=== PATIENT | male | born 1960 | race Caucasian/White ===

== ENCOUNTER → 2018-02-03 | Day surgery (SDC) | payer SELFPAY ==
--- OUTSIDE RECORDS SUMMARY | 2018-02-03 09:24 | XMS REPORT | Clinical Summary ---
:1960 Author Organization [facility] Address [facility] [place] [address] Care Team Providers Name Role Phone Unavailable Primary Care Provider Unavailable Allergies No Known Allergies Current Medications Not on file Active Problems Not on file Encounters Date Type Specialty Care Team Description 12/22/2017 Emergency Emergency Medicine History of basal cell cancer (Primary Dx) after 02/02/2017 Social History Tobacco Use Types Packs/Day Years Used Date Never Assessed Sex Assigned at Date Recorded Not on file Last Filed Vital Signs Vital Sign Reading Time Taken Blood Pressure 163/82 12/22/2017 11:22 AM CDT Pulse 84 12/22/2017 11:22 AM CDT Temperature 36.8 C (98.2 F) 12/22/2017 11:22 AM CDT Respiratory Rate 20 12/22/2017 11:22 AM CDT Oxygen Saturation 100% 12/22/2017 11:22 AM CDT Inhaled Oxygen Concentration - - Weight - - Height - - Body Mass Index - - Plan of Treatment Health Maintenance Due Date Last Done Comments COLORECTAL CANCER SCRN ANNUAL (FIT/FOBT) AGE 50 TO 75 02/21/2010 Results Not on fileafter 02/02/2017
--- OUTSIDE RECORDS SUMMARY | 2018-02-03 09:24 | XMS REPORT ---
:1960 Author Organization [facility] Address [address] [place] [address] Dr. Bynum [address] [place] [address] Care Team Providers Name Role Phone Unavailable Unavailable Unavailable Problems This patient has no known problems. Allergies, Adverse Reactions, Alerts This patient has no known allergies or adverse reactions. Medications This patient has no known medications. Encounters Start End Encounter Admission Attending Care Care Encounter Date/Time Date/Time Type Type Clinicians Facility Department ID 2017-12-22 2017-12-22 Emergency [facility] [id number] 11:20:00 11:20:00
--- NOTE | 2018-02-03 12:19 | RAD REPORT ---
EXAM DESCRIPTION: US - Guided FNA Non Breast - 02/03/2018 10:52 am CLINICAL HISTORY: D48.5 COMPARISON: None. FINDINGS: Preoperative diagnosis: Left supraclavicular mass.. Post operative diagnosis: Same. Conscious Sedation: None Fluoroscopy time: None Contrast used: None Estimated blood loss: Minimal Specimens:4 x 18 gauge 1 cm core biopsies were obtained. The left supraclavicular region was prepped and draped in the usual sterile fashion. 1% lidocaine was infiltrated into the subcutaneous tissues for local anesthesia. Real time ultrasound scanning of the left supraclavicular region demonstrated a 2 x 1.4 cm hypoechoic mass. Under ultrasound guidance, us ing a 18-gauge, 6 cm long, 2 cm throw core biopsy gun, four specimens were obtained of this lesion an d sent to pathology for evaluation. There were no complications. IMPRESSION: Successful ultrasound-guided biopsy of left supraclavicular mass.
== END | disposition home or self-care (01) ==
LOC: FNA 09:21
PROVIDERS: ATTEND Surgery
PROC: 07D23ZX Extraction of Left Neck Lymphatic, Percutaneous Approach, Diagnostic (ICD-10-PCS; principal; 2018-02-03)
DX: C44.41 Basal cell carcinoma of skin of scalp and neck (principal)
CPT/HCPCS: 88305

== ENCOUNTER 2019-11-09 14:24 | Emergency (ER) | payer OTHER, SELFPAY ==
--- OUTSIDE RECORDS SUMMARY | 2019-11-09 14:26 | XMS REPORT ---
:1960 Author Organization [facility] Address [address] [place] [address] Dr. Bynum [address] [place] [address] Care Team Providers Name Role Phone Unavailable Unavailable Unavailable Problems This patient has no known problems. Allergies, Adverse Reactions, Alerts This patient has no known allergies or adverse reactions. Medications This patient has no known medications. Encounters Start End Encounter Admission Attending Care Care Encounter Date/Time Date/Time Type Type Clinicians Facility Department ID 2017-12-22 2017-12-22 Emergency [facility] [id number] 11:20:00 11:20:00
[2019-11-09] MEDS ORDERED: NA CHLORIDE 0.9% 2,000 ML ONE (15:06)
[2019-11-09] MEDS ORDERED: ONDANSETRON 4 MG/2 ML VIAL ONE (15:06)
[2019-11-09 15:24] LABS: Absolute Lymphocytes (CBC) 1.3 K/uL (0.7-4.9); Basophils % 0.2 % (0-1.3); Hematocrit 42.7 % (39.6-49.0); Lymphocytes % 22.5 % (15.3-44.8); MPV 7.7 fL (7.6-11.3); RBC Red Blood Cell Count 4.86 M/uL (4.33-5.43)
--- NOTE | 2019-11-09 15:33 | RAD REPORT ---
EXAM DESCRIPTION: RAD - Chest Single View - 11/09/2019 3:21 pm CLINICAL HISTORY: hypotension Chest pain. COMPARISON: Rad Therapy Fld Place Chest dated 03/03/2018 FINDINGS: Portable technique limits examination quality. Elevated left hemidiaphragm is noted. The lungs are grossly clear. The heart is upper limit normal in size. No displaced fractures.
[2019-11-09 15:37] LABS: ALT/SGPT 87 U/L (12-78); AST/SGOT 97 U/L (15-37); Albumin 3.1 g/dL (3.4-5.0); Alkaline Phosphatase 89 U/L (45-117); BUN Blood Urea Nitrogen 13 mg/dL (7-18); Bicarbonate 24 mmol/L (21-32); Bilirubin Direct 0.6 mg/dL (0-0.2); Bilirubin Total 1.2 mg/dL (0.2-1.0); Glucose Level 81 mg/dL (74-106); Lipase 96 U/L (73-393); Potassium 4.4 mmol/L (3.5-5.1); Protein, Total 7.8 g/dL (6.4-8.2); Sodium Level 138 mmol/L (136-145); Troponin (Emerg Dept Use Only) < 0.02 ng/mL (0.0-0.045)
--- NOTE | 2019-11-09 16:07 | RAD REPORT ---
EXAM DESCRIPTION: CTAbdomen Pelvis W Contrast - 11/09/2019 3:55 pm CLINICAL HISTORY: Abdominal pain. abd pain, vomiting, chemo patient COMPARISON: Chest Single View dated 11/09/2019; Liver Only dated 11/05/2019; Ct Skull/Thigh dated 2018 TECHNIQUE: Biphasic CT imaging of the abdomen and pelvis was performed with 100 ml non-ionic IV cont rast. All CT scans are performed using dose optimization technique as appropriate and may include automated exposure control or mA/KV adjustment according to patient size. FINDINGS: The lung bases are clear. Mild nonspecific gallbladder distension. The liver, spleen, pancreas, adrenal glands and kidneys are within normal limits. No bowel obstruction, free air, free fluid or abscess. The appendix is normal. No evidence of signi ficant lymphadenopathy. No suspicious bony findings. IMPRESSION: No acute intra-abdominal or pelvic finding.
--- NOTE | 2019-11-09 17:05 | ER ---
Nurse's Notes [facility] Name: Patrick Sweeney Age: 59 yrs Sex: Male : 1960 Arrival Date: 11/09/2019 Time: 14:25 Bed 23 Private MD: Diagnosis: Dehydration;Hypotension, unspecified Presentation: 11/08 14:37 Chief complaint: Patient states: chemo patient seen at wound healing center for wound dm5 on left upper scapula, found to be hypotensive, weak and fatigued. Coronavirus screen: The patient has NOT traveled to a country currently being monitored by the [facility] within the last 14 days. The patient has NOT had contact with any known and/or suspected case of coronavirus. Ebola Screen: Patient negative for fever greater than or equal to 101.5 degrees Fahrenheit, and additional compatible Ebola Virus Disease symptoms Patient denies exposure to infectious person. Patient denies travel to an Ebola-affected area in the 21 days before illness onset. No symptoms or risks identified at this time. Initial Sepsis Screen: Does the patient meet any 2 criteria? Systolic BP < 90 mmHg. HR > 90 bpm. Yes Does the patient have a suspected source of infection? Yes: Other: immunocompromised, chemo patient with wound to left scapula. Risk Assessment: Do you want to hurt yourself or someone else? Patient reports no desire to harm self or others. Note pt also reports some stomach "churning", vomiting yesterday. 14:37 Method Of Arrival: Wheelchair dm5 14:37 Acuity: RONNIE 2 dm5 16:32 Onset of symptoms was November 07, 2019. ll1 Historical: - Allergies: 16:35 NKDA; ll1 - PMHx: 16:35 basil cell carcinoma; ll1 - Immunization history:: Adult Immunizations up to date. - Family history:: not pertinent. - Social history:: Smoking status: Patient denies any tobacco usage or history of. Patient/guardian denies using alcohol, street drugs, tobacco products. - Hospitalizations: : No recent hospitalization is reported. Screenin:49 Abuse screen: Denies threats or abuse. Nutritional screening: Has had N/V for 3 or more ll1 days Intervention for positive screen: ED Physician notified, chemo patient. Tuberculosis screening: No symptoms or risk factors identified. Fall Risk Secondary diagnosis (15 points) weak dehydration. IV access (20 points). Gait- Weak (10 pts.). Mental Status- Oriented to own ability (0 pts). Total Botello Fall Scale indicates High Risk Score (45 or more points). 14:50 Sepsis Screening: SIRS - Systemic Inflammatory Response Syndrome: 2 or more indicates ll1 positive screen: [heart rate greater than 90 beats per minute]. Assessment: 14:49 General: Appears ill, Behavior is calm, cooperative. ll1 15:49 Reassessment: No changes from previously documented assessment. Patient and/or family ll1 updated on plan of care and expected duration. Pain level reassessed. Patient is alert, oriented x 3, equal unlabored respirations, skin warm/dry/pink. 16:30 Pain: Denies pain. Neuro: No deficits noted. Cardiovascular: No deficits noted. ll1 Respiratory: No deficits noted. GI: Abdomen is flat, Bowel sounds present X 4 quads. Abd is soft and non tender X 4 quads. Reports nausea, vomiting. 17:30 Reassessment: No changes from previously documented assessment. Patient and/or family ll1 updated on plan of care and expected duration. Pain level reassessed. Patient is alert, oriented x 3, equal unlabored respirations, skin warm/dry/pink. Feels better. Vital Signs: 14:37 BP 80 / 63; Pulse 113; Resp 20; Temp 99(TE); Pulse Ox 100% on R/A; Weight 91.17 kg (R); dm5 Height 5 ft. 11 in. (180.34 cm); Pain 6/10; 15:29 BP 111 / 75; Pulse 92; Resp 17; Pulse Ox 99% ; ll1 16:30 BP 121 / 72; Pulse 90; Resp 17; Pulse Ox 96% ; ll1 17:06 Pulse 91; Resp 16; Pulse Ox 99% ; ll1 17:28 BP 127 / 75; Pulse 100; Resp 16; Temp 98.0; Pulse Ox 99% ; Pain 0/10; ll1 14:37 Body Mass Index 28.03 (91.17 kg, 180.34 cm) dm5 Vitals: 15:29 Cardiac Rhythm Assessment Sinus tach. ll1 ED Course: 14:25 Patient arrived in ED. ag5 14:40 Triage completed. dm5 14:43 Familia Coleman MD is Attending Physician. rn 14:45 Dimitrios, Lynsay, RN is Primary Nurse. ll1 15:00 Inserted saline lock: 20 gauge in left antecubital area, using aseptic technique. Blood ll1 collected. 15:06 Radiology exam delayed due to lab results not completed at this time. (BUN/Creatinine). vm2 15:27 Chest Single View XRAY In Process Unspecified. EDMS 15:57 CT Abd/Pelvis - IV Contrast Only In Process Unspecified. EDMS 16:32 Arm band placed on Patient placed in an exam room. ll1 16:33 Patient has correct armband on for positive identification. Placed in gown. Bed in low ll1 position. Call light in reach. Side rails up X2. Warm blanket given. 17:29 No provider procedures requiring assistance completed. IV discontinued, intact, ll1 bleeding controlled, No redness/swelling at site. Pressure dressing applied. Administered Medications: 15:08 Drug: Zofran (Ondansetron) 4 mg Route: IVP; Site: left antecubital; ll1 17:10 Follow up: Response: No adverse reaction; Nausea is decreased; RASS: Alert and Calm (0) 15:09 Drug: NS 0.9% 1000 ml Route: IV; Rate: 1000 ml; Site: left antecubital; ll1 17:10 Follow up: Response: No adverse reaction; RASS: Alert and Calm (0); IV Status: ss Completed infusion 15:09 Drug: NS 0.9% 1000 ml Route: IV; Rate: 1000 ml; Site: left antecubital; ll1 17:11 Follow up: Response: No adverse reaction; RASS: Alert and Calm (0); IV Status: ss Completed infusion Outcome: 17:05 Discharge ordered by . rn 17:31 Discharged to home ambulatory. ll1 17:31 Condition: good 17:31 Discharge instructions given to patient, Instructed on discharge instructions, follow up and referral plans. medication usage, Demonstrated understanding of instructions, follow-up care, medications, Prescriptions given X 1. 17:31 Patient left the ED. ll1 Signatures: Dispatcher [employer] EDIA Destiny Lackey RN RN dm5 Familia Coleman MD MD rn Smirch, Shelby, RN RN Erin Martinez [facility] Frederic Plunkett, EVAN RN 1
--- NOTE | 2019-11-09 17:06 | EDPHYS ---
Physician Documentation [facility] Name: Patrick Sweeney Age: 59 yrs Sex: Male : 1960 Arrival Date: 11/09/2019 Time: 14:25 Bed 23 Private MD: ED Physician Familia Coleman HPI: 11/08 14:54 This 59 yrs old Male presents to ER via Wheelchair with complaints of rn Dehydration - hypotension. 14:[address] Mcneal for evaluation of low blood pressure and tachycardia, has known rn basal cell carcinoma, last chemo last week, reports wound looks better than before, and most recently has been feeling increased weakness/fatigue/nausea. No fever. NO new rash. No chest pain. Reports has not been eating/drinking much, seen at cancer center yesterday and given IV fluids. . Onset: The symptoms/episode began/occurred 3 week(s) ago. Severity of symptoms: At their worst the symptoms were moderate in the emergency department the symptoms are unchanged. The patient has experienced similar episodes in the past. The patient has been recently seen by a physician:. Historical: - Allergies: 16:35 NKDA; ll1 - PMHx: 16:35 basil cell carcinoma; ll1 - Immunization history:: Adult Immunizations up to date. - Family history:: not pertinent. - Social history:: Smoking status: Patient denies any tobacco usage or history of. Patient/guardian denies using alcohol, street drugs, tobacco products. - Hospitalizations: : No recent hospitalization is reported. ROS: 14:54 Constitutional: Negative for fever, chills Eyes: Negative for injury, pain, redness, rn and discharge, Cardiovascular: Negative for chest pain, palpitations Respiratory: Negative for wheezing, and pleuritic chest pain, Abdomen/GI: Negative for diarrhea, and constipation, : Negative for injury, bleeding, discharge, and swelling, MS/Extremity: Negative for injury and deformity, Skin: Negative for injury Neuro: Negative for headache, numbness, tingling, and seizure. Exam: 14:54 Constitutional: This is a well developed, well nourished patient who is awake, alert, rn appears generally weak Head/Face: Normocephalic, atraumatic. ENT: dry MM Cardiovascular: Tachycardic, regular, intact distal pulses Respiratory: Mild tachypnea, no retractions Abdomen/GI: soft, mild mid abd tenderness, no rebound MS/ Extremity: Pulses equal, no cyanosis. Neurovascular intact. Full, normal range of motion. Equal circumference. Neuro: Awake and alert, GCS 15, oriented to person, place, time, and situation. Cranial nerves II-XII grossly intact. Motor strength 4/5 in all extremities. Sensory grossly intact 14:54 ECG was reviewed by the Attending Physician. Vital Signs: 14:37 BP 80 / 63; Pulse 113; Resp 20; Temp 99(TE); Pulse Ox 100% on R/A; Weight 91.17 kg (R); dm5 Height 5 ft. 11 in. (180.34 cm); Pain 6/10; 15:29 BP 111 / 75; Pulse 92; Resp 17; Pulse Ox 99% ; ll1 16:30 BP 121 / 72; Pulse 90; Resp 17; Pulse Ox 96% ; ll1 17:06 Pulse 91; Resp 16; Pulse Ox 99% ; ll1 17:28 BP 127 / 75; Pulse 100; Resp 16; Temp 98.0; Pulse Ox 99% ; Pain 0/10; ll1 14:37 Body Mass Index 28.03 (91.17 kg, 180.34 cm) dm5 MDM: 14:43 Patient medically screened. rn 16:20 Differential Diagnosis sepsis, flu, dehydration, abdominal infection. Data reviewed: rn vital signs, nurses notes, lab test result(s), EKG, radiologic studies, CT scan, plain films, and as a result, I will discharge patient. Counseling: I had a detailed discussion with the patient and/or guardian regarding: the historical points, exam findings, and any diagnostic results supporting the discharge/admit diagnosis, lab results, radiology results, the need for outpatient follow up, to return to the emergency department if symptoms worsen or persist or if there are any questions or concerns that arise at home. Response to treatment: the patient's symptoms have markedly improved after treatment, the patient's condition has returned to base line, the patient is now symptom free, patient is well hydrated. and as a result, I will discharge patient. Special discussion: I discussed with the patient/guardian in detail that at this point there is no indication for admission to the hospital. It is understood, however, that if the symptoms persist or worsen the patient needs to return immediately for re-evaluation. ED course: Pt markedly improved, normal BP after just a little fluid, neg procalcitonin, normal lactate, no acute findings in cxr or ct abdomen, most likely moderate dehydration related to chemo/cancer. states wound looks good and no new skin changes found. Will dc home as feels much better, and back to his baseline. Normal vitals. Will f/u with oncology and return precautions given/understood. . 17:04 ED course: Urine neg for infection. rn 11/08 14:51 Order name: CBC with Diff; Complete Time: 15:57 rn 11/08 14:51 Order name: Basic Metabolic Panel; Complete Time: 15:57 rn 11/08 14:51 Order name: Blood Culture Adult (2) rn 11/08 14:51 Order name: Lactate; Complete Time: 15:57 rn 11/08 14:51 Order name: LFT's; Complete Time: 15:57 rn 11/08 14:51 Order name: Lipase; Complete Time: 15:57 rn 11/08 14:51 Order name: Procalcitonin; Complete Time: 16:16 rn 11/08 14:51 Order name: Troponin (emerg Dept Use Only); Complete Time: 15:57 rn 11/08 14:51 Order name: Urine Microscopic Only rn 11/08 14:51 Order name: Chest Single View XRAY; Complete Time: 16:16 rn 11/08 14:51 Order name: CT Abd/Pelvis - IV Contrast Only; Complete Time: 16:47 rn 11/08 14:53 Order name: Flu; Complete Time: 16:16 rn 11/08 14:51 Order name: IV Start; Complete Time: 23: rn 11/08 14:51 Order name: Accucheck; Complete Time: 23: rn 11/08 14:51 Order name: Cardiac monitoring; Complete Time: 23: rn 11/08 14:51 Order name: EKG - Nurse/Tech; Complete Time: 15:18 rn 11/08 14:51 Order name: IV Saline Lock - Large Bore; Complete Time: 23: rn 11/08 14:51 Order name: Labs collected and sent; Complete Time: 15:18 rn 11/08 14:51 Order name: O2 Per Protocol; Complete Time: 23: rn 11/08 14:51 Order name: O2 Sat Monitoring; Complete Time: 23: rn 11/08 14:51 Order name: Urine Dipstick-Ancillary (obtain specimen); Complete Time: 23: rn 11/08 15:42 Order name: EKG Electrocardiogram EDDC EC:54 Rate is 102 beats/min. Rhythm is regular. QRS [place] is Normal. PA interval is normal. rn QRS interval is normal. QT interval is normal. No Q waves. T waves are Normal. No ST changes noted. Clinical impression: NSR w/ Non-specific ST/T Changes. Interpreted by me. Reviewed by me. Administered Medications: 15:08 Drug: Zofran (Ondansetron) 4 mg Route: IVP; Site: left antecubital; ll1 17:10 Follow up: Response: No adverse reaction; Nausea is decreased; RASS: Alert and Calm (0) ss 15:09 Drug: NS 0.9% 1000 ml Route: IV; Rate: 1000 ml; Site: left antecubital; ll1 17:10 Follow up: Response: No adverse reaction; RASS: Alert and Calm (0); IV Status: ss Completed infusion 15:09 Drug: NS 0.9% 1000 ml Route: IV; Rate: 1000 ml; Site: left antecubital; ll1 17:11 Follow up: Response: No adverse reaction; RASS: Alert and Calm (0); IV Status: ss Completed infusion Disposition: 11/09/19 17:05 Discharged to Home. Impression: Dehydration, Hypotension, unspecified. - Condition is Stable. - Discharge Instructions: Dehydration, Adult, Hypotension. - Prescriptions for Zofran ODT 4 mg Oral tablet,disintegrating - place 1 tablet by TRANSLINGUAL route every 8 hours; 20 tablet. - Medication Reconciliation Form, Thank You Letter, Antibiotic Education, Prescription Opioid Use form. - Follow up: Private Physician; When: As needed; Reason: Recheck today's complaints, Re-evaluation by your physician. - Problem is new. - Symptoms have improved. Signatures: Dispatcher [employer] EDMS Familia Coleman MD MD rn Lewis, Lynsay, RN RN ll1 Yojana Baca RN Corrections: (The following items were deleted from the chart) 17:31 17:05 11/09/2019 17:05 Discharged to Home. Impression: Dehydration; Hypotension, ll1 unspecified. Condition is Stable. Forms are Medication Reconciliation Form, Thank You Letter, Antibiotic Education, Prescription Opioid Use. Follow up: Private Physician; When: As needed; Reason: Recheck today's complaints, Re-evaluation by your physician. Problem is new. Symptoms have improved. rn
[2019-11-09 17:29] LABS: Urine Amorphous Sediment TRACE /HPF (NONE SEEN); Urine Bacteria <20 /HPF (NONE SEEN); Urine Culture Reflex Order NOT NEEDED; Urine Mucus SLIGHT /HPF (NONE SEEN); Urine RBC <5 /HPF (NONE SEEN)
[2019-11-09 17:43] VITALS: O2SAT 99
[2019-11-09 17:45] VITALS: BP 127/75; TEMP 98
--- NOTE | 2019-11-10 09:28 | EKG ---
Test Date: 2019-11-09 Test Time: 15:00:52 Physical Security Specialist: VIOLET MEASUREMENT RESULTS: Intervals: Rate: 102 FL: 162 QRSD: 84 QT: 352 QTc: 458 [place]: P: 77 FL: 162 QRS: 47 T: 50 INTERPRETIVE STATEMENTS: Sinus tachycardia Low voltage QRS Borderline ECG No previous ECG available for comparison Electronically Signed On 11-10-19 09:27:16 CDT by Kenney Gutierres
== END 2019-11-09 17:31 | disposition home or self-care (01) ==
LOC: ER 14:24
DX: I95.9 Hypotension, unspecified (principal); E86.0 Dehydration
CPT/HCPCS: 96361; 93005; 87040 ×2; 85025; 80048; 36415; 80076; 83605; 81015; 84484; 83690; 84145; 87804 ×2; 74177; 71045; 96374; 99284; Q9967; J7030; J2405

== ENCOUNTER 2019-12-10 07:56 | Day surgery (SDC) | payer OTHER, SELFPAY ==
--- OUTSIDE RECORDS SUMMARY | 2019-12-10 07:59 | XMS REPORT ---
:1960 Author Organization [facility] t Address [address] [place] [address] Dr. B[address]um [address] [place] [id number] Care Team Providers Name Role Phone Unavailable Unavailable Unavailable Problems This patient has no known problems. Allergies, Adverse Reactions, Alerts This patient has no known allergies or adverse reactions. Medications This patient has no known medications. Encounters Start End Encounter Admission Attending Care Care Encounter Date/Time Date/Time Type Type Clinicians Facility Department ID 2017-12-22 2017-12-22 Emergency [facility] [id number] 11:20:00 11:20:00
[2019-12-10] MEDS ORDERED: PROMETHAZINE INJ 25 MG/ML AMP ONE (08:05)
[2019-12-10] MEDS ORDERED: CEFOXITIN/SWI 1gm 1 GM/10 ML SYR ONE (08:05)
[2019-12-10] MEDS ORDERED: Ringers Lactate 1,000 ML IV ONE ×2 (08:05→09:07)
[2019-12-10] MEDS ORDERED: BUPIVACAINE 0.5% PF 10 ML VIAL ONE (08:13)
[2019-12-10] MEDS ORDERED: FENTANYL CITR 100 MCG/2 ML ONE (08:28)
[2019-12-10] MEDS ORDERED: propofoL 200 MG/20 ML VIAL IV ONE (08:29)
[2019-12-10] MEDS ORDERED: ROCURONIUM 50 MG/5 ML VIAL IV ONE (08:29)
[2019-12-10] MEDS ORDERED: LIDOCAINE 1% MPF 5 ML VIAL ONE (08:30)
[2019-12-10] MEDS ORDERED: MIDAZOLAM HCL 2 MG/2 ML INJ ONE (08:30)
[2019-12-10] MEDS ORDERED: Phenylephrine HCl 10 MG/ML 1 ML VIAL ONE (08:57)
[2019-12-10] MEDS ORDERED: NS 0.9% VIAL 10 ML ONE (08:57)
[2019-12-10] MEDS ORDERED: dexAMETHasone 10 MG/ML VIAL ONE (09:06)
[2019-12-10] MEDS ORDERED: KETOROLAC 30 MG/ML INJ ONE (09:14)
[2019-12-10] MEDS ORDERED: GLYCOPYRROLATE 0.2 MG/ML SYR ONE (09:22)
[2019-12-10] MEDS ORDERED: ONDANSETRON 4 MG/2 ML VIAL ONE (09:22)
[2019-12-10] MEDS ORDERED: NEOSTIGMINE 1 MG/ML -5 ML ONE (09:41)
--- NOTE | 2019-12-10 10:12 | OP ---
Date of Procedure: 12/10/2019 Surgeon: Guanako Mcneal MD Research Specialist: JOVAN Pastor Preoperative Diagnosis: Chronic cholecystitis and cholelithiasis. Postoperative Diagnosis: Chronic cholecystitis and cholelithiasis. Procedure: Laparoscopic cholecystectomy. Estimated Blood Loss: Minimal. Specimen: Gallbladder. Finding: As above. Anesthesia: General. Complications: None. Patient tolerated the procedure in stable condition, taken to Recovery in good general condition. Operative Note: Patient brought to the OR and placed in supine position. General anesthesia was beg un. Patient was prepped and draped in the usual sterile fashion. Marcaine 0.5% was infiltrated loca lly. A 15-blade was used to make a 1 cm supraumbilical midline incision. Subcutaneous tissue was di vided. Fascia was identified and divided. #1 Vicryl stay suture was placed. Peritoneal cavity ente red with sharp and blunt dissection. 12 mm trocar placed into the peritoneal cavity under direct vis ion. Pneumoperitoneum established. Three 5 mm trocars were placed, 1 in the epigastrium just to the right of midline and 2 in the right subcostal region. Laparoscopy revealed a distended chronically inflamed gallbladder. Fundus retracted superiorly. Infundibulum was identified and retracted infero laterally. Cystic duct and cystic artery were clearly identified with blunt dissection. Clips place d. Both structures were divided. Cautery was used to remove the gallbladder from the liver bed. Bl eeding on the liver bed was controlled with cautery. The gallbladder was retrieved through the umbil icus via an EndoCatch bag. Right upper quadrant irrigated. Effluent clear. No evidence of bleeding or bile leakage appreciated. Subsequently, all trocars were removed under direct vision. Stay sutu res were tied to each other to reapproximate the fascial defect. Subcutaneous wounds were irrigated. Bleeding controlled with cautery. 3-0 chromic used to approximate the subcutaneous tissue and clos e the skin. Sterile dressing was applied. Patient was awakened and taken to Recovery in good genera l condition. Discharge Note: Patient went to Day Surgery and home when stable. Disposition: Home. Condition: Stable. Discharge Instructions: Resume home medications and diet. Activity as tolerated. No heavy lifting. Remove outer dressing in 2 days. Shower. Keep wound clean and dry. Keep Steri-Strips on at all t imes. Incentive spirometry is ordered. [facility] up with [facility]. PATTIE/VANESSA Voice ID: [id number] Report ID: [id number]
[2019-12-10 11:55] VITALS: BP 120/75; TEMP 97.8; O2SAT 99
[2019-12-10] MEDS ORDERED: HYDROCODONE/APAP 7.5/325 MG TAB ONE (12:03)
== END 2019-12-10 13:10 | disposition home or self-care (01) ==
LOC: OR 07:56
PROVIDERS: ATTEND Surgery
PROC: 0FT44ZZ Resection of Gallbladder, Percutaneous Endoscopic Approach (ICD-10-PCS; principal; 2019-12-10 09:00)
DX: K80.10 Calculus of gallbladder with chronic cholecystitis without obstruction (principal); C44.91 Basal cell carcinoma of skin, unspecified
CPT/HCPCS: 88304; 47562; J2704; J2550; J2370; J2250; J3010; J1100; J2710; J7120 ×2; J2405

== ENCOUNTER 2019-12-19 12:51 | Observation (INO) | payer OTHER, SELFPAY ==
--- OUTSIDE RECORDS SUMMARY | 2019-12-19 12:53 | XMS REPORT ---
:1960 Author Organization [facility] t Address [address] [place] [address] Dr. Bynum [address] [place] [address] Care Team Providers Name Role Phone Unavailable Unavailable Unavailable Problems This patient has no known problems. Allergies, Adverse Reactions, Alerts This patient has no known allergies or adverse reactions. Medications This patient has no known medications. Encounters Start End Encounter Admission Attending Care Care Encounter Date/Time Date/Time Type Type Clinicians Facility Department ID 2017-12-22 2017-12-22 Emergency [facility] [id number] 11:20:00 11:20:00
[2019-12-19] MEDS ORDERED: NA CHLORIDE 0.9% 1,000 ML ONE ×2 (13:52→15:04)
[2019-12-19 13:57] LABS: Absolute Lymphocytes (CBC) 2.2 K/uL (0.7-4.9); Basophils % 0.3 % (0-1.3); Hematocrit 46.7 % (39.6-49.0); Lymphocytes % 20.9 % (15.3-44.8); MPV 7.9 fL (7.6-11.3); Protime INR 1.26; RBC Red Blood Cell Count 5.21 M/uL (4.33-5.43)
[2019-12-19 15:12] LABS: Urine Blood NEGATIVE (NEG); Urine Glucose NEGATIVE (NEG); Urine Protein NEGATIVE (NEG); Urine Specific Gravity >1.030 (1.005-1.030); Urine pH 5.5 (5.0-7.0)
[2019-12-19 15:15] LABS: Urine Bacteria <20 /HPF (NONE SEEN); Urine RBC <5 /HPF (NONE SEEN)
[2019-12-19 15:16] LABS: Urine Culture Reflex Order NOT NEEDED
[2019-12-19] MEDS ORDERED: PROMETHAZINE INJ 25 MG/ML AMP ONE (16:01)
[2019-12-19 16:13] LABS: Albumin 3.2 g/dL (3.4-5.0); Bilirubin Direct 0.6 mg/dL (0-0.2); Bilirubin Total 1.3 mg/dL (0.2-1.0); Magnesium 1.8 mg/dL (1.8-2.4); Phosphorus 4.1 mg/dL (2.5-4.9); Potassium 4.3 mmol/L (3.5-5.1); Protein, Total 9.4 g/dL (6.4-8.2)
--- NOTE | 2019-12-19 17:13 | RAD REPORT ---
EXAM DESCRIPTION: CT - Abdomen Pelvis W Contrast - 12/19/2019 4:49 pm CLINICAL HISTORY: Vomiting, abdominal pain, weakness, suprapubic pain, prior cholecystectomy, histor y of chemotherapy for skin cancer COMPARISON: Abdomen Pelvis W Contrast dated 11/09/2019 TECHNIQUE: Biphasic, helical CT imaging of the abdomen and pelvis was performed following 100 ml non -ionic IV contrast. No oral contrast administered. All CT scans are performed using dose optimization technique as appropriate and may include automated exposure control or mA/KV adjustment according to patient size. FINDINGS: No suspicious findings in the lung bases. The liver, spleen, and pancreas show no suspicious findings. Cholecystectomy clips are present. No bi liary tree dilatation. No hematoma, mass or other focal abnormality at the gallbladder fossa. No rosalio phyllis or suspicion for bile leak. Symmetric renal function is seen with no hydronephrosis or suspicious renal mass. No pyelonephritis o r acute parenchymal process. No bladder abnormalities. No adrenal abnormalities. Fluid is present in a nondilated stomach. No gastric wall thickening or mass. No dilated large or sma ll bowel loops. No acute GI process identifiable. A clip is present in the posterior left pelvic floo r likely related to the recent cholecystectomy. No free air, free fluid or inflammatory stranding. N o hernia, mass or bulky lymphadenopathy. No abdominal wall hematoma or suspicious finding. Minimal st randing in the periumbilical region not unexpected given the recent surgery. No suspicious finding in the subcutaneous fat. No suspicious bony findings. Disc and bony degenerative changes are present relatively prominent for age. IMPRESSION: Patient is recently status post cholecystectomy. Biliary tree is not abnormally dilated and there is no biloma, abscess or other postsurgical complication. As detailed above, no acute abdominal or pelvic findings identifiable.
[2019-12-19] MEDS ORDERED: Ringers Lactate 1,000 ML IV ONE (17:15)
--- NOTE | 2019-12-19 17:28 | ER ---
Nurse's Notes [facility] Name: Patrick Sweeney Age: 59 yrs Sex: Male : 1960 Arrival Date: 12/19/2019 Time: 12:53 Bed 4 Private MD: Alma Lamas Diagnosis: Dehydration;Weakness Presentation: 12/18 13:06 Chief complaint: Patient states: N/V x 3 days. Complains for body weakness for the past ca1 few days. Reports suprapubic pain. Denies diarrhea. Pt is a Skin Ca pt undergoing chemotherapy, last session was about a month ago. Pt reports he had a cholecystectomy on Friday last week. Coronavirus screen: Proceed with normal triage. Patient denies a cough. Patient denies shortness of breath or difficulty breathing. Patient denies measured and/or subjective temperature greater than 100.4F prior to today's visit. Patient denies travel on a cruise ship or to a country the [facility] currently lists as an affected area. Patient denies contact with known and/or suspected case of COVID-19. Ebola Screen: Patient negative for fever greater than or equal to 101.5 degrees Fahrenheit, and additional compatible Ebola Virus Disease symptoms Patient denies exposure to infectious person. Patient denies travel to an Ebola-affected area in the 21 days before illness onset. No symptoms or risks identified at this time. Initial Sepsis Screen: Does the patient meet any 2 criteria? No. Patient's initial sepsis screen is negative. Does the patient have a suspected source of infection? No. Patient's initial sepsis screen is negative. Risk Assessment: Do you want to hurt yourself or someone else? Patient reports no desire to harm self or others. Onset of symptoms was December 19, 2019. 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 - Social history:: Smoking status: Patient denies any tobacco usage or history of. Screenin:11 Abuse screen: Denies threats or abuse. Denies injuries from another. Nutritional ca1 screening: No deficits noted. Tuberculosis screening: No symptoms or risk factors identified. Fall Risk IV access (20 points). Gait- Weak (10 pts.). Total Botello Fall Scale indicates Low Risk Score (25-44 pts). Fall prevention measures have been instituted. Side Rails Up X 2 As available Patient and Family Educated on Fall Prevention Program and strategies. Assessment: 13:05 General: Appears in no apparent distress. comfortable, ill, slender, Behavior is calm, ca1 cooperative, appropriate for age. General: Reports fatigue for >3 days. Pain: Complains of pain in suprapubic area Pain currently is 5 out of 10 on a pain scale. Neuro: Level of Consciousness is awake, alert, obeys commands, Oriented to person, place, time, situation. Cardiovascular: Heart tones S1 S2 present Capillary refill < 3 seconds Patient's skin is warm and dry. Rhythm is sinus tachycardia. Respiratory: Airway is patent Respiratory effort is even, unlabored, Respiratory pattern is regular, symmetrical, Breath sounds are clear bilaterally. GI: Abdomen is flat, non-distended, Bowel sounds present X 4 quads. Abd is soft X 4 quads Abdomen is tender to palpation in suprapubic area Reports nausea, vomiting, since 3 days. : No signs and/or symptoms were reported regarding the genitourinary system. EENT: No signs and/or symptoms were reported regarding the EENT system. Derm: Skin is intact, is healthy with good turgor, Skin is pale. Musculoskeletal: Circulation, motion, and sensation intact. Capillary refill is > 3 seconds. 13:52 Reassessment: Patient appears in no apparent distress at this time. No changes from ca1 previously documented assessment. Patient and/or family updated on plan of care and expected duration. Pain level reassessed. 14:33 Reassessment: Patient appears in no apparent distress at this time. Patient and/or ca1 family updated on plan of care and expected duration. Pain level reassessed. Patient is alert, oriented x 3, equal unlabored respirations, skin warm/dry/pink. Followed up on urine. Pt refused at this time. 15:45 Reassessment: Patient appears in no apparent distress at this time. Patient and/or ca1 family updated on plan of care and expected duration. Pain level reassessed. Patient is alert, oriented x 3, equal unlabored respirations, skin warm/dry/pink. 15:53 Reassessment: [phone] Frieda pt's sister. ca1 16:30 Reassessment: Patient appears in no apparent distress at this time. Patient and/or ca1 family updated on plan of care and expected duration. Pain level reassessed. Patient is alert, oriented x 3, equal unlabored respirations, skin warm/dry/pink. 17:43 Reassessment: Patient appears in no apparent distress at this time. Patient and/or ca1 family updated on plan of care and expected duration. Pain level reassessed. Patient is alert, oriented x 3, equal unlabored respirations, skin warm/dry/pink. 18:29 Reassessment: Patient appears in no apparent distress at this time. Patient and/or ca1 family updated on plan of care and expected duration. Pain level reassessed. Patient is alert, oriented x 3, equal unlabored respirations, skin warm/dry/pink. Patient is alert/active/playful, equal unlabored respirations, skin warm/dry/pink. Hospitalist at bedside. 19:15 Reassessment: Patient appears in no apparent distress at this time. Patient and/or ca1 family updated on plan of care and expected duration. Pain level reassessed. Patient is alert, oriented x 3, equal unlabored respirations, skin warm/dry/pink. Called for report. Nurse will call back. Vital Signs: 13:06 BP 115 / 78; Pulse 119; Resp 20 S; Temp 97.7(TE); Pulse Ox 100% on R/A; Weight 83.46 kg ca1 (R); Height 5 ft. 11 in. (180.34 cm) (R); 13:52 BP 109 / 85; Pulse 113; Resp 20; Pulse Ox 100% on R/A; ca1 14:33 BP 115 / 82; Pulse 116; Resp 20 S; Pulse Ox 100% on R/A; ca1 15:09 BP 112 / 77; Pulse 121; Resp 19 S; Pulse Ox 100% on R/A; ca1 15:44 BP 117 / 70; Pulse 105; Resp 22; Pulse Ox 100% ; jl7 16:30 BP 116 / 73; Pulse 116; Resp 23; Pulse Ox 100% on R/A; ca1 17:30 BP 117 / 77; Pulse 113; Resp 22 S; Pulse Ox 100% on R/A; ca1 18:18 BP 114 / 74; Pulse 112; Resp 19 S; Pulse Ox 100% on R/A; ca1 19:09 BP 116 / 74; Pulse 114; Resp 18; Temp 97.8; Pulse Ox 100% on R/A; mg2 13:06 Body Mass Index 25.66 (83.46 kg, 180.34 cm) ca1 ED Course: 12:53 Patient arrived in ED. ag5 12:53 Alma Lamas MD is Private Physician. ag5 12:55 Britt Moon, EVAN is Primary Nurse. ca1 13:06 [facility]ud[facility] Keyes [facility]-C [facility]. snw 13:06 Familia Coleman MD is Attending Physician. snw 13:09 Triage completed. ca1 13:10 Arm band placed on right wrist. ca1 13:11 Patient has correct armband on for positive identification. Placed in gown. Bed in low ca1 position. Call light in reach. Side rails up X2. disk recordist on. Pulse ox on. NIBP on. Warm blanket given. 13:17 Verbal reassurance given. jp3 13:17 EKG done, by ED staff, reviewed by Yudy APPIAH. Patient maintains SpO2 jp3 saturation greater than 95% on room air. 13:40 Inserted saline lock: 20 gauge in right antecubital area, using aseptic technique. ca1 ,using aseptic technique. by Surya systems mechanic Blood collected. 13:40 No provider procedures requiring assistance completed. ca1 13:47 First set of blood cultures drawn by ED staff. Initial lab(s) drawn, by ED staff, sent ca1 to lab. 14:35 Second set of blood cultures drawn by lab staff. jp3 14:40 Urine collected: clean catch specimen, clear, basim colored. jp3 14:45 Lab(s) recollected, by me. jp3 16:19 Notified Nurse Practitioner and/or Physician Special Education Math Teacher of a critical lab result(s), CO2 jl7 is 14. 16:49 CT Abd/Pelvis - IV Contrast Only In Process Unspecified. EDMS 17:27 Prince Carlson MD is Hospitalizing Provider. snw 18:03 Repeat lab(s) drawn. by ED staff, sent to lab. ca1 18:19 Patient admitted, IV remains in place. ca1 Administered Medications: 13:48 Drug: NS 0.9% 1000 ml Route: IV; Rate: 1 bolus; Site: right antecubital; ca1 14:50 Follow up: Response: No adverse reaction; IV Status: Completed infusion ca1 15:02 Drug: NS 0.9% 1000 ml Route: IV; Rate: 1 bolus; Site: right subclavian; ca1 15:58 Follow up: Response: No adverse reaction; IV Status: Completed infusion ca1 15:58 Drug: Phenergan 12.5 mg Route: IVP; Site: right antecubital; ca1 17:36 Follow up: Response: No adverse reaction; Nausea is decreased ca1 17:14 Drug: Lactated Ringers Solution 1000 ml Route: IV; Rate: 150 ml/hr; Site: right jl7 antecubital; 17:42 Follow up: IV Status: Infusion continued upon admission ca1 18:03 Drug: D5W 1000 ml, Sodium Bicarbonate 150 mEq Route: IV; Rate: 150 ml/hr; Site: right ca1 antecubital; 18:03 Follow up: IV Status: Infusion continued upon admission ca1 Outcome: 17:28 Decision to Hospitalize by Provider. snw 19:53 Admitted to Med/surg accompanied by tech, via stretcher, room 211, with chart, Report ca1 called to EVAN Jules 19:53 Condition: stable 19:53 Instructed on the need for admit. 20:04 Patient left the ED. bb Signatures: Dispatcher [employer] EDMS Yudy Keyes, TRAVEL SPECIALIST-C TRAVEL SPECIALIST-Csnw Rossi Chisholm RN RN bb Miranda Adrian RN RN jl7 Ryan Fitzgerald RN RN mg2 Dino Arellano jp3 Britt Moon RN RN ca1 Ben Del Rosario ag5 Corrections: (The following items were deleted from the chart) 13:12 13:06 BP 115 / 78; Pulse 119bpm; Resp 17bpm; Spontaneous; Pulse Ox 100% RA; Temp 97.7F ca1 Temporal; 83.46 kg Reported; Height 5 ft. 11 in. Reported; BMI: 25.6; ca1 13:54 13:05 Musculoskeletal: Circulation, motion, and sensation intact. Capillary refill < 3 ca1 seconds, ca1 13:55 13:52 Reassessment: Patient appears in no apparent distress at this time. No changes ca1 from previously documented assessment. Patient and/or family updated on plan of care and expected duration. Pain level reassessed. Patient is alert, oriented x 3, equal unlabored respirations, skin warm/dry/pink. ca1 17:36 16:55 Reassessment: Patient appears in no apparent distress at this time. Patient ca1 and/or family updated on plan of care and expected duration. Pain level reassessed. Patient is alert, oriented x 3, equal unlabored respirations, skin warm/dry/pink. ca1
--- NOTE | 2019-12-19 17:28 | EDPHYS ---
Physician Documentation [facility] Name: Patrick Sweeney Age: 59 yrs Sex: Male : 1960 Arrival Date: 12/19/2019 Time: 12:53 Bed 4 Private MD: Alma Lamas ED Physician Familia Coleman HPI: 12/18 14:22 This 59 yrs old Male presents to ER via Wheelchair with complaints of snw Weakness, Nausea/Vomiting, Decreased Appetite. 14:22 The patient presents to the emergency department with nausea, vomiting. Onset: The snw symptoms/episode began/occurred suddenly, 5 week(s) ago, and became persistent. Possible causes: unknown. The symptoms are aggravated by food . Associated signs and symptoms: Pertinent positives: fatigue. Severity of symptoms: At their worst the symptoms were moderate. The patient has experienced similar episodes in the past. s/p recent kassandra. 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 - Social history:: Smoking status: Patient denies any tobacco usage or history of. ROS: 14:21 Eyes: Negative for injury, pain, redness, and discharge, ENT: Negative for injury, snw pain, and discharge, Neck: Negative for injury, pain, and swelling, Cardiovascular: Negative for chest pain, palpitations, and edema, Respiratory: Negative for shortness of breath, cough, wheezing, and pleuritic chest pain. 14:21 Back: Negative for injury and pain, : Negative for injury, bleeding, discharge, and swelling, MS/Extremity: Negative for injury and deformity, Skin: Negative for injury, rash, and discoloration, Neuro: Negative for headache, weakness, numbness, tingling, and seizure, Psych: Negative for depression, anxiety, suicide ideation, homicidal ideation, and hallucinations. 14:21 Constitutional: Positive for body aches, malaise, poor PO intake. 14:21 Abdomen/GI: Positive for nausea, vomiting. Exam: 14:17 Head/Face: Normocephalic, atraumatic. Eyes: Pupils equal round and reactive to light, snw extra-ocular motions intact. Lids and lashes normal. Conjunctiva and sclera are non-icteric and not injected. Cornea within normal limits. Periorbital areas with no swelling, redness, or edema. ENT: Nares patent. No nasal discharge, no septal abnormalities noted. Tympanic membranes are normal and external auditory canals are clear. Oropharynx with no redness, swelling, or masses, exudates, or evidence of obstruction, uvula midline. Mucous membranes moist. Neck: Trachea midline, no thyromegaly or masses palpated, and no cervical lymphadenopathy. Supple, full range of motion without nuchal rigidity, or vertebral point tenderness. No Meningismus. Chest/axilla: Normal chest wall appearance and motion. Nontender with no deformity. No lesions are appreciated. 14:17 Respiratory: Lungs have equal breath sounds bilaterally, clear to auscultation and percussion. No rales, rhonchi or wheezes noted. No increased work of breathing, no retractions or nasal flaring. 14:17 Back: No spinal tenderness. No costovertebral tenderness. Full range of motion. 14:17 Constitutional: The patient appears awake, frail, listless, pale. 14:17 Cardiovascular: Rate: tachycardic, Rhythm: regular, Pulses: no pulse deficits are appreciated. 14:17 Abdomen/GI: Inspection: scar(s), are noted in the umbilical area and right upper quadrant, Bowel sounds: normal, Palpation: mild abdominal tenderness, in the suprapubic area. 14:17 Abdomen/GI: had cholecystectomy 9 days ago, no tenderness, fever, erythema to area of procedure. 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 Vital Signs: 13:06 BP 115 / 78; Pulse 119; Resp 20 S; Temp 97.7(TE); Pulse Ox 100% on R/A; Weight 83.46 kg ca1 (R); Height 5 ft. 11 in. (180.34 cm) (R); 13:52 BP 109 / 85; Pulse 113; Resp 20; Pulse Ox 100% on R/A; ca1 14:33 BP 115 / 82; Pulse 116; Resp 20 S; Pulse Ox 100% on R/A; ca1 15:09 BP 112 / 77; Pulse 121; Resp 19 S; Pulse Ox 100% on R/A; ca1 15:44 BP 117 / 70; Pulse 105; Resp 22; Pulse Ox 100% ; jl7 16:30 BP 116 / 73; Pulse 116; Resp 23; Pulse Ox 100% on R/A; ca1 17:30 BP 117 / 77; Pulse 113; Resp 22 S; Pulse Ox 100% on R/A; ca1 18:18 BP 114 / 74; Pulse 112; Resp 19 S; Pulse Ox 100% on R/A; ca1 19:09 BP 116 / 74; Pulse 114; Resp 18; Temp 97.8; Pulse Ox 100% on R/A; mg2 13:06 Body Mass Index 25.66 (83.46 kg, 180.34 cm) ca1 MDM: 13:07 Patient medically screened. snw 17:07 Data reviewed: vital signs, nurses notes. Data interpreted: Pulse oximetry: on room air snw is 100 %. Interpretation: normal. Counseling: I had a detailed discussion with the patient and/or guardian regarding: the historical points, exam findings, and any diagnostic results supporting the discharge/admit diagnosis, the need for further work-up and treatment in the hospital. Response to treatment: pt resting more comfortably however still appears very dry with tachycardia at 117 bpm on return from CT. ED course: awaiting CT for dispo admission location. 17:09 Post IV fluid administration reassessment for Sepsis: Heart: Regular rate/rhythm noted. snw Tachycardia noted. Lungs: Noted to be clear bilaterally. Capillary refill examination performed. Capillary refill noted to be < 2 seconds. Skin examination performed. Skin noted to be pale. Current vital signs reviewed: pt still appears quite dry post 2L NS. Will give LR at 150ml hr. 17:26 Physician consultation: Prince Robyn ARELLANO was called at 17:26, was contacted at 17:26, snw regarding admission, to the telemetry unit. 12/18 13:19 Order name: Urine Culture snw 12/18 13:19 Order name: Urine Microscopic Only; Complete Time: 15:20 snw 12/18 13:19 Order name: Basic Metabolic Panel; Complete Time: 16:18 snw 12/18 13:19 Order name: CBC with Diff; Complete Time: 14:12 snw 12/18 13:19 Order name: LFT's; Complete Time: 16:18 snw 12/18 13:19 Order name: Magnesium; Complete Time: 16:18 snw 12/18 13:19 Order name: PT-INR; Complete Time: 14:12 snw 12/18 13:19 Order name: Lactate; Complete Time: 15:48 snw 12/18 13:19 Order name: Procalcitonin; Complete Time: 14:24 snw 12/18 13:19 Order name: Phosphorus; Complete Time: 16:18 snw 12/18 13:19 Order name: Blood Culture Adult (2) snw 12/18 14:54 Order name: Urine Dipstick--Ancillary (enter results); Complete Time: 15:20 em1 12/18 16:19 Order name: CT Abd/Pelvis - IV Contrast Only; Complete Time: 17:18 snw 12/18 19:10 Order name: Lactate Sepsis 2 HR Follow-up EDUT 12/18 13:19 Order name: Urine Dipstick-Ancillary (obtain specimen); Complete Time: 14:54 snw 12/18 13:19 Order name: EKG; Complete Time: 13:19 snw 12/18 13:19 Order name: Cardiac monitoring; Complete Time: 13:45 snw 12/18 13:19 Order name: EKG - Nurse/Tech; Complete Time: 13:45 snw 12/18 13:19 Order name: IV Saline Lock; Complete Time: 13:45 snw 12/18 13:19 Order name: Labs collected and sent; Complete Time: 13:45 snw 12/18 13:19 Order name: O2 Per Protocol; Complete Time: 13:45 snw 12/18 13:19 Order name: O2 Sat Monitoring; Complete Time: 13:45 snw 12/18 17:20 Order name: Misc. Order: change LR rate to 100ml/hr; Complete Time: 17:23 snw Administered Medications: 13:48 Drug: NS 0.9% 1000 ml Route: IV; Rate: 1 bolus; Site: right antecubital; ca1 14:50 Follow up: Response: No adverse reaction; IV Status: Completed infusion ca1 15:02 Drug: NS 0.9% 1000 ml Route: IV; Rate: 1 bolus; Site: right subclavian; ca1 15:58 Follow up: Response: No adverse reaction; IV Status: Completed infusion ca1 15:58 Drug: Phenergan 12.5 mg Route: IVP; Site: right antecubital; ca1 17:36 Follow up: Response: No adverse reaction; Nausea is decreased ca1 17:14 Drug: Lactated Ringers Solution 1000 ml Route: IV; Rate: 150 ml/hr; Site: right jl7 antecubital; 17:42 Follow up: IV Status: Infusion continued upon admission ca1 18:03 Drug: D5W 1000 ml, Sodium Bicarbonate 150 mEq Route: IV; Rate: 150 ml/hr; Site: right ca1 antecubital; 18:03 Follow up: IV Status: Infusion continued upon admission ca1 Disposition: 12/19 07:27 Co-signature as Attending Physician, Familia Coleman MD. rn Disposition: 12/19/19 17:28 Hospitalization ordered by Prince Robyn for Inpatient Admission. Preliminary diagnosis are Dehydration, Weakness. - Bed requested for Telemetry/MedSurg (Inpatient). - Status is Inpatient Admission. bb - Condition is Stable. - Problem is an acute exacerbation. - Symptoms are unchanged. Signatures: Dispatcher [employer] EDMS Wendy Chambers RN RN Yudy Damon, CUSTOMER CARE ASSOCIATE-C CUSTOMER CARE ASSOCIATE-Csnw Rossi Chisholm, RN RN Familia Gagnon MD MD rn Leal, Jahala, EVAN GORDON jl7 Britt Moon RN RN ca1 Corrections: (The following items were deleted from the chart) 12/18 18:31 17:27 Hospitalization Ordered by Prince Robyn ARELLANO for Inpatient Admission. Preliminary dw diagnosis is Dehydration; Weakness. Bed requested for Telemetry/MedSurg (Inpatient). Status is Inpatient Admission. Condition is Stable. Problem is an acute exacerbation. Symptoms are unchanged. snw 20:04 18:31 12/19/2019 17:28 Hospitalization Ordered by Prince Robyn ARELLANO for Inpatient bb Admission. Preliminary diagnosis is Dehydration; Weakness. Bed requested for Telemetry/MedSurg (Inpatient). Status is Inpatient Admission. Condition is Stable. Problem is an acute exacerbation. Symptoms are unchanged. dw
[2019-12-19] MEDS: D5W 1,000 ML with NA BICARB 8.4% 150 MEQ IV SCH ×2 (18:00)
--- NOTE | 2019-12-19 18:43 | P.HP ---
Certification for Inpatient Patient admitted to: Observation With expected LOS: <2 Midnights Patient will require the following post-hospital care: None Practitioner: I am a practitioner with admitting privileges, knowledge of patient current condition, hospital course, and medical plan of care. Services: Services provided to patient in accordance with Admission requirements found in Title 42 Section 412.3 of the Code of Federal Regulations Patient History Date of Service: 12/19/19 Reason for admission: intractable nausea and vomiting History of Present Illness: Patient is a 59 year old male without significant PMH who presents to the ER with intractable nausea and vomiting. He had a cholecystectomy 10 days ago. He is sx started a few days after. He denies any blood stools. He has no hx of CAD, CVA or renal disease. Allergies No Known Allergies Allergy (Verified 12/09/19 11:06) Home Medications: NK [No Home Meds] 11/03/18 - Past Medical/Surgical History Diabetic: No -: Basal cell carcinoma - Social History Alcohol use: No Review of Systems 10-point ROS is otherwise unremarkable Physical Examination - Physical Exam General: Moderate distress, Other (lethargy ) HEENT: Atraumatic, Normocephalic, Other (conjuctival palor) Neck: Supple Respiratory: Clear to auscultation bilaterally, Normal air movement Cardiovascular: No edema, Normal pulses, Regular rate/rhythm, Normal S1 S2, No murmurs Gastrointestinal: Normal bowel sounds, Soft and benign, Non-distended, Tenderness (mild RUQ tenderness) Musculoskeletal: No clubbing, No swelling, No contractures, No erythema, No tenderness, No warmth Integumentary: No rashes, No breakdown, No significant lesion, No tenderness/swelling, No erythema, No warmth, No cyanosis Neurological: Normal speech, Sensation intact, Normal affect - Studies Laboratory Data (last 24 hrs) 12/19/19 14:44: Sodium 142, Potassium 4.3, BUN 11, Creatinine 1.01, Glucose 72 L, Phosphorus 4.1, Magnesium 1.8, Total Bilirubin 1.3 H, AST 156 H D, ALT 159 H, Alkaline Phosphatase 215 H 12/19/19 13:38: PT 14.8 H, INR 1.26 12/19/19 13:38: WBC 10.3 D, Hgb 15.8, Hct 46.7, Plt Count 440 H D Assessment and Plan - Problems (Diagnosis) (1) Intractable nausea and vomiting Current Visit: Yes Status: Acute (2) Status post cholecystectomy Current Visit: Yes Status: Acute - Plan Assessment Patient is a 59 year old male with recent cholecystectomy currently admitted with intractable nausea and vomiting. Evidence of elevated LFTs, Tbil 1.3/Alkphos 215. CT abd/pelvis w/o abnormal dilatation of biliary tree, abscess or post op complications. Discussed case with Surgery, MRCP recommended. Intractable nausea and vomiting Metabolic acidosis Recent cholecystectomy PLAN: Admit under observation MRCP to r/o biliary obstruction Start patient on D5 1/2 NS and anti-emetics Will empirically TX with zosyn Surgery has been consulted. Discharge Plan: Home - Advance Directives Does patient have a Living Will: No Does patient have a Durable POA for Healthcare: No
[2019-12-19] MEDS ORDERED: ONDANSETRON 4 MG/2 ML VIAL IV PRN (20:04)
[2019-12-19 20:13] VITALS: BMI 29.8
[2019-12-19] MEDS ORDERED: PIPER/TAZO/NS 3.375gm 3.375 GM/100 ML BAG ONE (23:18)
[2019-12-20] MEDS: PIPER/TAZO/NS 3.375gm 3.375 GM/100 ML BAG IVPB SCH ×3 (00:18→17:11)
[2019-12-20] MEDS: D5W 1,000 ML with NA BICARB 8.4% 150 MEQ IV SCH ×6 (01:00→09:20)
[2019-12-20 09:31] LABS: Absolute Lymphocytes (CBC) 1.7 K/uL (0.7-4.9); Basophils % 0.6 % (0-1.3); Hematocrit 36.6 % (39.6-49.0); MPV 8.1 fL (7.6-11.3); RBC Red Blood Cell Count 4.22 M/uL (4.33-5.43)
[2019-12-20 09:46] LABS: ALT/SGPT 129 U/L (12-78); AST/SGOT 129 U/L (15-37); Albumin 2.6 g/dL (3.4-5.0); Alkaline Phosphatase 173 U/L (45-117); BUN Blood Urea Nitrogen 6 mg/dL (7-18); Bicarbonate 22 mmol/L (21-32); Bilirubin Total 1.4 mg/dL (0.2-1.0); Glucose Level 112 mg/dL (74-106); Potassium 4.6 mmol/L (3.5-5.1); Protein, Total 6.7 g/dL (6.4-8.2); Sodium Level 142 mmol/L (136-145)
[2019-12-20 09:48] LABS: Magnesium 1.3 mg/dL (1.8-2.4)
[2019-12-20] MEDS ORDERED: Magnesium Sulfate 2gm IVPB 2 G/50 ML BAG IV ONE (10:07)
--- NOTE | 2019-12-20 10:13 | RAD REPORT ---
EXAM DESCRIPTION: MRI - Cholangiogram - 12/20/2019 9:51 am CLINICAL HISTORY: Abdominal pain, nausea, history of cholecystectomy 1 week earlier, history of basa l cell carcinoma with chemotherapy COMPARISON: CT abdomen and pelvis December 18 TECHNIQUE: MRCP imaging was performed. Axial and coronal T2 fat saturation sequences were obtained. T2 haste fat saturation sequences were obtained with T2 3D rendering. Static, stacked coronal and 3D rotational views obtained. FINDINGS: Liver, spleen and pancreas show no suspicious finding on limited MRCP assessment. There is no biloma or abnormal fluid collection in the gallbladder fossa or upper abdomen. No abnormal biliary tree dilatation. Common bile duct is 6 mm. No convincing evidence for a E retaine d duct stone. No stricture, mass or intraluminal filling defect noted. Small tortuous pancreatic duct visible. IMPRESSION: No biliary tree dilatation and no convincing evidence for retained duct stone. No evidence for biloma or bile leak.
[2019-12-20] MEDS ORDERED: NA CHLORIDE 0.9% 500 ML IV ONE (10:54)
--- NOTE | 2019-12-20 11:12 | P.PN ---
Subjective Date of Service: 12/20/19 Chief Complaint: intractable nausea and vomiting Subjective: No new changes, No C/O voiced, Tolerating diet, Ambulating, Improving Patient states his nausea and vomiting has improved today, tolerating clear liquid diet at this time. Patient denies any pain. <Rommel Cortez - Last Filed: 12/20/19 11:07> Date of Service: 12/20/19 <Cruz Manzanares - Last Filed: 12/20/19 15:07> Review of Systems General: As per HPI Eyes: Unremarkable ENT: Unremarkable Respiratory: Unremarkable Cardiovascular: Unremarkable Gastrointestinal: As per HPI, Unremarkable Genitourinary: Unremarkable Musculoskeletal: Unremarkable Integumentary: Lesions (Skin cancer lesion to left upper back/scapular area.) Neurological: Unremarkable Lymphatics: Unremarkable <Rommel Cortze - Last Filed: 12/20/19 11:07> Physical Examination - Vital Signs Temperature: 98.2 F Blood Pressure: 99/59 Pulse: 116 Respirations: 16 Pulse Ox (%): 99 - Physical Exam General: In no apparent distress, Oriented x3 HEENT: Atraumatic, Normocephalic Neck: Supple Respiratory: Clear to auscultation bilaterally Cardiovascular: No edema Capillary refill: <2 Seconds Gastrointestinal: Normal bowel sounds, Soft and benign, No tenderness, No rebound Musculoskeletal: No clubbing, No erythema, No tenderness Integumentary: Skin lesion (Cancerous lesion to left upper back without significant erythema or cellulitis, without puruplent drainage.) Neurological: Normal speech, Normal tone Lymphatics: No axilla or inguinal lymphadenopathy - Studies Laboratory Data (last 24 hrs) 12/19/19 14:44: Sodium 142, Potassium 4.3, BUN 11, Creatinine 1.01, Glucose 72 L, Phosphorus 4.1, Magnesium 1.8, Total Bilirubin 1.3 H, AST 156 H D, ALT 159 H, Alkaline Phosphatase 215 H 12/19/19 13:38: PT 14.8 H, INR 1.26 12/19/19 13:38: WBC 10.3 D, Hgb 15.8, Hct 46.7, Plt Count 440 H D Microbiology Data (last 24 hrs): First aerobic blood culture with preliminary results of the Gram positive cocci in clusters. Imagings Data: MRCP was negative. Medications List Reviewed: Yes <Rommel Cortez - Last Filed: 12/20/19 11:07> - Physical Exam Other Physical/Emotional Findings: Patient seen earlier today. Exam unremarkable. Patient without significant nausea or vomiting. No significant abdominal pain noted. - Studies Laboratory Data (last 24 hrs) 12/19/19 14:44: Sodium 142, Potassium 4.3, BUN 11, Creatinine 1.01, Glucose 72 L, Phosphorus 4.1, Magnesium 1.8, Total Bilirubin 1.3 H, AST 156 H D, ALT 159 H, Alkaline Phosphatase 215 H Medications List Reviewed: Yes <Cruz Manzanares - Last Filed: 12/20/19 15:07> Assessment & Plan Discharge Plan: Home Plan to discharge in: 24 Hours - Code Status/Comfort Care Code Status Assessed: Yes Physician Review Additional Text: Patient reports he is feeling much better today. Is tolerating clear liquid diet. MRCP with Dr. Mcneal was negative, at this time we will begin to advance his diet as tolerated. Patient denies any abdominal pain at this time. 1 aerobic blood culture bottle is preliminarily positive for Gram positive cocci sign in clusters. It is unknown whether this is a contaminant or a true finding, will add vancomycin IV daily and await the results from the other blood culture bottles. Discussed case with Dr. Mcneal who agrees with plan of care and believes patient can be discharged likely tomorrow. Patient does appear dry, heart rate is slightly elevated. Will give bolus of normal saline and re- evaluate. Time Spent Managing Pts Care (In Minutes): 55 <Rommel Cortez - Last Filed: 12/20/19 11:07> Physician Review Additional Text: Impression: Nausea/vomiting with a recent cholecystectomy with elevated liver function History of basis cell carcinoma with prior chemotherapy Plan: Nausea/vomiting with a recent cholecystectomy with elevated liver function: LFTs slowly improving. Patient without significant nausea vomiting. Will advance diet. Case discussed at length with surgery. Will continue to monitor closely. MRCP unremarkable. Will reassess tomorrow. If stable and tolerates diet anticipate discharge tomorrow. History of basis cell carcinoma with prior immunotherapy: Spoke with oncology at length. Patient has been off immunotherapy for over 2 months. Patient was evaluated in the past for inflammation/infection. Patient also received 2 doses of pulse steroids. No need for steroids at this time. Lipase unremarkable. Will obtain sed rate and CRP. With elevated liver function will also obtain hepatitis panel. <Cruz Manzanares - Last Filed: 12/20/19 15:07>
[2019-12-20 11:56] LABS: Blood Morphology Comment NOT SEEN (NOT SEEN); Platelet Estimate ADEQ
[2019-12-20] MEDS: VANCOMYCIN 1.75 GM in NA CHLORIDE 0.9% 500 ML IVPB SCH ×2 (12:47→23:27)
--- NOTE | 2019-12-20 13:45 | CON ---
Date of Consultation: 12/19/2019 Reason For Consultation: Nausea and vomiting. History Of Present Illness: Patient is a 59-year-old gentleman, who underwent a laparoscopic cholecy stectomy 10 days ago for chronic cholecystitis and cholelithiasis. Did well after surgery. I saw maria [employer] sales last and after his drive, said he felt nauseous, but he had not felt nauseous prior to jailene t. He has given promethazine and he did well until yesterday and started having intractable nausea a nd vomiting. No sore throat, runny nose, cough, headaches, or dizziness. No chest pain. No fever o r chills. No diarrhea or constipation. No blood in his stool. Review of Systems: Otherwise unremarkable. Past Medical History: Basal cell carcinoma. Past Surgical History: Laparoscopic cholecystectomy recently. Allergies: NONE. Social History: Patient does not smoke or drink. Family History: Noncontributory. Physical Examination: Vital Signs: Stable. His heart rate is slightly elevated at 116, T-max is 99.1. General: He is awake, alert, and oriented x3. Head and Neck: Cranial nerves 2 through 12 are grossly within normal limits. No neck masses. No JV D. Throat clear. Neck is supple. Chest: Clear. Heart: S1 and S2. Abdomen: Soft, nondistended, nontender. Positive bowel sounds. Wound: Clean, dry, and intact. Extremities: Adequately perfused. Nontender. Neurologic: Nonfocal. Laboratory Data: Shows a white count of 5.4, otherwise unremarkable. INR is 1.26. Chemistry review ed. His AST on admission was 156, down to 129 today; ALT was 159, it is down to 129; alkaline phosph atase was 215, it is down to 173. Patient had a CT scan and an MRCP done this morning. Findings are as follows. CAT scan shows biliary tree to be normal, no biloma, abscess or other postsurgical comp lication. MRCP reviewed as well. No biliary tree dilatation. No evidence for retained duct stone. No evidence for biloma or bile leak. Patient had blood cultures drawn and 1 of the bottles is growi ng out gram-positive cocci in clusters. Assessment: A 59-year-old gentleman with nausea and vomiting, status post laparoscopic cholecystecto my. Negative CT and MRCP. Recommendations: We need to treat the blood cultures with IV antibiotics. We will await the sensiti vities and decide whether it is a contaminant or real and then treat appropriately. We will begin hi m on clear liquids. Antiemetics as ordered. No need for any acute surgical intervention. /MODL Voice ID: [id number] Report ID: [id number]
[2019-12-20 14:53] LABS: C-Reactive Protein 49.2 mg/L (<3.00)
[2019-12-20] MEDS: NACHLORIDE 0.45% 1,000 ML IV SCH (15:40)
--- NOTE | 2019-12-20 16:25 | EKG ---
Test Date: 2019-12-19 Test Time: 13:09:27 Adobe Maker: GUI MEASUREMENT RESULTS: Intervals: Rate: 121 [place]: QRSD: 86 QT: 438 QTc: 621 [place]: P: [place]: QRS: 33 T: 79 INTERPRETIVE STATEMENTS: sinus tachycardia T wave abnormality, consider lateral ischemia Abnormal ECG Compared to ECG 12/09/2019 10:24:52 T-wave abnormality now present Possible ischemia now present Sinus rhythm no longer present Electronically Signed On 12-20-19 16:23:00 CDT by Vidal Walker
[2019-12-20] MEDS ORDERED: MAGNESIUM SULFATE 1 gm IVPB 1 GM/100 ML BAG IV ONE (21:00)
[2019-12-21] MEDS: PIPER/TAZO/NS 3.375gm 3.375 GM/100 ML BAG IVPB SCH ×3 (00:50→18:10)
[2019-12-21] MEDS: NACHLORIDE 0.45% 1,000 ML IV SCH (05:20)
[2019-12-21 05:57] LABS: Magnesium 1.6 mg/dL (1.8-2.4); Potassium 3.4 mmol/L (3.5-5.1)
[2019-12-21] MEDS ORDERED: MAGNESIUM SULFATE 1 gm IVPB 1 GM/100 ML BAG IV ONE (08:00)
[2019-12-21] MEDS ORDERED: NACHLORIDE 0.45% 1,000 ML IV SCH (08:04)
[2019-12-21] MEDS ORDERED: SODIUM CHLORIDE 0.9% 10ML INJ IV PRN (08:05)
[2019-12-21] MEDS ORDERED: PROMETHAZINE INJ 25 MG/ML AMP IV PRN (08:06)
[2019-12-21 08:43] LABS: Basophils % 0.1 % (0-1.3); Lymphocytes % 21.2 % (15.3-44.8); MPV 7.5 fL (7.6-11.3); RBC Red Blood Cell Count 3.94 M/uL (4.33-5.43)
[2019-12-21 08:58] LABS: Albumin 2.5 g/dL (3.4-5.0); Bilirubin Direct 0.6 mg/dL (0-0.2); Bilirubin Total 1.3 mg/dL (0.2-1.0); Protein, Total 6.3 g/dL (6.4-8.2)
[2019-12-21] MEDS ORDERED: COLLAGENASE 30 GM OINTMENT TOP SCH (09:00)
[2019-12-21] MEDS: PANTOPRAZOLE 40 MG INJ IVP SCH (09:00)
[2019-12-21] MEDS ORDERED: ACETAMINOPHEN 650MG/RECT SUPP PR PRN (09:16)
[2019-12-21] MEDS ORDERED: propofoL 200 MG/20 ML VIAL IV ONE (14:10)
[2019-12-21] MEDS ORDERED: LIDOCAINE 1% MPF 5 ML VIAL ONE (14:11)
[2019-12-21 14:43] VITALS: TEMP 98.2
[2019-12-21 14:45] VITALS: BP 100/66; O2SAT 98
--- NOTE | 2019-12-21 16:50 | P.PN ---
Subjective Date of Service: 12/21/19 Chief Complaint: intractable nausea and vomiting Subjective: Other (Still with nausea) Physical Examination - Vital Signs Temperature: 98.2 F Blood Pressure: 100/66 Pulse: 88 Respirations: 18 Pulse Ox (%): 94 - Physical Exam General: Alert, In no apparent distress, Cooperative HEENT: Atraumatic Neck: Supple Respiratory: Clear to auscultation bilaterally, Normal air movement Cardiovascular: Normal pulses, Regular rate/rhythm Gastrointestinal: Normal bowel sounds, Soft and benign, Non-distended Integumentary: No erythema, No warmth, No cyanosis Neurological: Normal speech, Normal strength at 5/5 x4 extr, Normal tone, Normal affect Other Physical/Emotional Findings: Patient seen earlier today. Exam unremarkable. Patient without significant nausea or vomiting. No significant abdominal pain noted. - Studies Microbiology Data (last 24 hrs): 12/19/19 14:44 Clean Catch Urine [place] Count - Final 12/19/19 14:44 Clean Catch Urine - Final No growth. 12/19/19 14:20 Blood - Blood Blood Culture Gram Stain - Final Medications List Reviewed: Yes Assessment & Plan Discharge Plan: Home Plan to discharge in: 24 Hours Physician Review Additional Text: Impression: Nausea/vomiting with a recent cholecystectomy with elevated liver function History of basis cell carcinoma with prior chemotherapy Plan: Nausea/vomiting with a recent cholecystectomy with elevated liver function: LFTs slowly improving. Will keep NPO for GI consult and EGD. Case discussed with GI. Await EGD findings. Will consider discharge if stable and tolerates diet after EGD. History of basis cell carcinoma with prior immunotherapy: Spoke with oncology at length. Patient has been off immunotherapy for over 2 months. Patient was evaluated in the past for inflammation/infection. Patient also received 2 doses of pulse steroids. No need for steroids at this time. Lipase unremarkable. Will obtain sed rate and CRP. With elevated liver function will also obtain hepatitis panel. Patient had EGD. It showed gastric and duodenal superficial ulcers. No excessive bleeding noted. GI recommends Carafate 3 times a day with meals and Protonix 40 mg twice daily. Patient will need follow up with GI for repeat EGD in the near future. Time Spent Managing Pts Care (In Minutes): 55
[2019-12-21] MEDS ORDERED: SUCRALFATE 1 GM TABLET PO SCH (17:00)
--- NOTE | 2019-12-21 18:06 | P.DS ---
Admission Date: 12/19/19 Discharge Date: 12/21/19 Reason for Admission: intractable nausea and vomiting Consultations: Surgery- Dr. Mcneal GI- Dr. Hicks Procedures: MRCP FINDINGS: Liver, spleen and pancreas show no suspicious finding on limited MRCP assessment. There is no biloma or abnormal fluid collection in the gallbladder fossa or upper abdomen. No abnormal biliary tree dilatation. Common bile duct is 6 mm. No convincing evidence for a E retained duct stone. No stricture, mass or intraluminal filling defect noted. Small tortuous pancreatic duct visible. IMPRESSION: No biliary tree dilatation and no convincing evidence for retained duct stone. No evidence for biloma or bile leak. CT ABD/PELVIS FINDINGS: No suspicious findings in the lung bases. The liver, spleen, and pancreas show no suspicious findings. Cholecystectomy clips are present. No biliary tree dilatation. No hematoma, mass or other focal abnormality at the gallbladder fossa. No biloma or suspicion for bile leak. Symmetric renal function is seen with no hydronephrosis or suspicious renal mass. No pyelonephritis or acute parenchymal process. No bladder abnormalities. No adrenal abnormalities. Fluid is present in a nondilated stomach. No gastric wall thickening or mass. No dilated large or small bowel loops. No acute GI process identifiable. A clip is present in the posterior left pelvic floor likely related to the recent cholecystectomy. No free air, free fluid or inflammatory stranding. No hernia, mass or bulky lymphadenopathy. No abdominal wall hematoma or suspicious finding. Minimal stranding in the periumbilical region not unexpected given the recent surgery. No suspicious finding in the subcutaneous fat. No suspicious bony findings. Disc and bony degenerative changes are present relatively prominent for age. IMPRESSION: Patient is recently status post cholecystectomy. Biliary tree is not abnormally dilated and there is no biloma, abscess or other postsurgical complication. As detailed above, no acute abdominal or pelvic findings identifiable. Problem List Intractable Nausea/vomiting secondary to superficial gastric and duodenal ulcers status post EGD History of basis cell carcinoma with prior chemotherapy Elevated liver function likely related to above Brief History of Present Illness: 59-year-old male admitted for intractable nausea and vomiting. Patient's recent cholecystectomy, now with elevated liver function tests. Surgery and oncology were consulted. Hospital Course: 59-year-old male was admitted for for intractable nausea and vomiting status post cholecystectomy 10 days prior. Patient received an MRCP which did not demonstrate any obstruction or inflammation. General surgery and oncology were both consulted due to the patient's history of basal cell carcinoma with prior immunotherapy. Liver function tests were elevated, hepatitis panel is pending at discharge. Liver function tests were improved at discharge. GI was also consulted who performed an EGD due to the patient's intractable nausea vomiting and found the patient to have superficial gastric and duodenal ulcers without bleeding or obstruction. Biopsies were obtained. GI recommended medical therapy. At discharge patient is able to tolerate his diet without [place] vomiting. At discharge patient will continue with Protonix 40 mg twice daily and Carafate 1 g 3 times a day with meals. Patient will need followup with GI in the next 2-4 weeks. Patient require repeat EGD to monitor for resolution of gastric and duodenal superficial ulcers. Patient with history of basal cell carcinoma to the left shoulder area. Patient has chronic wound in this area who is managed by wound care-surgery. Wound does not appear infected at this time with no purulent drainage, surrounding erythema or cellulitis. Patient has previously on immunotherapy and has been off of immunotherapy for at least 2 months. Case discussed in detail with oncology. No need for further inpatient workup at this time. Follow up with Surgery and Oncology. Patient found to have elevated liver function tests during his hospitalization. There was some concern for other causes of elevated liver function tests. Case discussed with oncology and GI. Elevated liver function tests likely related to the gastritis. Hepatitis panel pending at discharge. This can be followed up by his PCP. <Rommel Cortez - Last Filed: 12/21/19 18:06> Admission Date: 12/19/19 Discharge Date: 12/21/19 Hospital Course: Case discussed at length with nurse practitioner. Plan of care discussed as well. Agree with plan of care. <Cruz Manzanares - Last Filed: 12/21/19 18:19> Disposition: ROUTINE DISCHARGE Vital Signs/Physical Exam: Temp Pulse Resp BP Pulse Ox 98.2 F 88 18 100/66 94 12/21/19 16:50 12/21/19 16:50 12/21/19 16:50 12/21/19 16:50 12/21/19 16:50 General: Alert, In no apparent distress, Oriented x3 HEENT: Atraumatic, Normocephalic Neck: Supple Respiratory: Normal air movement Cardiovascular: No edema Capillary refill: <2 Seconds Gastrointestinal: Normal bowel sounds, Soft and benign Musculoskeletal: No contractures, No erythema Neurological: Normal speech Other Physical/Emotional Findings: Patient seen earlier today. Exam u nremarkable. Patient without significant nausea or vomiting. No significant abdominal pain noted. Laboratory Data at Discharge: WBC 4.7 K/uL (4.3-10.9) 12/21/19 08:17 Hgb 12.2 g/dL (13.6-17.9) L 12/21/19 08:17 Hct 35.0 % (39.6-49.0) L 12/21/19 08:17 Plt Count 244 K/uL (152-406) D 12/21/19 08:17 PT 14.8 SECONDS (9.5-12.5) H 12/19/19 13:38 INR 1.26 12/19/19 13:38 Sodium 142 mmol/L (136-145) 12/21/19 05:17 Potassium 3.4 mmol/L (3.5-5.1) L 12/21/19 05:17 BUN 4 mg/dL (7-18) L 12/21/19 05:17 Creatinine 0.89 mg/dL (0.55-1.3) 12/21/19 05:17 Glucose 96 mg/dL (74-106) 12/21/19 05:17 Phosphorus 4.1 mg/dL (2.5-4.9) 12/19/19 14:44 Magnesium 1.6 mg/dL (1.8-2.4) L 12/21/19 05:17 Total Bilirubin 1.3 mg/dL (0.2-1.0) H 12/21/19 08:17 AST 68 U/L (15-37) H 12/21/19 08:17 ALT 92 U/L (12-78) H 12/21/19 08:17 Alkaline Phosphatase 145 U/L (45-117) H 12/21/19 08:17 Lipase 124 U/L (73-393) 12/20/19 14:22 <Rommel Cortez - Last Filed: 12/21/19 18:06> Vital Signs/Physical Exam: Temp Pulse Resp BP Pulse Ox 98.2 F 88 18 100/66 94 12/21/19 16:50 12/21/19 16:50 12/21/19 16:50 12/21/19 16:50 12/21/19 16:50 Laboratory Data at Discharge: WBC 4.7 K/uL (4.3-10.9) 12/21/19 08:17 Hgb 12.2 g/dL (13.6-17.9) L 12/21/19 08:17 Hct 35.0 % (39.6-49.0) L 12/21/19 08:17 Plt Count 244 K/uL (152-406) D 12/21/19 08:17 PT 14.8 SECONDS (9.5-12.5) H 12/19/19 13:38 INR 1.26 12/19/19 13:38 Sodium 142 mmol/L (136-145) 12/21/19 05:17 Potassium 3.4 mmol/L (3.5-5.1) L 12/21/19 05:17 BUN 4 mg/dL (7-18) L 12/21/19 05:17 Creatinine 0.89 mg/dL (0.55-1.3) 12/21/19 05:17 Glucose 96 mg/dL (74-106) 12/21/19 05:17 Phosphorus 4.1 mg/dL (2.5-4.9) 12/19/19 14:44 Magnesium 1.6 mg/dL (1.8-2.4) L 12/21/19 05:17 Total Bilirubin 1.3 mg/dL (0.2-1.0) H 12/21/19 08:17 AST 68 U/L (15-37) H 12/21/19 08:17 ALT 92 U/L (12-78) H 12/21/19 08:17 Alkaline Phosphatase 145 U/L (45-117) H 12/21/19 08:17 Lipase 124 U/L (73-393) 12/20/19 14:22 <Cruz Manzanares - Last Filed: 12/21/19 18:19> Patient Discharge Instructions: 1. Follow up with the primary care doctor in 1 week to follow up this hospitalization. 2. 59-year-old male was admitted for for intractable nausea and vomiting status post cholecystectomy 10 days prior. Patient received an MRCP which did not demonstrate any obstruction or inflammation. General surgery and oncology were both consulted due to the patient's history of basal cell carcinoma with prior immunotherapy. Liver function tests were elevated, hepatitis panel is pending at discharge. Liver function tests were improved at discharge. GI was also consulted who performed an EGD due to the patient's intractable nausea vomiting and found the patient to have superficial gastric and duodenal ulcers without bleeding or obstruction. Biopsies were obtained. GI recommended medical therapy. At discharge patient is able to tolerate his diet without nausea vomiting. At discharge patient will continue with Protonix 40 mg twice daily and Carafate 1 g 3 times a day with meals. Patient will need followup with GI in the next 2-4 weeks. Patient require repeat EGD to monitor for resolution of gastric and duodenal superficial ulcers. 3.Patient with history of basal cell carcinoma to the left shoulder area. Patient has chronic wound in this area who is managed by wound care- surgery. Wound does not appear infected at this time with no purulent drainage, surrounding erythema or cellulitis. Patient has previously on immunotherapy and has been off of immunotherapy for at least 2 months. Case discussed in detail with oncology. No need for further inpatient workup at this time. Follow up with Surgery and Oncology. 4.Patient found to have elevated liver function tests during his hospitalization. There was some concern for other causes of elevated liver function tests. Case discussed with oncology and GI. Elevated liver function tests likely related to the gastritis. Hepatitis panel pending at discharge. This can be followed up by his PCP. Diet: [place] Activity: Ad ahmet Time spent managing pt's care (in minutes): 55 <Rommel Cortez - Last Filed: 12/21/19 18:06> <Cruz Manzanares - Last Filed: 12/21/19 18:19> Home Medications: Promethazine HCl 25 mg PO Q6H PRN 12/19/19 Pantoprazole [Protonix Tab] 40 mg PO BID #60 tab 12/21/19 Sucralfate [Carafate*] 1 gm PO QID #120 tab 12/21/19 New Medications: Sucralfate [Carafate*] 1 gm PO QID #120 tab Pantoprazole [Protonix Tab] 40 mg PO BID #60 tab
--- NOTE | 2019-12-21 19:22 | PN ---
Date of Progress Note: 12/21/2019 Subjective: Patient is awake, alert, complaining of nausea. Objective: Vital Signs: Stable. He is afebrile. T-max is 99. Laboratory Data: White count is normal. H and H are slightly low at 12.2 and 35. Assessment: Nausea, status post laparoscopic cholecystectomy. Negative MRCP and negative CT scan. Recommendations: I believe the patient should be evaluated by GI service for EGD, which has been arr anged for. We will see what that shows and make further recommendations after that. No need for any surgical intervention at this time. /MODL Voice ID: [id number] Report ID: [id number]
--- NOTE | 2019-12-21 22:44 | OP ---
Surgeon: Cliff Hicks MD Procedure: Esophagogastroduodenoscopy. Performing Physician: Cliff Hicks M.D. Indication Of Procedure: Intractable nausea, vomiting, recent cholecystectomy with no improvement in symptoms. Plan For Anesthesia: Monitored anesthesia care. Complexity: Average. Technique: After obtaining informed consent from the patient, explaining risks and complications whi ch include, but are not limited to bleeding, infection, perforation, and anesthesia complication, pat ient was placed in the left lateral position and sedation was given. From then on, the scope was adv anced into the mouth and carefully guided up to the second portion of the duodenum. After the comple tion of examination and all diagnostic maneuvers, scope and equipment were withdrawn and procedure te rminated in a safe manner. Findings: Esophagus: No gross lesion seen in the upper and mid esophagus. In the distal esophagus, there was evidence of a small ulceration. Biopsies were taken from the area. In the stomach, moder ate patchy erythema seen in the body and antrum, biopsies taken. In the antrum, several superficial ulcers were visualized, biopsies taken. In the duodenum, there were a single superficial ulcer in th e bulb, this was biopsied. The second portion of the duodenum appeared normal. Complications: None. Tolerance To Anesthesia: Excellent. Postoperative Diagnosis: Esophagitis with superficial gastric and duodenal ulcers. Plan: 1.Await pathology results. 2.Continue PPI. 3.Start on clear liquid diet, advance as tolerated. 4.We will also add Carafate to the current regimen. The patient will need followup endoscopy in 4-6 weeks' time as an outpatient. US/MODL Voice ID: [id number] Report ID: [id number]
[2019-12-23 01:54] LABS: HBsAG Nonreactive (Nonreactive)
== END 2019-12-21 19:23 | disposition home or self-care (01) ==
LOC: ER 12:51 → ERHOLD 17:47 → 2ND 19:54
PROVIDERS: ADMIT Internal Medicine; ATTEND Family Medicine
PROC: 0DB98ZX Excision of Duodenum, Via Natural or Artificial Opening Endoscopic, Diagnostic (ICD-10-PCS; principal; 2019-12-19)
PROC: 0DB68ZX Excision of Stomach, Via Natural or Artificial Opening Endoscopic, Diagnostic (ICD-10-PCS; 2019-12-19)
PROC: 0DB38ZX Excision of Lower Esophagus, Via Natural or Artificial Opening Endoscopic, Diagnostic (ICD-10-PCS; 2019-12-19)
DX: K25.9 Gastric ulcer, unspecified as acute or chronic, without hemorrhage or perforation (principal); K26.9 Duodenal ulcer, unspecified as acute or chronic, without hemorrhage or perforation; K29.50 Unspecified chronic gastritis without bleeding; K29.80 Duodenitis without bleeding; K20.9 Esophagitis, unspecified; E87.2 Acidosis; Z98.890 Other specified postprocedural states; Z90.49 Acquired absence of other specified parts of digestive tract; Z92.21 Personal history of antineoplastic chemotherapy; C44.519 Basal cell carcinoma of skin of other part of trunk
CPT/HCPCS: 43239; 96361; 93005; 87040 ×2; 87088; 85025 ×3; 80048 ×2; 36415 ×2; 83735 ×4; 87205 ×2; 88312 ×2; 84100; 85610; 80076 ×2; 83605 ×2; 88305; 85652; 83690; 80053; 84145; 86140; 80074; 74177; 74181; 96375; 96374; 99285; Q9967; J2704; J2550; J3590; C9113; J3475 ×3; J2543 ×4; J7120; J7040; J7030 ×2; J2405; G0378 ×4; 81003; 81015; 87086

== ENCOUNTER 2019-12-26 10:52 | Inpatient (IN) | payer OTHER ==
--- OUTSIDE RECORDS SUMMARY | 2019-12-26 10:54 | XMS REPORT ---
:1960 Author Organization [facility] t Address [address] [place] [address] Dr. Bynum [address] [place] [id number] Care Team Providers Name Role Phone Unavailable Unavailable Unavailable Problems This patient has no known problems. Allergies, Adverse Reactions, Alerts This patient has no known allergies or adverse reactions. Medications This patient has no known medications. Encounters Start End Encounter Admission Attending Care Care Encounter Date/Time Date/Time Type Type Clinicians Facility Department ID 2017-12-22 2017-12-22 Emergency [facility] [id number] 11:20:00 11:20:00
[2019-12-26] MEDS ORDERED: NA CHLORIDE 0.9% 2,000 ML ONE (11:15)
[2019-12-26 11:43] LABS: Absolute Lymphocytes (CBC) 3.5 K/uL (0.7-4.9); Basophils % 0.2 % (0-1.3); Hematocrit 43.4 % (39.6-49.0); Lymphocytes % 29.6 % (15.3-44.8); MPV 7.9 fL (7.6-11.3); RBC Red Blood Cell Count 4.76 M/uL (4.33-5.43)
[2019-12-26 11:46] LABS: Arterial Blood Carboxyhemoglob 1.2 % (0-1.5); Blood Gas Oxyhemoglobin 95.4 % (94-97); Blood O2 Saturation 97.2 % (92-98.5)
[2019-12-26 11:47] LABS: Protime INR 1.55
[2019-12-26] MEDS ORDERED: VANCOMYCIN/NS 1 gm 1 GM/250 ML BAG IVPB ONE (12:00)
[2019-12-26] MEDS ORDERED: CEFEPIME/SWI 2gm 2 GM/20 ML SYR IVP SCH (12:30)
[2019-12-26 12:32] LABS: ALT/SGPT 69 U/L (12-78); AST/SGOT 81 U/L (15-37); Alkaline Phosphatase 158 U/L (45-117); Amylase Level 61 U/L (25-115); BUN Blood Urea Nitrogen 11 mg/dL (7-18); Bilirubin Direct 0.6 mg/dL (0-0.2); CKMB Creatine Kinase MB < 1.0 ng/mL (0.3-3.6); Creatine Phosphokinase 92 U/L (39-308); Glucose Level 148 mg/dL (74-106); Lipase 200 U/L (73-393); Potassium 3.8 mmol/L (3.5-5.1); Protein, Total 8.3 g/dL (6.4-8.2); Sodium Level 146 mmol/L (136-145); Troponin (Emerg Dept Use Only) < 0.02 ng/mL (0.0-0.045)
[2019-12-26 12:36] LABS: Bicarbonate 13 mmol/L (21-32)
--- NOTE | 2019-12-26 12:39 | RAD REPORT ---
EXAM DESCRIPTION: RAD - Chest Single View - 12/26/2019 11:59 am CLINICAL HISTORY: SOB COMPARISON: Two view chest December 08 TECHNIQUE: AP portable chest image was obtained 12/26/2019 11:59 am . FINDINGS: Lungs are clear. Heart and vasculature are normal. No measurable pleural effusion and no p neumothorax. Left hemidiaphragm elevation again noted. No acute bone finding. No acute aortic finding s suspected. IMPRESSION: No acute cardiopulmonary process. No significant change from comparison.
[2019-12-26] MEDS ORDERED: NA CHLORIDE 0.9% 1,000 ML ONE (12:40)
[2019-12-26] MEDS ORDERED: ACETAMINOPHEN 500 MG TAB ONE (12:40)
--- NOTE | 2019-12-26 13:12 | RAD REPORT ---
EXAM DESCRIPTION: CT - Chest Abd Pelvis Wo Con - 12/26/2019 1:01 pm CLINICAL HISTORY: hypovolemic shock. Recent kassandra. Fever. ELevated Calcium COMPARISON: Rad Therapy Fld Place Chest dated 03/03/2018 TECHNIQUE: Axial 5 millimeter thick images of the chest, abdomen and pelvis were obtained without IV contrast. Oral contrast was administered. All CT scans are performed using dose optimization technique as appropriate and may include automated exposure control or mA/KV adjustment according to patient size. FINDINGS: The lungs are clear of mass and infiltrate. No pneumothorax or pleural effusion. No ches t wall mass or abnormal axillary lymphadenopathy seen. Mediastinal and hilar regions show no mass or lymphadenopathy. No significant cardiac finding. Left hemidiaphragm is elevated. No etiology evident from this examination. The liver, spleen and pancreas show no significant findings for non contrast imaging. Cholecystectom y clips are present. No biliary tree dilatation. No hydronephrosis or suspicious renal mass. Isodense masses and pyelonephritis cannot be excluded on non contrast imaging. No adrenal abnormalities. Urinary bladder is fully contracted around a Carballo c atheter. No dilated bowel loops or focal ball bowel wall thickening. No free air, free fluid or inflammatory stranding. No hernia, mass or bulky lymphadenopathy. No significant bone or vascular finding. Right common femoral venous access catheter in place in good position. IMPRESSION: CT chest imaging shows no mass, lymphadenopathy or other significant finding. CT abdomen and pelvis imaging shows no significant or suspicious finding.
[2019-12-26 13:26] LABS: Urine Blood 1+ (NEG); Urine Glucose NEGATIVE (NEG); Urine Protein 1+ (NEG); Urine Specific Gravity >1.030 (1.005-1.030); Urine pH 5.5 (5.0-7.0)
[2019-12-26 13:35] LABS: Urine Bacteria 20-50 /HPF (NONE SEEN); Urine Culture Reflex Order REFLEXED; Urine RBC <5 /HPF (NONE SEEN)
[2019-12-26 13:36] LABS: Urine Yeast PRESENT (NONE SEEN)
[2019-12-26] MEDS ORDERED: METOPROLOL TARTRATE 5 MG/5 ML INJ IV ONE (13:41)
--- NOTE | 2019-12-26 14:04 | EDPHYS ---
Physician Documentation [facility] Name: Patrick Sweeney Age: 59 yrs Sex: Male : 1960 Arrival Date: 12/26/2019 Time: 10:55 Bed 3 Private MD: Herson Cabral HPI: 12/25 12:56 This 59 yrs old Male presents to ER via Wheelchair with complaints of jr8 Vomiting. 12:56 The patient presents to the emergency department with nausea, vomiting, diarrhea. jr8 Onset: The symptoms/episode began/occurred acutely, 4 day(s) ago. Possible causes: unknown. The symptoms are aggravated by nothing. The symptoms are alleviated by nothing. Associated signs and symptoms: Pertinent positives: fatigue. Severity of symptoms: At their worst the symptoms were severe in the emergency department the symptoms are unchanged. It is unknown whether or not the patient has had similar symptoms in the past. The patient has been recently seen by a physician:. Patient stated that he recently had his gallbladder removed over a week ago. Stated that 4 days ago started with n/v and some diarrhea. Not able to tolerate fluids or food. Now becoming weak and fatigued. 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 - Social history:: Smoking status: Patient denies any tobacco usage or history of. ROS: 12:56 Eyes: Negative for injury, pain, redness, and discharge, ENT: Negative for injury, jr8 pain, and discharge, Neck: Negative for injury, pain, and swelling, Cardiovascular: Negative for chest pain, palpitations, and edema, Respiratory: Negative for shortness of breath, cough, wheezing, and pleuritic chest pain, Back: Negative for injury and pain, MS/Extremity: Negative for injury and deformity, Skin: Negative for injury, rash, and discoloration, Neuro: Negative for headache, weakness, numbness, tingling, and seizure. 12:56 Constitutional: Positive for fatigue, fever, malaise, poor PO intake. 12:56 Abdomen/GI: Positive for nausea, vomiting, and diarrhea, Negative for abdominal pain, constipation, abdominal cramps, abdominal distension. Exam: 14:50 Eyes: Pupils equal round and reactive to light, extra-ocular motions intact. Lids and jr8 lashes normal. Conjunctiva and sclera are non-icteric and not injected. Cornea within normal limits. Periorbital areas with no swelling, redness, or edema. ENT: Nares patent. No nasal discharge, no septal abnormalities noted. Tympanic membranes are normal and external auditory canals are clear. Oropharynx with no redness, swelling, or masses, exudates, or evidence of obstruction, uvula midline. Mucous membranes dry. Lips cracked Neck: Trachea midline, no thyromegaly or masses palpated, and no cervical lymphadenopathy. Supple, full range of motion without nuchal rigidity, or vertebral point tenderness. No Meningismus. 14:50 Cardiovascular: Rate: tachycardic, Rhythm: irregular, Pulses: thready, weak, Heart sounds: normal, normal S1and S2, no murmur, no rub, no gallop, Edema: is not appreciated, JVD: is not appreciated. 14:50 ECG was reviewed by the Attending Physician. 14:50 ECG was reviewed by the Attending Physician. Vital Signs: 11:30 BP 111 / 75; Pulse 157; Resp 32; Pulse Ox 98% on R/A; em 11:40 Weight 83.46 kg; ph 12:00 BP 133 / 81; Pulse 156; Resp 30; Pulse Ox 100% on R/A; em 12:15 Temp 100.7(C); em 12:41 BP 123 / 72; Pulse 158; Resp 27; Temp 101.6(C); Pulse Ox 100% on R/A; Pain 0/10; em 13:18 BP 116 / 73; Pulse 152; Resp 24; Temp 102.2(C); Pulse Ox 99% on R/A; Pain 0/10; em 14:15 BP 111 / 80; Pulse 126; Resp 24; Temp 101.8; Pulse Ox 99% on R/A; em 15:12 BP 107 / 76; Pulse 129; Resp 28; Temp 100.9; Pulse Ox 99% on 2 lpm NC; em 16:15 BP 103 / 74; Pulse 125; Resp 24; Temp 101.2; Pulse Ox 100% on 2 lpm NC; em 17:24 BP 97 / 55; Pulse 124; Resp 28; Temp 100.9(C); Pulse Ox 100% on 2 lpm NC; em Procedures: 15:53 Central Line: the site was prepped with Betadine, in sterile fashion, a triple lumen jr8 catheter was inserted, in the right femoral vein, in 1 attempts. placement was verified, by blood return, the site was dressed with 4X4s, Tegaderm, foam tape, using sterile technique, the patient tolerated the procedure, well. MDM: 11:08 Patient medically screened. pm1 11:18 Patient medically screened. jesus 13:56 ED course: Placed a call to Dr. Magallanes who will pass on the information to Dr. Daina gallo and will see him in hospital. Is on immunotherapy but no myelosuppressive therapy. 14:02 Data reviewed: vital signs, nurses notes, lab test result(s), EKG, radiologic studies, cleo CT scan, plain films. Data interpreted: Pulse oximetry: on room air is 99 %. Interpretation: normal. Counseling: I had a detailed discussion with the patient and/or guardian regarding: the historical points, exam findings, and any diagnostic results supporting the discharge/admit diagnosis, lab results, radiology results, the need for further work-up and treatment in the hospital. Physician consultation: Adair Zapata MD was called at 14:02, was contacted at 14:02, regarding admission, to the ICU, consult, patient's condition, and will see patient. 12/25 11:21 Order name: Amylase, Serum; Complete Time: 12:37 em 12/25 11:21 Order name: Basic Metabolic Panel; Complete Time: 12:37 em 12/25 11:21 Order name: Blood Culture Adult (2) em 12/25 11:21 Order name: CBC with Diff; Complete Time: 12:31 em 12/25 11:21 Order name: Ckmb; Complete Time: 12:37 em 12/25 11:21 Order name: CPK; Complete Time: 12:37 12/25 11:21 Order name: Lactate; Complete Time: 12:39 12/25 11:21 Order name: LFT's; Complete Time: 12:37 em 12/25 11:21 Order name: Lipase; Complete Time: 12:37 12/25 11:21 Order name: Procalcitonin; Complete Time: 13:31 12/25 11:21 Order name: Protime (+inr); Complete Time: 12:31 12/25 11:21 Order name: Ptt, Activated; Complete Time: 12:31 12/25 11:21 Order name: Troponin (emerg Dept Use Only); Complete Time: 12:37 12/25 11:21 Order name: Urine Microscopic Only; Complete Time: 13:38 12/25 11:29 Order name: Type And Screen; Complete Time: 12:39 12/25 11:29 Order name: BNP; Complete Time: 12:31 12/25 11:32 Order name: Magnesium; Complete Time: 12:31 [facility] 12/25 11:32 Order name: ABG; Complete Time: 12:31 [facility] 12/25 12:41 Order name: Urine Dipstick--Ancillary (enter results) 12/25 12:42 Order name: Urine Dipstick-Ancillary; Complete Time: 13:31 [facility] 12/25 13:18 Order name: ABO/RH no charge; Complete Time: 13:31 [facility] 12/25 13:37 Order name: Urine Culture [facility] 12/25 13:47 Order name: Flu; Complete Time: 15:13 [facility] 12/25 13:47 Order name: COVID-19 [facility] 12/25 14:48 Order name: CBC with Automated Diff [facility] 12/25 14:48 Order name: CBC with Automated Diff [facility] 12/25 14:48 Order name: Comprehensive Metabolic Panel [facility] 12/25 14:48 Order name: Comprehensive Metabolic Panel [facility] 12/25 15:59 Order name: Lactate Sepsis 2 HR Follow-up; Complete Time: 16:01 [facility] 12/25 20:31 Order name: Glucose, Ancillary Testing [facility] 12/25 11:21 Order name: Chest Single View XRAY; Complete Time: 12:55 12/25 11:21 Order name: Accucheck; Complete Time: 11:41 12/25 11:21 Order name: Cardiac monitoring; Complete Time: 11:41 12/25 11:21 Order name: EKG - Nurse/Tech; Complete Time: 12:33 12/25 11:21 Order name: IV Saline Lock - Large Bore; Complete Time: 11:41 12/25 11:21 Order name: Labs collected and sent; Complete Time: 11:42 12/25 11:21 Order name: O2 Per Protocol; Complete Time: 11:42 12/25 11:21 Order name: O2 Sat Monitoring; Complete Time: 11:42 12/25 11:21 Order name: Urine Dipstick-Ancillary (obtain specimen); Complete Time: 12:33 12/25 11:32 Order name: EKG; Complete Time: 11:33 [facility] 12/25 11:32 Order name: IV Saline Lock; Complete Time: 11:40 [facility] 12/25 11:33 Order name: Carballo; Complete Time: 12:26 [facility] 12/25 11:33 Order name: Central Line Kit; Complete Time: 11:40 [facility] 12/25 12:39 Order name: CT Chest Abdomen Pelvis W/O Contrast; Complete Time: 13:31 [facility] 12/25 14:31 Order name: CT Head Brain wo Cont; Complete Time: 15:13 [facility] 12/25 14:48 Order name: CONS Pharmacy Consult [facility] 12/25 14:48 Order name: NPO [facility] 12/25 21:23 Order name: Glucose, Ancillary Testing [facility] 12/25 23:40 Order name: CBC with Automated Diff [facility] 12/26 00:05 Order name: Lactate [facility] 12/26 00:06 Order name: Basic Metabolic Panel [facility] 12/26 00:08 Order name: Procalcitonin [facility] 12/26 05:17 Order name: Protime (+INR) [facility] EC:50 Rate is 158 beats/min. Rhythm is irregular, A flutter. QRS [place] is Normal. QRS interval jr8 is normal at 72 msec. QT interval is normal at 334 msec. No Q waves. T waves are Normal. No ST changes noted. Clinical impression: Atrial Flutter. Interpreted by me. Reviewed by me. 14:50 Rate is 127 beats/min. Rhythm is regular, Sinus tachycardia. QRS [place] is Normal. [place] jr8 interval is normal at 162 msec. QRS interval is normal at 82 msec. QT interval is normal at 427 msec. No Q waves. T waves are Normal. No ST changes noted. Clinical impression: Sinus tachycardia. Interpreted by me. Reviewed by me. Administered Medications: 11:35 Drug: NS 0.9% (30 ml/kg) 30 ml/kg Route: IV; Rate: bolus; Site: right femoral; ph 14:10 Follow up: IV Status: Completed infusion; IV Intake: 3000ml em 12:15 Drug: Cefepime 2 grams Route: IVPB; Rate: 200 ml/hr; Infused Over: 30 mins; Site: right em femoral; 12:17 Follow up: Response: No adverse reaction; IV Status: Completed infusion; IV Intake: 10mlem 12:18 Drug: vancoMYCIN 1 grams Route: IVPB; Infused Over: 2 hrs; Site: right femoral; em 19:16 Follow up: IV Status: Completed infusion; IV Intake: 250ml rv 12:40 Drug: Tylenol 1000 mg Route: PO; ph 14:34 Follow up: Response: No adverse reaction em 12:40 Drug: NS 0.9% 1000 ml Route: IV; Rate: 125 ml/hr; Site: right femoral; ph 19:15 Follow up: IV Status: Infusion continued upon admission rv 13:55 Drug: Metoprolol 5 mg Route: IVP; Site: right femoral; em 14:05 Follow up: Response: No adverse reaction; Cardiac rhythm changed em Disposition: 12/26 10:07 Co-signature as Attending Physician, Herson Preciado MD I agree with the assessment and [facility] plan of care. Disposition: 12/26/19 14:03 Hospitalization ordered by Adair Zapata for Inpatient Admission. Preliminary diagnosis are Hypovolemia, Severe sepsis with septic shock, Bacteremia, Urinary tract infection, site not specified, Atrial fibrillation and flutter. - Bed requested for Intensive Care Unit. - Status is Inpatient Admission. sv - Condition is Fair. - Problem is new. - Symptoms have improved. Critical care time excluding procedures: 12/25 14:54 Critical care time: Bedside Care: 30 minutes, Consultation: 15 minutes. Total time: 45 jr8 minutes Signatures: Dispatcher [employer] Michelle Vásquez Stephanie RN EVAN Lulu Hamm RN Herson Espinal MD MD cha Munoz, Edgar, RN RN em Clay Hardy, PA PA jr8 Neva Ortez RN RN Cr Ramirez, AIRPORT OPERATIONS SUPERVISOR AIRPORT OPERATIONS SUPERVISOR pm1 Juan Rudolph RN rv Corrections: (The following items were deleted from the chart) 16:32 14:17 LP Setup ordered. jr8 em 18:12 14:03 Hospitalization Ordered by Adair Zapata MD for Inpatient Admission. bd Preliminary diagnosis is Hypovolemia; Severe sepsis with septic shock; Bacteremia; Urinary tract infection, site not specified; Atrial fibrillation and flutter. Bed requested for Intensive Care Unit. Status is Inpatient Admission. Condition is Fair. Problem is new. Symptoms have improved. jr8 12/26 05:32 12/25 18:12 12/26/2019 14:03 Hospitalization Ordered by Adair Zapata MD for mw Inpatient Admission. Preliminary diagnosis is Hypovolemia; Severe sepsis with septic shock; Bacteremia; Urinary tract infection, site not specified; Atrial fibrillation and flutter. Bed requested for [facility] ER HOLD. Status is Inpatient Admission. Condition is Fair. Problem is new. Symptoms have improved. bd 12/26 07:49 05:32 12/26/2019 14:03 Hospitalization Ordered by Adair Zapata MD for Inpatient sv Admission. Preliminary diagnosis is Hypovolemia; Severe sepsis with septic shock; Bacteremia; Urinary tract infection, site not specified; Atrial fibrillation and flutter. Bed requested for Intensive Care Unit. Status is Inpatient Admission. Condition is Fair. Problem is new. Symptoms have improved. mw
--- NOTE | 2019-12-26 14:04 | ER ---
Nurse's Notes [facility] Name: Patrick Sweeney Age: 59 yrs Sex: Male : 1960 Arrival Date: 12/26/2019 Time: 10:55 Bed 3 Private MD: Diagnosis: Hypovolemia;Severe sepsis with septic shock;Bacteremia;Urinary tract infection, site not specified;Atrial fibrillation and flutter Presentation: 12/25 11:03 Chief complaint: N/V x 4 days. Not tolerating fluids. Denies fever/cough. hb 11:15 Acuity: RONNIE 1 ph 11:20 Coronavirus screen: Proceed with normal triage. Ebola Screen: Patient negative for em fever greater than or equal to 101.5 degrees Fahrenheit, and additional compatible Ebola Virus Disease symptoms Patient denies exposure to infectious person. Patient denies travel to an Ebola-affected area in the 21 days before illness onset. No symptoms or risks identified at this time. Initial Sepsis Screen: Does the patient meet any 2 criteria? RR > 20 per min. Yes Does the patient have a suspected source of infection? Yes: Skin breakdown/wound. Risk Assessment: Do you want to hurt yourself or someone else? Patient reports no desire to harm self or others. 11:20 Method Of Arrival: Wheelchair em 11:20 Onset of symptoms was December 20, 2019. em Historical: - Allergies: 12:00 NKDA; em - Home Meds: 12:00 unknown nausea medication [Active]; unknown pain medication [Active]; em - PMHx: 12:00 basil cell carcinoma; em - PSHx: 12:00 Cholecystectomy; em - Immunization history:: Adult Immunizations up to date. - Social history:: Smoking status: Patient denies any tobacco usage or history of. Screenin:00 Abuse screen: Denies threats or abuse. Nutritional screening: No deficits noted. em Tuberculosis screening: No symptoms or risk factors identified. Fall Risk. Assessment: 11:15 Reassessment: code sepsis called, Dr Preciado and Clay Hardy at bedside for central ph line placement. 11:20 General: Appears uncomfortable, ill, obese, Behavior is listless, Reports having em gallbladder removed about a week ago, reports n/v/d denies chest pain or SOB. Pain: Denies pain. Neuro: Level of Consciousness is awake, alert, listless, Oriented to person, place, time, situation, Appropriate for age. Respiratory: Airway is patent Respiratory effort is even, Respiratory pattern is regular, tachypnea. GI: Abdomen is flat, Bowel sounds present X 4 quads. Abd is soft and non tender X 4 quads. Reports diarrhea, intolerance of fluids, intolerance of food, nausea, vomiting. Derm: Skin is intact, Skin is clammy, Skin is mottled, pale, Skin temperature is cold. Musculoskeletal: Capillary refill is sluggish, in bilateral fingers. toes. 11:30 Reassessment: placed michelle hugger and placed fluids on warmer, pt mottled skin and em shaking unable to get accurate temp at this time. 12:27 Reassessment: turned off saline warmer and removed michelle hugger from pt, provider em notified of core temp. 12:43 Reassessment: Patient appears in no apparent distress at this time. wheeled to CT via em stretcher. 14:20 Reassessment: skin pink warm and dry, respirations even and unlabored, pt restless, em provider notified, request to go home, pt oriented to situation and will be admitted to hospital. 15:15 Reassessment: Admission ordered, outside lab notified to send COVID swab to [facility]. hb 15:36 Reassessment: Patient appears in no apparent distress at this time. repeat lactate sent.em 16:30 Reassessment: Patient appears in no apparent distress at this time. skin pink warm and em dry, respirations even and unlabored. 17:54 Reassessment: Patient appears in no apparent distress at this time. Patient and/or em family updated on plan of care and expected duration. Pain level reassessed. 20:15 Reassessment: per Rachelle in lab, the COVID 19 result is negative. sg Vital Signs: 11:30 BP 111 / 75; Pulse 157; Resp 32; Pulse Ox 98% on R/A; em 11:40 Weight 83.46 kg; ph 12:00 BP 133 / 81; Pulse 156; Resp 30; Pulse Ox 100% on R/A; em 12:15 Temp 100.7(C); em 12:41 BP 123 / 72; Pulse 158; Resp 27; Temp 101.6(C); Pulse Ox 100% on R/A; Pain 0/10; em 13:18 BP 116 / 73; Pulse 152; Resp 24; Temp 102.2(C); Pulse Ox 99% on R/A; Pain 0/10; em 14:15 BP 111 / 80; Pulse 126; Resp 24; Temp 101.8; Pulse Ox 99% on R/A; em 15:12 BP 107 / 76; Pulse 129; Resp 28; Temp 100.9; Pulse Ox 99% on 2 lpm NC; em 16:15 BP 103 / 74; Pulse 125; Resp 24; Temp 101.2; Pulse Ox 100% on 2 lpm NC; em 17:24 BP 97 / 55; Pulse 124; Resp 28; Temp 100.9(C); Pulse Ox 100% on 2 lpm NC; em ED Course: 10:55 Patient arrived in ED. mr 10:57 Cr Ramirez, PATROL LADY is PHCP. pm1 10:57 Herson Preciado MD is Attending Physician. pm1 11:09 Clay Hardy PA is PHCP. pm1 11:15 Triage completed. ph 11:20 Robert Castaneda, RN is Primary Nurse. em 11:20 Arm band placed on. em 11:20 Assisted provider with central line placement. Set up central line tray. Triple lumen em line placed in right femoral. Line placed by Clay DESOUZA Placement verified by CXR, blood return, Dressed with Tape, Tegaderm, Blood was collected. Patient tolerated well. 12:00 Chest Single View XRAY In Process Unspecified. EDMS 12:00 Placed in gown. Bed in low position. Call light in reach. Side rails up X2. Cardiac em monitor on. Pulse ox on. NIBP on. 12:00 Urine collected: Carballo catheter specimen, cloudy, Amount Returned: 80mL. kj1 13:01 CT Chest Abdomen Pelvis W/O Contrast In Process Unspecified. EDMS 13:01 CT completed. Patient moved back from CT. mw3 14:02 Adair Zapata MD is Hospitalizing Provider. jr8 14:52 CT Head Brain wo Cont In Process Unspecified. EDMS 19:14 IV is patent, with fluids infusing freely, with good blood return, Patient admitted, IV rv remains in place. Administered Medications: 11:35 Drug: NS 0.9% (30 ml/kg) 30 ml/kg Route: IV; Rate: bolus; Site: right femoral; ph 14:10 Follow up: IV Status: Completed infusion; IV Intake: 3000ml em 12:15 Drug: Cefepime 2 grams Route: IVPB; Rate: 200 ml/hr; Infused Over: 30 mins; Site: right em femoral; 12:17 Follow up: Response: No adverse reaction; IV Status: Completed infusion; IV Intake: 10mlem 12:18 Drug: vancoMYCIN 1 grams Route: IVPB; Infused Over: 2 hrs; Site: right femoral; em 19:16 Follow up: IV Status: Completed infusion; IV Intake: 250ml rv 12:40 Drug: Tylenol 1000 mg Route: PO; ph 14:34 Follow up: Response: No adverse reaction em 12:40 Drug: NS 0.9% 1000 ml Route: IV; Rate: 125 ml/hr; Site: right femoral; ph 19:15 Follow up: IV Status: Infusion continued upon admission rv 13:55 Drug: Metoprolol 5 mg Route: IVP; Site: right femoral; em 14:05 Follow up: Response: No adverse reaction; Cardiac rhythm changed em Intake: 12:17 IV: 10ml; Total: 10ml. em 14:10 IV: 3000ml; Total: 3010ml. em 19:16 IV: 250ml; Total: 3260ml. rv Outcome: 14:03 Decision to Hospitalize by Provider. jr8 19:14 Admitted to ER Hold. Please see [facility] for further documentation. rv 19:14 Condition: stable 19:14 Instructed on the need for admit. 12/26 07:49 Patient left the ED. sv Signatures: Dispatcher [employer] EDMS Dalila Wolf RN EVAN Shakir Hewitt RN RN Le Irby mr Robert Castaneda RN EVAN em Clay Hardy PA PA jr8 Neva Ortez RN RN ph Cr Ramirez, LEONORA PATROL LADY pm1 Racheal Rae RN RN Laurie Bustos mw3 Juan Rudolph RN RN Cheri Myrick kj1 Corrections: (The following items were deleted from the chart) 12/25 15:18 15:12 BP 107 / 76; Pulse 129bpm; Resp 16bpm; Pulse Ox 99% 2 lpm Nasal Cannula; Temp em 100.9F; em
[2019-12-26] MEDS ORDERED: LORazepam 2 MG/ML VIAL ONE (14:27)
--- NOTE | 2019-12-26 14:57 | P.HP ---
Certification for Inpatient Patient admitted to: Inpatient With expected LOS: >2 Midnights Practitioner: I am a practitioner with admitting privileges, knowledge of patient current condition, hospital course, and medical plan of care. Services: Services provided to patient in accordance with Admission requirements found in Title 42 Section 412.3 of the Code of Federal Regulations Patient History Date of Service: 12/27/19 Reason for admission: Sepsis acute renal failure altered mental status History of Present Illness: Patient is 59 years of age he did have a cholecystectomy done and recently on 12/20 had an ERCP was found to have some esophagitis and peptic ulcer disease is been complaining of some nausea vomiting admitted with presumed sepsis elevated lactic acid mildly elevated white count11:30 otherwise stable vital signs CT scan of the abdomen chest was negative he is completely altered very tachycardic. Been treated for melanoma on the left shoulder BP 111 / 75; Pulse 157; Resp 32; Pulse Ox 98% on R/A; Allergies No Known Allergies Allergy (Verified 12/09/19 11:06) Home Medications: Promethazine HCl 25 mg PO Q6H PRN 12/19/19 Pantoprazole [Protonix Tab] 40 mg PO BID #60 tab 12/21/19 Sucralfate [Carafate*] 1 gm PO QID #120 tab 12/21/19 - Past Medical/Surgical History Diabetic: No -: Basal cell carcinoma -: cholecystectomy 12/09 -: EGD on 12/20 - Social History Alcohol use: No CD- Drugs: No Caffeine use: Yes Review of Systems is unable to be obtained Physical Examination - Vital Signs Blood Pressure: 111/75 Pulse: 157 Pulse Ox (%): 98 - Physical Exam General: Alert, Delirious, Other HEENT: Atraumatic, Other (11:30 BP 111 / 75; Pulse 157; Resp 32; Pulse Ox 98% on R/A; ) Neck: Supple Respiratory: Clear to auscultation bilaterally Cardiovascular: No edema, Regular rate/rhythm Gastrointestinal: Normal bowel sounds, Soft and benign Musculoskeletal: No clubbing, No swelling Integumentary: No rashes, No breakdown, Other (Patient has evidence of basal cell cancer on the left shoulder is being treated) Neurological: Other (Patient is confused) - Studies Laboratory Data (last 24 hrs) 12/26/19 11:25: Magnesium 1.8 12/26/19 11:25: PT 18.1 H, INR 1.55, APTT 44.8 H 12/26/19 11:25: WBC 11.8 H D, Hgb 14.2, Hct 43.4 D, Plt Count 567 H D 12/26/19 11:25: Sodium 146 H, Potassium 3.8, BUN 11, Creatinine 2.38 H D, Gluc ose 148 H, Total Bilirubin 1.0, AST 81 H, ALT 69, Alkaline Phosphatase 158 H, Amylase 61, Lipase 200 Assessment and Plan - Problems (Diagnosis) (1) Sepsis Current Visit: Yes Status: Acute Plan: Patient is 59 years of age admitted with altered mental status possible sepsis lactic acid acidosis urinalysis negative for infection patient is acidotic hypercalcemic clearly has a metabolic acidosis PT INR elevated patient is auto anti coagulated PT an are is elevated with hold lumbar puncture for now change to Rocephin and vancomycin patient has abnormal liver function tests elevated PT INR CT scan of the abdomen shows normal liver no evidence of any obvious sepsis Qualifiers: Sepsis type: sepsis due to unspecified organism Sepsis acute organ dysfunction status: with acute organ dysfunction Severe sepsis acute organ dysfunction type: acute renal failure Acute renal failure type: unspecified Severe sepsis shock status: without septic shock Qualified Code(s): A41.9 - Sepsis, unspecified organism; R65.20 - Severe sepsis without septic shock; N17.9 - Acute kidney failure, unspecified (2) Hypercalcemia Current Visit: Yes Status: Acute Plan: Patient also has hypercalcemia continue with IV fluids serum PTH level serum calcium was normal before - Advance Directives Does patient have a Living Will: No Does patient have a Durable POA for Healthcare: No
[2019-12-26] MEDS ORDERED: Pharmacy Consult 1 EA XX PRN (14:58)
[2019-12-26] MEDS ORDERED: NA CHLORIDE 0.9% 1,000 ML IV SCH (15:00)
--- NOTE | 2019-12-26 15:10 | RAD REPORT ---
EXAM DESCRIPTION: CT - Head Brain Wo Cont - 12/26/2019 2:53 pm CLINICAL HISTORY: MENTAL STATUS CHANGE COMPARISON: Abdomen Pelvis W Contrast dated 12/19/2019; Chest Abd Pelvis Wo Con dated 12/26/2019 TECHNIQUE: Axial 5 mm thick images of the head were obtained without IV contrast. All CT scans are performed using dose optimization technique as appropriate and may include automated exposure control or mA/KV adjustment according to patient size. FINDINGS: No intracranial hemorrhage, mass, edema or shift of mid-line structures. No acute infarcti on changes seen. No cortical edema or sulcal effacement. No focal brain parenchymal finding identifia ble. Ventricles are normal. Right mastoid air cells are partially opacified. Patchy ethmoid mucosal thickening present. No acute bony findings. IMPRESSION: No acute intracranial finding identifiable. Partial opacification of the right mastoid air cells and patchy ethmoid air cell mucosal thickening. No air-fluid levels in the sinuses. Correlation can be made with any clinical findings for mastoiditi s or sinusitis.
[2019-12-26] MEDS ORDERED: CEFTRIAXONE/SWI 2gm 2 GM/20 ML SYR IV SCH (15:30)
[2019-12-26] MEDS ORDERED: FENTANYL CITR 100 MCG/2 ML IV ONE (20:00)
[2019-12-26] MEDS ORDERED: D5W 1,000 ML IV ONE ×2 (20:29→23:50)
[2019-12-26] MEDS ORDERED: D50W 25 GM/50 ML SYRINGE/VIAL IV ONE ×2 (20:29→20:39)
[2019-12-26] MEDS ORDERED: D50W 25 GM/50 ML SYRINGE/VIAL IV PRN (20:30)
[2019-12-26] MEDS ORDERED: D5W 1,000 ML IV SCH (21:00)
[2019-12-26] MEDS: CEFTRIAXONE/SWI 2gm 2 GM/20 ML SYR IV SCH (21:00)
[2019-12-26] MEDS: ACETAMINOPHEN 650MG/RECT SUPP PR PRN (21:03)
[2019-12-26 23:37] LABS: Absolute Lymphocytes (CBC) 1.1 K/uL (0.7-4.9); Basophils % 0.2 % (0-1.3); Hematocrit 33.8 % (39.6-49.0); Lymphocytes % 15.8 % (15.3-44.8); MPV 7.7 fL (7.6-11.3); RBC Red Blood Cell Count 3.78 M/uL (4.33-5.43)
[2019-12-27 00:05] LABS: Potassium 3.6 mmol/L (3.5-5.1)
[2019-12-27] MEDS ORDERED: NA CHLORIDE 0.9% 1,000 ML IV ONE (00:42)
[2019-12-27] MEDS ORDERED: NA CHLORIDE 0.9% 1,000 ML ONE (00:44)
[2019-12-27] MEDS ORDERED: HYDROCORTISONE SUC 100 MG INJ IV ONE (03:20)
[2019-12-27] MEDS ORDERED: FENTANYL CITR 100 MCG/2 ML IV PRN (03:23)
[2019-12-27] MEDS ORDERED: HYDROCORTISONE SUC 100 MG INJ ONE (03:32)
[2019-12-27] MEDS ORDERED: NS 0.9% VIAL 10 ML ONE (03:33)
[2019-12-27] MEDS ORDERED: D5 0.45 NS 1,000 ML IV SCH (04:00)
[2019-12-27 04:39] LABS: Absolute Lymphocytes (CBC) 0.9 K/uL (0.7-4.9); Basophils % 0.4 % (0-1.3); Hematocrit 32.3 % (39.6-49.0); Lymphocytes % 16.3 % (15.3-44.8); MPV 7.7 fL (7.6-11.3); RBC Red Blood Cell Count 3.63 M/uL (4.33-5.43)
[2019-12-27 04:52] LABS: Protime INR 1.63
[2019-12-27 05:13] LABS: Albumin 2.4 g/dL (3.4-5.0); Bilirubin Total 0.9 mg/dL (0.2-1.0); Potassium 3.6 mmol/L (3.5-5.1); Protein, Total 6.7 g/dL (6.4-8.2)
[2019-12-27] MEDS ORDERED: NA CHLORIDE 0.9% 500 ML IV ONE (07:20)
[2019-12-27] MEDS ORDERED: PROMETHAZINE 25 MG TABLET PO PRN (07:21)
[2019-12-27] MEDS: SUCRALFATE 1 GM TABLET PO SCH ×5 (08:37→21:00)
[2019-12-27] MEDS: PANTOPRAZOLE 40MG TABLET PO SCH ×3 (08:37→21:00)
[2019-12-27] MEDS: D5 0.9 NS 1,000 ML IV SCH ×2 (08:40→19:03)
[2019-12-27] MEDS: CEFTRIAXONE/SWI 2gm 2 GM/20 ML SYR IV SCH ×2 (08:59→20:42)
[2019-12-27] MEDS ORDERED: JEVITY 1.2 CAL LIQUID 1,000 ML BOT FT SCH (12:00)
[2019-12-27] MEDS ORDERED: VITAMIN K (ADULT) 10 MG/ML SQ SCH (12:00)
--- NOTE | 2019-12-27 12:21 | P.PN ---
Subjective Date of Service: 12/27/19 Chief Complaint: Altered mental status Patient is minimally responsive no change Review of Systems is unable to be obtained Physical Examination - Vital Signs Temperature: 98.2 F Blood Pressure: 141/82 Pulse: 102 Respirations: 20 Pulse Ox (%): 100 - Physical Exam General: Delirious, Unresponsive Respiratory: Clear to auscultation bilaterally Cardiovascular: No edema Gastrointestinal: Normal bowel sounds, Soft and benign - Studies Laboratory Data (last 24 hrs) 12/26/19 11:25: Sodium 146 H, Potassium 3.8, BUN 11, Creatinine 2.38 H D, Glucose 148 H, Total Bilirubin 1.0, AST 81 H, ALT 69, Alkaline Phosphatase 158 H, Amylase 61, Lipase 200 Microbiology Data (last 24 hrs): 12/26/19 14:27 Nasopharnyx Influenza Type A Antigen Screen - Final 12/26/19 14:27 Nasopharnyx Influenza Type B Antigen Screen - Final Assessment & Plan - Problems (Diagnosis) (1) Sepsis Current Visit: Yes Status: Acute Plan: Patient admitted with presumed sepsis so far is cultures are negative is mccarty virus negative patient is hypochloremic renal function improving patient is also hypercalcemic patient has abnormal liver function tests elevated PT INR CT scan of the abdomen is negative serum lactic acid has improved patient's white count as also decline his abdomen is still soft positive bowel sounds no obvious tenderness elicited he recently had an MRCP done the I have was consultative including an EGD with some peptic ulcer disease patient has wound on the left shoulder be does not appear to be infected reviewed with general surgery so far all cultures are negative. UA shows yeast. Start ofnIV diflucan Qualifiers: Sepsis type: sepsis due to unspecified organism Sepsis acute organ dysfunction status: with acute organ dysfunction Severe sepsis acute organ dysfunction type: acute renal failure Acute renal failure type: unspecified Severe sepsis shock status: without septic shock Qualified Code(s): A41.9 - Sepsis, unspecified organism; R65.20 - Severe sepsis without septic shock; N17.9 - Acute kidney failure, unspecified
[2019-12-27] MEDS: VANCOMYCIN 1.25 GM in NA CHLORIDE 0.9% 250 ML IVPB SCH (12:46)
[2019-12-27] MEDS: FLUCONAZOLE 400 MG IVPB 400 MG/200 ML BAG IV SCH (14:44)
--- NOTE | 2019-12-27 16:50 | CON ---
Date of Consultation: 12/27/2019 Reason For Consultation: Altered mental status. History Of Present Illness: Patient is a 59-year-old gentleman, who underwent a laparoscopic cholecy stectomy 18 days ago by me. Postoperatively, he did well and he was admitted for nausea and vomiting . He had a workup done including a CAT scan, HIDA scan, an EGD and the only positive finding was pernell e ulcers in the stomach and duodenum and he was started on proton pump inhibitor and discharged. He came in with altered mental status and he has had a complete workup. I was asked to evaluate from e surgery standpoint, plus he has a history of basal cell carcinoma on his left upper back, which we had been managing with wound care. [facility]. On evaluation, the patien t is arousable, awake, but he is resting and sleeping currently. No complaint at this time. No abdo eladio pain. No nausea, vomiting, but he is just not awake. No fever or chills. Please note, he did have a COVID test which was negative. No sore throat, runny nose, cough, headaches, or dizziness. N o chest pain. No fever or chills. Review of Systems: Otherwise unremarkable. Past Medical History: Left shoulder basal cell carcinoma. Past Surgical History: Laparoscopic cholecystectomy, 2-1/2 weeks ago. Allergies: NONE. Social History: Patient does not smoke or drink. Family History: Noncontributory. Physical Examination: Vital Signs: Stable. He is currently afebrile. General: He is awake, arousable, but very lethargic. Head and Neck: No icterus. No neck mass. No JVD. Throat clear. Neck supple. Chest: Clear. Heart: S1 and S2. Abdomen: Soft, nondistended, nontender. Positive bowel sounds. Wounds healing well. Extremities: Adequately perfused. Nontender. Neuro: Nonfocal. The left upper back wound is healing. There is no sign of infection in that area. Laboratory Data: Reviewed. UA reviewed. Patient does have some yeast in his urine. Cultures are neg ative so far. CT of the chest, abdomen, pelvis again showed no changes concerning the acute process. Assessment: Altered mental status. Please note CT of the head was negative as well and yeast in the urine at this time is the only significant finding. Patient is already on IV antibiotics. Recommendations: I discussed the care with Dr. Zapata, told to add Diflucan to cover the yeast. H e may require an LP; however, his INR is borderline and should it improve over the next 24 hours that will be another consideration for change in mental status. Perhaps a Neurology consultation will be helpful as well. There is no need for any acute surgical intervention at this time. /MODL Voice ID: [id number] Report ID: [id number]
[2019-12-27] MEDS ORDERED: VITAL AF 1,000 ML BOT RTH SCH (17:00)
[2019-12-27] MEDS: METRONIDAZOLE 500mg IVPB 500 MG/100 ML BAG IV SCH (17:51)
[2019-12-27] MEDS ORDERED: ZIPRASIDONE MESYLA 20 MG/VIAL IM PRN (18:16)
[2019-12-27] MEDS ORDERED: WATER FOR INJ,STERILE 10 ML IM PRN (18:16)
--- NOTE | 2019-12-27 20:14 | EKG ---
Test Date: 2019-12-26 Test Time: 11:55:41 Slurry Mixer: AALIYAH MEASUREMENT RESULTS: Intervals: Rate: 158 VA: QRSD: 72 QT: 206 QTc: 334 Hennessey: P: 83 VA: QRS: 59 T: 228 INTERPRETIVE STATEMENTS: Atrial flutter with 2:[address] & T wave abnormality, consider inferior ischemia ST & T wave abnormality, consider anterolateral ischemia Abnormal ECG Compared to ECG 12/19/2019 13:09:27 ST (T wave) deviation now present Sinus tachycardia no longer present T-wave abnormality no longer present Possible ischemia still present Electronically Signed On 12-27-19 20:11:15 CDT by Vidal Walker
--- NOTE | 2019-12-27 20:14 | EKG ---
Test Date: 2019-12-26 Test Time: 14:05:24 Plywood And Veneer Repairer: AALIYAH MEASUREMENT RESULTS: Intervals: Rate: 127 VA: 162 QRSD: 82 QT: 294 QTc: 427 Rice: P: 85 VA: 162 QRS: 45 T: 70 INTERPRETIVE STATEMENTS: Sinus tachycardia Otherwise normal ECG Compared to ECG 12/26/2019 11:55:41 Atrial flutter no longer present ST (T wave) deviation no longer present Possible ischemia no longer present Electronically Signed On 12-27-19 20:11:14 CDT by Vidal Walker
[2019-12-27] MEDS ORDERED: PROMETHAZINE INJ 25 MG/ML AMP IV PRN (22:14)
[2019-12-28] MEDS ORDERED: VANCOMYCIN 1.25 GM in NA CHLORIDE 0.9% 250 ML IVPB SCH ×2
[2019-12-28] MEDS: METRONIDAZOLE 500mg IVPB 500 MG/100 ML BAG IV SCH ×2 (00:34→09:05)
[2019-12-28] MEDS: D5 0.9 NS 1,000 ML IV SCH (05:13)
[2019-12-28] MEDS: PANTOPRAZOLE 40MG TABLET PO SCH ×2 (09:00→21:00)
[2019-12-28] MEDS: SUCRALFATE 1 GM TABLET PO SCH ×4 (09:00→21:00)
[2019-12-28] MEDS: CEFTRIAXONE/SWI 2gm 2 GM/20 ML SYR IV SCH ×2 (09:06→21:15)
[2019-12-28] MEDS: THIAMINE 200 MG/2 ML INJ IVP SCH (09:07)
--- NOTE | 2019-12-28 11:22 | P.PN ---
Subjective Date of Service: 12/28/19 Chief Complaint: Altered mental status Subjective: No new changes, Improving (- improving , more arousable) Physical Examination - Vital Signs Temperature: 99.0 F Blood Pressure: 141/88 Pulse: 106 Respirations: 18 Pulse Ox (%): 100 - Physical Exam General: Oriented x1, Other (drowsy) HEENT: Atraumatic, Normocephalic, PERRLA Neck: 2+ carotid pulse no bruit, JVD not distended Respiratory: Clear to auscultation bilaterally, Normal air movement Cardiovascular: Regular rate/rhythm, Normal S1 S2 Gastrointestinal: Normal bowel sounds, Soft and benign, Non-distended Musculoskeletal: Other (macerated area over left shoulder - few discrete lesions ) - Studies Microbiology Data (last 24 hrs): 12/26/19 12:10 Clean Catch Urine [place] Count - Final 12/26/19 12:10 Clean Catch Urine - Final No growth. 12/26/19 14:35 Nasopharnyx Coronavirus COVID-19 PCR - Final Assessment And Plan - Current Problems (Diagnosis) (1) Hypercalcemia Current Visit: Yes Status: Acute (2) Basal cell carcinoma Current Visit: No Status: Acute (3) Hx of radiation therapy Current Visit: No Status: Acute (4) Open wnd shoulder-complicated Current Visit: No Status: Acute Physician Review: Patient Assessed, Agree with Above Assessment and Plan Physician Review Additional Text: # Hypercalcemia-possibly related to malignancy -follow PTH related peptide- not unavailable here -PTH appropriately low -follow daily calcium level-improving with normal saline. -may need calcitonin and if still > ca 11 -consult renal team to follow #Recurrent fever/sepsis-likely due to secondary wound infection of basal cell carcinoma over left shoulder -continue antibiotics -we will obtain wound culture -obtain and follow pending blood culture -will obtain LP if persistent altered mental status after controlled calcium level #HTN - controlled # history of basal cell cancer-follows with Oncology-Dr. Rosas #History of status post recent cholecystectomy-surgical consult appreciated CT reviewed, no postsurgical infection DVT prophylaxis-subcutaneous heparin Time Spent Managing PTS Care (In Minutes): 40
[2019-12-28 11:23] LABS: Protime INR 1.27
[2019-12-28] MEDS ORDERED: D5W 1,000 ML IV SCH (12:00)
[2019-12-28] MEDS: VANCOMYCIN 1.25 GM in NA CHLORIDE 0.9% 250 ML IVPB SCH (12:00)
--- NOTE | 2019-12-28 12:08 | P.PN ---
Subjective Date of Service: 12/28/19 Chief Complaint: Encephalopathy Patient is more alert responsive today there is no evidence of active sepsis parathyroid hormone is low hypernatremia has worsened Review of Systems General: Weakness Physical Examination - Vital Signs Temperature: 99.0 F Blood Pressure: 141/88 Pulse: 106 Respirations: 18 Pulse Ox (%): 100 - Physical Exam General: Alert, Oriented x1 Respiratory: Clear to auscultation bilaterally Cardiovascular: No edema, Regular rate/rhythm - Studies Microbiology Data (last 24 hrs): 12/26/19 12:10 Clean Catch Urine Icard Count - Final 12/26/19 12:10 Clean Catch Urine - Final No growth. 12/26/19 14:35 Nasopharnyx Coronavirus COVID-19 PCR - Final Assessment & Plan - Problems (Diagnosis) (1) Sepsis Current Visit: Yes Status: Acute Plan: No evidence of sepsis right now Dc vancomycin for puncture pending cultures are negative lumbar puncture pending Qualifiers: Sepsis type: sepsis due to unspecified organism Sepsis acute organ dysfunction status: with acute organ dysfunction (2) Hypercalcemia Current Visit: Yes Status: Acute Plan: Patient has hypercalcemia his sodium has become progressively worse change to D5 water PTH level is low his calcium level was normal before urine was concentrat ed Physician Review: Patient Assessed, Agree with Above Assessment and Plan
--- NOTE | 2019-12-28 12:12 | PN ---
Date of Progress Note: 12/28/2019 Subjective: Patient is awake but lethargic and has not really woken up enough to eat yet, but he is arousable. Objective: Vital Signs: Stable. He is afebrile. Abdomen: Completely benign. Laboratory Data: Reviewed. Assessment: Altered mental status. Recommendations: Patient probably needs a Neurology evaluation, may be an LP. There is no need for any acute surgical intervention with regard to his recent gallbladder surgery. Reconsult Surgery p.r .nSaad /MODL Voice ID: [id number] Report ID: [id number]
[2019-12-28] MEDS: FLUCONAZOLE 400 MG IVPB 400 MG/200 ML BAG IV SCH (13:06)
--- NOTE | 2019-12-28 14:28 | P.CNS ---
Date of Consult: 12/28/19 Reason for Consult: Hypercalcemia, Hypernatremia Requesting Physician: April Alvarado Chief Complaint: Encephalopathy History of Present Illness: 59 y o male pt admitted for management of AMS found to have hypercalcemia and elevated sodium level. He was admitted for management of above issues and he was noted to have worsening sodium level prompting free water administration and nephrology consultation. Since he has a hx of melanoma, there is concern that he has PHRP activity as the cause of his hypercalcemia. he is unable to give a clear hx as he is confused. Allergies No Known Allergies Allergy (Verified 12/09/19 11:06) Home medications list reviewed: Yes Home Medications: RX: Promethazine HCl 25 mg PO Q6H PRN 12/19/19 Pantoprazole [Protonix Tab] 40 mg PO BID #60 tab 12/21/19 RX: Sucralfate [Carafate*] 1 gm PO QID #120 tab 12/21/19 - Past Medical/Surgical History Diabetic: No -: Basal cell carcinoma -: cholecystectomy 12/09 -: EGD on 12/20 - Social History Alcohol use: No CD- Drugs: No Caffeine use: Yes Review of Systems is unable to be obtained (due to altered sensorium.) Physical Examination Temp Pulse Resp BP Pulse Ox 99.0 F 106 H 18 141/88 H 100 12/28/19 12:08 12/28/19 12:08 12/28/19 12:08 12/28/19 12:08 12/28/19 12:08 General: Delirious HEENT: Atraumatic, Normocephalic, PERRLA Respiratory: Clear to auscultation bilaterally Cardiovascular: No edema Gastrointestinal: Soft and benign Neurological: Other (Confused with incoherent speech.) Conclusions/Impression: Hypernatremia Hyperchloremia Metabolic acidosis Melanoma. Sepsis. Hypokalemia hypophosphatemia Plan: He does have significant electrolyte abnormalities with sodium of 155, potassium of 3.0, calcium of 11.2 and chloride of 128. We will start aggressive hydration with free water at 150ml/hr and have potassium in d5w IV fluid,. We will also force diurese him with lasix at 40mg IV bid for the next 24hrs to assist with calcium wasting via the urinary tract to aid the correction of his hypercalcemia. We are of the opinion that his hypernatremia and hypercalcemia are contributing to his altered sensorium significantly. We will replete potassium and monitor level closely. We will replete phosphorus and monitor level closely. We will continue to monitor electrolytes profile on a daily basis. Will continue to monitor acid-base profile closely.
[2019-12-28] MEDS: FUROSEMIDE 40 MG/4 ML VIAL IV SCH (15:39)
[2019-12-28] MEDS ORDERED: D5W 1,000 ML with POTASSIUM CL 40 MEQ IV SCH ×2 (16:00)
[2019-12-28] MEDS ORDERED: PAMIDRONATE DISOD 30 MG VIAL IV ONE ×2 (17:46→18:25)
[2019-12-28] MEDS: COLLAGENASE 30 GM OINTMENT TOP SCH (17:55)
[2019-12-28] MEDS: ACETAMINOPHEN 650MG/RECT SUPP PR PRN (18:39)
[2019-12-28] MEDS ORDERED: NA CHLORIDE 0.9% 1,000 ML IV ONE (18:53)
[2019-12-28] MEDS ORDERED: WATER IV SCH ×2 (19:00)
[2019-12-28] MEDS ORDERED: DEXTROSE 5% IV ONE (19:00)
[2019-12-28] MEDS ORDERED: DEXTROSE 5% IV SCH ×2 (19:00)
[2019-12-28] MEDS ORDERED: WATER IV ONE (19:00)
[2019-12-28] MEDS ORDERED: PAMIDRONATE IV SCH ×2 (19:00)
[2019-12-28] MEDS ORDERED: PAMIDRONATE IV ONE (19:00)
--- NOTE | 2019-12-28 19:27 | CON ---
Reason For Consultation: Consultation called by Dr. Mcneal because he thought the patient needed a lumbar puncture. History Of Present Illness: Mr. Sweeney is a 59-year-old patient with basal cell carcinoma of his left shoulder, for which, he has a wound and is followed in [facility] by Dr. Mcneal. Further, he had a cholecystectomy on December 20 after an ERCP identified esophagitis, peptic ulcers. He did come to the hospital with vomiting that led to this recent admission. The consultation was called because the patient was not returning back fully to his baseline cognitive level of functioning, where he was alert and oriented x3. At the time of my evaluation, he is in ICU. The patient is somewhat sleepy, but he was responsive to verbal stimulation. He answered to his name. He knew the year and the month, not the exact date. He did follow simple commands with no difficulty moving both arms and legs equally well. Face was symmetric with equal excursions. He did not have any rigors or stiffness or chills. Did not have any nuchal rigidity. Neck moved very freely and he had no evidence of the Kernig's and Brudzinski signs that are obvious. The patient's nurse indicated that today he was somewhat more responsive than he had been since she was evaluating him over the last 3 days from the to the . He did have a head CT scan done on the that showed no acute ischemic or hemorrhagic changes. There was a partial opacification of the right mastoid air cells and patchy ethmoid air cell mucosal thickening, otherwise unremarkable. His blood work on admission did show an elevated white count of 11.8. Neutrophils, however, were normal. Chloride and sodium were elevated at 155 and 128 with slightly elevated glucose. Parathyroid hormone was low at 6.3. Procalcitonin on the elevated at 3.78, but his lactic acid was normal at 0.9. He did have a COVID-19 PCR, which was negative. Past Medical History: Left shoulder basal cell carcinoma, cholecystitis. Past Surgical History: Cholecystectomy, recent. Social History: He reports history of drinking in the past and drinking until he blacked out, but no recent alcohol or tobacco or IV drug use. Allergies: NO KNOWN DRUG ALLERGIES. Family History: Noncontributory. Review of Systems: Patient did have nausea, vomiting, abdominal pain, some mild disorientation he admits to himself. Otherwise, no focal weakness or numbness in the face, arm, and leg. No neck stiffness. No difficulty moving his arms and legs in a symmetric manner. Physical Examination: Vital Signs: Blood pressure 141/88, pulse 106, respiratory rate 16 to 22, temperature 99, oxygen saturation 100%. Weight 184 pounds, height 6 feet, BMI 25. General: Mr. Sweeney is resting in ICU. He appears to be in no distress. He is somewhat sleepy, but easily arousable. HEENT: He is normocephalic, atraumatic. Sclerae anicteric. Oropharynx is moist and pink. Neck: Supple. Chest: Clear. Abdomen: Soft. Extremities: Show no significant edema, cyanosis, or clubbing. Neurologic: He does follow simple commands without difficulty. He knew the year. He knew the month, but not the exact date. He eventually got that he was in the hospital, could not tell the exact floor. He did mention his sister was helping him previously and he communicated effectively once aroused and stimulated. Cranial nerves show no focal deficits on 2 through 12. Again, fully supple neck. No Kernig's or Brudzinski signs observed. His arm movement is symmetric in the upper and lower extremities. Sensation is intact except for a slight stocking-glove loss. He has normal tone in the upper and lower extremities. Reflexes symmetric and depressed. Coordination is slow, but intact in the upper and lower extremities. His gait will be assessed when he is up with physical therapy. Assessment: Mr. Sweeney is a 59-year-old patient with likely multiple causes for his encephalopathy, which seems to be resolving, although slowly. He has toxic and metabolic causes and no obvious evidence of stroke or florid central nervous system infection such as encephalitis or meningitis. However, paraneoplastic autoimmune encephalitis may be considered in his differential diagnosis. Plan: He may be given thiamine and folic acid since he drank alcohol heavily in the past. He should be observed for any alcohol withdrawal signs and Wernicke- Korsakoff syndrome. Continue with antibiotics and antifungal treatment including Rocephin and Diflucan. Orders for MRI of the brain and EEG are pending. He may benefit from a lumbar puncture to rule out autoimmune limbic encephalitis including: anti LG1, anti CASPR2, anti AMPA2 GABAb, and anti NMDA antibodies. Standard CSF orders should also include protein, glucose, cell count with differential, CSF electrophoresis, VDRL, AFB, ELY and Lyme titer. Will hold off of prion protein testing for now but a tube of CSF may be saved for later testing. LB/MODL Voice ID: [id number] Report ID: [id number] MTDD
[2019-12-28] MEDS: D5W 1,000 ML with POTASSIUM CL 20 MEQ IV SCH ×2 (22:48)
[2019-12-28] MEDS: ACETAMINOPHEN 325 MG TABLET PO PRN (22:57)
[2019-12-29 05:41] LABS: Basophils % 0.4 % (0-1.3); Hematocrit 32.3 % (39.6-49.0); MPV 8.1 fL (7.6-11.3); RBC Red Blood Cell Count 3.66 M/uL (4.33-5.43)
[2019-12-29 05:53] LABS: Albumin 2.3 g/dL (3.4-5.0); Bilirubin Total 0.5 mg/dL (0.2-1.0); Phosphorus 2.7 mg/dL (2.5-4.9); Protein, Total 6.7 g/dL (6.4-8.2)
[2019-12-29 05:54] LABS: Magnesium 1.2 mg/dL (1.8-2.4)
[2019-12-29] MEDS ORDERED: Magnesium Sulfate 2gm IVPB 2 G/50 ML BAG IV ONE ×2 (06:13→13:04)
[2019-12-29] MEDS: D5W 1,000 ML with POTASSIUM CL 20 MEQ IV SCH ×6 (06:15→22:21)
[2019-12-29] MEDS: ACETAMINOPHEN 325 MG TABLET PO PRN ×3 (06:23→13:14)
[2019-12-29] MEDS: KCL 20 MEQ/100 mL IVPB 20 MEQ/100 ML BAG IV SCH ×3 (06:29→23:13)
[2019-12-29 06:52] VITALS: BMI 22.2
[2019-12-29] MEDS: COLLAGENASE 30 GM OINTMENT TOP SCH (09:00)
[2019-12-29] MEDS: SUCRALFATE 1 GM TABLET PO SCH ×4 (09:52→21:10)
[2019-12-29] MEDS: PANTOPRAZOLE 40MG TABLET PO SCH ×2 (09:52→21:10)
[2019-12-29] MEDS: THIAMINE 200 MG/2 ML INJ IVP SCH (09:53)
[2019-12-29] MEDS: FUROSEMIDE 40 MG/4 ML VIAL IV SCH ×2 (09:53→18:23)
[2019-12-29] MEDS: CEFTRIAXONE/SWI 2gm 2 GM/20 ML SYR IV SCH ×2 (09:55→21:09)
[2019-12-29] MEDS ORDERED: POTASSIUM PHOS 30 MM in NA CHLORIDE 0.9% 500 ML IV ONE (11:16)
--- NOTE | 2019-12-29 11:24 | P.PN ---
Subjective Date of Service: 12/29/19 Chief Complaint: Encephalopathy Subjective: No new changes, No C/O voiced (Denies any complaints, states he feels tired -more conversant today) Physical Examination - Vital Signs Temperature: 102.0 F Blood Pressure: 118/67 Pulse: 142 Respirations: 29 Pulse Ox (%): 98 - Physical Exam General: Alert, In no apparent distress HEENT: Atraumatic, Normocephalic, PERRLA Neck: Supple, 2+ carotid pulse no bruit Respiratory: Clear to auscultation bilaterally, Normal air movement Cardiovascular: Normal pulses, Regular rate/rhythm, Normal S1 S2 Gastrointestinal: Normal bowel sounds, Soft and benign, Non-distended Neurological: Normal speech (oriented x2) - Studies Microbiology Data (last 24 hrs): 12/26/19 12:10 Clean Catch Urine Leland Count - Final 12/26/19 12:10 Clean Catch Urine - Final No growth. Assessment And Plan - Current Problems (Diagnosis) (1) Hypercalcemia Current Visit: Yes Status: Acute (2) Basal cell carcinoma Current Visit: No Status: Acute (3) Hx of radiation therapy Current Visit: No Status: Acute (4) Open wnd shoulder-complicated Current Visit: No Status: Acute Physician Review: Patient Assessed, Agree with Above Assessment and Plan Physician Review Additional Text: # Hypercalcemia-improving -related to malignancy -continue IVF, status post pamidronate x1 -follow PTH related peptide- not unavailable here -PTH appropriately low #Recurrent fever/sepsis-unclear etiology, may be due to cellulitis of left shoulder basal cancer area -culture with Gram-positive of missing, pending full culture -continue Rocephin, will add vancomycin -follow MRI today, if negative, will proceed with LP although patient is refusing at this time, might need family decision #Hypokalemia-will replete Hypomagnesemia-will replete Hypernatremia-continue D5W, continue to encourage fluid intake p.o. #HTN - controlled # History of basal cell cancer-follows with Oncology-Dr. Rosas #History of status post recent cholecystectomy-surgical consult appreciated CT reviewed, no postsurgical infection #DVT prophylaxis-subcutaneous heparin
[2019-12-29] MEDS ORDERED: VANCOMYCIN/NS 1 gm 1 GM/250 ML BAG IVPB ONE (11:45)
--- NOTE | 2019-12-29 12:25 | RAD REPORT ---
EXAM DESCRIPTION: MRI - Brain Wo Cont - 12/29/2019 12:17 pm CLINICAL HISTORY: AMS Headache, drowsiness COMPARISON: Head Brain Wo Cont dated 12/26/2019; Cholangiogram dated 12/20/2019 TECHNIQUE: Multi-sequence, multiplanar MR imaging of the brain was performed without contrast. FINDINGS: Significant motion artifact is present, degrading the quality of examination. The examinat ion is considered grossly diagnostic. No gross evidence of intracranial hemorrhage, hydrocephalus or extra-axial fluid collections. No leandra a or shift of midline structures. DWI is negative for acute CVA. Midline structures are normally formed. Mild mucosal thickening of the ethmoid air cells. IMPRESSION: Motion degraded study without gross acute abnormality seen.
[2019-12-29] MEDS ORDERED: NA CHLORIDE 0.9% 1,000 ML IV ONE (12:34)
[2019-12-29] MEDS: FLUCONAZOLE 400 MG IVPB 400 MG/200 ML BAG IV SCH (12:36)
[2019-12-29] MEDS ORDERED: DANTROLENE SODIUM IV PRN ×2 (13:43→13:55)
[2019-12-29] MEDS ORDERED: DANTROLENE IV SCH (14:00)
[2019-12-29] MEDS ORDERED: DANTROLENE SODIUM IV ONE (14:00)
[2019-12-29] MEDS ORDERED: WATER FOR INJ STERILE IV SCH (14:00)
[2019-12-29] MEDS: IBUPROFEN 600 MG TAB PO PRN (14:48)
--- NOTE | 2019-12-29 15:48 | PN ---
History Of Present Illness: Mr. Sweeney is more alert and interactive today, answering questions appropriately and without hesitation. However, he seems to have more stiffness and chills and actually his temperature per nurses report to be 104 and heart rate over 160. Objective: Vital Signs: Blood pressure is 118/67, temperature 104, his heart rate 165, oxygen saturation 98%. General: Mr. Sweeney is lying on his right side in the ICU bed. He is alert and responsive and appeared to be somewhat stiff and perhaps shivering from his high fever. He does not have a focal face, arm, or leg appearing weakness and his movements are smooth and coordinated. Laboratory Studies: Today his white blood cell count is 5.2, down from 11.8, hemoglobin 11.2 and hematocrit 32.3, platelets 271. His lactic acid level was 0.9 on 12/25 at 2327, however, earlier around 1532 on 12/25 it was 1.2, and when he came into the hospital 12/25 at 1125 it was 8.5, so it did normalize over the day. Procalcitonin remained normal throughout. His brain MRI done earlier showed no acute ischemic or hemorrhagic change. It should be noted that the study was motion degraded because the patient was not remaining still. Assessment And Plan: Mr. Sweeney is a 59-year-old patient with high fevers to 104 and stiffness along with marked tachycardia, heart rate 160 to 170. He received Phenergan IV yesterday and it is possible he has neuroleptic malignant syndrome. This was discussed with the nursing staff. The patient will be started on dantrolene 1 mg/kg, followed by 1 mg/kg every 6 hours as needed. Also, because of his encephalopathy the discussion in my note previously was that the patient should be considered for an autoimmune encephalitis given the possibility of cancer with his left shoulder mass and history of smoking. If he can receive a lumbar puncture under fluoroscopy, a series of specific antibodies were written out to be drawn. I understand the radiologist will not be back until Friday. The lumbar puncture can be done at that time. Also consider alcohol withdrawal syndrome with tachycardia and high fever given the patient's history of drinking until he blacks out. He should be on thiamine 100 mg, folate 1 mg daily along with a multivitamin daily. He should continue with antifungal and antibacterial treatment for possible sepsis. EEG is pending. The patient will be followed tomorrow. GRIS Voice ID: [id number] Report ID: [id number] ALINA
--- NOTE | 2019-12-29 17:05 | P.PN ---
Subjective Date of Service: 12/29/19 Chief Complaint: Encephalopathy Impression developed fever today. Review of Systems General: Fever, Chills Physical Examination - Vital Signs Temperature: 101.2 F Blood Pressure: 103/71 Pulse: 135 Respirations: 31 Pulse Ox (%): 98 - Physical Exam General: Alert, Oriented x3 HEENT: Atraumatic, PERRLA, Other (dry oral mucosa) Neck: Supple Respiratory: Clear to auscultation bilaterally Cardiovascular: Regular rate/rhythm, Normal S1 S2 Gastrointestinal: Normal bowel sounds Musculoskeletal: No clubbing Neurological: Normal gait, Normal speech Assessment And Plan - Plan Hypercalcemia Hypernatremia possible neuroleptic malignant syndrome. hypokalemia Hypophosphatemia Plan: His calcium is much improved with value of 10.3 today. His potassium is still low at 3.0 His phosphorus is still low at 2.0. His magnesium is low at 1.2. Will monitor his electrolytes and replete as needed. Will continue empiric antibiotics for management of cellulitis. We will continue free water administration for hypernatremia. In view of his neuroleptic malignant syndrome, we will continue cooling blankets. We will continue Lasix administration for management of hypercalcemia. Physician Review: Patient Assessed, Agree with Above Assessment and Plan Physician Review Additional Text: # Hypercalcemia-improving -related to malignancy -continue IVF, status post pamidronate x1 -follow PTH related peptide- not unavailable here -PTH appropriately low #Recurrent fever/sepsis-unclear etiology, may be due to cellulitis of left shoulder basal cancer area -culture with Gram-positive of missing, pending full culture -continue Rocephin, will add vancomycin -follow MRI today, if negative, will proceed with LP although patient is refusing at this time, might need family decision #Hypokalemia-will replete Hypomagnesemia-will replete Hypernatremia-continue D5W, continue to encourage fluid intake p.o. #HTN - controlled # History of basal cell cancer-follows with Oncology-Dr. Rosas #History of status post recent cholecystectomy-surgical consult appreciated CT reviewed, no postsurgical infection #DVT prophylaxis-subcutaneous heparin
[2019-12-29 20:31] LABS: Magnesium 1.8 mg/dL (1.8-2.4); Potassium 3.2 mmol/L (3.5-5.1)
[2019-12-29 21:13] LABS: Phosphorus 3.4 mg/dL (2.5-4.9)
[2019-12-29] MEDS ORDERED: MAGNESIUM SULFATE 1 gm IVPB 1 GM/100 ML BAG IV ONE (22:45)
[2019-12-30] MEDS: KCL 20 MEQ/100 mL IVPB 20 MEQ/100 ML BAG IV SCH (01:15)
[2019-12-30] MEDS: D5W 1,000 ML with POTASSIUM CL 20 MEQ IV SCH ×8 (01:43→17:01)
[2019-12-30 07:44] LABS: Absolute Lymphocytes (CBC) 0.4 K/uL (0.7-4.9); Basophils % 0.6 % (0-1.3); Hematocrit 35.2 % (39.6-49.0); Lymphocytes % 9.7 % (15.3-44.8); MPV 7.9 fL (7.6-11.3); RBC Red Blood Cell Count 3.95 M/uL (4.33-5.43)
[2019-12-30 07:52] LABS: Albumin 2.2 g/dL (3.4-5.0); Bilirubin Total 0.4 mg/dL (0.2-1.0); Protein, Total 6.6 g/dL (6.4-8.2)
[2019-12-30] MEDS: FUROSEMIDE 40 MG/4 ML VIAL IV SCH (08:18)
[2019-12-30] MEDS: THIAMINE 200 MG/2 ML INJ IVP SCH (08:18)
[2019-12-30] MEDS: SUCRALFATE 1 GM TABLET PO SCH ×4 (08:18→20:45)
[2019-12-30] MEDS: PANTOPRAZOLE 40MG TABLET PO SCH ×2 (08:18→20:46)
[2019-12-30] MEDS: CEFTRIAXONE/SWI 2gm 2 GM/20 ML SYR IV SCH ×2 (08:24→20:39)
--- NOTE | 2019-12-30 09:48 | P.PN ---
Subjective Date of Service: 12/30/19 Chief Complaint: Encephalopathy Subjective: No new changes Impression developed fever today. Review of Systems General: Fever, Malaise Neurological: Weakness, Confusion Physical Examination - Vital Signs Temperature: 98.5 F Blood Pressure: 108/70 Pulse: 114 Respirations: 26 Pulse Ox (%): 98 - Physical Exam General: Alert, Oriented x3 HEENT: Normocephalic, PERRLA, EOMI Neck: Supple Respiratory: Clear to auscultation bilaterally Cardiovascular: Regular rate/rhythm, Normal S1 S2 Gastrointestinal: Normal bowel sounds Neurological: Cranial nerves 3-12 intact Assessment And Plan - Plan Hypercalcemia Hypernatremia possible neuroleptic malignant syndrome. hypokalemia Hypophosphatemia Plan: Sodium is better today at 143. His calcium is much improved with value of 10.0 today. His potassium is replete at 10.0 today. His phosphorus is still low at 2.0. His magnesium is replete at 2.0. Will monitor his electrolytes and replete as needed. Will continue empiric antibiotics for management of cellulitis. We will continue free water administration. In view of his neuroleptic malignant syndrome, we will continue cooling blankets. We will continue Lasix administration for management of hypercalcemia with dose changed to 20mg IV daily. Physician Review Additional Text: # Hypercalcemia-improving -related to malignancy -continue IVF, status post pamidronate x1 -follow PTH related peptide- not unavailable here -PTH appropriately low #Recurrent fever/sepsis-unclear etiology, may be due to cellulitis of left shoulder basal cancer area -culture with Gram-positive of missing, pending full culture -continue Rocephin, will add vancomycin -follow MRI today, if negative, will proceed with LP although patient is refusing at this time, might need family decision #Hypokalemia-will replete Hypomagnesemia-will replete Hypernatremia-continue D5W, continue to encourage fluid intake p.o. #HTN - controlled # History of basal cell cancer-follows with Oncology-Dr. Rosas #History of status post recent cholecystectomy-surgical consult appreciated CT reviewed, no postsurgical infection #DVT prophylaxis-subcutaneous heparin
--- NOTE | 2019-12-30 10:55 | P.PN ---
Subjective Date of Service: 12/30/19 Chief Complaint: Encephalopathy Subjective: No new changes, Improving (More alert and conversant this morning Admits to feeling tired Status post improving fever with dantrolene yesterday. New spike a fever again this morning) Physical Examination - Vital Signs Temperature: 98.5 F Blood Pressure: 108/70 Pulse: 114 Respirations: 26 Pulse Ox (%): 98 - Physical Exam General: Alert, Oriented x2, Cooperative HEENT: Atraumatic, Normocephalic, PERRLA Neck: 2+ carotid pulse no bruit, JVD not distended Respiratory: Clear to auscultation bilaterally, Normal air movement Cardiovascular: Regular rate/rhythm, Normal S1 S2 Musculoskeletal: No clubbing, No swelling Integumentary: Rash(es), Erythema, Other (Over left shoulder) Neurological: Normal speech, Normal strength at 5/5 x4 extr Assessment And Plan - Current Problems (Diagnosis) (1) Hypercalcemia Current Visit: Yes Status: Acute (2) Basal cell carcinoma Current Visit: No Status: Acute (3) Hx of radiation therapy Current Visit: No Status: Acute (4) Open wnd shoulder-complicated Current Visit: No Status: Acute Physician Review: Patient Assessed, Agree with Above Assessment and Plan Physician Review Additional Text: # Hypercalcemia-improving, corrected calcium at 11.4 now - c/w gentle IVF -related to malignancy -status post pamidronate x1 -PTH appropriately low #Recurrent fever-LIKELY RELATED TO MALIGNANT HYPERTENSION -history of promethazine use at home elicited -continue dantrolene p.r.n. fever, will dose now -for avoid neuroleptic medications #sepsis with left shoulder cellulitis-over area of basal cell cancer -culture with Staph aureus-MSSA infection -continue Rocephin -since improved and mental status and explained fever, no again need for lumbar puncture in a.m. especially since patient refusing the procedure #Hypokalemia-corrected Hypomagnesemia-repleted Hypernatremia-improved,continue to encourage fluid intake p.o. #HTN - controlled #ARF-may be due to recent NSAID use, avoid further ibuprofen use Follow nephrology on board. # History of basal cell cancer-follows with Oncology-Dr. Rosas #History of status post recent cholecystectomy-surgical consult appreciated CT reviewed, no postsurgical infection #DVT prophylaxis-subcutaneous heparin
[2019-12-30] MEDS: ACETAMINOPHEN 325 MG TABLET PO PRN ×2 (11:14→22:57)
[2019-12-30] MEDS ORDERED: Magnesium Sulfate 2gm IVPB 2 G/50 ML BAG IV ONE (11:15)
[2019-12-30] MEDS: COLLAGENASE 30 GM OINTMENT TOP SCH (14:45)
[2019-12-30] MEDS: IBUPROFEN 600 MG TAB PO PRN (20:45)
[2019-12-30] MEDS: ENSURE HIGH PROTEIN 237 ML CAN PO SCH (20:46)
[2019-12-31] MEDS: D5W 1,000 ML with POTASSIUM CL 20 MEQ IV SCH ×4 (04:34→16:23)
[2019-12-31 06:00] LABS: Absolute Lymphocytes (CBC) 0.8 K/uL (0.7-4.9); Basophils % 0.5 % (0-1.3); Hematocrit 30.9 % (39.6-49.0); Lymphocytes % 20.4 % (15.3-44.8); MPV 8.7 fL (7.6-11.3); RBC Red Blood Cell Count 3.53 M/uL (4.33-5.43)
[2019-12-31 06:50] LABS: Bilirubin Total 0.5 mg/dL (0.2-1.0); Magnesium 1.6 mg/dL (1.8-2.4); Phosphorus 3.4 mg/dL (2.5-4.9); Potassium 3.6 mmol/L (3.5-5.1); Protein, Total 6.3 g/dL (6.4-8.2)
[2019-12-31] MEDS: PANTOPRAZOLE 40MG TABLET PO SCH ×2 (07:19→20:41)
[2019-12-31] MEDS: SUCRALFATE 1 GM TABLET PO SCH ×4 (07:19→20:41)
[2019-12-31] MEDS: THIAMINE 200 MG/2 ML INJ IVP SCH (07:27)
[2019-12-31] MEDS: CEFTRIAXONE/SWI 2gm 2 GM/20 ML SYR IV SCH ×2 (07:42→20:45)
[2019-12-31] MEDS ORDERED: FUROSEMIDE 20 MG/ 2ML VIAL IV SCH (09:00)
[2019-12-31] MEDS: ENSURE HIGH PROTEIN 237 ML CAN PO SCH ×2 (09:00→20:42)
[2019-12-31] MEDS: COLLAGENASE 30 GM OINTMENT TOP SCH (09:00)
[2019-12-31] MEDS ORDERED: MAGNESIUM SULFATE 1 gm IVPB 1 GM/100 ML BAG IV ONE (10:34)
--- NOTE | 2019-12-31 10:38 | RAD REPORT ---
EXAM DESCRIPTION: RAD - Lumbar Puncture For Dx - 12/31/2019 10:22 am CLINICAL HISTORY: Fever, altered mental status COMPARISON: None. TECHNIQUE: The procedure, risks and alternatives to the procedure were discussed with the patient in detail. After answering all questions, both oral and written consent were obtained. Time-out proced ure was performed. The patient was placed in an oblique prone position on the fluoroscopic table. The skin of the lower back was prepped and draped in the usual sterile fashion. After anesthetizing the skin and deeper sof t tissues with 1% lidocaine, a 22 gauge needle was advanced into the thecal sac at the L4 level. Pam r colorless CSF was observed. Approximately 9.5 mL of clear colorless CSF was obtained. Fluid was retained for laboratory studies t o be requested by the primary service. At the conclusion of the procedure, the needle was withdrawn and a sterile bandage placed over the pu ncture site. The patient tolerated the procedure well without immediate complications. Post-procedu re care and precaution instructions were discussed with the patient before the LP procedure. IMPRESSION: Successful fluoroscopic guided lumbar puncture. All obtained fluid was sent to the lab for studies requested by the referring physician.
--- NOTE | 2019-12-31 10:39 | P.PN ---
Subjective Date of Service: 12/31/19 (Hospitalist) Chief Complaint: Encephalopathy Patient is improving no new complaints schedule for a lumbar puncture today still some borderline fever confused intermittently Review of Systems Unremarkable General: Weakness Physical Examination - Vital Signs Temperature: 97.4 F Blood Pressure: 107/80 Pulse: 93 Respirations: 18 Pulse Ox (%): 97 - Physical Exam General: Alert, Oriented x2 Respiratory: Clear to auscultation bilaterally Cardiovascular: No edema, Regular rate/rhythm Gastrointestinal: Normal bowel sounds, Soft and benign Assessment & Plan - Problems (Diagnosis) (1) Hypercalcemia Current Visit: Yes Status: Acute Plan: Hypercalcemia now resolved parathyroid hormone related peptide and vitamin-D metabolites have been sent PTH is normal patient responded well to diuretics in IV fluids hypercalcemia is probably induced by malignancy patient's tsh is normal (2) Encephalopathy Current Visit: Yes Status: Acute Plan: Patient has renal insufficiency no obvious cause found LP is pending possible reaction to Phenergan he is afebrile now Staph aureus is isolated for transfer to the floor after the lumbar puncture Physician Review: Patient Assessed, Agree with Above Assessment and Plan
[2019-12-31 11:28] LABS: CSF Glucose 53 mg/dL (40-70)
--- NOTE | 2019-12-31 11:52 | RAD REPORT ---
EXAM DESCRIPTION: RAD - Chest Single View - 12/31/2019 1:12 am CLINICAL HISTORY: 59 years Male, picc line placement COMPARISON: None. TECHNIQUE: Single portable x-ray view of the chest performed on 12/31/2019 12:40 AM FINDINGS: The lungs are well expanded and are grossly clear. There is mild elevation of the left hem idiaphragm and there may be mild left basilar atelectasis. There is no evidence of a pneumothorax. The cardiac silhouette is normal in size and configuration. The mediastinal contours are normal. No acute osseous abnormality is identified. There is an old healed fracture of the right clavicle. No focal soft tissue abnormalities are seen. Lines and tubes: The tip of the right upper extremity PICC line catheter overlies the region of the superior vena cava. IMPRESSION: 1. The tip of the right upper extremity PICC line catheter overlies the region of the superior vena c ham. 2. Slight elevation of the left hemidiaphragm with probable minimal left basilar atelectasis. Electronically signed by: Alison Real DO 12/31/2019 1:02 AM CDT Due to temporary technical issues with the PACS/Fluency reporting system, reports are being signed by the in house radiologist as a courtesy to ensure prompt reporting. The interpreting radiologist is f ully responsible for the content of the report,
[2019-12-31 12:50] LABS: Body Fluid Source CSF; Color of fluid Colorless (COLORLESS)
[2019-12-31 12:51] LABS: Appearance CLEAR (CLEAR); Body Fluid WBC 0 /mm^3
--- NOTE | 2019-12-31 17:51 | P.PN ---
Subjective Date of Service: 12/31/19 Chief Complaint: Encephalopathy Impression developed fever today. Physical Examination - Vital Signs Temperature: 97.4 F Blood Pressure: 113/77 Pulse: 105 Respirations: 34 Pulse Ox (%): 100 - Physical Exam General: Alert, Oriented x3 HEENT: Atraumatic, Normocephalic, PERRLA Neck: Supple Respiratory: Clear to auscultation bilaterally Cardiovascular: No edema Gastrointestinal: Normal bowel sounds Neurological: Normal speech, Normal strength at 5/5 x4 extr - Studies Microbiology Data (last 24 hrs): 12/26/19 11:40 Blood - Blood Aerobic Blood Culture - Final No growth in 5 days. 12/26/19 11:40 Blood - Blood Anaerobic Blood Culture - Final No growth in 5 days. 12/26/19 11:25 Blood - Blood Aerobic Blood Culture - Final No growth in 5 days. 12/26/19 11:25 Blood - Blood Anaerobic Blood Culture - Final No growth in 5 days. Assessment And Plan - Plan Hypercalcemia-resolved. Hypernatremia -resolved. possible neuroleptic malignant syndrome. hypokalemia-replete Hypophosphatemia-replete Plan: Sodium is better today at 135. His calcium is much improved with value of 806 today. Will monitor his electrolytes and replete as needed. Will continue empiric antibiotics for management of cellulitis. Oral fluid should suffice at this time. Discharge Plan: Home Physician Review Additional Text: # Hypercalcemia-improving, corrected calcium at 11.4 now - c/w gentle IVF -related to malignancy -status post pamidronate x1 -PTH appropriately low #Recurrent fever-LIKELY RELATED TO MALIGNANT HYPERTENSION -history of promethazine use at home elicited -continue dantrolene p.r.n. fever, will dose now -for avoid neuroleptic medications #sepsis with left shoulder cellulitis-over area of basal cell cancer -culture with Staph aureus-MSSA infection -continue Rocephin -since improved and mental status and explained fever, no again need for lumbar puncture in a.m. especially since patient refusing the procedure #Hypokalemia-corrected Hypomagnesemia-repleted Hypernatremia-improved,continue to encourage fluid intake p.o. #HTN - controlled #ARF-may be due to recent NSAID use, avoid further ibuprofen use Follow nephrology on board. # History of basal cell cancer-follows with Oncology-Dr. Rosas #History of status post recent cholecystectomy-surgical consult appreciated CT reviewed, no postsurgical infection #DVT prophylaxis-subcutaneous heparin
[2020-01-01] MEDS ORDERED: NA CHLORIDE 0.9% 250 ML IV ONE (05:11)
[2020-01-01 06:15] LABS: Albumin 2.3 g/dL (3.4-5.0); Bilirubin Total 0.5 mg/dL (0.2-1.0); Magnesium 1.7 mg/dL (1.8-2.4); Potassium 3.6 mmol/L (3.5-5.1)
[2020-01-01] MEDS: ENSURE HIGH PROTEIN 237 ML CAN PO SCH ×2 (09:00→20:48)
[2020-01-01] MEDS: COLLAGENASE 30 GM OINTMENT TOP SCH (09:00)
[2020-01-01] MEDS ORDERED: MAGNESIUM SULFATE 1 gm IVPB 1 GM/100 ML BAG IV ONE (09:00)
[2020-01-01] MEDS ORDERED: POTASSIUM 25 MEQ EFFERV TAB PO ONE (09:00)
--- NOTE | 2020-01-01 09:36 | P.PN ---
Subjective Date of Service: 01/01/20 Chief Complaint: Encephalopathy Subjective: No new changes Impression developed fever today. Review of Systems 10-point ROS is otherwise unremarkable Physical Examination - Vital Signs Temperature: 100.5 F Blood Pressure: 117/64 Pulse: 126 Respirations: 20 Pulse Ox (%): 96 - Physical Exam General: Alert, Oriented x3 HEENT: Atraumatic, Normocephalic Neck: Supple Cardiovascular: Regular rate/rhythm, Normal S1 S2 Gastrointestinal: Normal bowel sounds Neurological: Normal speech, Normal strength at 5/5 x4 extr - Studies Microbiology Data (last 24 hrs): 12/26/19 11:40 Blood - Blood Aerobic Blood Culture - Final No growth in 5 days. 12/26/19 11:40 Blood - Blood Anaerobic Blood Culture - Final No growth in 5 days. 12/26/19 11:25 Blood - Blood Aerobic Blood Culture - Final No growth in 5 days. 12/26/19 11:25 Blood - Blood Anaerobic Blood Culture - Final No growth in 5 days. Assessment And Plan - Plan Hypercalcemia-resolved. Hypernatremia -resolved. possible neuroleptic malignant syndrome. hypokalemia-replete Hypophosphatemia-replete Cellulitis Plan: Sodium is better today at 137. His calcium is much improved with value of 8.0 today. Will monitor his electrolytes and replete as needed. Will continue empiric antibiotics for management of cellulitis. Physician Review Additional Text: # Hypercalcemia-improving, corrected calcium at 11.4 now - c/w gentle IVF -related to malignancy -status post pamidronate x1 -PTH appropriately low #Recurrent fever-LIKELY RELATED TO MALIGNANT HYPERTENSION -history of promethazine use at home elicited -continue dantrolene p.r.n. fever, will dose now -for avoid neuroleptic medications #sepsis with left shoulder cellulitis-over area of basal cell cancer -culture with Staph aureus-MSSA infection -continue Rocephin -since improved and mental status and explained fever, no again need for lumbar puncture in a.m. especially since patient refusing the procedure #Hypokalemia-corrected Hypomagnesemia-repleted Hypernatremia-improved,continue to encourage fluid intake p.o. #HTN - controlled #ARF-may be due to recent NSAID use, avoid further ibuprofen use Follow nephrology on board. # History of basal cell cancer-follows with Oncology-Dr. Rosas #History of status post recent cholecystectomy-surgical consult appreciated CT reviewed, no postsurgical infection #DVT prophylaxis-subcutaneous heparin
[2020-01-01] MEDS: SUCRALFATE 1 GM TABLET PO SCH ×4 (09:39→20:47)
[2020-01-01] MEDS: CEFTRIAXONE/SWI 2gm 2 GM/20 ML SYR IV SCH (09:40)
[2020-01-01] MEDS: PANTOPRAZOLE 40MG TABLET PO SCH (09:40)
[2020-01-01] MEDS: THIAMINE 200 MG/2 ML INJ IVP SCH (09:41)
[2020-01-01] MEDS: ACETAMINOPHEN 325 MG TABLET PO PRN (09:42)
--- NOTE | 2020-01-01 11:04 | P.PN ---
Subjective Date of Service: 01/01/20 (Hospital) Chief Complaint: Encephalopathy Patient is much better he is more alert for her responsive cooperative no evidence of meningitis Review of Systems Unremarkable General: Weakness Physical Examination - Vital Signs Temperature: 100.5 F Blood Pressure: 117/64 Pulse: 126 Respirations: 20 Pulse Ox (%): 96 - Physical Exam General: Alert, Oriented x3 Respiratory: Clear to auscultation bilaterally, Friction rub Cardiovascular: Regular rate/rhythm - Studies Microbiology Data (last 24 hrs): 12/26/19 11:40 Blood - Blood Aerobic Blood Culture - Final No growth in 5 days. 12/26/19 11:40 Blood - Blood Anaerobic Blood Culture - Final No growth in 5 days. 12/26/19 11:25 Blood - Blood Aerobic Blood Culture - Final No growth in 5 days. 12/26/19 11:25 Blood - Blood Anaerobic Blood Culture - Final No growth in 5 days. Assessment & Plan - Problems (Diagnosis) (1) Hypercalcemia Current Visit: Yes Status: Acute Plan: Hypercalcemia now corrected (2) Encephalopathy Current Visit: Yes Status: Acute Plan: Encephalopathy has improved CSF protein is only mildly elevated no evidence of an infection Dc Rocephin plan to ambulate patient discuss with Neurology workup is still pending possible discharge patient still has a borderline temperature Physician Review: Patient Assessed, Agree with Above Assessment and Plan
[2020-01-01] MEDS: ONDANSETRON 4 MG/2 ML VIAL IV PRN ×2 (13:06→20:48)
[2020-01-02 05:38] LABS: Magnesium 2.2 mg/dL (1.8-2.4); Potassium 3.7 mmol/L (3.5-5.1)
[2020-01-02] MEDS: PANTOPRAZOLE 40MG TABLET PO SCH (05:56)
[2020-01-02] MEDS: ONDANSETRON 4 MG/2 ML VIAL IV PRN ×2 (07:32→20:17)
[2020-01-02] MEDS: SUCRALFATE 1 GM TABLET PO SCH ×4 (07:32→20:16)
[2020-01-02] MEDS: ENSURE HIGH PROTEIN 237 ML CAN PO SCH ×2 (07:35→20:16)
[2020-01-02] MEDS: COLLAGENASE 30 GM OINTMENT TOP SCH (07:44)
[2020-01-02] MEDS ORDERED: POTASSIUM 25 MEQ EFFERV TAB PO ONE (09:00)
--- NOTE | 2020-01-02 10:40 | P.PN ---
Subjective Date of Service: 01/02/20 Chief Complaint: Encephalopathy better coperative. Alert oriented x2. No neew compliants Review of Systems Unremarkable Physical Examination - Vital Signs Temperature: 99.6 F Blood Pressure: 116/65 Pulse: 111 Respirations: 32 Pulse Ox (%): 96 - Physical Exam General: Alert, Cooperative Respiratory: Clear to auscultation bilaterally Cardiovascular: No edema, Normal S1 S2 Assessment & Plan - Problems (Diagnosis) (1) Hypercalcemia Current Visit: Yes Status: Acute Plan: Hypercalcemia now corrected (2) Encephalopathy Current Visit: Yes Status: Acute Plan: Doing well/ D/C b[facility]. Ambulate poss D/C Am Physician Review: Patient Assessed, Agree with Above Assessment and Plan
[2020-01-03] MEDS: PANTOPRAZOLE 40MG TABLET PO SCH (06:29)
[2020-01-03 06:49] LABS: Potassium 3.8 mmol/L (3.5-5.1)
[2020-01-03] MEDS ORDERED: POTASSIUM 25 MEQ EFFERV TAB PO ONE (07:01)
[2020-01-03] MEDS: SUCRALFATE 1 GM TABLET PO SCH ×4 (08:28→21:15)
[2020-01-03] MEDS: ONDANSETRON 4 MG/2 ML VIAL IV PRN (08:28)
[2020-01-03] MEDS: ENSURE HIGH PROTEIN 237 ML CAN PO SCH ×2 (08:29→21:15)
[2020-01-03] MEDS: COLLAGENASE 30 GM OINTMENT TOP SCH (08:34)
[2020-01-03] MEDS ORDERED: NA CHLORIDE 0.9% 1,000 ML ONE (09:50)
[2020-01-03] MEDS ORDERED: NA CHLORIDE 0.9% 1,000 ML IV SCH (10:00)
--- NOTE | 2020-01-03 13:08 | P.PN ---
Subjective Date of Service: 01/03/20 Chief Complaint: Encephalopathy weakness Time patient is doing better mentally he is not able to ambulate a very weakly lives by himself Review of Systems Unremarkable General: Weakness Physical Examination - Vital Signs Temperature: 98.3 F Blood Pressure: 109/65 Pulse: 94 Respirations: 16 Pulse Ox (%): 99 - Physical Exam General: Alert, Oriented x3, Cooperative Respiratory: Clear to auscultation bilaterally Cardiovascular: No edema, Regular rate/rhythm Assessment & Plan - Problems (Diagnosis) (1) Encephalopathy Current Visit: Yes Status: Acute Plan: Condition improving hypercalcemia has resolved to follow up with Oncology continue with physical therapy social work Consul Dc IV fluids (2) Basal cell carcinoma Current Visit: No Status: Acute Plan: Patient was not immune therapy has not had therapy for the past 2 months Qualifiers: Basal cell carcinoma location: upper extremity including shoulder Laterality: left Qualified Code(s): C44.619 - Basal cell carcinoma of skin of left upper limb, including shoulder (3) Hypercalcemia Current Visit: Yes Status: Acute Plan: Hypercalcemia now corrected discuss with Dr. Lama. He does not have metastatic disease source hypercalcemia is not apparent workup is still pending the Dr. Lama recommend an endocrine evaluation Discharge Plan: Home Plan to discharge in: 48 Hours Physician Review: Patient Assessed, Agree with Above Assessment and Plan
--- NOTE | 2020-01-03 17:02 | EKG ---
Test Date: 2020-01-03 Test Time: 09:51:59 Shop Helper: VIOLET MEASUREMENT RESULTS: Intervals: Rate: 101 CT: 152 QRSD: 88 QT: 426 QTc: 552 [place]: P: 67 CT: 152 QRS: 30 T: 65 INTERPRETIVE STATEMENTS: Sinus tachycardia Otherwise normal ECG Compared to ECG 12/26/2019 14:05:24 No significant changes Electronically Signed On 01-03-20 17:01:26 CDT by Vidal Walker
[2020-01-04] MEDS: ONDANSETRON 4 MG/2 ML VIAL IV PRN ×2 (03:38→08:59)
[2020-01-04 04:53] LABS: Albumin 2.4 g/dL (3.4-5.0); Bilirubin Total 0.5 mg/dL (0.2-1.0); Potassium 4.2 mmol/L (3.5-5.1); Protein, Total 6.9 g/dL (6.4-8.2)
[2020-01-04] MEDS: PANTOPRAZOLE 40MG TABLET PO SCH (05:45)
--- NOTE | 2020-01-04 08:20 | P.PN ---
Subjective Date of Service: 01/04/20 Chief Complaint: Encephalopathy weakness Again patient is much better his very alert responsive oriented cooperative no new complaints he had a fall yesterday still very weak Review of Systems Unremarkable General: Weakness Physical Examination - Vital Signs Temperature: 98.7 F Blood Pressure: 100/61 Pulse: 106 Respirations: 20 Pulse Ox (%): 96 - Physical Exam General: In no apparent distress, Oriented x3 Respiratory: Clear to auscultation bilaterally Cardiovascular: No edema, Regular rate/rhythm Gastrointestinal: Normal bowel sounds, Soft and benign Assessment & Plan - Problems (Diagnosis) (1) Encephalopathy Current Visit: Yes Status: Acute Plan: Resolved is still very weak lives by himself physical therapy evaluation (2) Basal cell carcinoma Current Visit: No Status: Acute Plan: Patient was not immune therapy has not had therapy for the past 2 months Qualifiers: Basal cell carcinoma location: upper extremity including shoulder Laterality: left Qualified Code(s): C44.619 - Basal cell carcinoma of skin of left upper limb, including shoulder (3) Hypercalcemia Current Visit: Yes Status: Acute Plan: Improved. Not sure about the etiology of his hypercalcemia he will need endocrine follow up Discharge Plan: Home Plan to discharge in: 48 Hours Physician Review: Patient Assessed, Agree with Above Assessment and Plan
[2020-01-04] MEDS: COLLAGENASE 30 GM OINTMENT TOP SCH (08:59)
[2020-01-04] MEDS: ENSURE HIGH PROTEIN 237 ML CAN PO SCH ×2 (08:59→20:01)
[2020-01-04] MEDS: SUCRALFATE 1 GM TABLET PO SCH ×4 (08:59→20:01)
[2020-01-04 18:21] LABS: Vitamin D 1,25-Dihydroxy Total <8 pg/mL (18-72); Vitamin D,1,25-OH2, D2 <8 pg/mL
[2020-01-05] MEDS: PANTOPRAZOLE 40MG TABLET PO SCH (05:24)
[2020-01-05] MEDS: ONDANSETRON 4 MG/2 ML VIAL IV PRN (07:45)
[2020-01-05] MEDS: SUCRALFATE 1 GM TABLET PO SCH ×4 (07:45→20:20)
[2020-01-05] MEDS: ENSURE HIGH PROTEIN 237 ML CAN PO SCH ×2 (07:46→20:20)
[2020-01-05] MEDS: COLLAGENASE 30 GM OINTMENT TOP SCH (07:46)
--- NOTE | 2020-01-05 08:47 | P.PN ---
Subjective Date of Service: 01/05/20 Chief Complaint: Weakness Patient is weak annual ambulation eating and drinking as slight drop in his blood pressure Review of Systems Unremarkable General: Weakness Physical Examination - Vital Signs Temperature: 98.6 F Blood Pressure: 100/57 Pulse: 111 Respirations: 18 Pulse Ox (%): 98 - Physical Exam General: Alert, In no apparent distress, Oriented x3 Neck: No Thyromegaly Cardiovascular: No edema, Normal S1 S2 Gastrointestinal: Normal bowel sounds, Soft and benign Assessment & Plan - Problems (Diagnosis) (1) Encephalopathy Current Visit: Yes Status: Acute Plan: Encephalopathy years resolved (2) Basal cell carcinoma Current Visit: No Status: Acute Plan: Patient was not immune therapy has not had therapy for the past 2 months Qualifiers: Basal cell carcinoma location: upper extremity including shoulder Laterality: left Qualified Code(s): C44.619 - Basal cell carcinoma of skin of left upper limb, including shoulder (3) Orthostatic hypotension Current Visit: Yes Status: Acute Plan: Patient has orthostatics hypotension was start on midodrine and salt tablets awaiting healthcare social worker Consul for placement of ordered a repeat tsh and a cortisol level Physician Review: Patient Assessed, Agree with Above Assessment and Plan
[2020-01-05] MEDS: MIDODRINE HCL 5 MG TABLET PO SCH ×3 (09:22→20:20)
[2020-01-05 10:02] LABS: Thyroid Stimulating Hormone 6.68 uIU/mL (0.360-3.740)
[2020-01-05] MEDS: SODIUM CHLORIDE 1 GM TAB PO SCH (16:01)
[2020-01-06] MEDS: PANTOPRAZOLE 40MG TABLET PO SCH (06:38)
[2020-01-06] MEDS: COLLAGENASE 30 GM OINTMENT TOP SCH (09:00)
[2020-01-06] MEDS: ENSURE HIGH PROTEIN 237 ML CAN PO SCH ×2 (09:00→21:00)
--- NOTE | 2020-01-06 09:12 | EEG ---
CHART: [id number] TEST ID#: [id number] DATE OF STUDY: 12/30/2019 THE EEG WAS RECORDED PORTABLE IN THE ICU ON A 17 CHANNEL MACHINE. ELECTRODES WERE APPLIED IN THE USUAL MANNER USING THE INTERNATIONAL 10-20 SYSTEM. THE WAKING BACKGROUND RHYTHM IN THIS RECORD CONSISTS OF POORLY DEVELOPED AND POORLY ORGANIZED WAVES OF 7 HZ., MAXIMAL IN THE POSTERIOR HEAD REGIONS WHICH ATTENUATE NORMALLY WITH EYE OPENING. MODERATE VOLTAGE 1.5-3 HZ ACTIVITY MIXED WITH LOW TO MODERATE VOLTAGE 4-6 HZ ACTIVITY IS EXPRESSED INTERMITTENTLY IN ALL REGIONS. THERE ARE NO FOCAL OR LATERALIZING FEATURES. NO EPILEPTIFORM ACTIVITY APPEARS. SLEEP DID NOT OCCUR. HYPERVENTILATION WAS NOT PERFORMED. PHOTIC STIMULATION PRODUCED NO DRIVING BILATERALLY. IMPRESSION: THIS IS A MILD TO MODERATELY ABNORMAL EEG DUE TO A MILD TO MODERATE SLOW BACKGROUND. THIS IS A NON-SPECIFIC FINDING CONSISTENT WITH A MILD TO MODERATE DIFFUSE DISTURBANCE IN CREBRAL FUNCTION.
[2020-01-06] MEDS: MIDODRINE HCL 5 MG TABLET PO SCH ×3 (09:35→22:31)
[2020-01-06] MEDS: SUCRALFATE 1 GM TABLET PO SCH ×4 (09:35→22:31)
[2020-01-06] MEDS: SODIUM CHLORIDE 1 GM TAB PO SCH ×2 (09:35→17:04)
[2020-01-06] MEDS: ONDANSETRON 4 MG/2 ML VIAL IV PRN (12:12)
--- NOTE | 2020-01-06 17:34 | P.PN ---
Subjective Date of Service: 01/06/20 Chief Complaint: Weakness Subjective: Improving Physical Examination - Vital Signs Temperature: 100.5 F Blood Pressure: 104/55 Pulse: 113 Respirations: 18 Pulse Ox (%): 97 - Physical Exam General: Alert HEENT: Atraumatic Neck: Supple Respiratory: Clear to auscultation bilaterally, Normal air movement Cardiovascular: Normal pulses, Regular rate/rhythm Integumentary: Other (Chronic wound changes to the left shoulder) - Studies Medications List Reviewed: Yes Assessment & Plan Discharge Plan: Home Plan to discharge in: 48 Hours Physician Review Additional Text: Impression: Chronic left shoulder cellulitis, wound culture positive for Staph aureus Orthostatic hypotension Basal cell carcinoma Anemia of chronic disease GERD Plan: Chronic left shoulder cellulitis, wound culture positive for Staph aureus Orthostatic hypotension Basal cell carcinoma Overall patient improved. Patient started on midodrine and for low blood pressu re. Patient stable. Will add an doxycycline for wound. Continue wound care. Continue physical therapy. Anticipate improvement over the next 12-48 hr. Patient has no benefit for home health, physical therapy and skilled placement. Will need to make sure patient is safe for discharge. Medications reviewed. Continue current medications. Time Spent Managing Pts Care (In Minutes): 55
[2020-01-06] MEDS: DOXYCYCLINE 100 MG CAP PO SCH (22:31)
[2020-01-07] MEDS: PANTOPRAZOLE 40MG TABLET PO SCH (05:28)
[2020-01-07] MEDS: SODIUM CHLORIDE 1 GM TAB PO SCH ×2 (08:00→16:48)
[2020-01-07] MEDS: ONDANSETRON 4 MG/2 ML VIAL IV PRN ×2 (08:57→20:19)
[2020-01-07] MEDS: COLLAGENASE 30 GM OINTMENT TOP SCH (09:00)
[2020-01-07] MEDS: ENSURE HIGH PROTEIN 237 ML CAN PO SCH ×2 (09:00→20:20)
[2020-01-07] MEDS ORDERED: D50W 25 GM/50 ML SYRINGE/VIAL IV PRN (09:02)
[2020-01-07] MEDS ORDERED: GLUCAGON 1 MG/VIAL IM PRN (09:02)
[2020-01-07] MEDS: D5 0.9 NS 1,000 ML IV SCH ×2 (09:57→20:21)
[2020-01-07 10:02] LABS: Albumin 2.4 g/dL (3.4-5.0); Bilirubin Total 0.6 mg/dL (0.2-1.0); Magnesium 2.1 mg/dL (1.8-2.4); Potassium 4.9 mmol/L (3.5-5.1); Protein, Total 6.8 g/dL (6.4-8.2)
[2020-01-07] MEDS: INSULIN -REGULAR HUMAN 50 UNIT/0.5 ML ML SQ SCH ×3 (11:30→20:20)
[2020-01-07] MEDS: SUCRALFATE 1 GM TABLET PO SCH ×4 (11:48→20:19)
[2020-01-07] MEDS: MIDODRINE HCL 5 MG TABLET PO SCH ×3 (11:48→20:19)
[2020-01-07] MEDS: DOXYCYCLINE 100 MG CAP PO SCH ×2 (11:48→20:19)
--- NOTE | 2020-01-07 11:55 | P.PN ---
Subjective Date of Service: 01/07/20 Chief Complaint: Weakness Subjective: No new changes, Doing well Patient states he is feeling well but does not have much of an appetite. <DanaRommel - Last Filed: 01/07/20 11:50> Date of Service: 01/07/20 <AracelihiBooCruz - Last Filed: 01/07/20 15:31> Review of Systems General: Unremarkable Eyes: Unremarkable ENT: Unremarkable Respiratory: Unremarkable Cardiovascular: Unremarkable Gastrointestinal: Other (Poor appetite) Genitourinary: Unremarkable Musculoskeletal: Unremarkable Integumentary: Unremarkable Neurological: Unremarkable <Rommel Cortez - Last Filed: 01/07/20 11:50> Physical Examination - Vital Signs Temperature: 97.6 F Blood Pressure: 106/54 Pulse: 116 Respirations: 20 Pulse Ox (%): 93 - Physical Exam General: Alert, In no apparent distress, Oriented x3 HEENT: Atraumatic, Normocephalic Neck: Supple Respiratory: Clear to auscultation bilaterally, Normal air movement Cardiovascular: Normal S1 S2 Capillary refill: <2 Seconds Gastrointestinal: Normal bowel sounds, Soft and benign Integumentary: Skin lesion (Wound to shoulder area without significant change) Neurological: Normal speech, Normal tone Lymphatics: No axilla or inguinal lymphadenopathy - Studies Medications List Reviewed: Yes <Rommel Cortez - Last Filed: 01/07/20 11:50> Assessment & Plan Discharge Plan: Home Plan to discharge in: 24 Hours Physician Review: Patient Assessed, Agree with Above Assessment and Plan Physician Review Additional Text: Impression: Chronic left shoulder cellulitis, wound culture positive for Staph aureus Orthostatic hypotension Basal cell carcinoma Anemia of chronic disease GERD Plan: Chronic left shoulder cellulitis, wound culture positive for Staph aureus Orthostatic hypotension Basal cell carcinoma Overall patient improved. Patient started on midodrine and for low blood pressure which he has been maintaining his blood pressure well. Continue wound care. Continue physical therapy. Anticipate improvement over the next 12-24 hr. Patient has no benefit for home health, physical therapy and skilled plac ement. Will need to make sure patient is safe for discharge. Patient with episode of low blood sugar this morning this is believed to be due to the fact that he has poor appetite and is not eating. Dietary has been consulted to evaluate patient needs and make recommendations. Patient denies pain states he just does not feel hungry. Will need to ensure a good p.o. intake prior to discharging patient. Time Spent Managing Pts Care (In Minutes): 55 <Rommel Cortez - Last Filed: 01/07/20 11:50> Physician Review Additional Text: Patient seen examined with nurse practitioner Rommel Cortez. Case discussed at length. Patient started on sliding scale. Dietary to evaluate daily needs. Encourage increase nutrition. Continue current wound care. Encourage ambulation. Case discussed with social worker school. Will plan for discharge once blood pressure stable and blood sugar better controlled. Additional diagnosis hypoglycemia due to poor nutrition/malnutrition <Cruz Manzanares - Last Filed: 01/07/20 15:31>
[2020-01-07 12:34] LABS: Absolute Lymphocytes (CBC) 1.1 K/uL (0.7-4.9); Basophils % 0.9 % (0-1.3); Hematocrit 30.5 % (39.6-49.0); Lymphocytes % 24.2 % (15.3-44.8); MPV 6.9 fL (7.6-11.3); RBC Red Blood Cell Count 3.45 M/uL (4.33-5.43)
[2020-01-07 13:45] LABS: Blood Morphology Comment NOT SEEN (NOT SEEN); Platelet Estimate INCR; Urine White Blood Cell Casts OK
[2020-01-08] MEDS: PANTOPRAZOLE 40MG TABLET PO SCH (05:55)
[2020-01-08] MEDS: INSULIN -REGULAR HUMAN 50 UNIT/0.5 ML ML SQ SCH ×4 (07:30→21:00)
[2020-01-08] MEDS: DOXYCYCLINE 100 MG CAP PO SCH ×2 (08:36→21:03)
[2020-01-08] MEDS: SUCRALFATE 1 GM TABLET PO SCH ×4 (08:36→21:03)
[2020-01-08] MEDS: SODIUM CHLORIDE 1 GM TAB PO SCH ×2 (08:36→16:32)
[2020-01-08] MEDS: MIDODRINE HCL 5 MG TABLET PO SCH ×3 (08:37→21:03)
[2020-01-08] MEDS: ENSURE HIGH PROTEIN 237 ML CAN PO SCH ×2 (08:40→21:04)
[2020-01-08] MEDS: COLLAGENASE 30 GM OINTMENT TOP SCH (08:41)
--- NOTE | 2020-01-08 12:39 | P.PN ---
Subjective Date of Service: 01/08/20 Chief Complaint: Weakness Subjective: Improving, Doing well Physical Examination - Vital Signs Temperature: 98.6 F Blood Pressure: 108/58 Pulse: 106 Respirations: 18 Pulse Ox (%): 99 - Physical Exam General: Alert, In no apparent distress, Cooperative HEENT: Atraumatic Neck: Supple Respiratory: Clear to auscultation bilaterally, Normal air movement Cardiovascular: Normal pulses, Regular rate/rhythm Gastrointestinal: Normal bowel sounds Integumentary: No cyanosis Neurological: Normal speech, Normal strength at 5/5 x4 extr, Normal tone, Normal affect - Studies Medications List Reviewed: Yes Assessment & Plan Discharge Plan: Home Plan to discharge in: 48 Hours Physician Review Additional Text: Impression: Chronic left shoulder cellulitis, wound culture positive for Staph aureus Orthostatic hypotension Basal cell carcinoma Severe protein malnutrition with hypoglycemia Anemia of chronic disease GERD Plan: Chronic left shoulder cellulitis, wound culture positive for Staph aureus: Continue antibiotic therapy at this time. Will monitor closely. Patient with better nutrition. Dietary was consulted. Encourage ambulation. Encourage nutrition. Will discontinue IV fluid with D 5 once taking good oral intake. Will monitor closely. Anticipate improvement over the next 48 hr. Will monitor oral intake Orthostatic hypotension: Stable with medication. Basal cell carcinoma: This is being followed as an outpatient. Will try to get a hold of oncology to update. Severe protein malnutrition with hypoglycemia: Patient started on D5 IV fluids due to hypoglycemia. Encourage oral intake. Dietary consulted. Will discontinue IV fluids once taking good oral intake. Anemia of chronic disease: Continue medication GERD: Continue medication Time Spent Managing Pts Care (In Minutes): 55
[2020-01-08] MEDS: THIAMINE HCL 100 MG TABLET PO SCH (13:06)
[2020-01-08] MEDS: D5 0.9 NS 1,000 ML IV SCH (13:06)
[2020-01-08] MEDS: ENOXAPARIN 30 MG/0.3 ML SQ SCH (16:32)
[2020-01-09] MEDS: ACETAMINOPHEN 325 MG TABLET PO PRN (01:20)
[2020-01-09] MEDS: PANTOPRAZOLE 40MG TABLET PO SCH (06:17)
[2020-01-09] MEDS: D5 0.9 NS 1,000 ML IV SCH ×2 (06:20→15:20)
[2020-01-09 06:37] LABS: Potassium 4.8 mmol/L (3.5-5.1)
[2020-01-09] MEDS: INSULIN -REGULAR HUMAN 50 UNIT/0.5 ML ML SQ SCH ×4 (07:30→21:00)
[2020-01-09] MEDS: MIDODRINE HCL 5 MG TABLET PO SCH ×4 (08:44→21:00)
[2020-01-09] MEDS: THIAMINE HCL 100 MG TABLET PO SCH (08:45)
[2020-01-09] MEDS: SODIUM CHLORIDE 1 GM TAB PO SCH (08:45)
[2020-01-09] MEDS: SUCRALFATE 1 GM TABLET PO SCH ×4 (08:45→21:00)
[2020-01-09] MEDS: DOXYCYCLINE 100 MG CAP PO SCH ×2 (08:45→20:59)
[2020-01-09] MEDS: COLLAGENASE 30 GM OINTMENT TOP SCH (08:48)
[2020-01-09] MEDS: ENSURE HIGH PROTEIN 237 ML CAN PO SCH ×3 (09:00→21:00)
--- NOTE | 2020-01-09 12:42 | P.PN ---
Subjective Date of Service: 01/09/20 Chief Complaint: Weakness Subjective: Improving, Doing well Physical Examination - Vital Signs Temperature: 98.5 F Blood Pressure: 140/78 Pulse: 103 Respirations: 16 Pulse Ox (%): 99 - Physical Exam General: Alert, In no apparent distress, Oriented x3, Cooperative, Cachectic HEENT: Atraumatic Neck: Supple Respiratory: Clear to auscultation bilaterally, Normal air movement Cardiovascular: Normal pulses, Regular rate/rhythm Gastrointestinal: Normal bowel sounds, Soft and benign, Non-distended Musculoskeletal: No tenderness, No warmth Integumentary: No tenderness/swelling Neurological: Normal speech, Normal strength at 5/5 x4 extr, Normal tone - Studies Medications List Reviewed: Yes Assessment & Plan Discharge Plan: Home Plan to discharge in: 24 Hours Physician Review Additional Text: Impression: Chronic left shoulder cellulitis, wound culture positive for Staph aureus Orthostatic hypotension Basal cell carcinoma Severe protein malnutrition with hypoglycemia Anemia of chronic disease GERD Plan: Chronic left shoulder cellulitis, wound culture positive for Staph aureus: Continue antibiotic therapy at this time. Encourage ambulation and oral intake. Patient still on D5 IV fluid due to hypoglycemia. Will increase supplementation. Continue nutrition recommendation. Will have physical therapy ambulate. Anticipate improvement over the next 24-48 hr. Spoke with sister yesterday who will take patient home at discharge. Will need to make sure patient is safe to ambulate and once off IV fluids. Orthostatic hypotension: Stable with medication-Midodrine. Basal cell carcinoma: This is being followed as an outpatient. Will update oncology Severe protein malnutrition with hypoglycemia: Continue D5 IV fluids due to hypoglycemia. Encourage oral intake. Dietary consulted. Will discontinue IV fluids once taking good oral intake. Will increase supplementation. Continue with nutrition recommendation. Anemia of chronic disease: Continue medication GERD: Continue medication Time Spent Managing Pts Care (In Minutes): 55
[2020-01-09] MEDS: dexAMETHasone 4 MG TAB PO SCH (16:31)
[2020-01-09] MEDS: FOLIC ACID 1 MG TABLET PO SCH (16:31)
[2020-01-09] MEDS: ENOXAPARIN 30 MG/0.3 ML SQ SCH (16:31)
[2020-01-09] MEDS: D5 0.45 NS 1,000 ML IV SCH (16:32)
[2020-01-09] MEDS ORDERED: dexAMETHasone 4 MG TAB PO SCH (21:00)
[2020-01-10] MEDS: D5 0.45 NS 1,000 ML IV SCH ×2 (04:52→22:08)
[2020-01-10] MEDS: PANTOPRAZOLE 40MG TABLET PO SCH (04:52)
[2020-01-10 06:18] LABS: ALT/SGPT 34 U/L (12-78); AST/SGOT 45 U/L (15-37); Albumin 2.3 g/dL (3.4-5.0); Alkaline Phosphatase 97 U/L (45-117); BUN Blood Urea Nitrogen 6 mg/dL (7-18); Bicarbonate 22 mmol/L (21-32); Bilirubin Total 0.5 mg/dL (0.2-1.0); Glucose Level 170 mg/dL (74-106); Magnesium 1.8 mg/dL (1.8-2.4); Protein, Total 7.2 g/dL (6.4-8.2); Sodium Level 141 mmol/L (136-145); T3 Free 2.36 pg/mL (2.18-3.98)
[2020-01-10] MEDS: INSULIN -REGULAR HUMAN 50 UNIT/0.5 ML ML SQ SCH ×4 (07:30→21:00)
[2020-01-10] MEDS ORDERED: SODIUM CHLORIDE 0.9% 10ML INJ IV ONE (08:00)
[2020-01-10] MEDS ORDERED: COSYNTROPIN 0.25 MG VIAL IV ONE (08:00)
[2020-01-10 08:15] LABS: Rheumatoid Factor NEG (NEG)
[2020-01-10 08:27] LABS: Absolute Lymphocytes (CBC) 0.6 K/uL (0.7-4.9); Basophils % 0.2 % (0-1.3); Hematocrit 28.8 % (39.6-49.0); Lymphocytes % 22.3 % (15.3-44.8); RBC Red Blood Cell Count 3.27 M/uL (4.33-5.43)
[2020-01-10] MEDS: dexAMETHasone 4 MG TAB PO SCH (09:40)
[2020-01-10] MEDS: FOLIC ACID 1 MG TABLET PO SCH (09:40)
[2020-01-10] MEDS: THIAMINE HCL 100 MG TABLET PO SCH (09:40)
[2020-01-10] MEDS: SUCRALFATE 1 GM TABLET PO SCH ×4 (09:40→22:10)
[2020-01-10] MEDS: DOXYCYCLINE 100 MG CAP PO SCH ×2 (09:41→22:10)
[2020-01-10] MEDS: MIDODRINE HCL 5 MG TABLET PO SCH ×2 (09:41→14:00)
[2020-01-10] MEDS: ENSURE HIGH PROTEIN 237 ML CAN PO SCH ×3 (09:42→22:11)
[2020-01-10] MEDS: COLLAGENASE 30 GM OINTMENT TOP SCH (09:44)
--- NOTE | 2020-01-10 11:43 | P.PN ---
Subjective Date of Service: 01/10/20 Chief Complaint: Weakness Subjective: No new changes, Improving Patient states he has more of an appetite today <Rommel Cortez - Last Filed: 01/10/20 11:38> Date of Service: 01/10/20 Patient seen and examined with nurse practitioner. Patient reports he is feeling slightly better. Decadron added last night. Patient to have ACTH stimulation test today. <Cruz Manzanares - Last Filed: 01/10/20 16:22> Review of Systems General: Unremarkable Eyes: Unremarkable ENT: Unremarkable Respiratory: Unremarkable Cardiovascular: Unremarkable Gastrointestinal: Unremarkable Genitourinary: Unremarkable Musculoskeletal: Unremarkable Integumentary: As per HPI Neurological: Unremarkable <Rommel Cortez - Last Filed: 01/10/20 11:38> Physical Examination - Vital Signs Temperature: 98 F Blood Pressure: 145/75 Pulse: 104 Respirations: 16 Pulse Ox (%): 99 - Physical Exam General: Alert, In no apparent distress, Oriented x3 HEENT: Atraumatic, Normocephalic Neck: 2+ carotid pulse no bruit Respiratory: Clear to auscultation bilaterally, Normal air movement - Studies Medications List Reviewed: Yes <Rommel Cortez - Last Filed: 01/10/20 11:38> - Physical Exam Respiratory: Clear to auscultation bilaterally, Normal air movement Cardiovascular: Normal pulses, Regular rate/rhythm Gastrointestinal: No masses, No rebound, No guarding Integumentary: No tenderness/swelling Neurological: Normal speech, Normal strength at 5/5 x4 extr, Normal tone - Studies Medications List Reviewed: Yes <Cruz Manzanares - Last Filed: 01/10/20 16:22> Assessment & Plan Discharge Plan: Home Plan to discharge in: 24 Hours Physician Review Additional Text: Impression: Chronic left shoulder cellulitis, wound culture positive for Staph aureus Orthostatic hypotension Basal cell carcinoma Severe protein malnutrition with hypoglycemia Anemia of chronic disease GERD Plan: Chronic left shoulder cellulitis, wound culture positive for Staph aureus: Continue antibiotic therapy at this time. Encourage ambulation and oral intake. Patient still on D5 IV fluid due to hypoglycemia. Will increase supplementation. Continue nutrition recommendation. Patient has more of an appetite today, will continue to have him attempt to eat more. Will have physical therapy ambulate. Anticipate improvement over the next 24-48 hr. Sister agrees that patient can live with him upon discharge as long as he is eating and able to get around the on his own. Orthostatic hypotension: Stable with medication-Midodrine. Basal cell carcinoma: This is being followed as an outpatient. Will update oncology Severe protein malnutrition with hypoglycemia: Continue D5 IV fluids due to hypoglycemia. Encourage oral intake. Dietary consulted. Will discontinue IV fluids once taking good oral intake. Will increase supplementation. Continue with nutrition recommendation. Awaiting results from cortisol stimulation test, will continue to monitor this. Still awaiting PTH RP. Anemia of chronic disease: Continue medication GERD: Continue medication Time Spent Managing Pts Care (In Minutes): 55 <Rommel Cortez - Last Filed: 01/10/20 11:38> Physician Review Additional Text: Patient was given Decadron last night for suspected adrenal insufficiency. Patient to have ACTH stimulation test today. Await results. Continue to encourage oral intake. Once taking good oral intake and no hypoglycemia then discontinue IV fluids. Still waiting on CSF autoimmune workup results and PTH RP. MRI brain negative. Still on clear about hypoglycemia but this may be related to underlying autoimmune disorder or adrenal insufficiency. Case discussed with pulmonology and Oncology yesterday. Await further lab findings. Oncology recommends endocrinology evaluation. I will turn the service over to the hospitalist team tomorrow. I will go over the plan of care with him. <Cruz Manzanares - Last Filed: 01/10/20 16:22>
[2020-01-10] MEDS: ENOXAPARIN 30 MG/0.3 ML SQ SCH (16:52)
[2020-01-10] MEDS ORDERED: MAGNESIUM SULFATE 1 gm IVPB 1 GM/100 ML BAG IV ONE (21:00)
[2020-01-11 04:32] LABS: BUN Blood Urea Nitrogen 10 mg/dL (7-18); Bicarbonate 22 mmol/L (21-32); Glucose Level 129 mg/dL (74-106); Magnesium 2.3 mg/dL (1.8-2.4); Potassium 4.2 mmol/L (3.5-5.1); Sodium Level 142 mmol/L (136-145)
[2020-01-11] MEDS: PANTOPRAZOLE 40MG TABLET PO SCH (06:07)
[2020-01-11] MEDS: INSULIN -REGULAR HUMAN 50 UNIT/0.5 ML ML SQ SCH ×4 (07:30→20:52)
[2020-01-11] MEDS: FOLIC ACID 1 MG TABLET PO SCH (09:22)
[2020-01-11] MEDS: DOXYCYCLINE 100 MG CAP PO SCH ×2 (09:22→20:51)
[2020-01-11] MEDS: SUCRALFATE 1 GM TABLET PO SCH ×4 (09:22→20:52)
[2020-01-11] MEDS: D5 0.45 NS 1,000 ML IV SCH ×2 (09:25→21:43)
[2020-01-11] MEDS: ENSURE HIGH PROTEIN 237 ML CAN PO SCH ×3 (09:26→20:52)
[2020-01-11] MEDS: THIAMINE HCL 100 MG TABLET PO SCH (09:28)
[2020-01-11] MEDS: COLLAGENASE 30 GM OINTMENT TOP SCH (12:48)
--- NOTE | 2020-01-11 16:04 | PN ---
Date of Progress Note: 01/11/2020 Subjective: Patient seen and examined. Chart reviewed and case discussed with RN. Patient does not have any complaints overnight. Medications: List reviewed. Physical Examination: Vital Signs: Temperature 97.7, heart rate 95, blood pressure 136/77, respirations 19, O2 of 95% on r oom air. General: Awake, alert, oriented x3. Not in any acute distress. CVS: S1, S2. Regular rate and rhythm. Peripheral pulses present. Respiratory: Moving air well bilaterally. No wheezing or stridor. Gastrointestinal: Abdomen is soft, nontender, nondistended. Positive bowel sounds. Extremities: No clubbing, cyanosis, or edema. Neuro: Nonfocal. Laboratory Data: Sodium 142, potassium 4.2, chloride 114, CO2 of 22, BUN 10, creatinine 0.7, calcium 8.6, magnesium 2.3. Serology tests pending. Wound from the left clavicle growing out Staph aureus methicillin sensitive. Blood cultures, no growth to date x2 to different cause. Assessment And Plan: A 59-year-old male with: 1.Chronic left shoulder cellulitis. Wound cultures positive for Staphylococcus aureus. We will con tinue antibiotic therapy. 2.Orthostatic hypotension. Continue with midodrine. The blood pressure is better. 3.Basal cell carcinoma. We will continue with Oncology as outpatient. 4.Severe protein-calorie malnutrition with hypoglycemia. We will continue with D5 IV fluids. Await ing cortisol stimulation test. 5.Anemia of chronic disease. We will continue medications. Monitor H and H. 6.Gastroesophageal reflux disease. We will continue medications. Patient on Decadron. It was like ly due to adrenal insufficiency. We will follow up with Endocrinology regarding ACTH testing, may be related to autoimmune disorder or adrenal insufficiency. SA/MODL Voice ID: [id number] Report ID: [id number]
[2020-01-11] MEDS: ENOXAPARIN 30 MG/0.3 ML SQ SCH (16:30)
[2020-01-12 04:37] LABS: Absolute Lymphocytes (CBC) 0.8 K/uL (0.7-4.9); Basophils % 0.1 % (0-1.3); Hematocrit 27.4 % (39.6-49.0); Lymphocytes % 11.7 % (15.3-44.8); MPV 7.1 fL (7.6-11.3); RBC Red Blood Cell Count 3.13 M/uL (4.33-5.43)
[2020-01-12 04:52] LABS: BUN Blood Urea Nitrogen 13 mg/dL (7-18); Bicarbonate 24 mmol/L (21-32); Glucose Level 98 mg/dL (74-106); Potassium 3.9 mmol/L (3.5-5.1); Sodium Level 144 mmol/L (136-145)
[2020-01-12] MEDS: D5 0.45 NS 1,000 ML IV SCH (05:19)
[2020-01-12] MEDS: PANTOPRAZOLE 40MG TABLET PO SCH (05:34)
[2020-01-12] MEDS: INSULIN -REGULAR HUMAN 50 UNIT/0.5 ML ML SQ SCH ×3 (07:30→16:30)
[2020-01-12] MEDS: COLLAGENASE 30 GM OINTMENT TOP SCH (08:37)
[2020-01-12] MEDS: DOXYCYCLINE 100 MG CAP PO SCH (08:39)
[2020-01-12] MEDS: FOLIC ACID 1 MG TABLET PO SCH (08:39)
[2020-01-12] MEDS: SUCRALFATE 1 GM TABLET PO SCH ×3 (08:39→16:31)
[2020-01-12] MEDS: THIAMINE HCL 100 MG TABLET PO SCH (08:40)
[2020-01-12] MEDS: ENSURE HIGH PROTEIN 237 ML CAN PO SCH ×2 (08:43→13:16)
[2020-01-12] MEDS ORDERED: POTASSIUM CL SA 10 MEQ TAB PO ONE (09:00)
[2020-01-12 09:19] VITALS: O2SAT 95
--- NOTE | 2020-01-12 11:46 | RAD REPORT ---
EXAM DESCRIPTION: CT - Head Brain Wo Cont - 01/12/2020 11:04 am CLINICAL HISTORY: Alteration of awareness/confusion COMPARISON: December 2019 MRI TECHNIQUE: Computed axial tomography of the head was obtained. IV contrast was not requested. All CT scans are performed using dose optimization technique as appropriate and may include automated exposure control or mA/KV adjustment according to patient size. FINDINGS: An intracranial bleed is not seen . The ventricles are normal in caliber. No extra-axial fluid collection is noted. Fluid within the sinuses/ mastoids is not seen. IMPRESSION: No acute intracranial abnormality is seen. If patient's symptoms persist MRI of the bra in would be recommended.
--- NOTE | 2020-01-12 15:14 | PN ---
Date of Progress Note: 01/12/2020 Subjective: Patient seen and examined. Chart reviewed and case discussed with RN. Patient seems to be confused this morning, stating that he is in the kitchen. He is oriented to time and year. Medications: List reviewed. Physical Examination: Vital Signs: Temperature 98.1, heart rate 90, blood pressure 137/76, respirations 20, O2 of 99% on r oom air. General: Awake, alert, oriented to self and place, however, thinks he is in the hospital kitchen rat her than his room, somewhat confused. Does answer questions appropriately. CV: S1, S2. Regular rate and rhythm. Peripheral pulses present. Respiratory: Moving air well bilaterally. No wheezing or stridor. Gastrointestinal: Abdomen is soft, nontender, nondistended. Positive bowel sounds. Extremities: No clubbing, cyanosis, or edema. Neurologic: Cranial nerves 2 through 12 intact grossly. No focal neurological deficit. Slightly co nfused. Skin: Patient has left shoulder basal cell carcinoma, bandaged. Laboratory Data: WBC 6.9, H and H of 9.4 and 27.4, platelets 495. Sodium 144, potassium 3.9, chlori de 114, CO2 of 24, BUN 13, creatinine 0.69, glucose 98, calcium 8.1. Wound culture from the left cla vicle growing out Staphylococcus aureus. Blood cultures are negative. CSF AFB smear is pending. Pa rathyroid hormone study is pending. Lyme disease titer is also pending. Assessment And Plan: A 59-year-old male with: 1.Chronic left shoulder cellulitis. Wound culture positive for Staphylococcus aureus. Continue ant ibiotics, currently on doxy. 2.Orthostatic hypotension, improved, now off midodrine. 3.Basal cell carcinoma. Follows with Dr. Lama as outpatient. 4.Severe protein-calorie malnutrition, now with hypoglycemia. Doing better off D5 IV fluids. ACTH test still pending. I have placed a call out to Endocrinology in [place], awaiting call back. Par athyroid hormone also pending, was sent out on the . 5.Anemia of chronic disease. H and H are stable. We will continue to monitor, transfuse as needed. 6.Gastroesophageal reflux disease. Continue medications. 7.Possible adrenal insufficiency, now off Decadron. Blood glucose levels holding. Likely has autoi mmune disorder related to adrenal insufficiency. 8.Acute metabolic encephalopathy. Patient is somewhat confused today, but still answering questions appropriately. MRI of the brain has been negative, may need to repeat CT scan of the head to rule o ut any other abnormalities. Discharge planning. We will need to touch base with Endocrinology prior to discharge. BETTYE Voice ID: [id number] Report ID: [id number]
[2020-01-12] MEDS ORDERED: ENOXAPARIN 30 MG/0.3 ML SQ SCH (17:00)
[2020-01-12 17:31] VITALS: BP 136/84; TEMP 98
[2020-01-12] MEDS ORDERED: HYDROCORTISONE 10 MG TAB PO SCH (21:00)
--- NOTE | 2020-01-13 06:18 | DS ---
Date of Discharge: 01/12/2020 Consultants: Dr. Mcneal with General Surgery, Dr. Ceron with Neurology, Dr. Cuellar with Nephrology. Phone consultation w counter installer Dr. Justin. Procedures: EEG on 12/29/2019 showed [id number]-[id number] abnormal EEG due to mild moderate slow background, nonspecific finding consistent with [id number] diffuse disturbance in cerebral function. Admitting Diagnoses: 1. Sepsis. 2. Hypercalcemia. 3. Recent cholecystectomy on 12/09. 4. History of basal cell carcinoma of the left shoulder. Discharge Diagnoses: 1. Chronic left shoulder cellulitis positive for Staphylococcus aureus on doxycycline. 2. Orthostatic hypotension secondary to adrenal insufficiency. 3. Sepsis resolved. 4. Basal cell carcinoma of the left shoulder. Follows with Oncology as outpatient. 5. Severe protein-calorie malnutrition, on supplements. 6. Hypoglycemia secondary to renal insufficiency. 7. Adrenal insufficiency, on steroids. 8. Anemia of chronic disease, stable. 9. Acute metabolic encephalopathy, resolved, back to baseline. 10. Acute kidney injury, resolved. Hospital Course: Patient has had a protracted course in the hospital who was initially has been here for 17 days as initially admitted for sepsis, acute kidney injury, and altered mental status. Patient had a cholecystectomy done on 12/20, was found to have some esophagitis, peptic ulcer disease, and now comes in with acute kidney injury, altered mental status and sepsis. Patient does have history of basal cell carcinoma and has been treated by Dr. Lama in the past with Oncology. Patient was seen by multiple consultants including Dr. Mcneal who did not recommend any further input from his surgical site. The patient's symptoms of nausea and vomiting were not related to his recent surgery. He was also seen by Nephrology, Dr. Lin for his acute kidney injury. His kidney function improved and normalized. Patient was found to have some acute on chronic cellulitis and wound of his left shoulder from his basal cell carcinoma. He was started on antibiotics. His wound cultures did grow out Staph aureus on the clavicle and he will finish off a course of doxycycline. He was also seen by Neurology for his altered mental status and multiple different tests were done to rule out the cause. Head CT scan as well as MRI were negative. Patient also had was tested for COVID-19, which was negative. Influenza screen was negative. His blood cultures and urine culture did not show any growth. He did have some yeast in the urine, which was treated. Patient also had EEG done which was described above as well as lumbar puncture. The CSF did not show any signs of infection. His mental status started to return slowly. Serology tests including Lyme disease and other tests from the immune panel from his LP were sent out, have not returned yet. Parathyroid hormone related peptide specimen was also sent out, which has not returned. Patient was able to get out of the ICU. Patient then became hypotensive, had orthostatic hypotension, had a fall and orthostatics were positive. Cortisol test showed low cortisol level. ACTH stimulation test was done and patient did not have much of a response. Therefore, adrenal insufficiency was considered, likely autoimmune. No Endocrinology was available for significant period of time, however, patient was started on Decadron and midodrine. The patient's blood glucose levels and blood pressure improved. His repeat orthostatic vital signs were negative. He was able to ambulate 500 feet. He did not have any further difficulty ambulating, did not require a walker. Patient was regaining his strength. He was placed on energy supplements and protein supplements. Patient unfortunately does has no coverage for home health or SNF. Speaking to the patient's sister was contacted by previous attending physician and disease case manager rn, social workers. She was agreeable to have the patient stay with her as he is moving around in and tolerating his diet. Patient finally able to get in touch with counter installer, Dr. Yudy Justin. Her direct number is [phone] and she recommended the patient to go out on hydrocortisone 20 mg in the morning and 10 mg in the evening and for him to follow up with her, so his adrenal insufficiency can be worked up further. Patient will need to have several followups with all of the specialties that he has seen including ore roaster Dr. Zapata in 1 week; nurse practitioner physicians assistant, Dr. Lin in 2 weeks; neurologist, Dr. Ceron in 2 weeks; surgeon, Dr. Mcneal as scheduled. Establish care with counter installer Dr. Justin and return to ER for worsening condition. Diet: Regular. Activity: Fall precautions. Medications: As per medication reconciliation list. For physical exam findings, please see progress note dictated on the day of discharge. Total time spent discharging the patient was 41 minutes. /VANESSA Voice ID: [id number] Report ID: [id number] [id number]
[2020-01-13] MEDS ORDERED: HYDROCORTISONE 10 MG TAB PO SCH (09:00)
== END 2020-01-12 18:23 | disposition home or self-care (01) | DRG 871 ==
LOC: ER 10:52 → SUPCPDRO 10:52 → ERHOLD 14:45 → 3RD-ICU 12-27 05:43 → 4TH 12-31 18:20 → 2ND 01-08 01:31
PROVIDERS: ADMIT Internal Medicine Sleep Medicine; ATTEND Family Medicine
PROC: 4A00X4Z Measurement of Central Nervous Electrical Activity, External Approach (ICD-10-PCS; principal; 2019-12-29)
PROC: 02HV33Z Insertion of Infusion Device into Superior Vena Cava, Percutaneous Approach (ICD-10-PCS; 2019-12-31)
PROC: 009U3ZX Drainage of Spinal Canal, Percutaneous Approach, Diagnostic (ICD-10-PCS; 2019-12-31)
DX: A41.9 Sepsis, unspecified organism (principal); E43 Unspecified severe protein-calorie malnutrition; G93.41 Metabolic encephalopathy; G21.0 Malignant neuroleptic syndrome; E87.2 Acidosis; N17.9 Acute kidney failure, unspecified; L03.114 Cellulitis of left upper limb; E27.40 Unspecified adrenocortical insufficiency; E87.0 Hyperosmolality and hypernatremia; Z20.828 Contact with and (suspected) exposure to other viral communicable diseases; Z90.49 Acquired absence of other specified parts of digestive tract; Z79.899 Other long term (current) drug therapy; E83.52 Hypercalcemia; R65.20 Severe sepsis without septic shock; B95.61 Methicillin susceptible Staphylococcus aureus infection as the cause of diseases classified elsewhere; I95.1 Orthostatic hypotension; C44.619 Basal cell carcinoma of skin of left upper limb, including shoulder; E16.2 Hypoglycemia, unspecified; Z79.01 Long term (current) use of anticoagulants; D63.8 Anemia in other chronic diseases classified elsewhere; K21.9 Gastro-esophageal reflux disease without esophagitis; E83.39 Other disorders of phosphorus metabolism; E87.6 Hypokalemia; I10 Essential (primary) hypertension; Z92.3 Personal history of irradiation; Z68.25 Body mass index [BMI] 25.0-25.9, adult
CPT/HCPCS: 36415; 36569; 70450; 70551; 71045; 71250; 74176; 77003; 80048; 80053; 80076; 80202; 81003; 81015; 82024; 82140; 82150; 82306; 82533; 82550; 82553; 82565; 82652; 82805; 82947; 83605; 83690; 83735; 83880; 83970; 84100; 84132; 84145; 84439; 84443; 84481; 84484; 85025; 85610; 85652; 85730; 86038; 86140; 86430; 86592; 86850; 86900; 86901; 87015; 87040; 87070; 87075; 87077; 87086; 87088; 87116; 87186; 87205; 87206; 87804; 89050; 93005; 94760; 95816; 96365; 96366; 96375; 97110; 97112; 97116; 97161; 97530; 99251; 99291; 99292; J0692; J0696; J0834; J1450; J1650; J1720; J1940; J2405; J2430; J2550; J3010; J3370; J3411; J3430; J3475; J3590; J7030; J7040; J7042; J7060; J7799; J8540; U0002

== ENCOUNTER 2020-07-06 11:03 | Observation (INO) | payer OTHER, SELFPAY ==
[2020-07-06] MEDS: HYDROCORTISONE SUC 100 MG INJ IV SCH ×5 (06:00→23:59)
--- OUTSIDE RECORDS SUMMARY | 2020-07-06 11:06 | XMS REPORT | Continuity of Care Document ---
:1960 Author Organization [facility] t Address [address] [place] [address] Care Team Providers Name Role Phone Unavailable Unavailable Unavailable Problems This patient has no known problems. Allergies, Adverse Reactions, Alerts This patient has no known allergies or adverse reactions. Social History Social Habit Start Date Stop Date Quantity Comments Source Sex Assigned At [facility] Medications This patient has no known medications. Procedures This patient has no known procedures. Plan of Care Planned Activity Planned Date Details Comments Source Future Scheduled Test 2020-06-01 00:00:00 IMM Influenza [facility] Seasonal Jun to October (>/= 19 yrs) [code = IMM Influenza Seasonal Jun to October (>/= 19 yrs)] Future Scheduled Test 2010-02-21 00:00:00 Screening for [facility] malignant neoplasm of colon (procedure) [code = 737696173] Encounters Start End Encounter Admission Attending Care Care Encounter Source Date/Time Date/Time Type Type Clinicians Facility Department ID 2017-12-22 2017-12-22 Emergency [facility] MED [id number] [place] 11:20:00 11:20:00 Health Results This patient has no known results.
--- OUTSIDE RECORDS SUMMARY | 2020-07-06 11:06 | XMS REPORT | Clinical Summary ---
:1960 Author Organization [facility] Address [address] [place] [address] Care Team Providers Name Role Phone Unavailable Primary Care Provider Unavailable Allergies No Known Allergies Medications Not on file Active Problems Not on file Social History Tobacco Use Types Packs/Day Years Used Date Never Assessed Sex Assigned at Date Recorded Not on file Job Start Date Occupation Industry Not on file Not on file Not on file Travel History Travel Start Travel End No recent travel history available. Last Filed Vital Signs Not on file Plan of Treatment Health Maintenance Due Date Last Done Comments Colorectal Cancer Scrn Annual (FIT/FOBT) Age 50 to 75 02/21/2010 IMM Influenza Seasonal Jun to October (>/= 19 yrs) 06/01/2020 Results Not on fileafter 07/06/2019 Insurance Payer Benefit Plan / Subscriber ID Effective Dates Phone Addre ss Type Group [employer] SELF-PAY xxxxxxxxx 2017-Prese [phone] [id number] [place] [address] ([address]) [address] [place] [address]
[2020-07-06 11:57] LABS: Absolute Lymphocytes (CBC) 1.5 K/uL (0.7-4.9); Basophils % 0.3 % (0-1.3); Hematocrit 42.9 % (39.6-49.0); Lymphocytes % 17.1 % (15.3-44.8); MPV 7.3 fL (7.6-11.3); RBC Red Blood Cell Count 4.86 M/uL (4.33-5.43)
--- NOTE | 2020-07-06 12:03 | RAD REPORT ---
EXAM DESCRIPTION: Tash Single View07/06/2020 11:58 am CLINICAL HISTORY: Syncope and weakness COMPARISON: January 2020 FINDINGS: The lungs appear clear of acute infiltrate. The heart is normal size IMPRESSION: No acute abnormalities displayed
[2020-07-06 12:22] LABS: Protime INR 1.23
[2020-07-06] MEDS ORDERED: ONDANSETRON 4 MG/2 ML VIAL ONE (12:37)
[2020-07-06] MEDS ORDERED: NA CHLORIDE 0.9% 1,000 ML ONE ×3 (12:38→18:09)
[2020-07-06 14:24] LABS: ALT/SGPT 21 U/L (12-78); AST/SGOT 18 U/L (15-37); Albumin 3.5 g/dL (3.4-5.0); Alkaline Phosphatase 95 U/L (45-117); BUN Blood Urea Nitrogen 32 mg/dL (7-18); Bicarbonate 30 mmol/L (21-32); Bilirubin Direct 0.3 mg/dL (0-0.2); Bilirubin Total 0.8 mg/dL (0.2-1.0); Glucose Level 100 mg/dL (74-106); Magnesium 2.6 mg/dL (1.8-2.4); NT PRO-BNP 35 pg/mL (<125); Potassium 3.3 mmol/L (3.5-5.1); Protein, Total 9.3 g/dL (6.4-8.2); Sodium Level 134 mmol/L (136-145); Troponin (Emerg Dept Use Only) < 0.02 ng/mL (0.0-0.045)
--- NOTE | 2020-07-06 17:19 | ER ---
Nurse's Notes [facility] Name: Patrick Sweeney Age: 60 yrs Sex: Male : 1960 Arrival Date: 07/06/2020 Time: 11:04 Bed 2 Private MD: Marshall Birmingham V Diagnosis: Dehydration;Orthostatic hypotension Presentation: 07/06 11:25 Chief complaint: Patient states: Near syncopal episode at [facility] today. Pt aa5 states "I have indigestion since yesterday and normally when I have indigestion I feel like I am going to pass out but it goes away and this time it hasn't gone away". Pt c/o feeling lightheaded. Coronavirus screen: Client denies travel out of the [place] in the last 14 days. At this time, the client does not indicate any symptoms associated with coronavirus-19. Ebola Screen: Patient negative for fever greater than or equal to 101.5 degrees Fahrenheit, and additional compatible Ebola Virus Disease symptoms. Initial Sepsis Screen: Does the patient meet any 2 criteria? HR > 90 bpm. Does the patient have a suspected source of infection? No. Patient's initial sepsis screen is negative. Risk Assessment: Do you want to hurt yourself or someone else? Patient reports no desire to harm self or others. Onset of symptoms was July 06, 2020. 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 - Social history:: Smoking status: unknown. Screenin:25 Abuse screen: Denies threats or abuse. Nutritional screening: No deficits noted. aa5 Tuberculosis screening: No symptoms or risk factors identified. Fall Risk None identified. Assessment: 11:30 General: Appears uncomfortable, Behavior is calm, cooperative. Pain: Complains of pain aa5 in epigastric area Pain does not radiate. Pain currently is 5 out of 10 on a pain scale. Quality of pain is described as crampy, Indigestion Pain began 1 day ago. Is continuous. Neuro: Level of Consciousness is awake, alert, obeys commands, Oriented to person, place, time, situation. Cardiovascular: Heart tones S1 S2 present Rhythm is sinus tachycardia. Respiratory: Airway is patent Respiratory effort is even, unlabored, Respiratory pattern is regular, symmetrical, Denies cough, shortness of breath. GI: Abdomen is round non-distended, Bowel sounds present X 4 quads. Abd is soft and non tender X 4 quads. Patient currently denies diarrhea, nausea, vomiting. : No signs and/or symptoms were reported regarding the genitourinary system. Denies inability to void. EENT: No signs and/or symptoms were reported regarding the EENT system. Derm: Skin is pink, warm \\T\\ dry. Chronic wound noted to left shoulder with dressing noted, pt states "I had radiation 2 years ago for skin cancer to my shoulder and I've had this wound for 2 years already, and right now I take a chemo pill". Musculoskeletal: Range of motion: intact in all extremities. 11:50 Reassessment: X-ray at bedside, pt currently vomiting. MD aware. No IV access, pt is a aa5 hard stick. Omar Edge RN to attempt US guided IV. . 11:55 Reassessment: EVAN Ledezma at bedside attempting IV. aa5 12:41 Reassessment: 3 IV missed attempts by Omar Edge RN. notified of inability to aa5 obtain IV access.. 13:01 Reassessment: Pt c/o of dizziness and feeling lightheaded on sitting position during aa5 orthostatics, MD notified. Pt now lying down on supine position, pt states feeling better. . 14:30 Reassessment: Patient is alert, oriented x 3, equal unlabored respirations, skin aa5 warm/dry/pink. Pt states no complaints at this time. Awaiting NS bolus to complete. . 15:00 Reassessment: Patient appears in no apparent distress at this time. Patient and/or bp family updated on plan of care and expected duration. Pain level reassessed. Patient is alert, oriented x 3, equal unlabored respirations, skin warm/dry/pink. PT SLEEPING, IVF INFUSING. 16:00 Reassessment: Pt resting in bed with eyes closed, respirations even and unlabored, skin aa5 is pink/warm/dry. NS bolus infusing. . 17:00 Reassessment: Patient appears in no apparent distress at this time. Patient and/or bp family updated on plan of care and expected duration. Pain level reassessed. Patient is alert, oriented x 3, equal unlabored respirations, skin warm/dry/pink. ORTHOSTATICS FAILED. MD NOTIFIED. 17:52 Reassessment: Patient appears in no apparent distress at this time. Patient and/or bp family updated on plan of care and expected duration. Pain level reassessed. Patient is alert, oriented x 3, equal unlabored respirations, skin warm/dry/pink. ADMIT INITIATED. 18:05 Reassessment: Pt resting in bed with eyes closed, respirations even and unlabored, skin aa5 is pink/warm/dry. Pt easy to arouse to verbal stimuli. Awaiting room assigment. Pt requesting to speak to Dr. Ramos about admission to hospital, Dr. Ramos was notified. . 18:30 Reassessment: Dr. Ramos at bedside . aa5 18:50 Reassessment: Hospitalist at bedside. aa5 18:57 Reassessment: Patient is alert, oriented x 3, equal unlabored respirations, skin aa5 warm/dry/pink. Vital Signs: 11:25 BP 115 / 95; Pulse 118; Resp 18 S; Temp 98.9(O); Pulse Ox 100% on R/A; Weight 81.65 kg aa5 (R); Height 5 ft. 11 in. (180.34 cm) (R); 12:54 BP 117 / 77; Pulse 107; Resp 18 S; Pulse Ox 99% on R/A; aa5 12:56 BP 65 / 62 Sitting; Pulse 120; aa5 12:58 BP 75 / 61; Pulse 109; Resp 18 S; Pulse Ox 99% on R/A; aa5 13:01 BP 110 / 84; Pulse 112; Resp 16 S; Pulse Ox 99% on R/A; aa5 14:00 BP 114 / 71; Pulse 99; Resp 20; Pulse Ox 99% ; bp 15:00 BP 96 / 70; Pulse 106; Resp 17; Pulse Ox 100% ; bp 15:56 BP 125 / 78; Pulse 112; Resp 16; Temp 98.0; Pulse Ox 97% on R/A; mh5 16:29 BP 94 / 73 Supine; Pulse 110; Resp 18; Pulse Ox 99% on R/A; mh5 16:31 BP 85 / 61 Sitting; Pulse 125; Resp 18; Pulse Ox 99% ; mh5 16:33 BP 66 / 53 Standing; Pulse 130; Resp 18; Pulse Ox 99% on R/A; mh5 17:51 BP 106 / 67; Pulse 103; Resp 16; Pulse Ox 99% ; bp 18:30 BP 95 / 56; Pulse 101; Resp 16 S; Pulse Ox 99% on R/A; aa5 19:43 BP 110 / 70; Pulse 101; Resp 18; Temp 98; Pulse Ox 100% on R/A; mg2 11:25 Body Mass Index 25.10 (81.65 kg, 180.34 cm) aa5 12:56 Pt c/o feeling lightheaded and dizzy upon sitting up in bed. aa5 ED Course: 11:04 Patient arrived in ED. ag5 11:04 Marshall Birmingham MD is Private Physician. ag5 11:25 Patient has correct armband on for positive identification. Placed in gown. Bed in low aa5 position. Call light in reach. Side rails up X 1. classroom monitor on. Pulse ox on. NIBP on. 11:25 Arm band placed on left wrist. aa5 11:33 Doc Ramos MD is Attending Physician. kdr 11:35 EKG done, by ED staff, reviewed by Doc Ramos MD. mh5 11:35 Warm blanket given. mh5 11:42 Missed attempt(s): 22 gauge in right wrist. Bleeding controlled, band aid applied, aa5 catheter tip intact. 11:45 Initial lab(s) drawn, by tx, sent to lab. aa5 11:45 Missed attempt(s): 22 gauge in left wrist. Bleeding controlled, band aid applied, aa5 catheter tip intact. 11:50 Tiara Pack, EVAN is Primary Nurse. aa5 11:55 Triage completed. aa5 11:58 XRAY Chest (1 view) In Process Unspecified. EDMS 12:12 Inserted saline lock: 20 gauge in right antecubital area, using aseptic technique. bp Blood collected. 13:30 Missed attempt(s): 22 gauge in right forearm. iw 13:44 Inserted saline lock: 22 gauge in left antecubital area, using aseptic technique. Blood iw collected. 17:17 Marshall Birmingham MD is Hospitalizing Provider. kdr 18:56 Uday Buckner MD is Hospitalizing Provider. kdr 19:10 Report given to EVAN Davis. aa5 19:43 No provider procedures requiring assistance completed. Patient admitted, IV remains in mg2 place. Administered Medications: 13:45 Drug: Zofran (Ondansetron) 4 mg Route: IVP; Site: left antecubital; aa5 14:00 Follow up: Response: No adverse reaction aa5 13:47 Drug: NS 0.9% 1000 ml Route: IV; Rate: 1 bolus; Site: left antecubital; aa5 15:30 Follow up: IV Status: Completed infusion; IV Intake: 1000ml aa5 14:25 Drug: NS 0.9% 1000 ml Route: IV; Rate: 1 bolus; Site: left antecubital; aa5 16:30 Follow up: IV Status: Completed infusion; IV Intake: 1000ml aa5 18:05 Drug: Potassium Chloride 40 mEq Route: PO; aa5 18:59 Follow up: Response: No adverse reaction aa5 18:07 Drug: Potassium Chloride 10 mEq Route: IV; Rate: calculated rate; Site: left aa5 antecubital; 18:59 Follow up: Response: No adverse reaction; IV Status: Completed infusion aa5 18:07 Drug: NS 0.9% 1000 ml Route: IV; Rate: 150 ml/hr; Site: left antecubital; aa5 18:59 Follow up: IV Status: Infusion continued aa5 18:57 Drug: Solu-CORTEF 100 mg Route: IVP; Site: left antecubital; aa5 18:59 Follow up: Response: No adverse reaction aa5 Intake: 15:30 IV: 1000ml; Total: 1000ml. aa5 16:30 IV: 1000ml; Total: 2000ml. aa5 Outcome: 17:18 Decision to Hospitalize by Provider. kdr 19:48 Admitted to Med/surg accompanied by tech, room 231, with chart, Report called to rosalino Jules RN 19:48 Condition: stable 19:48 Instructed on the need for admit, Demonstrated understanding of instructions. 19:59 Patient left the ED. [facility] Signatures: Dispatcher [employer] EDMS Doc Ramos MD MD kdr Prachi uHrt RN RN Tiara Pack RN RN [facility] Genoveva Miranda [facility] Omar Edge, EVAN GORDON Ryan Fitzgerald RN RN [facility] Corrections: (The following items were deleted from the chart) 11:50 11:20 Omar Edge, EVAN is Primary Nurse. bp [facility] 11:50 11:50 Primary Nurse role handed off by Omar Edge RN [place] [id number] 11:57 11:25 BP 115 / 95; Pulse 118bpm; Resp 18bpm; Spontaneous; Pulse Ox 100% RA; Temp 98.9F aa5 Oral; [facility] 11:58 11:35 Patient has correct armband on for positive identification. Placed in gown. Bed [facility] in low position. Call light in reach. Side rails up X 1. [facility] 11: 11:35 classroom monitor on. Pulse ox on. NIBP on. [place] [id number] 13:45 13:00 BP 110 / 84; Pulse 103bpm; Resp 18bpm; Pulse Ox 99% RA; [place] [id number]
--- NOTE | 2020-07-06 17:19 | EDPHYS ---
Physician Documentation [facility] Name: Patrick Sweeney Age: 60 yrs Sex: Male : 1960 Arrival Date: 07/06/2020 Time: 11:04 Bed 2 Private MD: Marshall Birmingham V ED Physician Doc Ramos HPI: 07/06 17:51 This 60 yrs old Male presents to ER via Wheelchair with complaints of kdr Dizziness, Near Syncope. 17:51 The patient presents with dizziness, generalized weakness, lightheadedness, feeling off kdr balance. Onset: The symptoms/episode began/occurred gradually, 1 week(s) ago. Context: occurred at home, occurred while the patient was at rest, just prior to the episode the patient experienced nausea, vomiting, diarrhea. Modifying factors: The symptoms are alleviated by lying down, the symptoms are aggravated by standing up, changing position. Associated signs and symptoms: Pertinent positives: nausea, vomiting, diarrhea. Severity of symptoms: At their worst the symptoms were. Patient's baseline: Neuro: alert and fully oriented, Motor: no deficits, Ambulation: walks without assistance, Speech: normal, The patient has a previous history of. The patient has not experienced similar symptoms in the past. The patient has not recently seen a physician. 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 - Social history:: Smoking status: unknown. ROS: 17:51 Constitutional: Negative for fever, chills, and weight loss, Eyes: Negative for injury, kdr pain, redness, and discharge, ENT: Negative for injury, pain, and discharge, Neck: Negative for injury, pain, and swelling, Cardiovascular: Negative for chest pain, palpitations, and edema, Respiratory: Negative for shortness of breath, cough, wheezing, and pleuritic chest pain, Back: Negative for injury and pain, : Negative for injury, bleeding, discharge, and swelling, MS/Extremity: Negative for injury and deformity, Skin: Negative for injury, rash, and discoloration, Psych: Negative for depression, anxiety, suicide ideation, homicidal ideation, and hallucinations, Allergy/Immunology: Negative for hives, rash, and allergies, Endocrine: Negative for neck swelling, polydipsia, polyuria, polyphagia, and marked weight changes, Hematologic/Lymphatic: Negative for swollen nodes, abnormal bleeding, and unusual bruising. 17:51 Abdomen/GI: Positive for abdominal pain, nausea and vomiting, Negative for abdominal distension, black/tarry stool, rectal pain, rectal bleeding. Exam: 18:35 Constitutional: This is a well developed, well nourished patient who is awake, alert, kdr and in no acute distress. Head/Face: Normocephalic, atraumatic. Eyes: Pupils equal round and reactive to light, extra-ocular motions intact. Lids and lashes normal. Conjunctiva and sclera are non-icteric and not injected. Cornea within normal limits. Periorbital areas with no swelling, redness, or edema. Neck: Trachea midline, no thyromegaly or masses palpated, and no cervical lymphadenopathy. Supple, full range of motion without nuchal rigidity, or vertebral point tenderness. No Meningismus. Chest/axilla: Normal chest wall appearance and motion. Nontender with no deformity. No lesions are appreciated. Cardiovascular: Regular rate and rhythm with a normal S1 and S2. No gallops, murmurs, or rubs. Normal PMI, no JVD. No pulse deficits. Respiratory: Lungs have equal breath sounds bilaterally, clear to auscultation and percussion. No rales, rhonchi or wheezes noted. No increased work of breathing, no retractions or nasal flaring. Abdomen/GI: Soft, non-tender, with normal bowel sounds. No distension or tympany. No guarding or rebound. No evidence of tenderness throughout. Back: No spinal tenderness. No costovertebral tenderness. Full range of motion. Skin: Warm, dry with normal turgor. Normal color with no rashes, no lesions, and no evidence of cellulitis. MS/ Extremity: Pulses equal, no cyanosis. Neurovascular intact. Full, normal range of motion. Neuro: Awake and alert, GCS 15, oriented to person, place, time, and situation. Cranial nerves II-XII grossly intact. Motor strength 5/5 in all extremities. Sensory grossly intact. Cerebellar exam normal. Normal gait. Psych: Awake, alert, with orientation to person, place and time. Behavior, mood, and affect are within normal limits. 18:35 ECG was reviewed by the Attending Physician. Vital Signs: 11:25 BP 115 / 95; Pulse 118; Resp 18 S; Temp 98.9(O); Pulse Ox 100% on R/A; Weight 81.65 kg aa5 (R); Height 5 ft. 11 in. (180.34 cm) (R); 12:54 BP 117 / 77; Pulse 107; Resp 18 S; Pulse Ox 99% on R/A; aa5 12:56 BP 65 / 62 Sitting; Pulse 120; aa5 12:58 BP 75 / 61; Pulse 109; Resp 18 S; Pulse Ox 99% on R/A; aa5 13:01 BP 110 / 84; Pulse 112; Resp 16 S; Pulse Ox 99% on R/A; aa5 14:00 BP 114 / 71; Pulse 99; Resp 20; Pulse Ox 99% ; bp 15:00 BP 96 / 70; Pulse 106; Resp 17; Pulse Ox 100% ; bp 15:56 BP 125 / 78; Pulse 112; Resp 16; Temp 98.0; Pulse Ox 97% on R/A; mh5 16:29 BP 94 / 73 Supine; Pulse 110; Resp 18; Pulse Ox 99% on R/A; mh5 16:31 BP 85 / 61 Sitting; Pulse 125; Resp 18; Pulse Ox 99% ; mh5 16:33 BP 66 / 53 Standing; Pulse 130; Resp 18; Pulse Ox 99% on R/A; mh5 17:51 BP 106 / 67; Pulse 103; Resp 16; Pulse Ox 99% ; bp 18:30 BP 95 / 56; Pulse 101; Resp 16 S; Pulse Ox 99% on R/A; aa5 19:43 BP 110 / 70; Pulse 101; Resp 18; Temp 98; Pulse Ox 100% on R/A; mg2 11:25 Body Mass Index 25.10 (81.65 kg, 180.34 cm) aa5 12:56 Pt c/o feeling lightheaded and dizzy upon sitting up in bed. aa5 MDM: 17:18 Patient medically screened. kdr 18:36 Data reviewed: vital signs, nurses notes, lab test result(s), radiologic studies. kdr Counseling: I had a detailed discussion with the patient and/or guardian regarding: the historical points, exam findings, and any diagnostic results supporting the discharge/admit diagnosis, lab results, radiology results, the need for further work-up and treatment in the hospital. 07/06 11:33 Order name: Basic Metabolic Panel; Complete Time: 17:48 kdr 07/06 11:33 Order name: CBC with Diff; Complete Time: 14:13 kdr 07/06 11:33 Order name: LFT's; Complete Time: 17:48 kdr 07/06 11:33 Order name: Magnesium; Complete Time: 17:48 kdr 07/06 11:33 Order name: NT PRO-BNP; Complete Time: 17:48 kdr 07/06 11:33 Order name: PT-INR; Complete Time: 14:13 kdr 07/06 11:33 Order name: Troponin (emerg Dept Use Only); Complete Time: 17:48 kdr 07/06 11:33 Order name: XRAY Chest (1 view); Complete Time: 14:13 kdr 07/06 11:33 Order name: EKG; Complete Time: 11:34 kdr 07/06 11:33 Order name: Cardiac monitoring; Complete Time: 11:59 kdr 07/06 11:33 Order name: EKG - Nurse/Tech; Complete Time: 11:59 kdr 07/06 11:33 Order name: IV Saline Lock; Complete Time: 12:20 kdr 07/06 11:33 Order name: Labs collected and sent; Complete Time: 11:59 kdr 07/06 11:33 Order name: O2 Per Protocol; Complete Time: 11:59 kdr 07/06 11:33 Order name: O2 Sat Monitoring; Complete Time: 11:59 kdr 07/06 11:34 Order name: Orthostatic Blood Pressure; Complete Time: 13:46 kdr 07/06 15:17 Order name: Orthostatics; Complete Time: 16:46 iw 07/06 15:17 Order name: PO challenge; Complete Time: 18:08 iw EC:35 Rate is 101 beats/min. Rhythm is regular, Sinus tachycardia with No ectopy. QRS Sumpter is kdr Normal. AL interval is normal. QRS interval is normal. QT interval is normal. Clinical impression: NSR w/ Non-specific ST/T Changes and Sinus tachycardia. Administered Medications: 13:45 Drug: Zofran (Ondansetron) 4 mg Route: IVP; Site: left antecubital; aa5 14:00 Follow up: Response: No adverse reaction aa5 13:47 Drug: NS 0.9% 1000 ml Route: IV; Rate: 1 bolus; Site: left antecubital; aa5 15:30 Follow up: IV Status: Completed infusion; IV Intake: 1000ml aa5 14:25 Drug: NS 0.9% 1000 ml Route: IV; Rate: 1 bolus; Site: left antecubital; aa5 16:30 Follow up: IV Status: Completed infusion; IV Intake: 1000ml aa5 18:05 Drug: Potassium Chloride 40 mEq Route: PO; aa5 18:59 Follow up: Response: No adverse reaction aa5 18:07 Drug: Potassium Chloride 10 mEq Route: IV; Rate: calculated rate; Site: left aa5 antecubital; 18:59 Follow up: Response: No adverse reaction; IV Status: Completed infusion aa5 18:07 Drug: NS 0.9% 1000 ml Route: IV; Rate: 150 ml/hr; Site: left antecubital; aa5 18:59 Follow up: IV Status: Infusion continued aa5 18:57 Drug: Solu-CORTEF 100 mg Route: IVP; Site: left antecubital; aa5 18:59 Follow up: Response: No adverse reaction aa5 Disposition: 07/06/20 17:18 Hospitalization ordered by Uday Buckner for Inpatient Admission. Preliminary diagnosis are Dehydration, Orthostatic hypotension. - Bed requested for Telemetry/MedSurg (Inpatient). - Status is Inpatient Admission. mg2 - Condition is Fair. - Problem is an ongoing problem. - Symptoms have improved. Signatures: Dispatcher [employer] EDMS Lulu Hamm RN RN Doc Ramos MD MD [facility] Prachi Hurt RN RN Tiara Pack RN RN aa5 Ryan Fitzgerald RN RN mg2 Corrections: (The following items were deleted from the chart) 18:56 17:18 Hospitalization Ordered by Marshall Birmingham MD for Inpatient Admission. Preliminary kdr diagnosis is Dehydration; Orthostatic hypotension. Bed requested for Telemetry/MedSurg (Inpatient). Status is Inpatient Admission. Condition is Fair. Problem is an ongoing problem. Symptoms have improved. kdr 19:19 18:56 07/06/2020 17:18 Hospitalization Ordered by Uday Buckner MD for Inpatient Admission. Preliminary diagnosis is Dehydration; Orthostatic hypotension. Bed requested for Telemetry/MedSurg (Inpatient). Status is Inpatient Admission. Condition is Fair. Problem is an ongoing problem. Symptoms have improved. kdr 19:59 19:19 07/06/2020 17:18 Hospitalization Ordered by Uday Buckner MD for Inpatient mg2 Admission. Preliminary diagnosis is Dehydration; Orthostatic hypotension. Bed requested for Telemetry/MedSurg (Inpatient). Status is Inpatient Admission. Condition is Fair. Problem is an ongoing problem. Symptoms have improved. mw
[2020-07-06] MEDS ORDERED: KCL 20 MEQ/100 mL IVPB 20 MEQ/100 ML BAG IV ONE (18:08)
[2020-07-06] MEDS ORDERED: POTASSIUM CL SA 10 MEQ TAB PO ONE (18:08)
[2020-07-06] MEDS ORDERED: HYDROCORTISONE SUC 100 MG INJ ONE (19:09)
[2020-07-06] MEDS ORDERED: ACETAMINOPHEN 500 MG TAB PO PRN (20:23)
[2020-07-06] MEDS ORDERED: ONDANSETRON 4 MG/2 ML VIAL IV PRN (20:23)
[2020-07-06] MEDS: NA CHLORIDE 0.9% 1,000 ML IV SCH (21:22)
[2020-07-07 03:53] VITALS: BMI 25.8
[2020-07-07] MEDS: HYDROCORTISONE SUC 100 MG INJ IV SCH ×2 (05:29→11:32)
[2020-07-07] MEDS: NA CHLORIDE 0.9% 1,000 ML IV SCH (05:34)
[2020-07-07 06:08] LABS: Absolute Lymphocytes (CBC) 0.5 K/uL (0.7-4.9); Basophils % 0.1 % (0-1.3); Hematocrit 35.1 % (39.6-49.0); Lymphocytes % 7.3 % (15.3-44.8); MPV 7.4 fL (7.6-11.3); RBC Red Blood Cell Count 3.93 M/uL (4.33-5.43)
[2020-07-07 06:25] LABS: BUN Blood Urea Nitrogen 17 mg/dL (7-18); Bicarbonate 24 mmol/L (21-32); Glucose Level 113 mg/dL (74-106); Sodium Level 137 mmol/L (136-145)
--- NOTE | 2020-07-07 08:25 | P.SSS ---
Patient History Date of Service: 07/07/20 Reason for admission: NAUSEA, VOMITING, DIARRHEA AND PASSING OUT. History of Present Illness: MR. ARANDA IS KNOWN TO HAVE LYN'S DISEASE. HE STARTED TO HAVE VIRAL GASTROENTERITIS AND HAD ORTHOSTASIS HE NEEDED STRESS DOSE OF STEROIDS. HE IS LOT BETTER NOW CREATININE IS NORMAL. HE IS STABLE TO GO HOME AFTER FEW DOSES OF STRESS DOSE STEROIDS IV. Allergies No Known Allergies Allergy (Verified 07/06/20 20:39) Home Medications: Unobtainable 07/06/20 - Past Medical/Surgical History Has patient received pneumonia vaccine in the past: No Diabetic: No -: Basal cell carcinoma -: Lyn's dse -: cholecystectomy 12/09 -: EGD on 12/20 - Social History Smoking Status: Never smoker Alcohol use: No CD- Drugs: No Caffeine use: Yes Place of Residence: Home Review of Systems 10-point ROS is otherwise unremarkable Physical Examination - Vital Signs Temperature: 98.3 F Blood Pressure: 133/67 Pulse: 92 Respirations: 17 Pulse Ox (%): 98 - Physical Exam General: Alert, In no apparent distress HEENT: Atraumatic, PERRLA, Mucous membr. moist/pink, EOMI, Sclerae nonicteric Neck: Supple, 2+ carotid pulse no bruit, No LAD, Without JVD or thyroid abnormality Respiratory: Clear to auscultation bilaterally, Normal air movement Cardiovascular: Regular rate/rhythm, Normal S1 S2 Gastrointestinal: Normal bowel sounds, No tenderness Musculoskeletal: No tenderness Integumentary: No rashes Neurological: Normal gait, Normal speech, Normal strength at 5/5 x4 extr, Normal tone, Normal affect Lymphatics: No axilla or inguinal lymphadenopathy - Studies Laboratory Data (last 24 hrs) 07/06/20 13:35: Sodium 134 L, Potassium 3.3 L, BUN 32 H, Creatinine 1.32 H, Glucose 100, Magnesium 2.6 H, Total Bilirubin 0.8, AST 18, ALT 21, Alkaline Phosphatase 95 07/06/20 12:07: PT 14.4 H, INR 1.23 07/06/20 11:45: WBC 8.6, Hgb 15.3, Hct 42.9, Plt Count 345 - Diagnosis (Problem(s)) (1) Addisonian crisis Current Visit: Yes Status: Acute Plan: FORTUNATELY THIS IS SHORT LIVED. HE HAS RECOVERED. CAUSATIVE FACTOR WAS VIRAL SYNDROME. HE IS STABLE LONG HE IS WALKING WITHOUT FALLING. - Disposition Disposition: ROUTINE DISCHARGE Condition: FAIR Patient Discharge Instructions: CONTIUE PREDNISONE. COME TO OFFICE IN ONE WEEK FOR FU.
[2020-07-07 08:37] LABS: Blood Morphology Comment NOT SEEN (NOT SEEN); Platelet Estimate ADEQ
[2020-07-07 08:44] VITALS: O2SAT 98
[2020-07-07 13:27] VITALS: BP 108/59; TEMP 99.1
== END 2020-07-07 16:01 | disposition home or self-care (01) ==
LOC: ER 11:03 → 2ND 19:08 → UNDODISOB 07-07 13:36
PROVIDERS: ADMIT Hospitalist; ATTEND Hospitalist
DX: E27.2 Addisonian crisis (principal); A08.4 Viral intestinal infection, unspecified; Z85.828 Personal history of other malignant neoplasm of skin; Z20.828 Contact with and (suspected) exposure to other viral communicable diseases
CPT/HCPCS: 36415; 71045; 80048; 80076; 82533; 82550; 83735; 83880; 84484; 85025; 85610; 93005; 96361; 96365; 96375; 99285; G0378; J1720; J2405; J3480; J7030; U0002

== ENCOUNTER 2021-03-12 11:02 | Inpatient (IN) | payer OTHER, SELFPAY ==
--- OUTSIDE RECORDS SUMMARY | 2021-03-12 11:05 | XMS REPORT | Continuity of Care Document ---
:1960 Author Organization [facility] t Address [address] [place] [address] Care Team Providers Name Role Phone Unavailable Unavailable Unavailable Problems This patient has no known problems. Allergies, Adverse Reactions, Alerts This patient has no known allergies or adverse reactions. Social History Social Habit Start Date Stop Date Quantity Comments Source Sex Assigned At [facility] Medications This patient has no known medications. Procedures This patient has no known procedures. Plan of Care Planned Activity Planned Date Details Comments Source Future Scheduled Test 2021-06-01 00:00:00 IMM Influenza [facility] Seasonal Jun to October (>/= 19 yrs) [code = IMM Influenza Seasonal Jun to October (>/= 19 yrs)] Future Scheduled Test 2010-02-21 00:00:00 Screening for [facility] malignant neoplasm of colon (procedure) [code = [id number]] Future Scheduled Test 1972 00:00:00 COVID-19 Vaccine (1) [facility] [code = COVID-19 Vaccine (1)] Encounters Start End Encounter Admission Attending Care Care Encounter Source Date/Time Date/Time Type Type Clinicians Facility Department ID 2017-12-22 2017-12-22 Emergency [facility] [id number] Sophia 11:20:00 11:20:00 Health Results This patient has no known results.
[2021-03-12] MEDS ORDERED: ONDANSETRON 4 MG/2 ML VIAL ONE (12:08)
[2021-03-12] MEDS ORDERED: NA CHLORIDE 0.9% 1,000 ML ONE ×3 (12:08→15:54)
--- NOTE | 2021-03-12 12:36 | RAD REPORT ---
EXAM DESCRIPTION: RAD - Chest Single View - 03/12/2021 12:09 pm CLINICAL HISTORY: fever, AMS COMPARISON: Portable July 2020 TECHNIQUE: AP portable chest image was obtained 03/12/2021 12:09 pm . FINDINGS: Lungs are clear. Heart and vasculature are normal. No measurable pleural effusion and no p neumothorax. No acute bony abnormality seen. Old right clavicle fracture noted. No acute aortic findi ngs suspected. IMPRESSION: No acute cardiopulmonary process. No significant change from comparison study.
--- NOTE | 2021-03-12 13:39 | RAD REPORT ---
EXAM DESCRIPTION: CT - Head Brain Wo Cont - 03/12/2021 1:25 pm CLINICAL HISTORY: CONFUSED, fever, vomiting, transient alteration of awareness COMPARISON: Head Brain Wo Cont dated 01/12/2020 TECHNIQUE: Axial 5 mm thick images of the head were obtained without IV contrast. Multiple acquisiti ons performed due to patient motion All CT scans are performed using dose optimization technique as appropriate and may include automated exposure control or mA/KV adjustment according to patient size. FINDINGS: No intracranial hemorrhage, mass, edema or shift of mid-line structures. No acute infarcti on changes seen. No cortical edema or sulcal effacement. Patient has no significant degree of atrophy or chronic ischemic change. Ventricles are normal. Mastoid air cells and visualized portions of the paranasal sinuses are clear. No acute bony findings. IMPRESSION: Negative non-contrast CT head examination.
--- NOTE | 2021-03-12 13:43 | RAD REPORT ---
EXAM DESCRIPTION: CT - Abdomen Pelvis Wo Contrast - 03/12/2021 1:25 pm CLINICAL HISTORY: fever, AMS, vomiting COMPARISON: Abdomen Pelvis W Contrast dated 12/19/2019; Abdomen Pelvis W Contrast dated 11/09/2019 TECHNIQUE: Axial [address] imaging of the abdomen and pelvis was performed without IV contrast. No IV contrast was given because of allergy, abnormal renal function, patient refusal or physician re quest. No oral contrast administered. All CT scans are performed using dose optimization technique as appropriate and may include automated exposure control or mA/KV adjustment according to patient size. FINDINGS: No pneumonia or other suspicious lung base finding. Trace amount of pericardial effusion s een anteriorly. Heart size is normal. The liver, spleen and pancreas show no suspicious findings on non-contrast imaging. Gallbladder and b iliary tree are also without suspicious finding. No hydronephrosis or suspicious renal mass. No significant adrenal finding. Isodense renal masses an d pyelonephritis cannot be excluded in the absence of IV contrast. The urinary bladder is without sig nificant finding. No dilated bowel loops or bowel wall thickening. Appendix is not clearly defined. No direct or indire ct appendicitis findings. No active GI process seen. No free air, free fluid or inflammatory stranding. No hernia, mass or bulky lymphadenopathy. No suspicious bony findings. Disc and bone degenerative changes are present. IMPRESSION: Non-contrast enhanced CT abdomen and pelvis imaging show no acute or emergent finding. Full assessment is limited is the absence of IV contrast. Isodense masses and pyelonephritis cannot b e excluded in the absence of contrast.
[2021-03-12] MEDS ORDERED: RSI MEDICATION KIT IV ONE (14:21)
[2021-03-12] MEDS ORDERED: WATER FOR INJ,STERILE 10 ML ONE (14:30)
[2021-03-12] MEDS ORDERED: HYDROCORTISONE SUC 100 MG INJ ONE ×2 (14:30→22:57)
[2021-03-12 14:33] LABS: Absolute Lymphocytes (CBC) 3.3 K/uL (0.7-4.9); Basophils % 0.3 % (0-1.3); Hematocrit 52.6 % (39.6-49.0); MPV 8.1 fL (7.6-11.3)
[2021-03-12 14:37] LABS: Protime INR 1.14
[2021-03-12] MEDS ORDERED: MIDAZOLAM HCL 2 MG/2 ML INJ ONE (14:48)
[2021-03-12 15:01] LABS: Arterial Blood Carboxyhemoglob 0.4 % (0-1.5); Blood O2 Saturation 99.1 % (92-98.5)
[2021-03-12 15:03] LABS: Urine Blood 3+ (Negative); Urine Glucose Negative (Negative); Urine Protein 3+ (Negative); Urine Specific Gravity >=1.030 (1.005-1.030)
[2021-03-12 15:23] LABS: CSF Glucose 67 mg/dL (40-70)
[2021-03-12 15:26] LABS: Barbiturates NEGATIVE (NEGATIVE); Benzodiazepines NEGATIVE (NEGATIVE); Cocaine NEGATIVE (NEGATIVE); METHAMPHETAM NEGATIVE (NEGATIVE); Methadone NEGATIVE (NEGATIVE); Opiates NEGATIVE (NEGATIVE); Phencyclidine NEGATIVE (NEGATIVE); THC Cannibis NEGATIVE (NEGATIVE)
[2021-03-12] MEDS ORDERED: LORazepam 2 MG/ML VIAL ONE ×2 (15:27→15:53)
[2021-03-12 15:33] LABS: Urine Amorphous Sediment TRACE /HPF (NONE SEEN); Urine Bacteria <20 /HPF (NONE SEEN); Urine Mucus HEAVY /HPF (NONE SEEN); Urine RBC <5 /HPF (NONE SEEN)
[2021-03-12 15:42] LABS: Albumin 3.5 g/dL (3.4-5.0); Bilirubin Direct 0.1 mg/dL (0-0.2); Bilirubin Total 0.6 mg/dL (0.2-1.0); Ferritin 284.8 ng/mL (26-388); Protein, Total 8.1 g/dL (6.4-8.2); Troponin (Emerg Dept Use Only) 0.38 ng/mL (0.0-0.045)
[2021-03-12 15:43] LABS: Potassium 3.8 mmol/L (3.5-5.1)
[2021-03-12] MEDS ORDERED: HYDROMORPHONE HCL 1 MG/ML INJ ONE (15:53)
--- NOTE | 2021-03-12 16:21 | RAD REPORT ---
EXAM DESCRIPTION: RAD - Chest Single View - 03/12/2021 3:45 pm CLINICAL HISTORY: post intubation COMPARISON: March 12 TECHNIQUE: AP portable chest image was obtained 03/12/2021 3:45 pm . FINDINGS: Endotracheal tube has been placed. Tip is 2.5 cm above the aortic arch approximately 7 cm above the eliecer. NG tube has been placed and is curled in the stomach. No acute lung parenchymal process. No pulmonary edema or other suspicious finding noted. Mediastinum is distorted by rotation. Heart and vasculature are normal. No measurable pleural effusio n and no pneumothorax. No acute bony abnormality seen. No acute aortic findings suspected. IMPRESSION: Endotracheal tube is in place 2.5 cm above the aortic arch and 7 cm above the eliecer. NG tube is curled in the stomach. No acute heart, vascular or lung parenchymal finding.
[2021-03-12 16:50] LABS: Appearance CLEAR (CLEAR); Body Fluid Source CSF; Body Fluid WBC 3 /mm^3; Color of fluid Colorless (COLORLESS); Fluid Total Volume 13.5 ml
[2021-03-12 16:55] LABS: Appearance CLEAR (CLEAR); Body Fluid Source CSF; Body Fluid WBC 5 /mm^3; Color of fluid Colorless (COLORLESS)
[2021-03-12] MEDS ORDERED: CEFEPIME/SWI 2gm 2 GM/20 ML SYR IVP ONE (17:00)
[2021-03-12] MEDS ORDERED: VANCOMYCIN 1.5 GM in NA CHLORIDE 0.9% 500 ML IVPB ONE (17:00)
[2021-03-12 17:14] LABS: Blood Morphology Comment NOT SEEN (NOT SEEN); Platelet Estimate ADEQ; White Blood Cell Scan OK (OK)
[2021-03-12] MEDS ORDERED: ACETAMINOPHEN 650MG/RECT SUPP PR ONE (17:17)
[2021-03-12] MEDS ORDERED: D5 0.45 NS 1,000 ML IV ONE ×2 (17:19→21:14)
--- NOTE | 2021-03-12 18:06 | ER ---
Nurse's Notes [facility] Name: Patrick Sweeney Age: 61 yrs Sex: Male : 1960 Arrival Date: 03/12/2021 Time: 11:16 Bed 3 Private MD: Diagnosis: SARS-associated coronavirus as the cause of diseases classified elsewhere;Delirium due to known physiological condition;Acute kidney failure, unspecified;Altered mental status, unspecified Presentation: 03/12 11:20 Chief complaint: EMS states: AMS FROM HOME, LIVES ALONE. Coronavirus screen: At this bp time, the client does not indicate any symptoms associated with coronavirus-19. Ebola Screen: No symptoms or risks identified at this time. Initial Sepsis Screen: Does the patient meet any 2 criteria? Altered Mental Status. HR > 90 bpm. Yes Does the patient have a suspected source of infection? No. Patient's initial sepsis screen is negative. Risk Assessment: Do you want to hurt yourself or someone else? Unable to obtain. Onset of symptoms is unknown. Care prior to arrival: Glucose check: 117. 11:20 Method Of Arrival: EMS: [facility] bp 11:20 Acuity: RONNIE 2 bp Triage Assessment: 11:45 General: Appears distressed, unkempt, Behavior is restless, uncooperative. Pain: Unable bp to use pain scale. Does not appear to understand pain scale. EENT: No deficits noted. Neuro: Level of Consciousness is awake, confused, Oriented to none Project Coach are equal bilaterally Moves all extremities. Full function Speech with expressive aphasia noted, Facial symmetry appears normal, Pupils are PERRLA. Cardiovascular: Rhythm is sinus tachycardia. Respiratory: Reports cough that is. GI: No signs and/or symptoms were reported involving the gastrointestinal system. : No signs and/or symptoms were reported regarding the genitourinary system. Derm: No deficits noted. Musculoskeletal: No signs and/or symptoms reported regarding the musculoskeletal system. 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 - Social history:: Smoking status: unknown. - Family history:: not pertinent. - Hospitalizations: : No recent hospitalization is reported. Screenin:35 Abuse screen: Denies threats or abuse. Denies injuries from another. Nutritional bp screening: No deficits noted. Tuberculosis screening: No symptoms or risk factors identified. Fall Risk None identified. Assessment: 12:30 Reassessment: PIV OBTAINED WITHOUT BLOOD SPECIMEN. NOTIFIED AND PHLEBOTOMY CONTACTED bp FOR BLOOD DRAW. PT REMAINS ACTIVELY UNCOOPERATIVE WITH ALL HEALTH CARE ACTIVITIES, BUT WILL NOT ANSWER QUESTIONS. 13:57 Reassessment: PT MOVED TO ER3 FOR POTENTIAL INTUBATION, PT REMAINS A\\T\\O x0 AND bp UNCOOPERATIVE. 14:00 Reassessment: Dr Coleman at bedside preparing to intubate pt. ph 14:40 Reassessment: Patient appears in no apparent distress at this time. Dr Coleman at bedside ph for LP, specimens taken to lab by automotive brake technician. 15:30 General: Appears in no apparent distress. slender, Behavior is unresponsive. pt ph intubated at trhis time. Pain: Unable to use pain scale. Patient is unresponsive. Neuro: Level of Consciousness is unresponsive, Oriented to none. Cardiovascular: Capillary refill < 3 seconds in bilateral fingers Patient's skin is warm and dry. Respiratory: Airway via oral intubation Respiratory effort is even, Respiratory pattern is regular, Ventilator assessment: ET Tube: 7.5 Ventilator Mode: Assist Control (AC) Tidal Volume: 430 Respiratory Rate: 14 FiO2: 40% PEEP: 3 HOB > 30 degrees. GI: Abdomen is non-distended. Derm: Skin is fragile, is thin, Skin is mottled, Wound noted left scapular area Bruising that is dark purple, on left scapular area and left upper chest and shoulder area. 15:30 : Carballo in place to gravity drainage. ph 16:45 Reassessment: Patient appears in no apparent distress at this time. No changes from ph previously documented assessment. Patient and/or family updated on plan of care and expected duration. Pain level reassessed. Pt remains intubated, awaiting acceptance for transfer. 18:00 Reassessment: Patient appears in no apparent distress at this time. No changes from ph previously documented assessment. Patient and/or family updated on plan of care and expected duration. Pain level reassessed. 20:32 Reassessment: Patient and/or family updated on plan of care and expected duration. Pain ak2 level reassessed. 03/13 00:28 Reassessment: Report called to receiving nurse at [facility]. ea 00:51 Reassessment: EMS at facility for transfer, pt left ED via stretcher per EMS. Pt ea intubated ETT in place, resp assisted. IV lines patents with fluid. Kait to WILLIAM. Vital Signs: 03/12 11:20 BP 136 / 72; Pulse 146; Resp 18; Temp 100.0; Pulse Ox 95% ; bp 13:55 BP 158 / 77; Pulse 63; Resp 17; Pulse Ox 93% on R/A; bp 14:34 BP 175 / 97; Pulse 147; Resp 21; Pulse Ox 100% on 40% FiO2 ETT vent; sv 14:45 BP 165 / 104; Pulse 145; Resp 20; Pulse Ox 100% on 40% FiO2 ETT vent; ph 15:10 BP 208 / 148; Pulse 133; Resp 20; Pulse Ox 100% on 40% FiO2 ETT vent; ph 15:15 BP 104 / 78; Pulse 127; Resp 18; Pulse Ox 100% on 40% FiO2 ETT vent; ph 15:47 BP 93 / 74; Pulse 129; Resp 20; Pulse Ox 100% on 40% FiO2 ETT vent; ph 16:50 BP 110 / 79; Pulse 124; Resp 18; Pulse Ox 100% on 40% FiO2 ETT vent; ph 17:21 BP 98 / 81; Pulse 129; Resp 22; Pulse Ox 100% on 40% FiO2 ETT vent; ph 18:30 BP 104 / 76; Pulse 126; Resp 22; Pulse Ox 100% on ETT vent; sv 20:31 BP 96 / 72; Pulse 122; Resp 26; Temp 100.9(R); Pulse Ox 100% on ETT vent; ak2 03/13 00:32 BP 110 / 79; Pulse 118; Resp 20; Pulse Ox 100% on R/A; ea 00:32 Temp 98.7; ea NIH Stroke Scale Scores: 03/12 11:45 NIHSS Score: 7 bp ED Course: 11:16 Patient arrived in ED. ss 11:19 Familia Coleman MD is Attending Physician. rn 11:20 Arm band placed on. bp 11:25 Omar Edge, EVAN is Primary Nurse. bp 11:35 Patient has correct armband on for positive identification. Placed in gown. Bed in low bp position. Call light in reach. Side rails up X2. 11:45 Inserted saline lock: 22 gauge in left wrist, using aseptic technique. bp 12:09 CXR XRAY In Process Unspecified. EDMS 12:41 Triage completed. bp 13:24 CT Head Brain wo Cont In Process Unspecified. EDMS 13:25 Abdomen In Process Unspecified. EDMS 13:30 Carballo cath inserted, using sterile technique, 18 Fr., by me, balloon inflated, to bp gravity drainage. 14:05 Assisted provider with intubation using 7.5 mm ETT via oral route. ET tube secured at ph 24cm at the teeth. Set up intubation tray. Intubated by Familia Coleman MD Placement verified by CO2 detector w/ + color change, auscultating bilateral breath sounds, CXR, Patient tolerated well. 14:07 NGT: inserted 16 Fr. other via oral route verified placement of air over stomach, ph verified return of gastric contents, Placement verified by X-ray, to intermittent suction. Returned gastric contents. Patient tolerated well. 14:11 Assisted provider with central line placement. Set up central line tray. Triple lumen ph line placed in right femoral. Line placed by Familia Coleman MD Placement verified by blood return, Dressed with Tape, Tegaderm, Blood was collected. Patient tolerated well. Before procedure, did Practitioner(s) obtain informed consent? No. Time-out/Briefing performed prior to start of procedure? Yes. Was handwashing/sanitizing done immediately prior to procedure? Yes. Was patient positioned to in a way to prevent air embolism? Yes. Was procedure site sterilized? Yes, with chlorhexidine. Was the site allowed to dry? Yes. Was local anesthetic and/or sedation utilized? Yes. During the procedure, did the Practitioner(s) maintain a sterile field? Yes. Were unused ports clamped during insertion? Yes. Was a 2nd qualified MD obtained after 3 unsuccessful insertion attempts? No. Was blood aspirated from each lumen? Yes. After the procedure, did the Practitioner(s) clean the site and apply a sterile dressing? Yes. 14:29 CXR XRAY Sent. sv 14:29 BMP Sent. sv 14:29 Blood Culture Adult (2) Sent. sv 14:29 C-Reactive Protein Sent. sv 14:40 Assist provider with lumbar puncture: Set up LP tray. Performed by Familia Coleman MD CSF ph is clear. Sample collected. Sample sent to lab. Puncture site dressed with band aid, Procedure was successful. Patient tolerated well. Patient transferred, IV remains in place. 15:28 Primary Nurse role handed off by Omar Edge, EVAN ph 15:28 Neva Ortez, EVAN is Primary Nurse. ph 15:45 CXR XRAY In Process Unspecified. EDMS 16:00 Transfer initiated with David Arellano from the [facility]. eb 16:17 initiated a transfer with Tuyet with the [facility]. eb 16:27 per Tuyet from the [facility] they will have to decline the patient in eb transfer due to all [facility] facilities are on ICU closure. 16:37 initiated a transfer with Aleshia from the [facility]. eb 17:01 David from the [facility] called to decline the patient in transfer [facility] and the [facility] are at capacity. 17:02 Aleshia from the [facility] called to decline the patient in transfer due to being at capacity. 17:11 initiated a transfer with Aleshia from the [facility]. eb 17:57 Aleshia from the [facility] called to decline the patient in transfer/ none of eb the [facility] facilities have any ICU capabilities at this time due to being at capacity. 18:04 Cruz Manzanares DO is Hospitalizing Provider. rn 18:57 initiated a transfer with Elizabeth Emerson from [facility]. mw2 19:01 Primary Nurse role handed off by Neva Ortez, EVAN mw2 19:12 Agnieszka Schaeffer, EVAN is Primary Nurse. ea 19:53 Elizabeth Emerson called back from [facility]. She stated "we are denying the mw2 patient due to no beds at any of the campuses, but we will keep him on the list.". 22:08 Attending Physician role handed off by Familia Coleman MD jesus 22:08 Herson Preciado MD is Attending Physician. jesus 22:09 Marshall Birmingham MD is Hospitalizing Provider. jesus 23:23 Elizabeth Emerson from [facility] called to inform us they have a bed available mw2 at [facility], and will call back with the hospitalist. 23:37 connected Mina DESOUZA with the Hospitalist from [facility]. mw2 23:57 administrative approval given by Elizabeth Emerson/ patient has been accepted to [facility] 6 mw2 [facility] 2/Dr. Klein accepted the patient in transfer/ report to be called to [phone]. Administered Medications: 03/13 00:05 Discontinued: D5-/ NS 1000 ml IV at 125 ml/hr continuous jesus 03/12 11:30 Drug: NS 0.9% 1000 ml Route: IV; Rate: 1000 ml; Site: left hand; bp 19:22 Follow up: Response: No adverse reaction; IV Status: Completed infusion ph 11:30 Drug: Zofran (Ondansetron) 4 mg Route: IVP; Site: left hand; bp 14:41 Follow up: Response: No adverse reaction ss 14:00 Drug: NS 0.9% 1000 ml Route: IV; Rate: 1 bolus; Site: left hand; ph 15:30 Follow up: Response: No adverse reaction; IV Status: Completed infusion; IV Intake: ph 1000ml 14:03 Drug: Etomidate 20 mg Route: IVP; Site: left hand; ph 19:20 Follow up: Response: No adverse reaction ph 14:03 Drug: Rocuronium 50 mg Route: IVP; Site: left hand; ph 19:20 Follow up: Response: No adverse reaction; Patient is sedated ph 14:12 Drug: NS 0.9% 1000 ml Route: IV; Rate: 1 bolus; Site: right femoral; ph 15:45 Follow up: Response: No adverse reaction; IV Status: Completed infusion; IV Intake: ph 1000ml 14:15 Drug: Solu-CORTEF (hyrdoCORTISONE) 100 mg Route: IVP; Site: left hand; ca1 14:41 Follow up: Response: No adverse reaction ss 14:30 Drug: Versed (midazolam) 3 mg Route: IVP; Site: right femoral; ph 19:20 Follow up: Response: No adverse reaction ph 15:05 Drug: Ativan (LORazepam) 2 mg Route: IVP; Site: right femoral; ph 19:20 Follow up: Response: No adverse reaction ph 15:30 Drug: NS 0.9% 1000 ml Route: IV; Rate: 1 bolus; Site: right femoral; ph 17:00 Follow up: Response: No adverse reaction; IV Status: Completed infusion; IV Intake: ph 1000ml 15:40 Drug: Dilaudid (HYDROmorphone) 1 mg Route: IVP; Site: right femoral; ph 19:19 Follow up: Response: No adverse reaction ph 15:41 Drug: Ativan (LORazepam) 2 mg Route: IVP; Site: right femoral; ph 19:19 Follow up: Response: No adverse reaction ph 17:00 Drug: Cefepime 2 grams Route: IVPB; Rate: 200 ml/hr; Infused Over: 30 mins; Site: right ph femoral; 17:15 Follow up: Response: No adverse reaction; IV Status: Completed infusion ph 17:13 Drug: D5-1/2 NS 1000 ml Route: IV; Rate: 125 ml/hr; Site: right femoral; ph 19:19 Follow up: Response: No adverse reaction; IV Status: Infusion continued upon admission ph 17:15 Drug: vancoMYCIN 1.5 grams Route: IVPB; Rate: calculated rate; Site: right femoral; ph 19:22 Follow up: Response: No adverse reaction; IV Status: Completed infusion; IV Intake: ph 500ml 17:15 Drug: Tylenol Suppository 650 mg Route: RI; ph 19:23 Follow up: Response: No adverse reaction ph 03/13 00:35 Not Given (Duplicate Order): D5W 1000 ml, Sodium Bicarbonate 100 mEq IV at 125 ml/hr ea continuous 00:42 Drug: Tylenol Suppository 650 mg Route: RI; ea 00:43 Drug: NS 0.9% 500 ml Route: IV; Rate: bolus; Site: right femoral; ea 00:43 Drug: D5W 1000 ml, Sodium Bicarbonate 100 mEq Route: IV; Rate: 125 ml/hr; Site: right ea femoral; 00:51 Drug: Versed (midazolam) 2 mg Route: IVP; Site: right femoral; ea 00:54 Follow up: Response: No adverse reaction ea Intake: 03/12 15:30 IV: 1000ml; Total: 1000ml. ph 15:45 IV: 1000ml; Total: 2000ml. ph 17:00 IV: 1000ml; Total: 3000ml. ph 19:22 IV: 500ml; Total: 3500ml. ph Output: 03/13 00:32 Urine: 600ml (Carballo); Total: 600ml. ea Outcome: 03/12 18:05 Decision to Hospitalize by Provider. rn 20:31 Admitted to ER Hold. Please see [facility] for further documentation. ea 20:31 Condition: stable 03/13 01:05 Patient left the ED. NIH Stroke Scale - NIH Stroke Score Date: 03/12/2021 Time: 11:45 Total Score = 7 1a. Level of Consciousness (LOC) - 1(Not Alert) 1b. Level of Consciousness (LOC) (Month \\T\\ Age) - 2(Neither) 1c. LOC Commands (Open \\T\\ Closes Eyes/Us Administrative Law Judge) - 0(Both) 2. Best Gaze (Lateral Gaze Paresis) - 0(Normal) 3. Visual Field Loss - 0(No visual loss) 4. Facial Palsy - 0(Normal) 5a. Left Arm: Motor (10-second hold) - 0(No drift) 5b. Right Arm: Motor (10-second hold) - 0(No drift) 6a. Left Leg: Motor (5-second hold - always test supine) - 0(No drift) 6b. Right Leg: Motor (5-second hold - always test supine) - 0(No drift) 7. Limb Ataxia (finger/nose \\T\\ heel/[place]mosillo - test with eyes open) - 0(Absent) 8. Sensory Loss (pinprick arms/legs/face) - 1(Mild to moderate loss) 9. Best Language: Aphasia (description/naming/reading) - 2(Severe aphasia) 10. Dysarthria (speech clarity - read or repeat words) - 1(Mild to Moderate) 11. Extinction and Inattention (visual/tactile/auditory/spatial/personal) - 0(No abnormality) Initials: bp Signatures: Dispatcher [employer] EDDalila Ferreira RN RN sv Anderson, Corey, MD MD cha Nieto, Roman, MD MD rn Smirch, Shelby, RN RN ss Hall, Patricia, RN RN ph Antunez, Elena, RN RN ea Peltier, Brian RN Sola So 2 Asia Morgan Cheryl, RN RN ca1 Kapolka, Anthony ak2 Corrections: (The following items were deleted from the chart) 03/12 12:50 12:42 Pain: Unable to use pain scale. Does not appear to understand pain scale. bp bp 12:50 12:42 General: Appears distressed, unkempt, Behavior is restless, bp uncooperative, bp 12:50 12:42 EENT: No deficits noted. bp bp 12:50 12:42 Neuro: Level of Consciousness is awake, confused, Oriented to none Project Coach bp are equal bilaterally Moves all extremities. Full function Speech with expressive aphasia noted, Facial symmetry appears normal, Pupils are PERRLA, bp 12:50 12:42 Cardiovascular: Rhythm is sinus tachycardia bp bp 12:50 12:42 Respiratory: Reports cough that is bp bp 12:50 12:42 GI: No signs and/or symptoms were reported involving the gastrointestinal bp system. bp 12:50 12:42 : No signs and/or symptoms were reported regarding the genitourinary bp system. bp 12:50 12:42 Derm: No deficits noted. bp bp 12:50 12:42 Musculoskeletal: No signs and/or symptoms reported regarding the bp musculoskeletal system. bp 12:50 12:42 NIHSS Score: 7 bp bp 15:18 04:03 Etomidate 20 mg IVP in left hand ph ph 19:19 19:19 IV Status: Infusion continued upon admission ph ph
--- NOTE | 2021-03-12 18:06 | EDPHYS ---
Physician Documentation [facility] Name: Patrick Sweeney Age: 61 yrs Sex: Male : 1960 Arrival Date: 03/12/2021 Time: 11:16 Bed 3 Private MD: KARMEN Physician Herson Preciado HPI: 03/12 13:37 This 61 yrs old Male presents to ER via EMS with complaints of Altered Mental rn Status, Fever. 13:37 The patient presents with confusion, decreased responsiveness, disorientation. Onset: rn The symptoms/episode began/occurred 2 day(s) ago. Possible causes: unknown. Associated signs and symptoms: Pertinent positives: confusion, vomiting, weakness, Pertinent negatives: abdominal pain, chest pain, seizure, shortness of breath. Current symptoms: In the emergency department the patient's symptoms are unchanged from the initial presentation. It is unknown whether or not the patient has had similar symptoms in the past. The patient has not recently seen a physician. Pt brought in by EMS, for AMS, family found him on ground, altered, not sure if trauma involved, states or family member with COVID recently. + fever, weakness, fatigue, confusion. Denies chest pain/sob/abd pain. Per report, was vomiting. . 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 - Social history:: Smoking status: unknown. - Family history:: not pertinent. - Hospitalizations: : No recent hospitalization is reported. 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 Exam: 13:37 Constitutional: This is a well developed, well nourished patient who is awake, alert, rn nearly naked, mottled Head/Face: Normocephalic, atraumatic. Eyes: Pupils equal round and reactive to light, extra-ocular motions intact. Periorbital areas with no swelling, redness, or edema. ENT: dry MM, no stridor Neck: Trachea midline, no masses palpated, and no cervical lymphadenopathy. Supple, full range of motion without nuchal rigidity, or vertebral point tenderness. No Meningismus. Cardiovascular: Tachycardic, regular Respiratory: No increased work of breathing, no retractions or nasal flaring. Abdomen/GI: soft, non-tender, non-distended Skin: Warm, dry, mottled extremities. Left posterior shoulder with shallow ulceration and surrounding mottled/cyanotic skin that extends over to left anterior toribio-thorax MS/ Extremity: Pulses equal, no cyanosis. Neuro: Awake and alert, GCS 15, oriented to person, place, not time. Cranial nerves II-XII grossly intact. Motor strength 4/5 in all extremities. Sensory grossly intact. Cerebellar exam normal. Vital Signs: 11:20 BP 136 / 72; Pulse 146; Resp 18; Temp 100.0; Pulse Ox 95% ; bp 13:55 BP 158 / 77; Pulse 63; Resp 17; Pulse Ox 93% on R/A; bp 14:34 BP 175 / 97; Pulse 147; Resp 21; Pulse Ox 100% on 40% FiO2 ETT vent; sv 14:45 BP 165 / 104; Pulse 145; Resp 20; Pulse Ox 100% on 40% FiO2 ETT vent; ph 15:10 BP 208 / 148; Pulse 133; Resp 20; Pulse Ox 100% on 40% FiO2 ETT vent; ph 15:15 BP 104 / 78; Pulse 127; Resp 18; Pulse Ox 100% on 40% FiO2 ETT vent; ph 15:47 BP 93 / 74; Pulse 129; Resp 20; Pulse Ox 100% on 40% FiO2 ETT vent; ph 16:50 BP 110 / 79; Pulse 124; Resp 18; Pulse Ox 100% on 40% FiO2 ETT vent; ph 17:21 BP 98 / 81; Pulse 129; Resp 22; Pulse Ox 100% on 40% FiO2 ETT vent; ph 18:30 BP 104 / 76; Pulse 126; Resp 22; Pulse Ox 100% on ETT vent; sv 20:31 BP 96 / 72; Pulse 122; Resp 26; Temp 100.9(R); Pulse Ox 100% on ETT vent; ak2 03/13 00:32 BP 110 / 79; Pulse 118; Resp 20; Pulse Ox 100% on R/A; ea 00:32 Temp 98.7; ea NIH Stroke Scale Scores: 03/12 11:45 NIHSS Score: 7 bp Procedures: 14:21 Intubation: Ventilated with 100% NRB prior to procedure. O2 saturation prior to rn oncology clinical was 98 %. Intubated orally using # 4 Ryan blade with 7.5 mm ETT. was successful on first attempt. Ventilated with Ambu bag. Tube secured with ETT gardner at right side of mouth measured 24 cm at lip. Placement verified by CXR, auscultating bilateral breath sounds, O2 saturation after procedure was 100 %. Patient tolerated well. Central Line: the site was prepped with Betadine, in sterile fashion, a triple lumen catheter was inserted, in the right femoral vein, in 1 attempts. placement was verified, by blood return, the site was dressed with Tegaderm, using sterile technique, the patient tolerated the procedure, well. 14:42 Lumbar Puncture: Patient placed in left lateral decubitus position. Prepped with rn Betadine. Draped using sterile technique. Collected 10 ml's of clear fluid. Sample sent to lab. Puncture site dressed with band aid, Patient tolerated well. Opening pressure 35. MDM: 11:19 Patient medically screened. rn 14:21 Differential Diagnosis: CVA, electrolyte abnormality, intracranial bleed, pneumonia, rn sepsis, UTI, volume depletion, encephalitis, meningitis, pneumonia. 14:21 ED course: Pt extremely agitated, seemed more mottled, nursing unable to obtain line rn due to combativeness and AMS despite multiple attempts, not breathing effectively and very tachycardic without known source of AMS, decision made to control situation and intubate, obtain central line, LP, and abx pending further studies. CT head/cxr/ct abdomen no acute findings.. 16:53 ED course: Xray chest shows high ETT, but after CXR obtained, ETT advanced slightly, rn with bilateral breath sounds that are equal and good oxygen saturation. ETT 24 at teeth. . 16:54 ED course: Told no COVID ICU beds here and have to transfer by housekeeper supervisor. No rn beds at [facility], no beds at [facility]. Initiated transfer to [facility] and waiting radiotelephone operator back. . 17:26 Data reviewed: vital signs, nurses notes, lab test result(s), EKG, radiologic studies, rn and as a result, I will admit patient. Data interpreted: Pulse oximetry: on ventilator is 100 %. Interpretation: normal. Test interpretation: by ED physician or midlevel provider: plain radiologic studies, CXR no acute infiltrate or pneumothorax. . Counseling: I had a detailed discussion with the patient and/or guardian regarding: the historical points, exam findings, and any diagnostic results supporting the discharge/admit diagnosis, lab results, radiology results, the need for further work-up and treatment in the hospital. 18:03 ED course: [facility] at [facility], declines transfer. [facility] also at [facility], rn decline transfer. . ED course: Will have to admit here given no other hospital with COVID ICU either.. 03/12 11:20 Order name: BMP rn 03/12 11:20 Order name: Blood Culture Adult (2) 03/12 11:20 Order name: C-Reactive Protein 03/12 11:20 Order name: CBC with Diff; Complete Time: 18:28 03/12 11:20 Order name: Ferritin; Complete Time: 15:48 03/12 11:20 Order name: Flu; Complete Time: 13:46 03/12 11:20 Order name: LFT's; Complete Time: 15:48 03/12 11:20 Order name: Lactate; Complete Time: 15:24 03/12 11:20 Order name: Lipase; Complete Time: 15:48 03/12 11:20 Order name: PT-INR; Complete Time: 14:54 03/12 11:20 Order name: Procalcitonin; Complete Time: 16:02 03/12 11:20 Order name: Ptt, Activated; Complete Time: 14:54 03/12 11:20 Order name: Strep; Complete Time: 13:46 03/12 11:20 Order name: Troponin (emerg Dept Use Only); Complete Time: 15:48 03/12 11:20 Order name: Urine Microscopic Only; Complete Time: 15:48 03/12 11:21 Order name: Basic Metabolic Panel; Complete Time: 15:48 EDND 03/12 11:21 Order name: Blood Culture EDND 03/12 11:21 Order name: C-Reactive Protein; Complete Time: 15:48 EDND 03/12 11:41 Order name: ETOH Level; Complete Time: 15:48 bp 03/12 11:41 Order name: UDS; Complete Time: 15:31 bp 03/12 13:45 Order name: Throat Culture EDND 03/12 14:22 Order name: AMMONIA; Complete Time: 14:47 ca1 03/12 14:36 Order name: SARS-COV-2 RT PCR; Complete Time: 14:43 EDND 03/12 15:01 Order name: ABG Arterial Blood Gas; Complete Time: 15:24 EDND 03/12 15:02 Order name: Urine Dipstick-Ancillary; Complete Time: 15:24 EDND 03/12 15:10 Order name: CSF Glucose; Complete Time: 15:24 EDND 03/12 15:10 Order name: CSF Total Protein; Complete Time: 15:24 EDND 03/12 15:10 Order name: CSF SPECIMEN; Complete Time: 16:53 EDND 03/12 15:10 Order name: Cell Count Profile; Complete Time: 16:53 EDND 03/12 11:20 Order name: CXR XRAY; Complete Time: 13:08 rn 03/12 11:21 Order name: CT Head Brain wo Cont; Complete Time: 13:46 rn 03/12 13:24 Order name: Abdomen ; Complete Time: 13:46 EDND 03/12 14:09 Order name: CXR XRAY eb 03/12 15:10 Order name: Body Fluid Cell Count; Complete Time: 16:56 EDND 03/12 15:10 Order name: CSF Culture [facility] 03/12 17:14 Order name: CBC Smear Scan; Complete Time: 18:28 EDND 03/12 18:18 Order name: Lactate Sepsis 2 HR Follow-up; Complete Time: 18:28 EDND 03/12 21:39 Order name: Lactate; Complete Time: 00:04 [facility] 03/12 21:39 Order name: Creatine Phosphokinase; Complete Time: 00:04 [facility] 03/12 21:39 Order name: CKMB Creatine Kinase MB; Complete Time: 00:04 [facility] 03/12 21:39 Order name: Troponin I; Complete Time: 00:04 [facility] 03/12 23:58 Order name: ABG mw2 03/13 00:08 Order name: ABG Arterial Blood Gas [facility] 03/12 11:20 Order name: EKG; Complete Time: 11:21 03/12 11:20 Order name: Cardiac monitoring; Complete Time: 13:04 03/12 11:20 Order name: Droplet/Contact Precautions; Complete Time: 13:04 03/12 11:20 Order name: IV Start; Complete Time: 13:04 03/12 11:20 Order name: Labs collected and sent; Complete Time: 14:29 03/12 11:20 Order name: O2 Per Protocol; Complete Time: 13:03 03/12 11:20 Order name: O2 Sat Monitoring; Complete Time: 13:03 03/12 14:41 Order name: Labs - recollect needed: recollect chemistries; Complete Time: 15:11 eb Administered Medications: 03/13 00:05 Discontinued: D5-1/2 NS 1000 ml IV at 125 ml/hr continuous jesus 03/12 11:30 Drug: NS 0.9% 1000 ml Route: IV; Rate: 1000 ml; Site: left hand; bp 19:22 Follow up: Response: No adverse reaction; IV Status: Completed infusion ph 11:30 Drug: Zofran (Ondansetron) 4 mg Route: IVP; Site: left hand; bp 14:41 Follow up: Response: No adverse reaction ss 14:00 Drug: NS 0.9% 1000 ml Route: IV; Rate: 1 bolus; Site: left hand; ph 15:30 Follow up: Response: No adverse reaction; IV Status: Completed infusion; IV Intake: ph 1000ml 14:03 Drug: Etomidate 20 mg Route: IVP; Site: left hand; ph 19:20 Follow up: Response: No adverse reaction ph 14:03 Drug: Rocuronium 50 mg Route: IVP; Site: left hand; ph 19:20 Follow up: Response: No adverse reaction; Patient is sedated ph 14:12 Drug: NS 0.9% 1000 ml Route: IV; Rate: 1 bolus; Site: right femoral; ph 15:45 Follow up: Response: No adverse reaction; IV Status: Completed infusion; IV Intake: ph 1000ml 14:15 Drug: Solu-CORTEF (hyrdoCORTISONE) 100 mg Route: IVP; Site: left hand; ca1 14:41 Follow up: Response: No adverse reaction ss 14:30 Drug: Versed (midazolam) 3 mg Route: IVP; Site: right femoral; ph 19:20 Follow up: Response: No adverse reaction ph 15:05 Drug: Ativan (LORazepam) 2 mg Route: IVP; Site: right femoral; ph 19:20 Follow up: Response: No adverse reaction ph 15:30 Drug: NS 0.9% 1000 ml Route: IV; Rate: 1 bolus; Site: right femoral; ph 17:00 Follow up: Response: No adverse reaction; IV Status: Completed infusion; IV Intake: ph 1000ml 15:40 Drug: Dilaudid (HYDROmorphone) 1 mg Route: IVP; Site: right femoral; ph 19:19 Follow up: Response: No adverse reaction ph 15:41 Drug: Ativan (LORazepam) 2 mg Route: IVP; Site: right femoral; ph 19:19 Follow up: Response: No adverse reaction ph 17:00 Drug: Cefepime 2 grams Route: IVPB; Rate: 200 ml/hr; Infused Over: 30 mins; Site: right ph femoral; 17:15 Follow up: Response: No adverse reaction; IV Status: Completed infusion ph 17:13 Drug: D5-1/2 NS 1000 ml Route: IV; Rate: 125 ml/hr; Site: right femoral; ph 19:19 Follow up: Response: No adverse reaction; IV Status: Infusion continued upon admission ph 17:15 Drug: vancoMYCIN 1.5 grams Route: IVPB; Rate: calculated rate; Site: right femoral; ph 19:22 Follow up: Response: No adverse reaction; IV Status: Completed infusion; IV Intake: ph 500ml 17:15 Drug: Tylenol Suppository 650 mg Route: MD; ph 19:23 Follow up: Response: No adverse reaction ph 07 00:35 Not Given (Duplicate Order): D5W 1000 ml, Sodium Bicarbonate 100 mEq IV at 125 ml/hr ea continuous 00:42 Drug: Tylenol Suppository 650 mg Route: MD; ea 00:43 Drug: NS 0.9% 500 ml Route: IV; Rate: bolus; Site: right femoral; ea 00:43 Drug: D5W 1000 ml, Sodium Bicarbonate 100 mEq Route: IV; Rate: 125 ml/hr; Site: right ea femoral; 00:51 Drug: Versed (midazolam) 2 mg Route: IVP; Site: right femoral; ea 00:54 Follow up: Response: No adverse reaction ea Disposition: 03/12 18:03 Critical Care:. rn Disposition Summary: 03/12/21 18:05 Hospitalization Ordered Hospitalization Status: Inpatient Admission rn Condition: Fair rn Problem: new rn Symptoms: have improved rn Bed/Room Type: Standard rn Location: [facility] ER HOLD(03/12/21 19:14) rd1 Room Assignment: ERHOLD-(03/12/21 19:14) rd1 Provider: Marshall Birmingham(03/12/21 22:09) jesus Diagnosis - SARS-associated coronavirus as the cause of diseases classified elsewhere rn - Delirium due to known physiological condition rn - Acute kidney failure, unspecified rn - Altered mental status, unspecified rn Forms: - Medication Reconciliation Form rn - SBAR form rn clinical coordinator time excluding procedures: 18:03 Critical care time: Bedside Care: 75 minutes, Consultation: 5 minutes, Family rn Intervention: 5 minutes. Total time: 85 minutes NIH Stroke Scale - NIH Stroke Score Date: 03/12/2021 Time: 11:45 Total Score = 7 1a. Level of Consciousness (LOC) - 1(Not Alert) 1b. Level of Consciousness (LOC) (Month \T\ Age) - 2(Neither) 1c. LOC Commands (Open \T\ Closes Eyes/Warehouse Receiving Clerk) - 0(Both) 2. Best Gaze (Lateral Gaze Paresis) - 0(Normal) 3. Visual Field Loss - 0(No visual loss) 4. Facial Palsy - 0(Normal) 5a. Left Arm: Motor (10-second hold) - 0(No drift) 5b. Right Arm: Motor (10-second hold) - 0(No drift) 6a. Left Leg: Motor (5-second hold - always test supine) - 0(No drift) 6b. Right Leg: Motor (5-second hold - always test supine) - 0(No drift) 7. Limb Ataxia (finger/nose \T\ heel/[place] - test with eyes open) - 0(Absent) 8. Sensory Loss (pinprick arms/legs/face) - 1(Mild to moderate loss) 9. Best Language: Aphasia (description/naming/reading) - 2(Severe aphasia) 10. Dysarthria (speech clarity - read or repeat words) - 1(Mild to Moderate) 11. Extinction and Inattention (visual/tactile/auditory/spatial/personal) - 0(No abnormality) Initials: bp Signatures: Dispatcher [employer] EDND Herson Preciado MD MD cha Nieto, Roman, MD MD rn Hall, Patricia, RN RN Agnieszka Dos Santos RN Omar Montes De Oca ea, RN RN Asia Hart Cheryl, RN RN Karolina Alvarez RN RN rd1 Mina Parada, PA Yojana Mendoza RN ss Corrections: (The following items were deleted from the chart) 13:24 11:21 Abdomen Pelvis W Con+CT.RAD.BRZ ordered. EDND EDMS 13:29 11:21 CORONAVIRUS+MR.LAB.BRZ ordered. EDND EDMS 14:58 13:37 Constitutional: This is a well developed, well nourished patient who is rn awake, alert, nearly naked, mottled Head/Face: Normocephalic, atraumatic. Eyes: Pupils equal round and reactive to light, extra-ocular motions intact. Periorbital areas with no swelling, redness, or edema. ENT: dry MM, no stridor Neck: Trachea midline, no masses palpated, and no cervical lymphadenopathy. Supple, full range of motion without nuchal rigidity, or vertebral point tenderness. No Meningismus. Cardiovascular: Tachycardic, regular Respiratory: No increased work of breathing, no retractions or nasal flaring. Abdomen/GI: soft, non-tender, non-distended Skin: Warm, dry, mottled extremities MS/ Extremity: Pulses equal, no cyanosis. Neuro: Awake and alert, GCS 15, oriented to person, place, not time. Cranial nerves II-XII grossly intact. Motor strength 4/5 in all extremities. Sensory grossly intact. Cerebellar exam normal. rn 16:36 14:52 Chest For PE Angio+CT.RAD.BRZ ordered. EDND EDMS 19:14 18:05 Intensive Care Unit rn rd1 19:14 18:05 rn rd1 22:09 18:05 Cruz Manzanares rn, cha
[2021-03-12 20:45] VITALS: BMI 30.7
[2021-03-12] MEDS ORDERED: IPRATROPIUM BROM 0.5MG/2.5ML NEB PRN (20:52)
[2021-03-12] MEDS ORDERED: SODIUM CHLORIDE 0.9% 10ML INJ IV PRN (20:52)
[2021-03-12] MEDS ORDERED: ACETAMINOPHEN 650MG/RECT SUPP PR PRN (20:52)
[2021-03-12] MEDS ORDERED: ACETAMINOPHEN 500 MG TAB PO PRN (20:52)
[2021-03-12] MEDS ORDERED: ALBUTEROL 2.5 MG/3 ML NEB SOL NEB PRN (20:52)
[2021-03-12] MEDS ORDERED: ONDANSETRON 4 MG/2 ML VIAL IV PRN (20:52)
[2021-03-12] MEDS ORDERED: HYDROCORTISONE SUC 100 MG INJ IV SCH (21:00)
[2021-03-12] MEDS ORDERED: D5 0.45 NS 1,000 ML IV SCH (21:00)
[2021-03-12] MEDS ORDERED: CEFEPIME 1 GM/VIAL IV SCH (21:00)
[2021-03-12] MEDS ORDERED: PANTOPRAZOLE 40 MG INJ IVP SCH (21:00)
[2021-03-12 21:39] LABS: CKMB Creatine Kinase MB 2.1 ng/mL (1.0-3.6); Troponin I 0.23 ng/mL (0.0-0.045)
[2021-03-12] MEDS ORDERED: PANTOPRAZOLE 40 MG INJ ONE (22:57)
[2021-03-12] MEDS ORDERED: HEPARIN 5000 UNIT/ML 1 ML VIAL ONE (22:57)
[2021-03-13 00:07] LABS: Arterial Blood Carboxyhemoglob 0.9 % (0-1.5); Blood Gas Oxyhemoglobin 96.9 % (94-97); Blood O2 Saturation 98.6 % (92-98.5)
[2021-03-13] MEDS ORDERED: NA CHLORIDE 0.9% 500 ML ONE (00:58)
[2021-03-13] MEDS ORDERED: ACETAMINOPHEN 650MG/RECT SUPP PR ONE (00:58)
[2021-03-13] MEDS ORDERED: HEPARIN 5000 UNIT/ML 1 ML VIAL SQ SCH (01:00)
[2021-03-13] MEDS ORDERED: SUCCINYLCHOLINE 20 MG/ML (10 ML) IV ONE (01:04)
[2021-03-13] MEDS ORDERED: ETOMIDATE 20 MG/10 ML VIAL IV ONE (01:04)
[2021-03-13] MEDS ORDERED: ROCURONIUM 50 MG/5 ML VIAL IV ONE (01:04)
[2021-03-13] MEDS ORDERED: MIDAZOLAM HCL 2 MG/2 ML INJ ONE (01:06)
[2021-03-13 01:22] VITALS: O2SAT 100
[2021-03-13 01:55] VITALS: BP 110/79; TEMP 98.7
[2021-03-13] MEDS ORDERED: VANCOMYCIN 1 GM in NA CHLORIDE 0.9% 500 ML IVPB SCH (09:00)
[2021-03-13] MEDS ORDERED: FOLIC ACID 1 MG in NA CHLORIDE 0.9% 50 ML IV SCH (09:00)
[2021-03-13] MEDS ORDERED: ASPIRIN EC 81 MG TAB PO SCH (09:00)
[2021-03-13] MEDS ORDERED: THIAMINE 200 MG/2 ML INJ IVP SCH (09:00)
--- NOTE | 2021-03-13 21:46 | CON ---
Date of Consultation: 03/13/2021 Reason For Consultation: Elevated troponin. History Of Present Illness: Mr. Sweeney is a 61-year-old male with history of [place] disease who ca me in with COVID diagnosis, acute renal failure, altered mental status, metabolic encephalopathy, met abolic acidosis, respiratory failure requiring intubation. Was found to have elevated troponin, has history of [place] disease. He is presently intubated on Solu-Cortef, antibiotics, aspirin and hepar in. Heart rate sinus tach 118. Past Medical History: As stated above. Allergies: NONE. Review of Systems: Negative. Social History: Negative. Family History: Noncontributory. Medications: Listed earlier. Physical Examination: General: He was intubated. Vital Signs: Heart rate 118, sinus tach. PO2 was 272, pCO2 of 36 pH is 7.20. HEENT: Negative. Neck: Supple with no bruit. Chest: Clear. Cardiac: Revealed tachycardia with an S4 gallops. No murmurs or rubs. Abdomen: Benign. Extremities: Revealed no clubbing, cyanosis, or edema. Diagnostic Data: [place] [address], creatinine of 4.97. Troponin is 0.38. Procalciton in is elevated. Lipase is elevated. His chest x-ray was normal. CT of the head was negative. CT o f the abdomen and pelvis was negative. Impression And Plan: 1.Elevated troponin secondary to demand ischemia. Echocardiogram is pending. 2.Respiratory failure, status post intubation. 3.Renal failure. Nephrology is following. 4.Elevated procalcitonin and lipase, probably secondary to COVID. 5.His other problems include metabolic acidosis, altered mental status secondary to metabolic enceph alopathy, [place] disease. I agree with his present regimen. I will see what the echocardiogram janelle ws. I will continue to follow. NB/MODL Voice ID: [id number] Report ID: [id number]
--- NOTE | 2021-03-19 15:27 | P.HP ---
Certification for Inpatient Patient admitted to: Inpatient With expected LOS: >2 Midnights Patient will require the following post-hospital care: Other (Transfer) Practitioner: I am a practitioner with admitting privileges, knowledge of patient current condition, hospital course, and medical plan of care. Services: Services provided to patient in accordance with Admission requirements found in Title 42 Section 412.3 of the Code of Federal Regulations Patient History Date of Service: 03/19/21 Primary Care Provider: Dr. 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 Patient was seen in the emergency room. Patient required intubation due to acute respiratory failure. Fever also noted. Patient was seen in the ER. Patient had abnormal findings of acute renal failure, elevated white count, positive for Covid, and respiratory failure. Patient required intubation. Patient was to be transferred to higher level facility as we did not have any ICU beds. I was asked to help with this transfer. Patient was admitted under my service but come to find out patient is a seen by Internal Medicine Dr. Birmingham. I did inform him that this was his patient. The patient was able to get transferred later that night. Patient was started on IV antibiotic therapy, IV fluids, stress dose steroids, and further treatment. I did not physically see the patient. Allergies No Known Allergies Allergy (Verified 07/06/20 20:39) Home Medications: Unobtainable 07/06/20 - Past Medical/Surgical History Diabetic: No -: Basal cell carcinoma -: Rolla's dse -: cholecystectomy 12/09 -: EGD on 12/20 Psychosocial/ Personal History: Patient lives at home - Family History Family History: Reviewed- Non-Contributory - Social History Smoking Status: Unknown if ever smoked Alcohol use: No CD- Drugs: No Caffeine use: Yes Place of Residence: Home Review of Systems is unable to be obtained Physical Examination - Vital Signs Temperature: 98.7 F Blood Pressure: 110/79 Pulse: 118 Respirations: 20 Pulse Ox (%): 100 Assessment and Plan - Plan Physical Exam: Patient was seen and evaluated by emergency room physician. I did not see the patient. Patient is under the care of Dr. Birmingham. Patient was ultimately transferred with the help of the hospitalist team. Impression: Acute respiratory failure with hypoxia secondary to COVID-19 pneumonia Acute renal failure Elevated troponin suspect NSTEMI versus secondary to above Leukocytosis secondary to above Rolla's disease Plan: ER physician tried to transfer patient due to lack of ICU beds. ER needed help for transfer. Spoke with the transfer team. Transfer team wanted to admit the patient initially here and reinitiate the transfer. Patient was initially admitted to my service but come to find out patient has PCPinternal medicineDr Saad Birmingham. I discussed the case with him in detail. He will take over care. During this time. The patient was eventually transferred to [facility] for higher level of care due to lack of ICU beds. This was done with the help of the hospitalist team. Discharge Plan: Transfer - Advance Directives Does patient have a Living Will: No Does patient have a Durable POA for Healthcare: No Time Spent Managing Pts Care (In Minutes): 55
--- NOTE | 2021-03-20 08:26 | PN ---
Date of Progress Note: 03/14/2021 The patient seen on 03/13/2021, status post intubation for multiple medical problems, COVID intubatio n, elevated troponin. Echocardiogram showed no wall motion abnormalities and no effusion. I would c ontinue present regimen. No further cardiac workup is indicated. DEANN/VANESSA Voice ID: [id number] Report ID: [id number]
== END 2021-03-13 01:05 | disposition short-term general hospital (02) | DRG 208 ==
LOC: ER 11:02 → ERHOLD 20:22
PROVIDERS: ADMIT Internal Medicine; ATTEND Family Medicine
PROC: 0BH17EZ Insertion of Endotracheal Airway into Trachea, Via Natural or Artificial Opening (ICD-10-PCS; principal; 2021-03-12)
PROC: 5A1935Z Respiratory Ventilation, Less than 24 Consecutive Hours (ICD-10-PCS; 2021-03-12)
PROC: 009U3ZX Drainage of Spinal Canal, Percutaneous Approach, Diagnostic (ICD-10-PCS; 2021-03-12)
DX: U07.1 COVID-19 (principal); J12.82 Pneumonia due to coronavirus disease 2019; J96.00 Acute respiratory failure, unspecified whether with hypoxia or hypercapnia; G93.41 Metabolic encephalopathy; N17.9 Acute kidney failure, unspecified; E27.1 Primary adrenocortical insufficiency; I24.8 Other forms of acute ischemic heart disease
CPT/HCPCS: 31500; 36415; 51702; 62270; 70450; 71045; 74176; 80048; 80076; 80307; 80320; 81003; 81015; 82140; 82550; 82553; 82728; 82805; 82945; 83605; 83690; 84145; 84157; 84484; 85025; 85610; 85730; 86140; 87040; 87070; 87081; 87205; 87804; 89050; 94002; 99291; 99292; C9113; J0330; J0692; J1170; J1644; J1720; J2250; J2405; J3370; J7030; J7040; J7799; U0003

== ENCOUNTER 2021-08-08 11:59 | Emergency (ER) | payer OTHER, SELFPAY ==
--- OUTSIDE RECORDS SUMMARY | 2021-08-08 12:04 | XMS REPORT | Continuity of Care Document ---
:1960 Author Organization [facility] t Address [address] [place] [address] Care Team Providers Name Role Phone Caryl FLEMING Attending Clinician Unavailable Caryl FLEMING Admitting Clinician Unavailable Payers Payer Name Policy Type Policy Number Effective Date Expiration Date S [employer] [id number] 2018 00:00:00 Problems This patient has no known problems. Allergies, Adverse Reactions, Alerts Allergy Allergy Status Severity Reaction(s) Onset Inactive Treating Comm ents Source Name Type Date Date Clinician NO KNOWN Allergy Active [facility] Medications This patient has no known medications. Vital Signs Vital Name Observation Time Observation Value Comments Source WEIGHT 2021-03-24 06:00:00 87.5 kg WEIGHT 2021-03-13 03:00:00 70 kg HEIGHT 2021-03-13 03:00:00 180 cm WEIGHT 2021-03-24 06:00:00 87.5 kg WEIGHT 2021-03-13 03:00:00 70 kg HEIGHT 2021-03-13 03:00:00 180 cm Procedures This patient has no known procedures. Encounters Start End Encounter Admission Attending Care Care Encounter Source Date/Time Date/Time Type Type Clinicians Facility Department ID 2021-06-10 Inpatient UR VIKASH FLEMING Pulmonology [id number] VIKASH 04:27:01 ARMANDO 2017-12-22 2017-12-22 Emergency [facility] [id number] [place] 11:20:00 11:20:00 Health Results Test Description Test Time Test Comments Results Result Comments Source POCT-GLUCOSE METER 2021-03-24 16:21:00 Test Item Value Reference Range Interpretation Comme nts POC-GLUCOSE METER (BEAKER) 163 mg/dL 70-110 H : TESTED AT [facility] [address] [facility] (test code = 1538) [facility] X, [address]: Ticket Machine Operator/Techni juan josé ID = [id number] for [place] (contrac t) Wilda POCT-GLUCOSE [id number] 11:31:00 Test Item Value Reference Range Interpretation Comments POC-GLUCOSE METER 114 mg/dL 70-110 H : [facility]ED [facility] (BEAKER) (test code = [facility] Ralph [facility], 1538) [address]: Ticket Machine Operator/Techni juan josé ID = [id number] for Mitesh streeter (contract), Lakhwinder gorge POCT-GLUCOSE [id number] 07:28:00 Test Item Value Reference Range Interpretation Comments POC-GLUCOSE METER 111 mg/dL 70-110 H : TESTED [facility] (BEAKER) (test code = SOO Ralph [facility], 1538) [address]: Ticket Machine Operator/Techni juan josé ID = [id number] for Mitesh streeter (contract), Lakhwinder gorge COMPREHENSIVE METABOLIC [id number] 06:46:00 Test Item Value Reference Range Interpretation Comments TOTAL PROTEIN 7.0 gm/dL 6.0-8.3 (BEAKER) (test code = 770) ALBUMIN (BEAKER) 3.2 g/dL 3.5-5.0 L (test code = 1145) ALKALINE PHOSPHATASE 64 U/L 40-150 (BEAKER) (test code = 346) BILIRUBIN TOTAL 0.5 mg/dL 0.2-1.2 (BEAKER) (test code = 377) SODIUM (BEAKER) (test 134 meq/L 136-145 L code = 381) POTASSIUM (BEAKER) 4.5 meq/L 3.5-5.1 (test code = 379) CHLORIDE (BEAKER) 105 meq/L 98-107 (test code = 382) CO2 (BEAKER) (test 19 meq/L 22-29 L code = 355) BLOOD UREA NITROGEN 18 mg/dL 7-21 (BEAKER) (test code = 354) CREATININE (BEAKER) 0.66 mg/dL 0.57-1.25 (test code = 358) GLUCOSE RANDOM 115 mg/dL 70-105 H (BEAKER) (test code = 652) CALCIUM (BEAKER) 9.3 mg/dL 8.4-10.2 (test code = 697) AST (SGOT) (BEAKER) 19 U/L 5-34 (test code = 353) ALT (SGPT) (BEAKER) 32 U/L 6-55 (test code = 347) EGFR (BEAKER) (test 123 ESTIMATE D GFR IS code = 1092) mL/min/1.73 sq NOT ACCURA TE m CREATININE CLEARANCE IN PREDICTING GLOMERULAR FILTRATION RATE . ESTIMATED GFR I S NOT APPLICABLE FOR DIALYSIS PATIEN TS. Ticket Machine Operator ID - EILEEN [id number] 06:46:00 Test Item Value Reference Range Interpretation Comments MAGNESIUM (BEAKER) (test code = 1.9 mg/dL 1.6-2.6 627) Ticket Machine Operator ID - EILEEN [id number] 06:46:00 Test Item Value Reference Range Interpretation Comments PHOSPHORUS (BEAKER) (test code = 3.8 mg/dL 2.3-4.7 604) Ticket Machine Operator ID - EILEEN MCBC W/PLT COUNT & AUTO [id number] 05:58:00 Test Item Value Reference Range Interpretation Comments WHITE BLOOD CELL COUNT (BEAKER) 21.4 K/ L 3.5-10.5 H (test code = 775) RED BLOOD CELL COUNT (BEAKER) 4.38 M/ L 4.63-6.08 L (test code = 761) HEMOGLOBIN (BEAKER) (test code = 13.3 GM/DL 13.7-17.5 L 410) HEMATOCRIT (BEAKER) (test code = 40.0 % 40.1-51.0 L 411) MEAN CORPUSCULAR VOLUME (BEAKER) 91.3 fL 79.0-92.2 (test code = 753) MEAN CORPUSCULAR HEMOGLOBIN 30.4 pg 25.7-32.2 (BEAKER) (test code = 751) MEAN CORPUSCULAR HEMOGLOBIN CONC 33.3 GM/DL 32.3-36.5 (BEAKER) (test code = 752) RED CELL DISTRIBUTION WIDTH 13.9 % 11.6-14.4 (BEAKER) (test code = 412) PLATELET COUNT (BEAKER) (test 562 K/CU MM 150-450 H code = 756) MEAN PLATELET VOLUME (BEAKER) 8.6 fL 9.4-12.4 L (test code = 754) NUCLEATED RED BLOOD CELLS 0 /100 WBC 0-0 (BEAKER) (test code = 413) NEUTROPHILS RELATIVE PERCENT 85 % (BEAKER) (test code = 429) LYMPHOCYTES RELATIVE PERCENT 6 % (BEAKER) (test code = 430) MONOCYTES RELATIVE PERCENT 5 % (BEAKER) (test code = 431) EOSINOPHILS RELATIVE PERCENT 0 % (BEAKER) (test code = 432) BASOPHILS RELATIVE PERCENT 0 % (BEAKER) (test code = 437) NEUTROPHILS ABSOLUTE COUNT 18.18 K/ L 1.78-5.38 H (BEAKER) (test code = 670) LYMPHOCYTES ABSOLUTE COUNT 1.22 K/ L 1.32-3.57 L (BEAKER) (test code = 414) MONOCYTES ABSOLUTE COUNT (BEAKER) 1.16 K/ L 0.30-0.82 H (test code = 415) EOSINOPHILS ABSOLUTE COUNT 0.00 K/ L 0.04-0.54 L (BEAKER) (test code = 416) BASOPHILS ABSOLUTE COUNT (BEAKER) 0.06 K/ L 0.01-0.08 (test code = 417) IMMATURE GRANULOCYTES-RELATIVE 4 % 0-1 H PERCENT (BEAKER) (test code = 2801) POCT-GLUCOSE [id number] 22:12:00 Test Item Value Reference Range Interpretation Comments POC-GLUCOSE METER 137 mg/dL 70-110 H : TESTED A T [facility] [address] (BEAKER) (test code = [facility], 153) [address]: Ticket Machine Operator/Techni juan josé ID = [id number] for Naun Alvarez POCT-GLUCOSE [id number] 17:03:00 Test Item Value Reference Range Interpretation Comments POC-GLUCOSE METER 153 mg/dL 70-110 H : TESTED A T [facility] [address] (BEAKER) (test code = [facility], 153) [address]: Ticket Machine Operator/Techni juan josé ID = [id number] for LEON DUARTE POCT-GLUCOSE [id number] 21:15:00 Test Item Value Reference Range Interpretation Comments POC-GLUCOSE METER 158 mg/dL 70-110 H : TESTED A T [facility] [address] (BEAKER) (test code = [facility], 1538) [address]: Ticket Machine Operator/Techni juan josé ID = [id number] for TERESA KEYS POCT-GLUCOSE [id number] 16:52:00 Test Item Value Reference Range Interpretation Comments POC-GLUCOSE METER 152 mg/dL 70-110 H : TESTED A T [facility] [address] (BEAKER) (test code = [facility], 1538) [address]: Ticket Machine Operator/Techni juan josé ID = [id number] for Mitesh streeter (contract), Lakhwinder sebastiann POCT-GLUCOSE [id number] 11:22:00 Test Item Value Reference Range Interpretation Comments POC-GLUCOSE METER 116 mg/dL 70-110 H : TESTED A T [facility] [address] (BEAKER) (test code = [facility], 153) [address]: Ticket Machine Operator/Techni juan josé ID = [id number] for Mitesh streeter (contract), Lakhwinder sebastiann COMPREHENSIVE METABOLIC [id number] 10:55:00 Test Item Value Reference Range Interpretation Comments TOTAL PROTEIN 6.4 gm/dL 6.0-8.3 (BEAKER) (test code = 770) ALBUMIN (BEAKER) 3.1 g/dL 3.5-5.0 L (test code = 1145) ALKALINE PHOSPHATASE 51 U/L 40-150 (BEAKER) (test code = 346) BILIRUBIN TOTAL 0.4 mg/dL 0.2-1.2 (BEAKER) (test code = 377) SODIUM (BEAKER) (test 137 meq/L 136-145 code = 381) POTASSIUM (BEAKER) 3.9 meq/L 3.5-5.1 (test code = 379) CHLORIDE (BEAKER) 107 meq/L 98-107 (test code = 382) CO2 (BEAKER) (test 19 meq/L 22-29 L code = 355) BLOOD UREA NITROGEN 17 mg/dL 7-21 (BEAKER) (test code = 354) CREATININE (BEAKER) 0.74 mg/dL 0.57-1.25 (test code = 358) GLUCOSE RANDOM 144 mg/dL 70-105 H (BEAKER) (test code = 652) CALCIUM (BEAKER) 8.8 mg/dL 8.4-10.2 (test code = 697) AST (SGOT) (BEAKER) 25 U/L 5-34 (test code = 353) ALT (SGPT) (BEAKER) 30 U/L 6-55 (test code = 347) EGFR (BEAKER) (test 108 ESTIMATE D GFR IS code = 1092) mL/min/1.73 sq NOT ACCURA TE m CREATININE CLEARANCE IN PREDICTING GLOMERULAR FILTRATION RATE . ESTIMATED GFR I S NOT APPLICABLE FOR DIALYSIS PATIEN TS. Ticket Machine Operator ID - AUBREY [id number] 10:55:00 Test Item Value Reference Range Interpretation Comments MAGNESIUM (BEAKER) (test code = 1.7 mg/dL 1.6-2.6 627) Ticket Machine Operator ID - AUBREY [id number] 10:55:00 Test Item Value Reference Range Interpretation Comments PHOSPHORUS (BEAKER) (test code = 2.4 mg/dL 2.3-4.7 604) Ticket Machine Operator ID - AUBREY CC-REACTIVE [id number] 10:55:00 Test Item Value Reference Range Interpretation Comments C-REACTIVE PROTEIN (BEAKER) (test 4.56 mg/dL 0.00-0.50 H code = 676) Ticket Machine Operator ID - AUBREY CCBC W/PLT COUNT & AUTO [id number] 10:23:00 Test Item Value Reference Range Interpretation Comments WHITE BLOOD CELL COUNT 17.1 K/ L 3.5-10.5 H (BEAKER) (test code = 775) RED BLOOD CELL COUNT 4.14 M/ L 4.63-6.08 L (BEAKER) (test code = 761) HEMOGLOBIN (BEAKER) 13.1 GM/DL 13.7-17.5 L (test code = 410) HEMATOCRIT (BEAKER) 37.5 % 40.1-51.0 L (test code = 411) MEAN CORPUSCULAR 90.6 fL 79.0-92.2 VOLUME (BEAKER) (test code = 753) MEAN CORPUSCULAR 31.6 pg 25.7-32.2 HEMOGLOBIN (BEAKER) (test code = 751) MEAN CORPUSCULAR 34.9 GM/DL 32.3-36.5 HEMOGLOBIN CONC (BEAKER) (test code = 752) RED CELL DISTRIBUTION 14.3 % 11.6-14.4 WIDTH (BEAKER) (test code = 412) PLATELET COUNT 474 K/CU MM 150-450 H (BEAKER) (test code = 756) MEAN PLATELET VOLUME Unable to report due (BEAKER) (test code = to abn ormal Platelet 754) population distribution. NUCLEATED RED BLOOD 4 /100 WBC 0-0 H CELLS (BEAKER) (test code = 413) NEUTROPHILS RELATIVE 89 % PERCENT (BEAKER) (test code = 429) LYMPHOCYTES RELATIVE 2 % PERCENT (BEAKER) (test code = 430) MONOCYTES RELATIVE 4 % PERCENT (BEAKER) (test code = 431) EOSINOPHILS RELATIVE 1 % PERCENT (BEAKER) (test code = 432) BASOPHILS RELATIVE 1 % PERCENT (BEAKER) (test code = 437) NEUTROPHILS ABSOLUTE 15.14 K/ L 1.78-5.38 H COUNT (BEAKER) (test code = 670) LYMPHOCYTES ABSOLUTE 0.38 K/ L 1.32-3.57 L COUNT (BEAKER) (test code = 414) MONOCYTES ABSOLUTE 0.66 K/ L 0.30-0.82 COUNT (BEAKER) (test code = 415) EOSINOPHILS ABSOLUTE 0.10 K/ L 0.04-0.54 COUNT (BEAKER) (test code = 416) BASOPHILS ABSOLUTE 0.11 K/ L 0.01-0.08 H COUNT (BEAKER) (test code = 417) IMMATURE 4 % 0-1 H GRANULOCYTES-RELATIVE PERCENT (BEAKER) (test code = 2801) POCT-GLUCOSE [id number] 08:01:00 Test Item Value Reference Range Interpretation Comments POC-GLUCOSE METER 105 mg/dL 70-110 : TESTED A T [facility] [address] (BEAKER) (test code = [facility], 1538) [address]: Ticket Machine Operator/Techni juan josé ID = [id number] for Mitesh streeter (contract)Lakhwinder POCT-GLUCOSE [id number] 20:30:00 Test Item Value Reference Range Interpretation Comments POC-GLUCOSE METER 152 mg/dL 70-110 H : TESTED A T [facility] [address] (BEAKER) (test code = [facility], 1538) 485[address]: Ticket Machine Operator/Techni juan josé ID = [id number] for Gisella llanos (contract)Petra POCT-GLUCOSE [id number] 16:06:00 Test Item Value Reference Range Interpretation Comments POC-GLUCOSE METER 160 mg/dL 70-110 H : TESTED A T [facility] [address] (BEAKER) (test code = [facility], 1538) 84383: Ticket Machine Operator/Techni juan josé ID = [id number] for Gisella llanos (contract), Petra coe POCT-GLUCOSE [id number] 11:39:00 Test Item Value Reference Range Interpretation Comments POC-GLUCOSE METER 95 mg/dL 70-110 : TESTED A T [facility] [address] (BEAKER) (test code = [facility], 1538) 92136: Ticket Machine Operator/Techni juan josé ID = [id number] for Vice (contract), Petra le POCT-GLUCOSE [id number] 08:00:00 Test Item Value Reference Range Interpretation Comments POC-GLUCOSE METER 102 mg/dL 70-110 : TESTED A T [facility] [address] (BEAKER) (test code = [facility], 1538) 8[address]: Ticket Machine Operator/Techni juan josé ID = [id number] for WALKER GATICA DD [id number] 06:02:00 Test Item Value Reference Range Interpretation Comments MAGNESIUM (BEAKER) 1.8 mg/dL 1.6-2.6 Specimen slightly (test code = 627) hemolyzed Ticket Machine Operator ID Moraima JACKSON [id number] 06:02:00 Test Item Value Reference Range Interpretation Comments PHOSPHORUS (BEAKER) 2.4 mg/dL 2.3-4.7 Specimen slightly (test code = 604) hemolyzed Ticket Machine Operator ID Moraima JACKSON WCOMPREHENSIVE METABOLIC [id number] 06:02:00 Test Item Value Reference Range Interpretation Comments TOTAL PROTEIN 5.9 gm/dL 6.0-8.3 L Specimen sligh tly (BEAKER) (test code = hemoly zed 770) ALBUMIN (BEAKER) 2.8 g/dL 3.5-5.0 L Specimen sl ightly (test code = 1145) hemolyzed ALKALINE PHOSPHATASE 46 U/L 40-150 (BEAKER) (test code = 346) BILIRUBIN TOTAL 0.2 mg/dL 0.2-1.2 Specimen sli ghtly (BEAKER) (test code = hemoly zed 377) SODIUM (BEAKER) (test 138 meq/L 136-145 code = 381) POTASSIUM (BEAKER) 3.4 meq/L 3.5-5.1 L Specimen slightly (test code = 379) hemolyzed CHLORIDE (BEAKER) 106 meq/L 98-107 (test code = 382) CO2 (BEAKER) (test 21 meq/L 22-29 L code = 355) BLOOD UREA NITROGEN 15 mg/dL 7-21 (BEAKER) (test code = 354) CREATININE (BEAKER) 0.70 mg/dL 0.57-1.25 Specimen slightly (test code = 358) hemolyzed GLUCOSE RANDOM 146 mg/dL 70-105 H (BEAKER) (test code = 652) CALCIUM (BEAKER) 8.2 mg/dL 8.4-10.2 L (test code = 697) AST (SGOT) (BEAKER) 24 U/L 5-34 Specimen slightly (test code = 353) hemolyzed ALT (SGPT) (BEAKER) 30 U/L 6-55 Specimen slightly (test code = 347) hemolyzed EGFR (BEAKER) (test 115 ESTIMATE D GFR IS code = 1092) mL/min/1.73 sq NOT ACCURA TE m CREATININE CLEARANCE IN PREDICTING GLOMERULAR FILTRATION RATE . ESTIMATED GFR I S NOT APPLICABLE FOR DIALYSIS PATIEN TS. Ticket Machine Operator ID - MANUEL WCBC W/PLT COUNT & AUTO [id number] 05:22:00 Test Item Value Reference Range Interpretation Comments WHITE BLOOD CELL COUNT (BEAKER) 12.7 K/ L 3.5-10.5 H (test code = 775) RED BLOOD CELL COUNT (BEAKER) 4.01 M/ L 4.63-6.08 L (test code = 761) HEMOGLOBIN (BEAKER) (test code = 12.3 GM/DL 13.7-17.5 L 410) HEMATOCRIT (BEAKER) (test code = 36.1 % 40.1-51.0 L 411) MEAN CORPUSCULAR VOLUME (BEAKER) 90.0 fL 79.0-92.2 (test code = 753) MEAN CORPUSCULAR HEMOGLOBIN 30.7 pg 25.7-32.2 (BEAKER) (test code = 751) MEAN CORPUSCULAR HEMOGLOBIN CONC 34.1 GM/DL 32.3-36.5 (BEAKER) (test code = 752) RED CELL DISTRIBUTION WIDTH 13.7 % 11.6-14.4 (BEAKER) (test code = 412) PLATELET COUNT (BEAKER) (test 393 K/CU MM 150-450 code = 756) MEAN PLATELET VOLUME (BEAKER) 10.1 fL 9.4-12.4 (test code = 754) NUCLEATED RED BLOOD CELLS 0 /100 WBC 0-0 (BEAKER) (test code = 413) NEUTROPHILS RELATIVE PERCENT 80 % (BEAKER) (test code = 429) LYMPHOCYTES RELATIVE PERCENT 9 % (BEAKER) (test code = 430) MONOCYTES RELATIVE PERCENT 7 % (BEAKER) (test code = 431) EOSINOPHILS RELATIVE PERCENT 0 % (BEAKER) (test code = 432) BASOPHILS RELATIVE PERCENT 0 % (BEAKER) (test code = 437) NEUTROPHILS ABSOLUTE COUNT 10.17 K/ L 1.78-5.38 H (BEAKER) (test code = 670) LYMPHOCYTES ABSOLUTE COUNT 1.16 K/ L 1.32-3.57 L (BEAKER) (test code = 414) MONOCYTES ABSOLUTE COUNT (BEAKER) 0.82 K/ L 0.30-0.82 (test code = 415) EOSINOPHILS ABSOLUTE COUNT 0.00 K/ L 0.04-0.54 L (BEAKER) (test code = 416) BASOPHILS ABSOLUTE COUNT (BEAKER) 0.02 K/ L 0.01-0.08 (test code = 417) IMMATURE GRANULOCYTES-RELATIVE 4 % 0-1 H PERCENT (BEAKER) (test code = 2801) POCT-GLUCOSE [id number] 22:50:00 Test Item Value Reference Range Interpretation Comments POC-GLUCOSE METER 154 mg/dL 70-110 H : TESTED A T [facility] 6720 (BEAKER) (test code = [facility], 153) 85689: Ticket Machine Operator/Techni juan josé ID = [id number] for Anuj gifford (contract)Nydia POCT-GLUCOSE [id number] 16:24:00 Test Item Value Reference Range Interpretation Comments POC-GLUCOSE METER 151 mg/dL 70-110 H : TESTED A T [facility] 6720 (BEAKER) (test code = [facility], 153) 37851: Ticket Machine Operator/Techni juan josé ID = [id number] for Won santos (contract), Enr ique CBC W/PLT COUNT & AUTO [id number] 12:04:00 Test Item Value Reference Range Interpretation Comments WHITE BLOOD CELL COUNT (BEAKER) 9.5 K/ L 3.5-10.5 (test code = 775) RED BLOOD CELL COUNT (BEAKER) 4.28 M/ L 4.63-6.08 L (test code = 761) HEMOGLOBIN (BEAKER) (test code = 13.2 GM/DL 13.7-17.5 L 410) HEMATOCRIT (BEAKER) (test code = 38.9 % 40.1-51.0 L 411) MEAN CORPUSCULAR VOLUME (BEAKER) 90.9 fL 79.0-92.2 (test code = 753) MEAN CORPUSCULAR HEMOGLOBIN 30.8 pg 25.7-32.2 (BEAKER) (test code = 751) MEAN CORPUSCULAR HEMOGLOBIN CONC 33.9 GM/DL 32.3-36.5 (BEAKER) (test code = 752) RED CELL DISTRIBUTION WIDTH 13.7 % 11.6-14.4 (BEAKER) (test code = 412) PLATELET COUNT (BEAKER) (test 331 K/CU MM 150-450 code = 756) MEAN PLATELET VOLUME (BEAKER) 9.9 fL 9.4-12.4 (test code = 754) NUCLEATED RED BLOOD CELLS 0 /100 WBC 0-0 (BEAKER) (test code = 413) (CELLAVISION MANUAL DIFF)2021-03-20 12:04:00 Test Item Value Reference Range Interpretation Comments NEUTROPHILS - REL 82 % (CELLAVISION)(BEAKER) (test code = 2816) LYMPHOCYTES - REL 10 % (CELLAVISION)(BEAKER) (test code = 2817) MONOCYTES - REL 7 % (CELLAVISION)(BEAKER) (test code = 2818) ATYPICAL LYMPHOCYTES - REL 1 % 0-0 H (CELLAVISION)(BEAKER) (test code = 2829) NEUTROPHILS - ABS 7.79 K/ul 1.78-5.38 H (CELLAVISION)(BEAKER) (test code = 2830) LYMPHOCYTES - ABS 0.95 K/ul 1.32-3.57 L (CELLAVISION)(BEAKER) (test code = 2831) MONOCYTES - ABS 0.67 K/uL 0.30-0.82 (CELLAVISION)(BEAKER) (test code = 2832) ATYPICAL LYMPHOCYTES - ABS 0.10 K/uL 0.00-0.00 H (CELLAVISION)(BEAKER) (test code = 2858) TOTAL COUNTED (BEAKER) (test code = 100 1351) RBC MORPHOLOGY (BEAKER) (test code Normal = 762) WBC MORPHOLOGY (BEAKER) (test code Normal = 487) PLT MORPHOLOGY (BEAKER) (test code Normal = 486) POCT-GLUCOSE [id number] 11:28:00 Test Item Value Reference Range Interpretation Comments POC-GLUCOSE METER 110 mg/dL 70-110 : TESTED A T [facility] 6720 (BEAKER) (test code = [facility], 1538) 02900: Ticket Machine Operator/Techni juan josé ID = [id number] for Duarte (dari)Wen POCT-GLUCOSE [id number] 07:48:00 Test Item Value Reference Range Interpretation Comments POC-GLUCOSE METER 99 mg/dL 70-110 : TESTED A T [facility] 6720 (BEAKER) (test code = [facility], 153) 44971: Ticket Machine Operator/Techni juan josé ID = [id number] for CELENA CAMACHO COMPREHENSIVE METABOLIC [id number] 03:32:00 Test Item Value Reference Range Interpretation Comments TOTAL PROTEIN 6.0 gm/dL 6.0-8.3 (BEAKER) (test code = 770) ALBUMIN (BEAKER) 2.9 g/dL 3.5-5.0 L (test code = 1145) ALKALINE PHOSPHATASE 47 U/L 40-150 (BEAKER) (test code = 346) BILIRUBIN TOTAL 0.3 mg/dL 0.2-1.2 (BEAKER) (test code = 377) SODIUM (BEAKER) (test 141 meq/L 136-145 code = 381) POTASSIUM (BEAKER) 3.3 meq/L 3.5-5.1 L (test code = 379) CHLORIDE (BEAKER) 106 meq/L 98-107 (test code = 382) CO2 (BEAKER) (test 24 meq/L 22-29 code = 355) BLOOD UREA NITROGEN 20 mg/dL 7-21 (BEAKER) (test code = 354) CREATININE (BEAKER) 0.74 mg/dL 0.57-1.25 (test code = 358) GLUCOSE RANDOM 132 mg/dL 70-105 H (BEAKER) (test code = 652) CALCIUM (BEAKER) 8.2 mg/dL 8.4-10.2 L (test code = 697) AST (SGOT) (BEAKER) 30 U/L 5-34 (test code = 353) ALT (SGPT) (BEAKER) 35 U/L 6-55 (test code = 347) EGFR (BEAKER) (test 108 ESTIMATE D GFR IS code = 1092) mL/min/1.73 sq NOT ACCURA TE m CREATININE CLEARANCE IN PREDICTING GLOMERULAR FILTRATION RATE . ESTIMATED GFR I S NOT APPLICABLE FOR DIALYSIS PATIEN TS. Ticket Machine Operator ID - EILEEN [id number] 03:32:00 Test Item Value Reference Range Interpretation Comments MAGNESIUM (BEAKER) (test code = 1.9 mg/dL 1.6-2.6 627) Ticket Machine Operator ID - EILEEN [id number] 03:32:00 Test Item Value Reference Range Interpretation Comments PHOSPHORUS (BEAKER) (test code = 2.4 mg/dL 2.3-4.7 604) Ticket Machine Operator ID - EILEEN MPOCT-GLUCOSE [id number] 23:26:00 Test Item Value Reference Range Interpretation Comments POC-GLUCOSE METER 153 mg/dL 70-110 H : TESTED A T [facility] 6720 (BEAKER) (test code = [facility], 153) 30543: Ticket Machine Operator/Techni juan josé ID = [id number] for Anuj gifford (contract), Nydia xis POCT-GLUCOSE [id number] 16:19:00 Test Item Value Reference Range Interpretation Comments POC-GLUCOSE METER 139 mg/dL 70-110 H : TESTED A T [facility] 6720 (BEAKER) (test code = [facility], 153) 13369: Ticket Machine Operator/Techni juan josé ID = [id number] for Won santos (contract), Enr ique POCT-GLUCOSE [id number] 11:50:00 Test Item Value Reference Range Interpretation Comments POC-GLUCOSE METER 122 mg/dL 70-110 H : TESTED A T [facility] (BEAKER) (test code = [facility] [place], 1538) [address]: Ticket Machine Operator/Techni juan josé ID = [id number] for Won santos (contract), Enr ique CBC W/PLT COUNT & AUTO [id number] 10:27:00 Test Item Value Reference Range Interpretation Comments WHITE BLOOD CELL COUNT (BEAKER) 7.2 K/ L 3.5-10.5 (test code = 775) RED BLOOD CELL COUNT (BEAKER) 4.06 M/ L 4.63-6.08 L (test code = 761) HEMOGLOBIN (BEAKER) (test code = 12.5 GM/DL 13.7-17.5 L 410) HEMATOCRIT (BEAKER) (test code = 37.0 % 40.1-51.0 L 411) MEAN CORPUSCULAR VOLUME (BEAKER) 91.1 fL 79.0-92.2 (test code = 753) MEAN CORPUSCULAR HEMOGLOBIN 30.8 pg 25.7-32.2 (BEAKER) (test code = 751) MEAN CORPUSCULAR HEMOGLOBIN CONC 33.8 GM/DL 32.3-36.5 (BEAKER) (test code = 752) RED CELL DISTRIBUTION WIDTH 14.0 % 11.6-14.4 (BEAKER) (test code = 412) PLATELET COUNT (BEAKER) (test 285 K/CU MM 150-450 code = 756) MEAN PLATELET VOLUME (BEAKER) 10.6 fL 9.4-12.4 (test code = 754) NUCLEATED RED BLOOD CELLS 0 /100 WBC 0-0 (BEAKER) (test code = 413) (MANUAL DIFFERENTIAL)2021-03-19 10:27:00 Test Item Value Reference Range Interpretation Comments NEUTROPHILS - REL (DIFF) (BEAKER) 76 % (test code = 1359) LYMPHOCYTES - REL (DIFF) (BEAKER) 7 % (test code = 1360) MONOCYTES - REL (DIFF) (BEAKER) 15 % (test code = 1361) EOSINOPHILS - REL (DIFF) (BEAKER) 0 % (test code = 1362) BASOPHILS - REL (DIFF) (BEAKER) 0 % (test code = 1363) MYELOCYTES-REL (DIFF) (BEAKER) 1 % 0-0 H (test code = 1594) ATYPICAL LYMPHOCYTE - REL (DIFF) 1 % 0-0 H (BEAKER) (test code = 260) NEUTROPHILS - ABS (DIFF) (BEAKER) 5.47 K/ L 1.80-8.00 (test code = 1365) LYMPHOCYTES - ABS (DIFF) (BEAKER) 0.50 K/ L 1.48-4.50 L (test code = 1366) MONOCYTES - ABS (DIFF) (BEAKER) 1.08 K/ L 0.00-1.30 (test code = 1367) EOSINOPHILS - ABS (DIFF) (BEAKER) 0.00 K/ L 0.00-0.50 (test code = 1368) BASOPHILS - ABS (DIFF) (BEAKER) 0.00 K/ L 0.00-0.20 (test code = 1369) ATYPICAL LYMPHOCYTES - ABS (DIFF) 0.07 K/ L 0.00-0.00 H (BEAKER) (test code = 263) MYELOCYTES-ABS (DIFF) (BEAKER) 0.07 K/ L 0.00-0.00 H (test code = 1593) TOTAL COUNTED (BEAKER) (test code = 100 1351) WBC MORPHOLOGY (BEAKER) (test code Normal = 487) PLT MORPHOLOGY (BEAKER) (test code Normal = 486) RBC MORPHOLOGY (BEAKER) (test code Normal = 762) POCT-GLUCOSE [id number] 07:52:00 Test Item Value Reference Range Interpretation Comments POC-GLUCOSE METER 102 mg/dL 70-110 : TESTED A T [facility] (BEAKER) (test code = [facility], 153) [id number]: Ticket Machine Operator/Techni juan josé ID = [id number] for Won santos (contract), Leobardor ique POCT-GLUCOSE [id number] 06:18:00 Test Item Value Reference Range Interpretation Comments POC-GLUCOSE METER 124 mg/dL 70-110 H : TESTED A T [facility] (BEAKER) (test code = [facility], 153) [id number]: Ticket Machine Operator/Techni juan josé ID = [id number] for TRISTA RAUSCH COMPREHENSIVE METABOLIC [id number] 05:36:00 Test Item Value Reference Range Interpretation Comments TOTAL PROTEIN 6.1 gm/dL 6.0-8.3 (BEAKER) (test code = 770) ALBUMIN (BEAKER) 3.0 g/dL 3.5-5.0 L (test code = 1145) ALKALINE PHOSPHATASE 46 U/L 40-150 (BEAKER) (test code = 346) BILIRUBIN TOTAL 0.5 mg/dL 0.2-1.2 (BEAKER) (test code = 377) SODIUM (BEAKER) (test 140 meq/L 136-145 code = 381) POTASSIUM (BEAKER) 3.5 meq/L 3.5-5.1 (test code = 379) CHLORIDE (BEAKER) 104 meq/L 98-107 (test code = 382) CO2 (BEAKER) (test 25 meq/L 22-29 code = 355) BLOOD UREA NITROGEN 23 mg/dL 7-21 H (BEAKER) (test code = 354) CREATININE (BEAKER) 0.75 mg/dL 0.57-1.25 (test code = 358) GLUCOSE RANDOM 126 mg/dL 70-105 H (BEAKER) (test code = 652) CALCIUM (BEAKER) 8.2 mg/dL 8.4-10.2 L (test code = 697) AST (SGOT) (BEAKER) 47 U/L 5-34 H (test code = 353) ALT (SGPT) (BEAKER) 38 U/L 6-55 (test code = 347) EGFR (BEAKER) (test 106 ESTIMATE D GFR IS code = 1092) mL/min/1.73 sq NOT ACCURA TE m CREATININE CLEARANCE IN PREDICTING GLOMERULAR FILTRATION RATE . ESTIMATED GFR I S NOT APPLICABLE FOR DIALYSIS PATIEN TS. Ticket Machine Operator ID - EILEEN [id number] 05:36:00 Test Item Value Reference Range Interpretation Comments MAGNESIUM (BEAKER) (test code = 2.1 mg/dL 1.6-2.6 627) Ticket Machine Operator ID - EILEEN [id number] 05:36:00 Test Item Value Reference Range Interpretation Comments PHOSPHORUS (BEAKER) (test code = 3.1 mg/dL 2.3-4.7 604) Ticket Machine Operator ID - EILEEN MPOCT-GLUCOSE [id number] 00:28:00 Test Item Value Reference Range Interpretation Comments POC-GLUCOSE METER 132 mg/dL 70-110 H : TESTED A T [facility] 6720 (BEAKER) (test code = [facility], 1538) 25037: Ticket Machine Operator/Techni juan josé ID = [id number] for BAN RAUSCHA POCT-GLUCOSE [id number] 23:55:00 Test Item Value Reference Range Interpretation Comments POC-GLUCOSE METER 128 mg/dL 70-110 H : TESTED A T [facility] 6720 (BEAKER) (test code = [facility], 1538) 84404: Ticket Machine Operator/Techni juan josé ID = [id number] for Anuj gifford (contract), Nydia xis POCT-GLUCOSE [id number] 16:55:00 Test Item Value Reference Range Interpretation Comments POC-GLUCOSE METER 153 mg/dL 70-110 H : TESTED A T [facility] 6720 (BEAKER) (test code [facility], = 1538) 71172: Ticket Machine Operator/Techni juan josé ID = [id number] for LEAH CORDOVA, IRA POCT-GLUCOSE [id number] 11:48:00 Test Item Value Reference Range Interpretation Comments POC-GLUCOSE METER 171 mg/dL 70-110 H : TESTED A T [facility] 6720 (BEAKER) (test code [facility], = 1538) 94589: Ticket Machine Operator/Techni jaun josé ID = [id number] for TORR ALBA, IRA BLOOD [id number] 09:01:00 Test Item Value Reference Range Interpretation Comments CULTURE (BEAKER) (test No growth in 5 days code = 1095) BLOOD [id number] 09:01:00 Test Item Value Reference Range Interpretation Comments CULTURE (BEAKER) (test No growth in 5 days code = 1095) CREATINE KINASE (CK)2021-03-18 08:20:00 Test Item Value Reference Range Interpretation Comments CREATINE KINASE TOTAL (BEAKER) (test 927 U/L 29-200 H code = 380) Ticket Machine Operator ID - ÁNGEL LB-TYPE NATRIURETIC FACTOR (BNP)2021-03-18 07:51:00 Test Item Value Reference Range Interpretation Comments B-TYPE NATRIURETIC PEPTIDE (BEAKER) 33 pg/mL 0-100 (test code = 700) Ticket Machine Operator ID - EILEEN MPOCT-GLUCOSE [id number] 06:52:00 Test Item Value Reference Range Interpretation Comments POC-GLUCOSE METER 113 mg/dL 70-110 H : TESTED A T [facility] 6720 (BEAKER) (test code = [facility] [place], 1538) 57722: Ticket Machine Operator/Techni juan josé ID = [id number] for Anuj gifford (contract)Nydia [id number] 05:13:00 Test Item Value Reference Range Interpretation Comments FERRITIN (BEAKER) (test code = 1142.94 ng/mL 5.00-275.00 H 361) Ticket Machine Operator ID - PIDAV LLACTATE DEHYDROGENASE (LDH)2021-03-18 05:05:00 Test Item Value Reference Range Interpretation Comments LACTATE DEHYDROGENASE 617 U/L 125-220 H Specim en slightly (BEAKER) (test code = hemoly zed 635) Ticket Machine Operator ID - PIAYA [id number] 04:59:00 Test Item Value Reference Range Interpretation Comments MAGNESIUM (BEAKER) 1.9 mg/dL 1.6-2.6 Specimen slightly (test code = 627) hemolyzed Ticket Machine Operator ID - ÁNGEL [id number] 04:59:00 Test Item Value Reference Range Interpretation Comments PHOSPHORUS (BEAKER) 2.7 mg/dL 2.3-4.7 Specimen slightly (test code = 604) hemolyzed Ticket Machine Operator ID - PIDAV LCOMPREHENSIVE METABOLIC [id number] 04:59:00 Test Item Value Reference Range Interpretation Comments TOTAL PROTEIN 6.3 gm/dL 6.0-8.3 Specimen sligh tly (BEAKER) (test code = hemoly zed 770) ALBUMIN (BEAKER) 3.1 g/dL 3.5-5.0 L Specimen sl ightly (test code = 1145) hemolyzed ALKALINE PHOSPHATASE 49 U/L 40-150 (BEAKER) (test code = 346) BILIRUBIN TOTAL 0.5 mg/dL 0.2-1.2 Specimen sli ghtly (BEAKER) (test code = hemoly zed 377) SODIUM (BEAKER) (test 140 meq/L 136-145 code = 381) POTASSIUM (BEAKER) 3.6 meq/L 3.5-5.1 Specimen slightly (test code = 379) hemolyzed CHLORIDE (BEAKER) 103 meq/L 98-107 (test code = 382) CO2 (BEAKER) (test 23 meq/L 22-29 code = 355) BLOOD UREA NITROGEN 19 mg/dL 7-21 (BEAKER) (test code = 354) CREATININE (BEAKER) 0.79 mg/dL 0.57-1.25 Specimen slightly (test code = 358) hemolyzed GLUCOSE RANDOM 119 mg/dL 70-105 H (BEAKER) (test code = 652) CALCIUM (BEAKER) 8.5 mg/dL 8.4-10.2 (test code = 697) AST (SGOT) (BEAKER) 51 U/L 5-34 H Specimen slightly (test code = 353) hemolyzed ALT (SGPT) (BEAKER) 46 U/L 6-55 Specimen slightly (test code = 347) hemolyzed EGFR (BEAKER) (test 100 ESTIMATE D GFR IS code = 1092) mL/min/1.73 sq NOT ACCURA TE m CREATININE CLEARANCE IN PREDICTING GLOMERULAR FILTRATION RATE . ESTIMATED GFR I S NOT APPLICABLE FOR DIALYSIS PATIEN TS. Ticket Machine Operator ID - PIAYA LC-REACTIVE [id number] 04:59:00 Test Item Value Reference Range Interpretation Comments C-REACTIVE PROTEIN (BEAKER) (test 10.26 mg/dL 0.00-0.50 H code = 676) Ticket Machine Operator ID - PIAYA LCBC W/PLT COUNT & AUTO [id number] 03:11:00 Test Item Value Reference Range Interpretation Comments WHITE BLOOD CELL COUNT 9.6 K/ L 3.5-10.5 (BEAKER) (test code = 775) RED BLOOD CELL COUNT 4.22 M/ L 4.63-6.08 L (BEAKER) (test code = 761) HEMOGLOBIN (BEAKER) 13.0 GM/DL 13.7-17.5 L (test code = 410) HEMATOCRIT (BEAKER) 37.5 % 40.1-51.0 L (test code = 411) MEAN CORPUSCULAR 88.9 fL 79.0-92.2 VOLUME (BEAKER) (test code = 753) MEAN CORPUSCULAR 30.8 pg 25.7-32.2 HEMOGLOBIN (BEAKER) (test code = 751) MEAN CORPUSCULAR 34.7 GM/DL 32.3-36.5 HEMOGLOBIN CONC (BEAKER) (test code = 752) RED CELL DISTRIBUTION 13.7 % 11.6-14.4 WIDTH (BEAKER) (test code = 412) PLATELET COUNT 242 K/CU MM 150-[address] T (BEAKER) (test code = result s compared to 756) previous result s; clinical correl ation required. MEAN PLATELET VOLUME 10.7 fL 9.4-12.4 (BEAKER) (test code = 754) NUCLEATED RED BLOOD 0 /100 WBC 0-0 CELLS (BEAKER) (test code = 413) NEUTROPHILS RELATIVE 87 % PERCENT (BEAKER) (test code = 429) LYMPHOCYTES RELATIVE 5 % PERCENT (BEAKER) (test code = 430) MONOCYTES RELATIVE 8 % PERCENT (BEAKER) (test code = 431) EOSINOPHILS RELATIVE 0 % PERCENT (BEAKER) (test code = 432) BASOPHILS RELATIVE 0 % PERCENT (BEAKER) (test code = 437) NEUTROPHILS ABSOLUTE 8.27 K/ L 1.78-5.38 H COUNT (BEAKER) (test code = 670) LYMPHOCYTES ABSOLUTE 0.49 K/ L 1.32-3.57 L COUNT (BEAKER) (test code = 414) MONOCYTES ABSOLUTE 0.72 K/ L 0.30-0.82 COUNT (BEAKER) (test code = 415) EOSINOPHILS ABSOLUTE 0.00 K/ L 0.04-0.54 L COUNT (BEAKER) (test code = 416) BASOPHILS ABSOLUTE 0.01 K/ L 0.01-0.08 COUNT (BEAKER) (test code = 417) IMMATURE 1 % 0-1 GRANULOCYTES-RELATIVE PERCENT (BEAKER) (test code = 2801) POCT-GLUCOSE [id number] 00:35:00 Test Item Value Reference Range Interpretation Comments POC-GLUCOSE METER 117 mg/dL 70-110 H : TESTED A T [facility] 6720 (BEAKER) (test code = [facility], 153) 17446: Ticket Machine Operator/Techni juan josé ID = [id number] for Ga westardo (contract), Nydia xis POCT-GLUCOSE [id number] 17:47:00 Test Item Value Reference Range Interpretation Comments POC-GLUCOSE METER 145 mg/dL 70-110 H : TESTED A T [facility] 6720 (BEAKER) (test code = [facility], 153) 96892: Ticket Machine Operator/Techni juan josé ID = [id number] for Pa ppas, Maggie B-TYPE NATRIURETIC FACTOR (BNP)2021-03-17 16:07:00 Test Item Value Reference Range Interpretation Comments B-TYPE NATRIURETIC PEPTIDE (LEOPOLDO) 87 pg/mL 0-100 (test code = 700) Ticket Machine Operator ID - DBLACTATE DEHYDROGENASE (LDH)2021-03-17 15:45:00 Test Item Value Reference Range Interpretation Comments LACTATE DEHYDROGENASE 593 U/L 125-220 H Specim en slightly (LEOPOLDO) (test code = hemoly zed 635) Ticket Machine Operator ID - DBC-REACTIVE [id number] 15:42:00 Test Item Value Reference Range Interpretation Comments C-REACTIVE PROTEIN (LEOPOLDO) (test 14.47 mg/dL 0.00-0.50 H code = 676) Ticket Machine Operator ID - DBRAD, CHEST, 1 VIEW, NON [id number] 12:32:00Reason for exam:- >worsening O2 requirementShould this be performed at the bedside?->Yes [facility] 1960 Sex: MFINAL REPORT RAD, CHEST, 1 VIEW, NON DEPT CLINICAL INDICATION: worse tee O2 requirement TECHNIQUE: AP view of the chest COMPARISON: Radiograph 03/16/2021 FINDINGS: Improved lung volumes with enlarging left basilar airspace opacity which could represent any combination of atelectasis, consolidation, or pleural effusion. Right lung remains clear. Mildly prominent interstitial markings, improved since prior exam. No sizable pneumothorax. Cardiomediastinal silhouette, [place], and pulmonary vasculature are unchanged. IMPRESSION:Enlarging left basilar airspace opacity could represent any combination of atelectasis, consolidation, or pleural effusion. Signed: Marques Watsonort Verified Date/Time: 03/17/2021 12:32:53 POCT-GLUCOSE [id number] 06:32:00 Test Item Value Reference Range Interpretation Comments POC-GLUCOSE METER 119 mg/dL 70-110 H : TESTED A T [facility] 6720 (BEAKER) (test code = [facility] [place], 1538) 95152: Ticket Machine Operator/Techni juan josé ID = [id number] for TRISTA RAUSCH [id number] 06:31:00 Test Item Value Reference Range Interpretation Comments MAGNESIUM (BEAKER) (test code = 2.1 mg/dL 1.6-2.6 627) Ticket Machine Operator ID - EILEEN MCOMPREHENSIVE METABOLIC [id number] 05:54:00 Test Item Value Reference Range Interpretation Comments TOTAL PROTEIN 6.6 gm/dL 6.0-8.3 (BEAKER) (test code = 770) ALBUMIN (BEAKER) 3.1 g/dL 3.5-5.0 L (test code = 1145) ALKALINE PHOSPHATASE 52 U/L 40-150 (BEAKER) (test code = 346) BILIRUBIN TOTAL 0.5 mg/dL 0.2-1.2 (BEAKER) (test code = 377) SODIUM (BEAKER) (test 137 meq/L 136-145 code = 381) POTASSIUM (BEAKER) 3.5 meq/L 3.5-5.1 (test code = 379) CHLORIDE (BEAKER) 101 meq/L 98-107 (test code = 382) CO2 (BEAKER) (test 25 meq/L 22-29 code = 355) BLOOD UREA NITROGEN 14 mg/dL 7-21 (BEAKER) (test code = 354) CREATININE (BEAKER) 0.85 mg/dL 0.57-1.25 (test code = 358) GLUCOSE RANDOM 128 mg/dL 70-105 H (BEAKER) (test code = 652) CALCIUM (BEAKER) 8.7 mg/dL 8.4-10.2 (test code = 697) AST (SGOT) (BEAKER) 59 U/L 5-34 H (test code = 353) ALT (SGPT) (BEAKER) 48 U/L 6-55 (test code = 347) EGFR (BEAKER) (test 92 mL/min/1.73 ESTIMA HA GFR IS code = 1092) sq m NOT ACCURATE CREATININE CLEARANCE IN PREDICTING GLOMERULAR FILTRATION RATE . ESTIMATED GFR I S NOT APPLICABLE FOR DIALYSIS PATIEN TS. Ticket Machine Operator ID - EILEEN [id number] 05:54:00 Test Item Value Reference Range Interpretation Comments PHOSPHORUS (BEAKER) (test code = 2.7 mg/dL 2.3-4.7 604) Ticket Machine Operator ID - EILEEN [id number] 05:31:00 Test Item Value Reference Range Interpretation Comments D-DIMER QUANTITATIVE (BEAKER) 3.00 MG/L FEU <0.50 H (test code = 671) Intended Use: The D-Dimer Assay can be used to aid in the diagnosis of Deep Vein Thrombosis (DVT) and Pulmonary Embolism Disease (PED).In patients with low pre- test probability, various studies concerning STA Liatest D-dimer test have reported that with a cutoff value of 0.50 MG/L FEU, the Negative Predictive Value (NPV) regarding the exclusion of thrombosis is within 95-100% range.CBC W/PLT COUNT & AUTO [id number] 05:19:00 Test Item Value Reference Range Interpretation Comments WHITE BLOOD CELL COUNT (BEAKER) 7.4 K/ L 3.5-10.5 (test code = 775) RED BLOOD CELL COUNT (BEAKER) 4.30 M/ L 4.63-6.08 L (test code = 761) HEMOGLOBIN (BEAKER) (test code = 12.9 GM/DL 13.7-17.5 L 410) HEMATOCRIT (BEAKER) (test code = 39.1 % 40.1-51.0 L 411) MEAN CORPUSCULAR VOLUME (BEAKER) 90.9 fL 79.0-92.2 (test code = 753) MEAN CORPUSCULAR HEMOGLOBIN 30.0 pg 25.7-32.2 (BEAKER) (test code = 751) MEAN CORPUSCULAR HEMOGLOBIN CONC 33.0 GM/DL 32.3-36.5 (BEAKER) (test code = 752) RED CELL DISTRIBUTION WIDTH 14.0 % 11.6-14.4 (BEAKER) (test code = 412) PLATELET COUNT (BEAKER) (test 155 K/CU MM 150-450 code = 756) MEAN PLATELET VOLUME (BEAKER) 10.9 fL 9.4-12.4 (test code = 754) NUCLEATED RED BLOOD CELLS 0 /100 WBC 0-0 (BEAKER) (test code = 413) NEUTROPHILS RELATIVE PERCENT 89 % (BEAKER) (test code = 429) LYMPHOCYTES RELATIVE PERCENT 5 % (BEAKER) (test code = 430) MONOCYTES RELATIVE PERCENT 6 % (BEAKER) (test code = 431) EOSINOPHILS RELATIVE PERCENT 0 % (BEAKER) (test code = 432) BASOPHILS RELATIVE PERCENT 0 % (BEAKER) (test code = 437) NEUTROPHILS ABSOLUTE COUNT 6.61 K/ L 1.78-5.38 H (BEAKER) (test code = 670) LYMPHOCYTES ABSOLUTE COUNT 0.34 K/ L 1.32-3.57 L (BEAKER) (test code = 414) MONOCYTES ABSOLUTE COUNT (BEAKER) 0.42 K/ L 0.30-0.82 (test code = 415) EOSINOPHILS ABSOLUTE COUNT 0.00 K/ L 0.04-0.54 L (BEAKER) (test code = 416) BASOPHILS ABSOLUTE COUNT (BEAKER) 0.00 K/ L 0.01-0.08 L (test code = 417) IMMATURE GRANULOCYTES-RELATIVE 1 % 0-1 PERCENT (BEAKER) (test code = 2801) POCT-GLUCOSE [id number] 00:36:00 Test Item Value Reference Range Interpretation Comments POC-GLUCOSE METER 122 mg/dL 70-110 H : TESTED A T [facility] 6720 (BEAKER) (test code = [facility] [place], 1538) 18877: Ticket Machine Operator/Techni juan josé ID = [id number] for TRISTA RAUSCH [id number] 17:53:00 Test Item Value Reference Range Interpretation Comments MAGNESIUM (BEAKER) (test code = 2.0 mg/dL 1.6-2.6 627) Ticket Machine Operator ID - [id number] 17:53:00 Test Item Value Reference Range Interpretation Comments POTASSIUM (BEAKER) (test code = 4.0 meq/L 3.5-5.1 379) Ticket Machine Operator ID - DBPOCT-GLUCOSE [id number] 16:56:00 Test Item Value Reference Range Interpretation Comments POC-GLUCOSE METER 150 mg/dL 70-110 H : TESTED A T [facility] 6720 (BEAKER) (test code = [facility] [place], 1538) 64880: Ticket Machine Operator/Techni juan josé ID = [id number] for Mitesh streeter (contract)Lakhwinder [id number] 14:23:00 Test Item Value Reference Range Interpretation Comments POTASSIUM (BEAKER) (test code = 3.0 meq/L 3.5-5.1 L 379) Ticket Machine Operator ID - ÁNGEL [id number] 14:23:00 Test Item Value Reference Range Interpretation Comments MAGNESIUM (BEAKER) (test code = 2.1 mg/dL 1.6-2.6 627) Ticket Machine Operator ID - ÁNGEL LRAD, CHEST, 1 VIEW, NON [id number] 11:47:00Reason for exam:->Increasing o2, COVIDShould this be performed at the bedside?->Yes [facility] 1960 Sex: MFINAL REPORT RAD, CHEST, 1 VIEW, NON DEPT INDICATION: Increasing o2, COVID COMPARISON: March 13, 2021 FINDINGS: Portable frontal view of the chest. IMPRESSION: Support Lines: Interval extubation and removal of enteric tube. Lungs and pleura: Worsening interstitial congestion. No pneumothorax.Heart and mediastinum: Stable contours. Additional findings: None. Signed: JR Rios Robert MDReport Verified Date/Time: 03/16/2021 11:47:36 Reading Location: [facility] Radiology Reading Room POCT-GLUCOSE [id number] 11:16:00 Test Item Value Reference Range Interpretation Comments POC-GLUCOSE METER 122 mg/dL 70-110 H : TESTED A T [facility] 6720 (BEAKER) (test code = [facility] [place], 1538) 67203: Ticket Machine Operator/Techni juan josé ID = [id number] for Mitesh streeter (contract)Lakhwinder VANCOMYCIN LEVEL, [id number] 10:27:00 Test Item Value Reference Range Interpretation Comments VANCOMYCIN TROUGH (BEAKER) (test 4.2 ug/mL 10.0-20.0 L code = 522) Ticket Machine Operator ID - PIAYA LCOMPREHENSIVE METABOLIC [id number] 07:41:00 Test Item Value Reference Range Interpretation Comments TOTAL PROTEIN 6.1 gm/dL 6.0-8.3 (BEAKER) (test code = 770) ALBUMIN (BEAKER) 3.0 g/dL 3.5-5.0 L (test code = 1145) ALKALINE PHOSPHATASE 51 U/L 40-150 (BEAKER) (test code = 346) BILIRUBIN TOTAL 0.4 mg/dL 0.2-1.2 (BEAKER) (test code = 377) SODIUM (BEAKER) (test 135 meq/L 136-145 L code = 381) POTASSIUM (BEAKER) 2.7 meq/L 3.5-5.1 L (test code = 379) CHLORIDE (BEAKER) 100 meq/L 98-107 (test code = 382) CO2 (BEAKER) (test 21 meq/L 22-29 L code = 355) BLOOD UREA NITROGEN 11 mg/dL 7-21 (BEAKER) (test code = 354) CREATININE (BEAKER) 0.78 mg/dL 0.57-1.25 (test code = 358) GLUCOSE RANDOM 79 mg/dL 70-105 (BEAKER) (test code = 652) CALCIUM (BEAKER) 8.2 mg/dL 8.4-10.2 L (test code = 697) AST (SGOT) (BEAKER) 61 U/L 5-34 H (test code = 353) ALT (SGPT) (BEAKER) 45 U/L 6-55 (test code = 347) EGFR (BEAKER) (test 101 ESTIMATE D GFR IS code = 1092) mL/min/1.73 sq NOT ACCURA TE m CREATININE CLEARANCE IN PREDICTING GLOMERULAR FILTRATION RATE . ESTIMATED GFR I S NOT APPLICABLE FOR DIALYSIS PATIEN TS. Ticket Machine Operator ID - [id number] 07:41:00 Test Item Value Reference Range Interpretation Comments MAGNESIUM (BEAKER) (test code = 1.5 mg/dL 1.6-2.6 L 627) Ticket Machine Operator ID - [id number] 07:41:00 Test Item Value Reference Range Interpretation Comments PHOSPHORUS (BEAKER) (test code = 1.6 mg/dL 2.3-4.7 L 604) Ticket Machine Operator ID - EDASICREATINE KINASE (CK)2021-03-16 07:41:00 Test Item Value Reference Range Interpretation Comments CREATINE KINASE TOTAL (BEAKER) (test 1652 U/L 29-200 H code = 380) Ticket Machine Operator ID - EDASICBC W/PLT COUNT & AUTO [id number] 07:39:00 Test Item Value Reference Range Interpretation Comments WHITE BLOOD CELL COUNT (BEAKER) 6.8 K/ L 3.5-10.5 (test code = 775) RED BLOOD CELL COUNT (BEAKER) 3.66 M/ L 4.63-6.08 L (test code = 761) HEMOGLOBIN (BEAKER) (test code = 11.2 GM/DL 13.7-17.5 L 410) HEMATOCRIT (BEAKER) (test code = 32.8 % 40.1-51.0 L 411) MEAN CORPUSCULAR VOLUME (BEAKER) 89.6 fL 79.0-92.2 (test code = 753) MEAN CORPUSCULAR HEMOGLOBIN 30.6 pg 25.7-32.2 (BEAKER) (test code = 751) MEAN CORPUSCULAR HEMOGLOBIN CONC 34.1 GM/DL 32.3-36.5 (BEAKER) (test code = 752) RED CELL DISTRIBUTION WIDTH 13.6 % 11.6-14.4 (BEAKER) (test code = 412) PLATELET COUNT (BEAKER) (test 104 K/CU MM 150-450 L code = 756) MEAN PLATELET VOLUME (BEAKER) 9.9 fL 9.4-12.4 (test code = 754) NUCLEATED RED BLOOD CELLS 0 /100 WBC 0-0 (BEAKER) (test code = 413) NEUTROPHILS RELATIVE PERCENT 84 % (BEAKER) (test code = 429) LYMPHOCYTES RELATIVE PERCENT 11 % (BEAKER) (test code = 430) MONOCYTES RELATIVE PERCENT 4 % (BEAKER) (test code = 431) EOSINOPHILS RELATIVE PERCENT 0 % (BEAKER) (test code = 432) BASOPHILS RELATIVE PERCENT 0 % (BEAKER) (test code = 437) NEUTROPHILS ABSOLUTE COUNT 5.66 K/ L 1.78-5.38 H (BEAKER) (test code = 670) LYMPHOCYTES ABSOLUTE COUNT 0.75 K/ L 1.32-3.57 L (BEAKER) (test code = 414) MONOCYTES ABSOLUTE COUNT (BEAKER) 0.29 K/ L 0.30-0.82 L (test code = 415) EOSINOPHILS ABSOLUTE COUNT 0.00 K/ L 0.04-0.54 L (BEAKER) (test code = 416) BASOPHILS ABSOLUTE COUNT (BEAKER) 0.01 K/ L 0.01-0.08 (test code = 417) IMMATURE GRANULOCYTES-RELATIVE 1 % 0-1 PERCENT (BEAKER) (test code = 2801) POCT-GLUCOSE [id number] 07:17:00 Test Item Value Reference Range Interpretation Comments POC-GLUCOSE METER 72 mg/dL 70-110 : TESTED A T [facility] 6720 (BEAKER) (test code = [facility], 153) 83458: Ticket Machine Operator/Techni juan josé ID = [id number] for Jasp er (contract), [place] POCT-GLUCOSE [id number] 21:54:00 Test Item Value Reference Range Interpretation Comments POC-GLUCOSE METER 87 mg/dL 70-110 : TESTED A T [facility] 6720 (BEAKER) (test code = [facility], 153) 60219: Ticket Machine Operator/Techni juan josé ID = [id number] for RICHY C (V), LAUREN POCT-GLUCOSE [id number] 16:34:00 Test Item Value Reference Range Interpretation Comments POC-GLUCOSE METER 98 mg/dL 70-110 : TESTED A T [facility] 6720 (BEAKER) (test code = [facility], 153) 90287: Ticket Machine Operator/Techni juan josé ID = [id number] for Jasp er (contract), [place] SPUTUM CULTURE + GRAM [id number] 13:02:00 Test Item Value Reference Range Interpretation Comments CULTURE (BEAKER) 3+ Normal respiratory (test code = 1095) edmund present GRAM STAIN RESULT 2+ WBCs (BEAKER) (test code = 1123) GRAM STAIN RESULT 0-5 epithelial cells (BEAKER) (test code = 29315) GRAM STAIN RESULT <1+ gram negative rods (BEAKER) (test code = 98169) GRAM STAIN RESULT <1+ gram positive rods (BEAKER) (test code = 697476) GRAM STAIN RESULT 1+ gram positive cocci (BEAKER) (test code = in pairs 170587) GRAM STAIN RESULT 1+ gram positive cocci (BEAKER) (test code = in clusters 841468) POCT-GLUCOSE [id number] 11:36:00 Test Item Value Reference Range Interpretation Comments POC-GLUCOSE METER 94 mg/dL 70-110 : TESTED A T [facility] 6720 (BEAKER) (test code = [facility], 1538) 80531: Ticket Machine Operator/Techni juan josé ID = [id number] for [facility] er (contract)Lakhwinder POCT-GLUCOSE [id number] 05:40:00 Test Item Value Reference Range Interpretation Comments POC-GLUCOSE METER 105 mg/dL 70-110 : TESTED A T [facility] 6720 (BEAKER) (test code = [facility], 1538) 98723: Ticket Machine Operator/Techni juan josé ID = [id number] for NAYAK (V), LAUREN COMPREHENSIVE METABOLIC [id number] 04:17:00 Test Item Value Reference Range Interpretation Comments TOTAL PROTEIN 6.0 gm/dL 6.0-8.3 (BEAKER) (test code = 770) ALBUMIN (BEAKER) 2.9 g/dL 3.5-5.0 L (test code = 1145) ALKALINE PHOSPHATASE 39 U/L 40-150 L (BEAKER) (test code = 346) BILIRUBIN TOTAL 0.5 mg/dL 0.2-1.2 (BEAKER) (test code = 377) SODIUM (BEAKER) (test 139 meq/L 136-145 code = 381) POTASSIUM (BEAKER) 3.4 meq/L 3.5-5.1 L (test code = 379) CHLORIDE (BEAKER) 104 meq/L 98-107 (test code = 382) CO2 (BEAKER) (test 25 meq/L 22-29 code = 355) BLOOD UREA NITROGEN 15 mg/dL 7-21 (BEAKER) (test code = 354) CREATININE (BEAKER) 0.81 mg/dL 0.57-1.25 (test code = 358) GLUCOSE RANDOM 119 mg/dL 70-105 H (BEAKER) (test code = 652) CALCIUM (BEAKER) 7.7 mg/dL 8.4-10.2 L (test code = 697) AST (SGOT) (BEAKER) 64 U/L 5-34 H (test code = 353) ALT (SGPT) (BEAKER) 47 U/L 6-55 (test code = 347) EGFR (BEAKER) (test 97 mL/min/1.73 ESTIMA HA GFR IS code = 1092) sq m NOT ACCURATE CREATININE CLEARANCE IN PREDICTING GLOMERULAR FILTRATION RATE . ESTIMATED GFR I S NOT APPLICABLE FOR DIALYSIS PATIEN TS. Ticket Machine Operator ID - ÁNGEL [id number] 04:14:00 Test Item Value Reference Range Interpretation Comments MAGNESIUM (BEAKER) (test code = 2.1 mg/dL 1.6-2.6 627) Ticket Machine Operator ID - ÁNGEL [id number] 04:14:00 Test Item Value Reference Range Interpretation Comments PHOSPHORUS (BEAKER) (test code = 1.9 mg/dL 2.3-4.7 L 604) Ticket Machine Operator ID - ÁNGEL LCREATINE KINASE (CK)2021-03-15 04:14:00 Test Item Value Reference Range Interpretation Comments CREATINE KINASE TOTAL (BEAKER) (test 2168 U/L 29-200 H code = 380) Ticket Machine Operator ID - ÁNGEL LCBC W/PLT COUNT & AUTO [id number] 03:14:00 Test Item Value Reference Range Interpretation Comments WHITE BLOOD CELL COUNT (BEAKER) 9.9 K/ L 3.5-10.5 (test code = 775) RED BLOOD CELL COUNT (BEAKER) 3.47 M/ L 4.63-6.08 L (test code = 761) HEMOGLOBIN (BEAKER) (test code = 10.9 GM/DL 13.7-17.5 L 410) HEMATOCRIT (BEAKER) (test code = 31.0 % 40.1-51.0 L 411) MEAN CORPUSCULAR VOLUME (BEAKER) 89.3 fL 79.0-92.2 (test code = 753) MEAN CORPUSCULAR HEMOGLOBIN 31.4 pg 25.7-32.2 (BEAKER) (test code = 751) MEAN CORPUSCULAR HEMOGLOBIN CONC 35.2 GM/DL 32.3-36.5 (BEAKER) (test code = 752) RED CELL DISTRIBUTION WIDTH 13.8 % 11.6-14.4 (BEAKER) (test code = 412) PLATELET COUNT (BEAKER) (test 118 K/CU MM 150-450 L code = 756) MEAN PLATELET VOLUME (BEAKER) 9.8 fL 9.4-12.4 (test code = 754) NUCLEATED RED BLOOD CELLS 0 /100 WBC 0-0 (BEAKER) (test code = 413) NEUTROPHILS RELATIVE PERCENT 92 % (BEAKER) (test code = 429) LYMPHOCYTES RELATIVE PERCENT 5 % (BEAKER) (test code = 430) MONOCYTES RELATIVE PERCENT 2 % (BEAKER) (test code = 431) EOSINOPHILS RELATIVE PERCENT 0 % (BEAKER) (test code = 432) BASOPHILS RELATIVE PERCENT 0 % (BEAKER) (test code = 437) NEUTROPHILS ABSOLUTE COUNT 9.08 K/ L 1.78-5.38 H (BEAKER) (test code = 670) LYMPHOCYTES ABSOLUTE COUNT 0.49 K/ L 1.32-3.57 L (BEAKER) (test code = 414) MONOCYTES ABSOLUTE COUNT (BEAKER) 0.23 K/ L 0.30-0.82 L (test code = 415) EOSINOPHILS ABSOLUTE COUNT 0.00 K/ L 0.04-0.54 L (BEAKER) (test code = 416) BASOPHILS ABSOLUTE COUNT (BEAKER) 0.01 K/ L 0.01-0.08 (test code = 417) IMMATURE GRANULOCYTES-RELATIVE 1 % 0-1 PERCENT (BEAKER) (test code = 2801) POCT-GLUCOSE [id number] 21:30:00 Test Item Value Reference Range Interpretation Comments POC-GLUCOSE METER 105 mg/dL 70-110 : TESTED Seamus Calderón [facility] 6720 (BEAKER) (test code = SOO [place]AST[place], 1538) 68696: Ticket Machine Operator/Techni juan josé ID = [id number] for DE GRETTA (V) LAUREN POCT-GLUCOSE [id number] 18:43:00 Test Item Value Reference Range Interpretation Comments POC-GLUCOSE METER 109 mg/dL 70-110 : TESTED A T [facility] 6720 (BEAKER) (test code = SOO GASTELUM [place], 1538) 64072: Ticket Machine Operator/Techni juan josé ID = [id number] for ROGELIO LOREDO VANCOMYCIN LEVEL, [id number] 16:55:00 Test Item Value Reference Range Interpretation Comments VANCOMYCIN TROUGH (BEAKER) (test 4.1 ug/mL 10.0-20.0 L code = 522) Ticket Machine Operator ID - BSPOCT-GLUCOSE [id number] 13:20:00 Test Item Value Reference Range Interpretation Comments POC-GLUCOSE METER 141 mg/dL 70-110 H : TESTED A T [facility] 6720 (BEAKER) (test code = SOO GASTELUM [place], 1538) 65176: Ticket Machine Operator/Techni juan josé ID = [id number] for Alix Hart CT, [id number] 10:54:00Unlisted Reason for Exam - Click Yes and Enter Reason Below->YesUnlisted Reason for Exam->Severe sepsis, Biloma vs hematomat at site of cholecystectomy in 2019Will this procedure require oral contrast?->[facility] : 1960 Sex: MFINAL REPORT CT abdomen and pelvis without and with contrast History: Severe sepsis, with history of prior cholecystectomy Comparison: None Technique: serial axial imaging was performed without and subsequently following up to 100cc of non ionic iodinated intravenous contrast as per departmental protocol. Multiplanar images are reconstructed and reviewed when indicated. This CT examination is performed using one or more of the following dose reduction techniques: Automated exposure control, adjustment of the mA and /or kV according to patient size, and/or use of iterative reconstruction technique. Findings: Probable subsegmental atelectasis at the left lung base. Unremarkable appearance of pancreas and spleen. Unremarkable appearance of the liver. The patientis status post cholecystectomy. Unremarkable appearance of adrenal glands, kidneys, and ureters. AFoley catheter decompresses the bladder. . No small or large bowel obstruction. Colon appears diffusely thickened and fluid- filled. No pneumatosis or free air is visualized. No fluid collection is iden tified. No findings to indicate acute appendicitis. No free fluid or lymphadenopathy. No abdominal aortic aneurysm. No aggressive osseous lesion. Impression:Uncomplicated pancolitis. Signed: Dakota Zavala [facility] Verified Date/Time: 03/14/2021 10:54:36 Reading Location: [facility] Diagnostic Imaging Reading Room - [place] [address] POCT-GLUCOSE [id number] 09:25:00 Test Item Value Reference Range Interpretation Comments POC-GLUCOSE METER 129 mg/dL 70-110 H : TESTED A T [facility] 6720 ([place]) (test code = [facility], 1538) 74473: Ticket Machine Operator/Techni juan josé ID = [id number] for Alix Hart [id number] 08:54:00 Test Item Value Reference Range Interpretation Comments AMYLASE (BEAKER) (test code = 349) 182 U/L 25-125 H Ticket Machine Operator ID - EMERSONLACTIC ACID, [id number] 07:43:00 Test Item Value Reference Range Interpretation Comments LACTATE BLOOD VENOUS (2) (BEAKER) 1.44 mmol/L 0.50-2.20 (test code = 2872) Ticket Machine Operator ID - EMERSONPOCT-GLUCOSE [id number] 05:59:00 Test Item Value Reference Range Interpretation Comments POC-GLUCOSE METER 114 mg/dL 70-110 H : TESTED A T [facility] 6720 (BEAKER) (test code = [facility], 1538) 31608: Ticket Machine Operator/Techni juan josé ID = [id number] for RODRIGUEZ GRETTA (V) LAUREN CBC W/PLT COUNT & AUTO [id number] 05:30:00 Test Item Value Reference Range Interpretation Comments WHITE BLOOD CELL COUNT (BEAKER) 14.7 K/ L 3.5-10.5 H (test code = 775) RED BLOOD CELL COUNT (BEAKER) 3.99 M/ L 4.63-6.08 L (test code = 761) HEMOGLOBIN (BEAKER) (test code = 12.3 GM/DL 13.7-17.5 L 410) HEMATOCRIT (BEAKER) (test code = 36.2 % 40.1-51.0 L 411) MEAN CORPUSCULAR VOLUME (BEAKER) 90.7 fL 79.0-92.2 (test code = 753) MEAN CORPUSCULAR HEMOGLOBIN 30.8 pg 25.7-32.2 (BEAKER) (test code = 751) MEAN CORPUSCULAR HEMOGLOBIN CONC 34.0 GM/DL 32.3-36.5 (BEAKER) (test code = 752) RED CELL DISTRIBUTION WIDTH 13.7 % 11.6-14.4 (BEAKER) (test code = 412) PLATELET COUNT (BEAKER) (test 141 K/CU MM 150-450 L code = 756) MEAN PLATELET VOLUME (BEAKER) 10.4 fL 9.4-12.4 (test code = 754) NUCLEATED RED BLOOD CELLS 0 /100 WBC 0-0 (BEAKER) (test code = 413) NEUTROPHILS RELATIVE PERCENT 92 % (BEAKER) (test code = 429) LYMPHOCYTES RELATIVE PERCENT 4 % (BEAKER) (test code = 430) MONOCYTES RELATIVE PERCENT 3 % (BEAKER) (test code = 431) EOSINOPHILS RELATIVE PERCENT 0 % (BEAKER) (test code = 432) BASOPHILS RELATIVE PERCENT 0 % (BEAKER) (test code = 437) NEUTROPHILS ABSOLUTE COUNT 13.49 K/ L 1.78-5.38 H (BEAKER) (test code = 670) LYMPHOCYTES ABSOLUTE COUNT 0.64 K/ L 1.32-3.57 L (BEAKER) (test code = 414) MONOCYTES ABSOLUTE COUNT (BEAKER) 0.42 K/ L 0.30-0.82 (test code = 415) EOSINOPHILS ABSOLUTE COUNT 0.00 K/ L 0.04-0.54 L (BEAKER) (test code = 416) BASOPHILS ABSOLUTE COUNT (BEAKER) 0.02 K/ L 0.01-0.08 (test code = 417) IMMATURE GRANULOCYTES-RELATIVE 1 % 0-1 PERCENT (BEAKER) (test code = 2801) COMPREHENSIVE METABOLIC [id number] 05:22:00 Test Item Value Reference Range Interpretation Comments TOTAL PROTEIN 6.2 gm/dL 6.0-8.3 (BEAKER) (test code = 770) ALBUMIN (BEAKER) 2.9 g/dL 3.5-5.0 L (test code = 1145) ALKALINE PHOSPHATASE 42 U/L 40-150 (BEAKER) (test code = 346) BILIRUBIN TOTAL 0.4 mg/dL 0.2-1.2 (BEAKER) (test code = 377) SODIUM (BEAKER) (test 137 meq/L 136-145 code = 381) POTASSIUM (BEAKER) 3.9 meq/L 3.5-5.1 (test code = 379) CHLORIDE (BEAKER) 104 meq/L 98-107 (test code = 382) CO2 (BEAKER) (test 23 meq/L 22-29 code = 355) BLOOD UREA NITROGEN 18 mg/dL 7-21 (BEAKER) (test code = 354) CREATININE (BEAKER) 1.26 mg/dL 0.57-1.25 H (test code = 358) GLUCOSE RANDOM 125 mg/dL 70-105 H (BEAKER) (test code = 652) CALCIUM (BEAKER) 7.8 mg/dL 8.4-10.2 L (test code = 697) AST (SGOT) (BEAKER) 79 U/L 5-34 H (test code = 353) ALT (SGPT) (BEAKER) 52 U/L 6-55 (test code = 347) EGFR (BEAKER) (test 58 mL/min/1.73 ESTIMA HA GFR IS code = 1092) sq m NOT ACCURATE CREATININE CLEARANCE IN PREDICTING GLOMERULAR FILTRATION RATE . ESTIMATED GFR I S NOT APPLICABLE FOR DIALYSIS PATIEN TS. Ticket Machine Operator ID - EILEEN [id number] 05:08:00 Test Item Value Reference Range Interpretation Comments MAGNESIUM (BEAKER) (test code = 2.3 mg/dL 1.6-2.6 627) Ticket Machine Operator ID - EILEEN [id number] 05:08:00 Test Item Value Reference Range Interpretation Comments PHOSPHORUS (BEAKER) (test code = 1.8 mg/dL 2.3-4.7 L 604) Ticket Machine Operator ID - EILEEN MCREATINE KINASE (CK)2021-03-14 05:08:00 Test Item Value Reference Range Interpretation Comments CREATINE KINASE TOTAL (BEAKER) (test 3354 U/L 29-200 H code = 380) Ticket Machine Operator ID - EILEEN MPOCT-GLUCOSE [id number] 23:44:00 Test Item Value Reference Range Interpretation Comments POC-GLUCOSE METER 128 mg/dL 70-110 H : TESTED A T [facility] 6720 (BEAKER) (test code = SOO GASTELUM [place], 1538) 46559: Ticket Machine Operator/Techni juan josé ID = [id number] for DE GRETTA (V), LAUREN [id number] 16:55:00 Test Item Value Reference Range Interpretation Comments MAGNESIUM (BEAKER) 2.8 mg/dL 1.6-2.6 H Specimen slightly (test code = 627) hemolyzed Ticket Machine Operator ID - BSBASIC METABOLIC [id number] 16:55:00 Test Item Value Reference Range Interpretation Comments SODIUM (BEAKER) 138 meq/L 136-145 (test code = 381) POTASSIUM (BEAKER) 4.3 meq/L 3.5-5.1 Specimen slightly (test code = 379) hemolyzed CHLORIDE (BEAKER) 111 meq/L 98-107 H (test code = 382) CO2 (BEAKER) (test 14 meq/L 22-29 L code = 355) BLOOD UREA NITROGEN 23 mg/dL 7-21 H (BEAKER) (test code = 354) CREATININE (BEAKER) 1.55 mg/dL 0.57-1.25 H Specimen slightly (test code = 358) hemolyzed GLUCOSE RANDOM 126 mg/dL 70-105 H (BEAKER) (test code = 652) CALCIUM (BEAKER) 8.3 mg/dL 8.4-10.2 L (test code = 697) EGFR (BEAKER) (test 46 mL/min/1.73 ESTIMA HA GFR IS code = 1092) sq m NOT ACCURATE CREATININE CLEARANCE IN PREDICTING GLOMERULAR FILTRATION RATE . ESTIMATED GFR I S NOT APPLICABLE FOR DIALYSIS PATIEN TS. Ticket Machine Operator ID - BS(CELLAVISION MANUAL DIFF)2021-03-13 16:55:00 Test Item Value Reference Range Interpretation Comments NEUTROPHILS - REL 86 % (CELLAVISION)(BEAKER) (test code = 2816) LYMPHOCYTES - REL 4 % (CELLAVISION)(BEAKER) (test code = 2817) MONOCYTES - REL 3 % (CELLAVISION)(BEAKER) (test code = 2818) BANDS - REL (CELLAVISION)(BEAKER) 7 % 0-10 (test code = 2826) NEUTROPHILS - ABS 13.76 K/ul 1.78-5.38 H (CELLAVISION)(BEAKER) (test code = 2830) LYMPHOCYTES - ABS 0.64 K/ul 1.32-3.57 L (CELLAVISION)(BEAKER) (test code = 2831) MONOCYTES - ABS 0.48 K/uL 0.30-0.82 (CELLAVISION)(BEAKER) (test code = 2832) BANDS - ABS (CELLAVISION)(BEAKER) 1.12 K/uL 0.00-0.80 H (test code = 2840) TOTAL COUNTED (BEAKER) (test code 100 = 1351) SMUDGE CELLS (BEAKER) (test code = Present 1371) GIANT PLATELETS (BEAKER) (test Present code = 313) ANISOCYTOSIS (BEAKER) (test code = 1+ few 961) MACROCYTES (BEAKER) (test code = 1+ few 964) POIKILOCYTES (BEAKER) (test code = 3+ many 966) SPHEROCYTES (BEAKER) (test code = 1+ few 768) OVALOCYTES (BEAKER) (test code = 1+ few 477) DEAN CELLS (BEAKER) (test code = 3+ many 474) PLATELET CONCENTRATION Decreased (CELLAVISION)(BEAKER) (test code = 3438) Ticket Machine Operator ID - Scarlet Mccollum comments: Slide comments:POCT-GLUCOSE METER 2021-03-13 16:20:00 Test Item Value Reference Range Interpretation Comments POC-GLUCOSE METER 117 mg/dL 70-110 H : TESTED A T [facility] 6720 (BEAKER) (test code = SOO AMES, 1538) 70336: Ticket Machine Operator/Techni juan josé ID = [id number] for Vianca Fritz CBC W/PLT COUNT & AUTO [id number] 14:59:00 Test Item Value Reference Range Interpretation Comments WHITE BLOOD CELL COUNT (BEAKER) 16.0 K/ L 3.5-10.5 H (test code = 775) RED BLOOD CELL COUNT (BEAKER) 6.64 M/ L 4.63-6.08 H (test code = 761) HEMOGLOBIN (BEAKER) (test code = 20.3 GM/DL 13.7-17.5 H 410) HEMATOCRIT (BEAKER) (test code = 61.0 % 40.1-51.0 H 411) MEAN CORPUSCULAR VOLUME (BEAKER) 91.9 fL 79.0-92.2 (test code = 753) MEAN CORPUSCULAR HEMOGLOBIN 30.6 pg 25.7-32.2 (BEAKER) (test code = 751) MEAN CORPUSCULAR HEMOGLOBIN CONC 33.3 GM/DL 32.3-36.5 (BEAKER) (test code = 752) RED CELL DISTRIBUTION WIDTH 13.8 % 11.6-14.4 (BEAKER) (test code = 412) PLATELET COUNT (BEAKER) (test code 97 K/CU MM 150-450 L = 756) MEAN PLATELET VOLUME (BEAKER) 10.0 fL 9.4-12.4 (test code = 754) NUCLEATED RED BLOOD CELLS (BEAKER) 0 /100 WBC 0-0 (test code = 413) U/S, ABDOMINAL, [id number] 13:54:00Reason for exam:->lesa , elevated lipase, abd painShould this be performed at the bedside?->Yes [facility] 1960 Sex: MFINAL REPORT Abdominal ultrasound dated 03/13/2021 Clinical informati on:lesa , elevated lipase, abd pain Comment: Real-time transabdominal ultrasound was performed. Liver is normal in size and measures 14.7 cm in length. The echogenicity of the liver is heterogeneous. No focal lesion is noted in the liver. Spleen is enlarged measuring 12.1 cm in length. Gallbladder is surgically absent. A 3.9 x 4.9 x 4.6 cm complex fluid collection is seen in the gallbladder fossa suggestive hematoma or biloma. No biliary dilatation is seen. Common bile duct measures 5 mm in diameter. Main portal vein measures 9 mm in diameter. There is hepatopedal flow in main portal vein with avelocity measuring 41.9 cm/s. Pancreas is incomplete visualized. Right kidney measures 10.8 x 5.1 x 4.6 cm. Left kidney measures 11.1 x 5.5 x 5.4 cm. Echogenicity of both kidney is normal. No hydronephrosis or solid mass seen in either kidney. No cyst is seen in the either kidney. No ascites is present in the abdomen. Abdominal aorta is normal in caliber. IVC and Hepatic veins are patent. Impression: 1. Heterogeneous appearing liver without focal hepatic mass.2. Fluid collection in the gallbladder fossa suggestive of biloma or hematoma.3. Suboptimal visualization pancreas secondary to overlying gas.4. Splenomegaly. Signed: Tyrone Meyer [facility] Verified Date/Time: 03/13/2021 13:54:11 HEMOGLOBIN [id number] 11:41:00 Test Item Value Reference Range Interpretation Comments HEMOGLOBIN A1C (NINIAKER) (test code = 5.4 % 4.3-6.1 368) LACTIC ACID, [id number] 11:04:00 Test Item Value Reference Range Interpretation Comments LACTATE BLOOD VENOUS 1.77 mmol/L 0.50-2.20 Specime n slightly (2) (BEAKER) (test hemolyzed code = 2872) Ticket Machine Operator ID - AMANDA IGH SENSITIVITY TROPONIN [id number] 11:01:00 Test Item Value Reference Range Interpretation Comments HIGH SENSITIVITY 61 pg/ml See_Comment H [Automated message] TROPONIN I (test code = The system which [id number]) generated this result transmitted ref erence range: <=35. Th e reference range was not used to int erpret this result as normal/abnormal . Ticket Machine Operator ID - AMANDA FThe TAPPER HELPER STAT High Sensitivity Troponin-I results should be used in conjunction with other diagnostic information such as ECG, clinical observations and information, and patient symptoms to aid in the diagnosis of UT.[id number] 11:00:00 Test Item Value Reference Range Interpretation Comments LIPASE (BEAKER) (test code = 749) 64 U/L 8-78 Ticket Machine Operator ID - AMANDA [id number] 11:00:00 Test Item Value Reference Range Interpretation Comments TRIGLYCERIDES (BEAKER) (test code = 211 mg/dL 540) TRIGLYCERIDE REFERENCE RANGELow Risk <150Borderline Risk 150-199High Risk 200-499Very High Risk>=500Operator ID Moraima PATEL [id number] 11:00:00 Test Item Value Reference Range Interpretation Comments AMYLASE (BEAKER) (test code = 349) 209 U/L 25-125 H Ticket Machine Operator ID - AMANDA FOperator ID Moraima PATEL FBASIC METABOLIC [id number] 10:51:00 Test Item Value Reference Range Interpretation Comments SODIUM (BEAKER) 138 meq/L 136-145 (test code = 381) POTASSIUM (BEAKER) 4.8 meq/L 3.5-5.1 (test code = 379) CHLORIDE (BEAKER) 111 meq/L 98-107 H (test code = 382) CO2 (BEAKER) (test 17 meq/L 22-29 L code = 355) BLOOD UREA NITROGEN 30 mg/dL 7-21 H (BEAKER) (test code = 354) CREATININE (BEAKER) 2.12 mg/dL 0.57-1.25 H (test code = 358) GLUCOSE RANDOM 149 mg/dL 70-105 H (BEAKER) (test code = 652) CALCIUM (BEAKER) 8.2 mg/dL 8.4-10.2 L (test code = 697) EGFR (BEAKER) (test 32 mL/min/1.73 ESTIMA HA GFR IS code = 1092) sq m NOT ACCURATE CREATININE CLEARANCE IN PREDICTING GLOMERULAR FILTRATION RATE . ESTIMATED GFR I S NOT APPLICABLE FOR DIALYSIS PATIEN TS. Ticket Machine Operator ID - AMANDA [id number] 10:51:00 Test Item Value Reference Range Interpretation Comments MAGNESIUM (BEAKER) (test code = 1.8 mg/dL 1.6-2.6 627) Ticket Machine Operator ID - AMANDA [id number] 10:51:00 Test Item Value Reference Range Interpretation Comments PHOSPHORUS (BEAKER) (test code = 2.9 mg/dL 2.3-4.7 604) Ticket Machine Operator ID - AMANDA FPOCT-GLUCOSE [id number] 10:02:00 Test Item Value Reference Range Interpretation Comments POC-GLUCOSE METER 152 mg/dL 70-110 H : TESTED A T [facility] 6720 (BEAKER) (test code = SOO Rosas [facility], 1538) 95888: Ticket Machine Operator/Techni juan josé ID = [id number] for Vianca Fritz TSH/FREE T4 IF [id number] 09:26:00 Test Item Value Reference Range Interpretation Comments THYROID STIMULATING HORMONE 0.766 uIU/mL 0.350-4.940 (BEAKER) (test code = 772) Ticket Machine Operator ID - AMANDA [id number] 09:25:00 Test Item Value Reference Range Interpretation Comments FERRITIN (BEAKER) (test code = 500.09 ng/mL 5.00-275.00 H 361) Ticket Machine Operator ID - AMANDA FLACTIC ACID, [id number] 09:07:00 Test Item Value Reference Range Interpretation Comments LACTATE BLOOD VENOUS (2) (BEAKER) 1.90 mmol/L 0.50-2.20 (test code = 2872) Ticket Machine Operator ID Moraima PATEL FCREATINE KINASE (CK)2021-03-13 09:05:00 Test Item Value Reference Range Interpretation Comments CREATINE KINASE TOTAL (BEAKER) (test 2876 U/L 29-200 H code = 380) Ticket Machine Operator ID - AMANDA FKETONE, [id number] 09:00:00 Test Item Value Reference Range Interpretation Comments KETONES, BLOOD (BEAKER) (test code 0.3 mmol/L <0.4 = 1103) COMPREHENSIVE METABOLIC [id number] 07:57:00 Test Item Value Reference Range Interpretation Comments TOTAL PROTEIN 7.1 gm/dL 6.0-8.3 (BEAKER) (test code = 770) ALBUMIN (BEAKER) 3.5 g/dL 3.5-5.0 (test code = 1145) ALKALINE PHOSPHATASE 44 U/L 40-150 (BEAKER) (test code = 346) BILIRUBIN TOTAL 0.4 mg/dL 0.2-1.2 (BEAKER) (test code = 377) SODIUM (BEAKER) (test 137 meq/L 136-145 code = 381) POTASSIUM (BEAKER) 4.9 meq/L 3.5-5.1 (test code = 379) CHLORIDE (BEAKER) 110 meq/L 98-107 H (test code = 382) CO2 (BEAKER) (test 15 meq/L 22-29 L code = 355) BLOOD UREA NITROGEN 29 mg/dL 7-21 H (BEAKER) (test code = 354) CREATININE (BEAKER) 2.39 mg/dL 0.57-1.25 H (test code = 358) GLUCOSE RANDOM 175 mg/dL 70-105 H (BEAKER) (test code = 652) CALCIUM (BEAKER) 8.0 mg/dL 8.4-10.2 L (test code = 697) AST (SGOT) (BEAKER) 82 U/L 5-34 H (test code = 353) ALT (SGPT) (BEAKER) 58 U/L 6-55 H (test code = 347) EGFR (BEAKER) (test 28 mL/min/1.73 ESTIMA HA GFR IS code = 1092) sq m NOT ACCURATE CREATININE CLEARANCE IN PREDICTING GLOMERULAR FILTRATION RATE . ESTIMATED GFR I S NOT APPLICABLE FOR DIALYSIS PATIEN TS. Ticket Machine Operator ID Moraima PATEL FC-REACTIVE [id number] 07:56:00 Test Item Value Reference Range Interpretation Comments C-REACTIVE PROTEIN (BEAKER) (test 24.89 mg/dL 0.00-0.50 H code = 676) Ticket Machine Operator ID Moraima PATEL FHIGH SENSITIVITY TROPONIN [id number] 07:52:00 Test Item Value Reference Range Interpretation Comments HIGH SENSITIVITY 88 pg/ml See_Comment H [Automated message] TROPONIN I (test code = The system which [id number]) generated this result transmitted ref erence range: <=35. Th e reference range was not used to int erpret this result as normal/abnormal . Ticket Machine Operator ID Moraima PATEL FThe TAPPER HELPER STAT High Sensitivity Troponin-I results should be used in conjunction with other diagnostic information such as ECG, clinical observations and information, and patient symptoms to aid in the diagnosis of UT.POCT-GLUCOSE [id number] 07:09:00 Test Item Value Reference Range Interpretation Comments POC-GLUCOSE METER 150 mg/dL 70-110 H : TESTED A T [facility] 6720 (BEAKER) (test code = SOO Rosas [place] [place], 1538) 32660: Ticket Machine Operator/Techni juan josé ID = [id number] for Anuj gifford (contract), Nydia solimans URINALYSIS W/ REFLEX URINE [id number] 07:08:00 Test Item Value Reference Range Interpretation Comments COLOR (BEAKER) (test code = 470) Yellow CLARITY (BEAKER) (test code = 469) Hazy SPECIFIC GRAVITY UA (BEAKER) (test 1.024 1.001-1.035 code = 468) PH UA (BEAKER) (test code = 467) 6.0 5.0-8.0 PROTEIN UA (BEAKER) (test code = 100 mg/dL Negative A 464) GLUCOSE UA (BEAKER) (test code = 70 mg/dL Negative A 365) KETONES UA (BEAKER) (test code = 10 mg/dL Negative A 371) BILIRUBIN UA (BEAKER) (test code = Negative Negative 462) BLOOD UA (BEAKER) (test code = 461) Large Negative A NITRITE UA (BEAKER) (test code = Negative Negative 465) LEUKOCYTE ESTERASE UA (BEAKER) Negative Negative (test code = 466) UROBILINOGEN UA (BEAKER) (test code 0.2 mg/dL 0.2-1.0 = 463) RBC UA (BEAKER) (test code = 519) 2 /HPF WBC UA (BEAKER) (test code = 520) 12 /HPF BACTERIA (BEAKER) (test code = 517) None Seen MUCUS (BEAKER) (test code = 1574) Rare SQUAMOUS EPITHELIAL (BEAKER) (test < /HPF code = 516) CRYSTALS, URINE (BEAKER) (test code None Seen = 1521) SOURCE(BEAKER) (test code = 2795) Ticket Machine Operator ID - [auto]Ticket Machine Operator ID - techVANCOMYCIN LEVEL, [id number] 06:36:00 Test Item Value Reference Range Interpretation Comments VANCOMYCIN RANDOM (BEAKER) (test 10.9 ug/mL code = 523) Reference Range: No NormalsOperator ID - AMANDA FTHROMBOELASTOGRAPH (TEG) 2021-03-13 06:23:00 Test Item Value Reference Range Interpretation Comments TEG ACTIVATED CLOTTING TIME 4.6 minutes 4.0-7.0 (BEAKER) (test code = 1407) TEG FIBRINOGEN ACTIVITY (BEAKER) 67.3 degrees 61.0-73.0 (test code = 1408) TEG PLT. AGGREGATION (BEAKER) 64.5 MM 55.0-65.0 (test code = 1409) TEG FIBRINOLYSIS (BEAKER) (test 0.6 % 0.0-5.0 code = 1410) TGH ACTIVATED CLOTTING TIME 5.5 minutes 4.0-7.0 (BEAKER) (test code = 1411) TGH FIBRINOGEN ACTIVITY (BEAKER) 75.2 degrees 61.0-73.0 H (test code = 1412) TGH PLT. AGGREGATION (BEAKER) 61.3 MM 55.0-65.0 (test code = 1413) TGH FIBRINOLYSIS (BEAKER) (test 1.8 % 0.0-5.0 code = 1414) PROTHROMBIN [id number] 05:41:00 Test Item Value Reference Range Interpretation Comments PROTIME (BEAKER) 14.7 seconds 11.9-14.2 H (test code = 759) INR (BEAKER) (test 1.17 See_Comment [Automat ed message] code = 370) The system [employer] generated this result transmitted ref erence range: <=5.90. The reference range was not used to int erpret this result as normal/abnormal . RECOMMENDED COUMADIN/WARFARIN INR THERAPY RANGESSTANDARD DOSE: 2.0 - 3.0 Includes: PROPHYLAXIS forvenous thrombosis, systemic embolization; TREATMENT for venous thrombosis and/or pulmonary embolus.HIGH RISK: Target INR is 2.5-3.5 for patients with mechanical heart valves.RAD, CHEST, 1 VIEW, NON [id number] 05:16:00Post-intubationReason for exam:->Confirm ETT placementShould this be performed at the bedside?->Yes [facility] 1960 Sex: MFINAL REPORT Chest one view. Clinical history: Confirm ETT placement Comparison: None. Technique: A single frontal view of the chest was obtained. Findings:Endotracheal and feeding tubes are in satisfactory positions.The cardiac silhouette is normal in size. There ismild blunting of the left lateral costophrenic angle, which may represent pleural thickening and/or small pleural effusion. There is mild linear atelectasis/scarring in the left lung base. The remainder of the lungs are clear. There is no pneumothorax. Signed: [facility] Verified Date/Time: 03/13/2021 05:16:39 BLOOD GAS, ARTERIAL 2021-03-13 04:17:00 Test Item Value Reference Range Interpretation Comments PH ARTERIAL (BEAKER) (test code 7.36 7.35-7.45 = 383) PCO2 ARTERIAL (BEAKER) (test 22 mm Hg 35-45 L code = 384) PO2 ARTERIAL (BEAKER) (test code 152 mm Hg 80-90 H = 385) O2 SATURATION ARTERIAL (BEAKER) 98.9 % 96.0-97.0 H (test code = 386) HCO3 ARTERIAL (BEAKER) (test 12 mmol/L 21-29 L code = 388) BASE EXCESS ARTERIAL (BEAKER) -11.0 mmol/L -2.0-3.0 L (test code = 387) PATIENT TEMPERATURE (BEAKER) 37.5 (test code = 1818) FIO2 (BEAKER) (test code = 1819) 40.0 POCT-GLUCOSE [id number] 03:20:00 Test Item Value Reference Range Interpretation Comments POC-GLUCOSE METER 184 mg/dL 70-110 H : TESTED A T 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 (test code = 6366480) Negative results do not preclude SARS-CoV-2 infection and should not be used as the sole basis for patient management decisions. Negative results must be combined with clinical observations, patient history, and epidemiological information. A false negative result may occur if a specimen is improperly collected, transported or handled.The limit of detection for this assay is 250 copies/mL.This SARS CoV-2 test is a rapid, real-time RT-PCR test intended for the qualitative detection of nucleic acid from SARS-CoV-2 in a nasopharyngeal swab specimen collected from individuals suspected of COVID-19 by their healthcare provider.This test has not been Food and Drug Administration (FDA) cleared or approved and has been authorized by FDA under an Emergency Use Authorization (EUA). This EUA will be effective until the declaration that circumstances exist justifying the authorization of the emergency use of in vitro diagnostic tests for detection and/or diagnosis of COVID-19 is terminated under Section 564(b)(2) of the Act or the EUA is revoked under Section 564(g) of the Act.Fact Sheet for Healthcare Pro viders:https://www.Search to Phone.[employer]/Documents/Xpert%20Xpress%20SARS%20CoV-2/Fact%20Sh eets/302-9762%89TPTV-LYP-3%20HEALTHCARE%20PROVIDERS%20FACT%20SHEET.pdfFact Sheet for Healthcare Patients:https://www.[employer]/Documents/Xpert%20Xpress%20SARS%20CoV-2/Fact%20Sheets/302-8671%20SARS-COV -2%20PATIENT%20FACT%20SHEET.pdfPerforming Laboratory:[facility] [place] [address]
[2021-08-08 13:01] LABS: Absolute Lymphocytes (CBC) 0.8 K/uL (0.7-4.9); Basophils % 0.2 % (0-1.3); Hematocrit 45.6 % (39.6-49.0); Lymphocytes % 5.9 % (15.3-44.8); MPV 7.3 fL (7.6-11.3); RBC Red Blood Cell Count 5.25 M/uL (4.33-5.43)
[2021-08-08 13:07] LABS: Protime INR 1.15
[2021-08-08 13:21] LABS: ALT/SGPT 45 U/L (12-78); AST/SGOT 58 U/L (15-37); Albumin 3.3 g/dL (3.4-5.0); Alkaline Phosphatase 78 U/L (45-117); BUN Blood Urea Nitrogen 24 mg/dL (7-18); Bicarbonate 20 mmol/L (21-32); Bilirubin Direct 0.2 mg/dL (0-0.2); Bilirubin Total 0.7 mg/dL (0.2-1.0); Glucose Level 161 mg/dL (74-106); Magnesium 1.9 mg/dL (1.8-2.4); Potassium 3.7 mmol/L (3.5-5.1); Protein, Total 8.1 g/dL (6.4-8.2); Sodium Level 135 mmol/L (136-145); Troponin (Emerg Dept Use Only) < 0.02 ng/mL (0.0-0.045)
--- NOTE | 2021-08-08 13:31 | RAD REPORT ---
EXAM DESCRIPTION: CT - Upper Ext Angio - 08/08/2021 1:14 pm CLINICAL HISTORY: cool pulseless ext COMPARISON: No comparisons FINDINGS: The left subclavian and axillary artery are not opacified. There is collateral flow with v essel reconstitution of the axillary artery at the level of the shoulder possibly due to collateral f low primarily from the lateral thoracic artery. Abrupt occlusion of the brachial artery just proximal to the elbow. There is reconstitution of flow a t the origin of the radial and ulnar artery is presumably due to collaterals. The anterior interosseo us artery has minimal reconstitution. No flow identified to the hand though this could be due to bolu s timing. IMPRESSION: 1. The left subclavian and most of the axillary artery are not opacified and presumably occluded. Reconstitution of the distal axillary artery is from collateral vessels. 2. 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 Minimal flow in the proximal radial, ulnar, and interosseous arteries is probably due to weak collateral flow. The d istal ulnar, radial, and interosseous arteries are unopacified and either occluded or, more likely, n ot opacified due to the scan outrunning the contrast bolus.
[2021-08-08 14:14] LABS: Blood Morphology Comment NOT SEEN (NOT SEEN); Platelet Estimate ADEQ; White Blood Cell Scan OK (OK)
--- NOTE | 2021-08-08 15:01 | EDPHYS ---
Physician Documentation [facility] Name: Patrick Sweeney Age: 61 yrs Sex: Male : 1960 Arrival Date: 08/08/2021 Time: 12:02 Bed 5 Private MD: ED Physician Michelle Nguyen HPI: 08/08 13:43 This 61 yrs old Male presents to ER via Ambulatory with complaints of Hand Pain, sp3 Numbness Of Hand. 13:43 61-year-old male with a history of Chittenden's disease, basal cell carcinoma, no prior sp3 vascular abnormality presents with left upper extremity numbness, decreased motor activity, coolness and pain. Symptoms started approximately 8 to 9 hours prior to arrival and patient ultimately sought medical attention because "it was not going away". Patient is not on any blood thinners and has not had any prior history of venous or arterial occlusion. Patient denies any other symptoms outside the left upper extremity. Historical: - Allergies: 12:25 NKDA; jh5 - PMHx: 12:25 Chittenden's disease; basil cell carcinoma; [facility] - Immunization history:: Adult Immunizations up to date. - Social history:: Smoking status: Patient denies any tobacco usage or history of. ROS: 13:46 Constitutional: Negative for fever, chills, and weight loss, Eyes: Negative for injury, sp3 pain, redness, and discharge, ENT: Negative for injury, pain, and discharge, Neck: Negative for injury, pain, and swelling, Cardiovascular: Negative for chest pain, palpitations, and edema, Respiratory: Negative for shortness of breath, cough, wheezing, and pleuritic chest pain, Abdomen/GI: Negative for abdominal pain, nausea, vomiting, diarrhea, and constipation, Back: Negative for injury and pain, Skin: Negative for injury, rash, and discoloration, Neuro: Negative for headache, weakness, numbness, tingling, and seizure. 13:46 All other systems are negative. Exam: 13:47 Constitutional: This is a well developed, well nourished patient who is awake, alert, sp3 and in no acute distress. Head/Face: Normocephalic, atraumatic. Eyes: Pupils equal round and reactive to light, extra-ocular motions intact. Lids and lashes normal. Conjunctiva and sclera are non-icteric and not injected. Cornea within normal limits. Periorbital areas with no swelling, redness, or edema. Neck: Trachea midline, no thyromegaly or masses palpated, and no cervical lymphadenopathy. Supple, full range of motion without nuchal rigidity, or vertebral point tenderness. No Meningismus. Chest/axilla: Normal chest wall appearance and motion. Nontender with no deformity. No lesions are appreciated. Cardiovascular: Regular rate and rhythm with a normal S1 and S2. No gallops, murmurs, or rubs. Normal PMI, no JVD. No pulse deficits. Respiratory: Lungs have equal breath sounds bilaterally, clear to auscultation and percussion. No rales, rhonchi or wheezes noted. No increased work of breathing, no retractions or nasal flaring. Back: No spinal tenderness. No costovertebral tenderness. Full range of motion. Skin: Warm, dry with normal turgor. Normal color with no rashes, no lesions, and no evidence of cellulitis. Psych: Awake, alert, with orientation to person, place and time. Behavior, mood, and affect are within normal limits. 13:47 Musculoskeletal/extremity: Cool and pale extremity beyond the left elbow distally. There is no radial pulse capillary refill is poor. Neurologically patient has decreased motor activity and is unable to make an okay sign with his left hand. Sensory exam is decreased but patient can still feel light touch. Two-point discrimination is not appreciated by the patient. Vibration not tested.. 15:05 ECG was reviewed by the Attending Physician. Sinus tachycardia at 100 bpm with normal sp3 intervals, normal QRS, leftward axis, normal ST/T-segment without evidence of ischemia. Vital Signs: 12:22 Pulse 108; Resp 16; Temp 97.3; Pulse Ox 100% ; Weight 85.28 kg; Height 6 ft. 0 in. jh5 (182.88 cm); 12:56 BP 128 / 79; Pulse 109; Resp 22; Temp 98.4; Pulse Ox 97% 0 lpm ; Weight 77.11 kg; sv1 13:30 BP 134 / 88; Pulse 114; Resp 17; Pulse Ox 99% on R/A; tw2 14:44 BP 119 / 77; Pulse 108; Resp 25; Pulse Ox 100% on R/A; tw2 14:55 Weight 89.3 kg; jh6 15:00 BP 137 / 93; Pulse 100; Resp 17; Pulse Ox 100% on R/A; tw2 15:46 BP 141 / 84; Pulse 105; Resp 19; Pulse Ox 99% on R/A; tw2 14:55 Body Mass Index 26.70 (89.30 kg, 182.88 cm) jh6 MDM: 12:33 Patient medically screened. sp3 13:48 Data reviewed: vital signs, nurses notes. ED course: Patient was immediately brought sp3 back from triage by nursing staff upon discovering pale cool extremity. I immediately saw the patient and we ordered a stat CT angiogram of the left upper extremity. Results reviewed demonstrate brachial artery occlusion decreased distal flow as well as a more proximal subclavian and axillary occlusion that has somewhat reconstituted collateral flow. Patient states that yesterday evening none of these symptoms were present and he was able to use his left upper extremity without difficulty. We have initiated stat transfer to vascular surgery for reocclusion. Will discuss with them on possible heparin usage prior to transfer.. 14:47 ED course: Discussed with vascular surgeon at 1448 who did recommend heparin drip and sp3 we will do an ED to ED transfer by helicopter if possible.. 14:58 ED course: Vascular surgeon was Dr. Clinton and ED physician who accepted ED to ED sp3 transfer is Dr. Mcfarland. We thank [facility]'s medical team in the [facility] for their help on this transfer.. 12 12:29 Order name: Basic Metabolic Panel; Complete Time: 13:39 sp3 08/08 12:29 Order name: CBC with Diff; Complete Time: 14:21 sp3 08/08 12:29 Order name: LFT's; Complete Time: 13:39 sp3 08/08 12:29 Order name: Magnesium; Complete Time: 13:39 sp3 08/08 12:29 Order name: PT-INR; Complete Time: 13:39 sp3 08/08 12:29 Order name: Troponin (emerg Dept Use Only); Complete Time: 13:39 sp3 08/08 12:29 Order name: EKG; Complete Time: 12:30 sp3 08/08 12:33 Order name: Upper Ext Angio; Complete Time: 13:39 EDMS 08/08 12:54 Order name: COVID-19 SARS RT PCR (Document "Date of Onset" if Symptomatic); Complete iw Time: 14:21 12 13:05 Order name: CBC Smear Scan; Complete Time: 14:21 EDMS 08/08 13:27 Order name: CREATININE WHOLE BLOOD; Complete Time: 13:39 EDMS 08/08 15:01 Order name: Ptt, Activated iw 08/08 12:29 Order name: Cardiac monitoring; Complete Time: 15:50 sp3 08/08 12:29 Order name: EKG - Nurse/Tech; Complete Time: 15:04 sp3 12 12:29 Order name: IV Saline Lock; Complete Time: 12:49 sp3 12 12:29 Order name: Labs collected and sent; Complete Time: 14:57 sp3 08/08 12:29 Order name: O2 Per Protocol; Complete Time: 12:42 sp3 08/08 12:29 Order name: O2 Sat Monitoring; Complete Time: 12:42 sp3 Administered Medications: 15:09 Drug: Heparin (DVT/PE- Bolus per protocol) - HEParin 80 units/kg {Co-Signature: edmond 6 (Eve Chen RN).} {Note: 7000 Units bolus given.} Route: IVP; Site: left wrist; 15:49 Follow up: Response: No adverse reaction sv1 15:09 Drug: Heparin (DVT/PE Drip) 18 units/kg/hr - (HEParin 11019 units, D5W 500 ml) [facility] {Co-Signature: 2 (Eve Chen RN).} {Note: 1600unit/hr.} Route: IV; Rate: calculated rate; Site: right wrist; 15:49 Follow up: IV Status: Infusion continued upon transfer sv1 Disposition Summary: 08/08/21 15:00 Transfer Ordered Transfer Location: [facility] sp3 Reason: Higher level of care sp3 Condition: Serious sp3 Problem: new sp3 Symptoms: are unchanged sp3 Accepting Physician: Dr. Clinton vascular surgery(08/08/21 15:50) sv1 Diagnosis - Brachial artery occlusion sp3 Forms: - Medication Reconciliation Form sp3 - SBAR form sp3 Signatures: Dispatcher [employer] Prachi Palacios RN RN Michelle Nguyen MD MD sp3 Mandy Mayo RN RN [facility] Victorina Maya RN RN jh6 Shakir Partida RN RN sv1 Eve Chen RN tw2 Corrections: (The following items were deleted from the chart) 15:50 15:00 Dr. Clinton vascular surgery sp3 sv1
--- NOTE | 2021-08-08 15:01 | ER ---
Nurse's Notes [facility] Name: Patrick Sweeney Age: 61 yrs Sex: Male : 1960 Arrival Date: 08/08/2021 Time: 12:02 Bed 5 Private MD: Diagnosis: Brachial artery occlusion Presentation: 08/08 12:22 Chief complaint: Patient states: my hand is purple and real numb. It's been getting jh5 worse for the last 8 hours. I didn't hit it on anything. Coronavirus screen: Vaccine status: Patient reports receiving the 2nd dose of the covid vaccine. Client denies travel out of the [place] in the last 14 days. Ebola Screen: Patient negative for fever greater than or equal to 101.5 degrees Fahrenheit, and additional compatible Ebola Virus Disease symptoms Patient denies exposure to infectious person. Patient denies travel to an Ebola-affected area in the 21 days before illness onset. No symptoms or risks identified at this time. Initial Sepsis Screen: Does the patient meet any 2 criteria? HR > 90 bpm. Does the patient have a suspected source of infection? No. Patient's initial sepsis screen is negative. Risk Assessment: Do you want to hurt yourself or someone else? Patient reports no desire to harm self or others. Onset of symptoms was August 08, 2021. 12:22 Method Of Arrival: Ambulatory [facility] 12:22 Acuity: RONNIE 2 [facility] Triage Assessment: 12:26 General: Appears uncomfortable, Behavior is calm, cooperative, appropriate for age. [facility] Pain: Denies pain. Historical: - Allergies: 12:25 NKDA; [facility] - PMHx: 12:25 [place]'s disease; basil cell carcinoma; [facility] - Immunization history:: Adult Immunizations up to date. - Social history:: Smoking status: Patient denies any tobacco usage or history of. Screenin:23 Abuse screen: Denies threats or abuse. Nutritional screening: No deficits noted. tw2 Tuberculosis screening: No symptoms or risk factors identified. Fall Risk Secondary diagnosis (15 points) impaired mobility. Assessment: 12:20 Reassessment: provider at bedside at this time. tw2 12:52 Reassessment: CT notified of blood at bedside and working IV at this time. tw2 13:00 General: CC of left arm numbness, weakness and cold to touch x 8 days. The arm is cold sv1 to touch. No palpable pulses and no finger blanching. The patient does have a history of cancer with treatment with chemo. IV was started on the right wrist with a [address] angio was ordered by the provider.. 13:55 Reassessment: provider at bedside at this time discussing results and POC. tw2 15:15 General: The patient is to be transferred to [facility] via helicopter. DR jonathan Valdez is accepting. Report ws called to Daniella GORDON. Report was accepted. Heparin drip was initiated.. Vital Signs: 12:22 Pulse 108; Resp 16; Temp 97.3; Pulse Ox 100% ; Weight 85.28 kg; Height 6 ft. 0 in. jh5 (182.88 cm); 12:56 BP 128 / 79; Pulse 109; Resp 22; Temp 98.4; Pulse Ox 97% 0 lpm ; Weight 77.11 kg; sv1 13:30 BP 134 / 88; Pulse 114; Resp 17; Pulse Ox 99% on R/A; tw2 14:44 BP 119 / 77; Pulse 108; Resp 25; Pulse Ox 100% on R/A; tw2 14:55 Weight 89.3 kg; jh6 15:00 BP 137 / 93; Pulse 100; Resp 17; Pulse Ox 100% on R/A; tw2 15:46 BP 141 / 84; Pulse 105; Resp 19; Pulse Ox 99% on R/A; tw2 14:55 Body Mass Index 26.70 (89.30 kg, 182.88 cm) 6 ED Course: 12:02 Patient arrived in ED. kc5 12:16 Bed in low position. Call light in reach. Side rails up X 1. Adult w/ patient. Pulse ox tw2 on. NIBP on. 12:25 Triage completed. jh5 12:26 Arm band placed on right wrist. jh5 12:28 Michelle Nguyen MD is Attending Physician. sp3 12:51 Inserted saline lock: 22 gauge in right wrist, using aseptic technique. 6 12:54 Shakir Partida, EVAN is Primary Nurse. sv1 12:54 No provider procedures requiring assistance completed. sv1 13:05 Upper Ext Angio Sent. sv1 13:14 Upper Ext Angio In Process Unspecified. EDMS 14:28 initiated transfer to [facility]. bd 15:40 pt accepted in transfer to [facility] by dr Mcfarland, admin approval given by cinthya Gruber. 15:49 Patient transferred, IV remains in place. sv1 Administered Medications: 15:09 Drug: Heparin (DVT/PE- Bolus per protocol) - HEParin 80 units/kg {Co-Signature: [email or web address] estelita6 (Eve Chen RN).} {Note: 7000 Units bolus given.} Route: IVP; Site: left wrist; 15:49 Follow up: Response: No adverse reaction sv1 15:09 Drug: Heparin (DVT/PE Drip) 18 units/kg/hr - (HEParin 10115 units, D5W 500 ml) 6 {Co-Signature: tw2 (Eve Chen RN).} {Note: 1600unit/hr.} Route: IV; Rate: calculated rate; Site: right wrist; 15:49 Follow up: IV Status: Infusion continued upon transfer sv1 Outcome: 15:00 ER care complete, transfer ordered by . sp3 15:48 Transferred by ground EMS to [facility]. sv1 15:48 critical 15:48 Instructed on the need for transfer, Demonstrated understanding of 15:50 Patient left the ED. sv1 Signatures: Dispatcher [employer] EDMS Michelle Hernandez Tara, RN RN tw2 Michelle Nguyen MD MD sp3 Mandy Mayo, RN RN jh5 Victorina Maya RN RN jh6 Rukhsana Figueroa 5 Shakir Partida RN RN sv1 Eve Chen RN tw2
[2021-08-08] MEDS ORDERED: HEPARIN 5000 UNIT/ML 1 ML VIAL ONE (15:03)
[2021-08-08] MEDS ORDERED: HEPARIN/D5W 25,000 UNIT/500 ML BAG IV ONE (15:03)
[2021-08-08 16:12] VITALS: TEMP 98.4
[2021-08-08 16:19] VITALS: BP 141/84; O2SAT 99
== END 2021-08-08 15:50 | disposition short-term general hospital (02) ==
LOC: ER 11:59
DX: I70.90 Unspecified atherosclerosis (principal); Z20.822 Contact with and (suspected) exposure to COVID-19
CPT/HCPCS: 96365; 93005; 85025; 80048; 36415; 83735; 85610; 82565; 80076; 85730; 84484; 73206; 99285; U0003; Q9967; J1644 ×2

== ENCOUNTER 2021-08-23 11:01 | Inpatient (IN) | payer OTHER ==
--- OUTSIDE RECORDS SUMMARY | 2021-08-23 11:08 | XMS REPORT | Continuity of Care Document ---
:1960 Author Organization [facility] t Address [address] [place] [address] Care Team Providers Name Role Phone Caryl FLEMING Attending Clinician Unavailable NINI Attending Clinician Unavailable MARCUS Attending Clinician Unavailable Caryl FLEMING Admitting Clinician Unavailable LELO COLLINS Admitting Clinician Unavailable Payers Payer Name Policy Type Policy Number Effective Date Expiration Date S [employer] [id number] 2018 00:00:00 [facility] [id number] 2021 00:00:00 Problems This patient has no known problems. Allergies, Adverse Reactions, Alerts Allergy Allergy Status Severity Reaction(s) Onset Inactive Treating Comm ents Source Name Type Date Date Clinician NO KNOWN Allergy Active [facility] Medications This patient has no known medications. Vital Signs Vital Name Observation Time Observation Value Comments Source WEIGHT 2021-03-24 06:00:00 87.5 kg WEIGHT 2021-03-13 03:00:00 70 kg HEIGHT 2021-03-13 03:00:00 180 cm WEIGHT 2021-08-14 05:20:00 92.307 kg WEIGHT 2021-08-13 06:06:00 92.352 kg WEIGHT 2021-08-12 06:28:00 94.756 kg WEIGHT 2021-08-11 04:17:00 94.711 kg WEIGHT 2021-08-09 02:00:00 110.3 kg HEIGHT 2021-08-08 16:58:00 180.3 cm WEIGHT 2021-08-08 16:58:00 87.544 kg WEIGHT 2021-08-14 05:20:00 92.307 kg WEIGHT 2021-08-13 06:06:00 92.352 kg WEIGHT 2021-08-12 06:28:00 94.756 kg WEIGHT 2021-08-11 04:17:00 94.711 kg WEIGHT 2021-08-09 02:00:00 110.3 kg HEIGHT 2021-08-08 16:58:00 180.3 cm WEIGHT 2021-08-08 16:58:00 87.544 kg WEIGHT 2021-03-24 06:00:00 87.5 kg WEIGHT 2021-03-13 03:00:00 70 kg HEIGHT 2021-03-13 03:00:00 180 cm Procedures This patient has no known procedures. Encounters Start End Encounter Admission Attending Care Care Encounter Source Date/Time Date/Time Type Type Clinicians Facility Department ID 2021-06-10 Inpatient UR LONNIE [facility] Pulmonology [id number] [facility] 04:27:01 ARMANDO 2021-08-08 2021-08-15 Inpatient ER NINI [facility] Surgery [id number] [facility] 17:00:00 12:38:00 STEFFANIE 2021-08-08 2021-08-08 Outpatient [facility] [id number] [facility] 17:00:00 23:59:00 [facility] 2021-08-08 2021-08-08 Outpatient [facility] [id number] [facility] 00:00:00 16:59:00 [facility] 2017-12-22 2017-12-22 Emergency [facility] MED [id number] [address] [place] [address] 11:20:00 11:20:00 Health Results Test Description Test Time Test Comments Results Result Comments Source HEPATIC FUNCTION PANEL 2021-08-15 06:01:46 Test Item Value Reference Range Interpretation Comme nts TOTAL PROTEIN (BEAKER) (test code = 770) 5.7 gm/dL 6.0-8.3 L ALBUMIN (BEAKER) (test code = 1145) 3.0 g/dL 3.5-5.0 L BILIRUBIN TOTAL (BEAKER) (test code = 377) 0.4 mg/dL 0.2-1.2 BILIRUBIN DIRECT (BEAKER) (test code = 706) 0.2 mg/dL 0.1-0.5 ALKALINE PHOSPHATASE (BEAKER) (test code = 346) 242 U/L 40-150 H AST (SGOT) (BEAKER) (test code = 353) 115 U/L 5-34 H ALT (SGPT) (BEAKER) (test code = 347) 163 U/L 6-55 H Foam Rubber Molder ID - EILEEN [id number] 06:01:45 Test Item Value Reference Range Interpretation Comments MAGNESIUM (BEAKER) (test code = 1.7 mg/dL 1.6-2.6 627) Foam Rubber Molder ID - EILEEN [id number] 06:01:45 Test Item Value Reference Range Interpretation Comments PHOSPHORUS (BEAKER) (test code = 3.0 mg/dL 2.3-4.7 604) Foam Rubber Molder ID - EILEEN MBASIC METABOLIC [id number] 06:01:44 Test Item Value Reference Range Interpretation Comments SODIUM (BEAKER) 137 meq/L 136-145 (test code = 381) POTASSIUM (BEAKER) 4.1 meq/L 3.5-5.1 (test code = 379) CHLORIDE (BEAKER) 110 meq/L 98-107 H (test code = 382) CO2 (BEAKER) (test 20 meq/L 22-29 L code = 355) BLOOD UREA NITROGEN 7 mg/dL 7-21 (BEAKER) (test code = 354) CREATININE (BEAKER) 0.67 mg/dL 0.57-1.25 (test code = 358) GLUCOSE RANDOM 93 mg/dL 70-105 (BEAKER) (test code = 652) CALCIUM (BEAKER) 8.1 mg/dL 8.4-10.2 L (test code = 697) EGFR (BEAKER) (test 121 mL/min/1.73 ESTIM ATED GFR IS code = 1092) sq m NOT ACCURATE CREATININE CLEARANCE IN PREDICTING GLOMERULAR FILTRATION RATE . ESTIMATED GFR I S NOT APPLICABLE FOR DIALYSIS PATIEN TS. Foam Rubber Molder ID - EILEEN MCALCIUM, [id number] 04:14:22 Test Item Value Reference Range Interpretation Comments CALCIUM IONIZED (BEAKER) (test 1.11 mmol/L 1.12-1.27 L code = 698) PH, BLOOD (BEAKER) (test code = 7.40 1810) CBC W/PLT COUNT & AUTO [id number] 03:55:47 Test Item Value Reference Range Interpretation Comments WHITE BLOOD CELL COUNT (BEAKER) 10.0 K/ L 3.5-10.5 (test code = 775) RED BLOOD CELL COUNT (BEAKER) 2.88 M/ L 4.63-6.08 L (test code = 761) HEMOGLOBIN (BEAKER) (test code = 8.5 GM/DL 13.7-17.5 L 410) HEMATOCRIT (BEAKER) (test code = 26.4 % 40.1-51.0 L 411) MEAN CORPUSCULAR VOLUME (BEAKER) 91.7 fL 79.0-92.2 (test code = 753) MEAN CORPUSCULAR HEMOGLOBIN 29.5 pg 25.7-32.2 (BEAKER) (test code = 751) MEAN CORPUSCULAR HEMOGLOBIN CONC 32.2 GM/DL 32.3-36.5 L (BEAKER) (test code = 752) RED CELL DISTRIBUTION WIDTH 13.8 % 11.6-14.4 (BEAKER) (test code = 412) PLATELET COUNT (BEAKER) (test 380 K/CU MM 150-450 code = 756) MEAN PLATELET VOLUME (BEAKER) 8.6 fL 9.4-12.4 L (test code = 754) NUCLEATED RED BLOOD CELLS 0 /100 WBC 0-0 (BEAKER) (test code = 413) NEUTROPHILS RELATIVE PERCENT 79 % (BEAKER) (test code = 429) LYMPHOCYTES RELATIVE PERCENT 11 % (BEAKER) (test code = 430) MONOCYTES RELATIVE PERCENT 7 % (BEAKER) (test code = 431) EOSINOPHILS RELATIVE PERCENT 2 % (BEAKER) (test code = 432) BASOPHILS RELATIVE PERCENT 0 % (BEAKER) (test code = 437) NEUTROPHILS ABSOLUTE COUNT 7.89 K/ L 1.78-5.38 H (BEAKER) (test code = 670) LYMPHOCYTES ABSOLUTE COUNT 1.13 K/ L 1.32-3.57 L (BEAKER) (test code = 414) MONOCYTES ABSOLUTE COUNT (BEAKER) 0.70 K/ L 0.30-0.82 (test code = 415) EOSINOPHILS ABSOLUTE COUNT 0.17 K/ L 0.04-0.54 (BEAKER) (test code = 416) BASOPHILS ABSOLUTE COUNT (BEAKER) 0.02 K/ L 0.01-0.08 (test code = 417) IMMATURE GRANULOCYTES-RELATIVE 1 % 0-1 PERCENT (BEAKER) (test code = 2801) CALCIUM, [id number] 05:16:26 Test Item Value Reference Range Interpretation Comments CALCIUM IONIZED (BEAKER) (test 1.09 mmol/L 1.12-1.27 L code = 698) PH, BLOOD (BEAKER) (test code = 7.42 1810) BASIC METABOLIC [id number] 04:58:00 Test Item Value Reference Range Interpretation Comments SODIUM (BEAKER) 139 meq/L 136-145 (test code = 381) POTASSIUM (BEAKER) 4.1 meq/L 3.5-5.1 (test code = 379) CHLORIDE (BEAKER) 109 meq/L 98-107 H (test code = 382) CO2 (BEAKER) (test 22 meq/L 22-29 code = 355) BLOOD UREA NITROGEN 7 mg/dL 7-21 (BEAKER) (test code = 354) CREATININE (BEAKER) 0.69 mg/dL 0.57-1.25 (test code = 358) GLUCOSE RANDOM 94 mg/dL 70-105 (BEAKER) (test code = 652) CALCIUM (BEAKER) 8.4 mg/dL 8.4-10.2 (test code = 697) EGFR (BEAKER) (test 117 mL/min/1.73 ESTIM ATED GFR IS code = 1092) sq m NOT ACCURATE CREATININE CLEARANCE IN PREDICTING GLOMERULAR FILTRATION RATE . ESTIMATED GFR I S NOT APPLICABLE FOR DIALYSIS PATIEN TS. Foam Rubber Molder ID - EILEEN MVITAMIN D, [id number] 04:51:55 Test Item Value Reference Range Interpretation Comments VITAMIN D 25-OH (BEAKER) (test 19.1 ng/mL 6.6-49.9 code = 2764) Effective 06/11/2017: Reference Range ChangeNew: 6.6-49.9 ng/mL Previous: 13.0-47.8 ng/mLRecommended Vitamin D Target Range: 30.0-40.0 ng/mLOperator ID - ÁNGEL LHEPATIC FUNCTION [id number] 04:51:48 Test Item Value Reference Range Interpretation Comments TOTAL PROTEIN (BEAKER) (test code = 6.0 gm/dL 6.0-8.3 770) ALBUMIN (BEAKER) (test code = 1145) 3.1 g/dL 3.5-5.0 L BILIRUBIN TOTAL (BEAKER) (test code 0.5 mg/dL 0.2-1.2 = 377) BILIRUBIN DIRECT (BEAKER) (test 0.2 mg/dL 0.1-0.5 code = 706) ALKALINE PHOSPHATASE (BEAKER) (test 281 U/L 40-150 H code = 346) AST (SGOT) (BEAKER) (test code = 185 U/L 5-34 H 353) ALT (SGPT) (BEAKER) (test code = 149 U/L 6-55 H 347) Foam Rubber Molder ID - EILEEN MCREATINE KINASE (CK)2021-08-14 04:51:48 Test Item Value Reference Range Interpretation Comments CREATINE KINASE TOTAL (BEAKER) (test 2595 U/L 29-200 H code = 380) Foam Rubber Molder ID - EILEEN [id number] 04:51:47 Test Item Value Reference Range Interpretation Comments MAGNESIUM (BEAKER) (test code = 1.9 mg/dL 1.6-2.6 627) Foam Rubber Molder ID - EILEEN [id number] 04:51:47 Test Item Value Reference Range Interpretation Comments PHOSPHORUS (BEAKER) (test code = 3.2 mg/dL 2.3-4.7 604) Foam Rubber Molder ID - EILEEN MCBC W/PLT COUNT & AUTO [id number] 04:20:37 Test Item Value Reference Range Interpretation Comments WHITE BLOOD CELL COUNT 8.7 K/ L 3.5-10.5 (BEAKER) (test code = 775) RED BLOOD CELL COUNT 3.06 M/ L 4.63-6.08 L (BEAKER) (test code = 761) HEMOGLOBIN (BEAKER) 9.2 GM/DL 13.7-17.5 L (test code = 410) HEMATOCRIT (BEAKER) 28.1 % 40.1-51.0 L (test code = 411) MEAN CORPUSCULAR 91.8 fL 79.0-92.2 Discordant result VOLUME (BEAKER) (test compar ed to previous code = 753) result. Clinica l correlation req uired MEAN CORPUSCULAR 30.1 pg 25.7-32.2 HEMOGLOBIN (BEAKER) (test code = 751) MEAN CORPUSCULAR 32.7 GM/DL 32.3-36.5 HEMOGLOBIN CONC (BEAKER) (test code = 752) RED CELL DISTRIBUTION 13.8 % 11.6-14.4 WIDTH (BEAKER) (test code = 412) PLATELET COUNT 373 K/CU MM 150-450 (BEAKER) (test code = 756) MEAN PLATELET VOLUME 8.9 fL 9.4-12.4 L (BEAKER) (test code = 754) NUCLEATED RED BLOOD 0 /100 WBC 0-0 CELLS (BEAKER) (test code = 413) NEUTROPHILS RELATIVE 76 % PERCENT (BEAKER) (test code = 429) LYMPHOCYTES RELATIVE 12 % PERCENT (BEAKER) (test code = 430) MONOCYTES RELATIVE 9 % PERCENT (BEAKER) (test code = 431) EOSINOPHILS RELATIVE 2 % PERCENT (BEAKER) (test code = 432) BASOPHILS RELATIVE 0 % PERCENT (BEAKER) (test code = 437) NEUTROPHILS ABSOLUTE 6.59 K/ L 1.78-5.38 H COUNT (BEAKER) (test code = 670) LYMPHOCYTES ABSOLUTE 1.04 K/ L 1.32-3.57 L COUNT (BEAKER) (test code = 414) MONOCYTES ABSOLUTE 0.78 K/ L 0.30-0.82 COUNT (BEAKER) (test code = 415) EOSINOPHILS ABSOLUTE 0.17 K/ L 0.04-0.54 COUNT (BEAKER) (test code = 416) BASOPHILS ABSOLUTE 0.02 K/ L 0.01-0.08 COUNT (BEAKER) (test code = 417) IMMATURE 1 % 0-1 GRANULOCYTES-RELATIVE PERCENT (BEAKER) (test code = 2801) CREATINE KINASE (CK)2021-08-13 07:03:21 Test Item Value Reference Range Interpretation Comments CREATINE KINASE TOTAL (BEAKER) (test 5473 U/L 29-200 H code = 380) Foam Rubber Molder ID - DBOperator ID - DBBASIC METABOLIC [id number] 07:03:14 Test Item Value Reference Range Interpretation Comments SODIUM (BEAKER) 139 meq/L 136-145 (test code = 381) POTASSIUM (BEAKER) 2.7 meq/L 3.5-5.1 L (test code = 379) CHLORIDE (BEAKER) 113 meq/L 98-107 H (test code = 382) CO2 (BEAKER) (test 19 meq/L 22-29 L code = 355) BLOOD UREA NITROGEN 5 mg/dL 7-21 L (BEAKER) (test code = 354) CREATININE (BEAKER) 0.58 mg/dL 0.57-1.25 (test code = 358) GLUCOSE RANDOM 72 mg/dL 70-105 (BEAKER) (test code = 652) CALCIUM (BEAKER) 6.8 mg/dL 8.4-10.2 L (test code = 697) EGFR (BEAKER) (test 142 mL/min/1.73 ESTIM ATED GFR IS code = 1092) sq m NOT ACCURATE CREATININE CLEARANCE IN PREDICTING GLOMERULAR FILTRATION RATE . ESTIMATED GFR I S NOT APPLICABLE FOR DIALYSIS PATIEN TS. Foam Rubber Molder ID - DBHEPATIC FUNCTION [id number] 06:56:53 Test Item Value Reference Range Interpretation Comments TOTAL PROTEIN (BEAKER) (test code = 5.0 gm/dL 6.0-8.3 L 770) ALBUMIN (BEAKER) (test code = 1145) 2.6 g/dL 3.5-5.0 L BILIRUBIN TOTAL (BEAKER) (test code 0.3 mg/dL 0.2-1.2 = 377) BILIRUBIN DIRECT (BEAKER) (test 0.2 mg/dL 0.1-0.5 code = 706) ALKALINE PHOSPHATASE (BEAKER) (test 81 U/L 40-150 code = 346) AST (SGOT) (BEAKER) (test code = 171 U/L 5-34 H 353) ALT (SGPT) (BEAKER) (test code = 92 U/L 6-55 H 347) Foam Rubber Molder ID - [id number] 06:56:52 Test Item Value Reference Range Interpretation Comments MAGNESIUM (BEAKER) (test code = 1.3 mg/dL 1.6-2.6 L 627) Foam Rubber Molder ID - [id number] 06:56:52 Test Item Value Reference Range Interpretation Comments PHOSPHORUS (BEAKER) (test code = 1.7 mg/dL 2.3-4.7 L 604) Foam Rubber Molder ID - [id number] 06:31:06 Test Item Value Reference Range Interpretation Comments PARTIAL THROMBOPLASTIN TIME 44.0 seconds 22.5-36.0 H (BEAKER) (test code = 760) CALCIUM, [id number] 06:28:31 Test Item Value Reference Range Interpretation Comments CALCIUM IONIZED (BEAKER) (test 0.96 mmol/L 1.12-1.27 L code = 698) PH, BLOOD (BEAKER) (test code = 7.40 1810) CBC W/PLT COUNT & AUTO [id number] 06:14:26 Test Item Value Reference Range Interpretation Comments WHITE BLOOD CELL COUNT (BEAKER) 8.4 K/ L 3.5-10.5 (test code = 775) RED BLOOD CELL COUNT (BEAKER) 2.62 M/ L 4.63-6.08 L (test code = 761) HEMOGLOBIN (BEAKER) (test code = 7.7 GM/DL 13.7-17.5 L 410) HEMATOCRIT (BEAKER) (test code = 22.4 % 40.1-51.0 L 411) MEAN CORPUSCULAR VOLUME (BEAKER) 85.5 fL 79.0-92.2 (test code = 753) MEAN CORPUSCULAR HEMOGLOBIN 29.4 pg 25.7-32.2 (BEAKER) (test code = 751) MEAN CORPUSCULAR HEMOGLOBIN CONC 34.4 GM/DL 32.3-36.5 (BEAKER) (test code = 752) RED CELL DISTRIBUTION WIDTH 13.1 % 11.6-14.4 (BEAKER) (test code = 412) PLATELET COUNT (BEAKER) (test 285 K/CU MM 150-450 code = 756) MEAN PLATELET VOLUME (BEAKER) 9.1 fL 9.4-12.4 L (test code = 754) NUCLEATED RED BLOOD CELLS 0 /100 WBC 0-0 (BEAKER) (test code = 413) NEUTROPHILS RELATIVE PERCENT 79 % (BEAKER) (test code = 429) LYMPHOCYTES RELATIVE PERCENT 12 % (BEAKER) (test code = 430) MONOCYTES RELATIVE PERCENT 5 % (BEAKER) (test code = 431) EOSINOPHILS RELATIVE PERCENT 2 % (BEAKER) (test code = 432) BASOPHILS RELATIVE PERCENT 0 % (BEAKER) (test code = 437) NEUTROPHILS ABSOLUTE COUNT 6.64 K/ L 1.78-5.38 H (BEAKER) (test code = 670) LYMPHOCYTES ABSOLUTE COUNT 1.04 K/ L 1.32-3.57 L (BEAKER) (test code = 414) MONOCYTES ABSOLUTE COUNT (BEAKER) 0.44 K/ L 0.30-0.82 (test code = 415) EOSINOPHILS ABSOLUTE COUNT 0.17 K/ L 0.04-0.54 (BEAKER) (test code = 416) BASOPHILS ABSOLUTE COUNT (BEAKER) 0.02 K/ L 0.01-0.08 (test code = 417) IMMATURE GRANULOCYTES-RELATIVE 1 % 0-1 PERCENT (BEAKER) (test code = 2801) [id number] 11:56:57 Test Item Value Reference Range Interpretation Comments PARTIAL THROMBOPLASTIN TIME 69.9 seconds 22.5-36.0 H (BEAKER) (test code = 760) CTA, CHEST, ABDOMEN - PELVIS, FOR [id number] 09:57:00Please prepare 3D reconstruction Reason for exam:->Evaluate for central thrombus [facility] : 1960 Sex: MFINAL REPORT CTA CHEST, ABDOMEN, PELVIS with and without IV CONTRAST: HISTORY: Unlisted Reason for ExamEvaluate for central thrombus COMPARISON: 03/13/2021 TECHNIQUE: CTA of the chest, abdomen and pelvis WITHOUT and WITH intravenous contrast and WITHOUT oral contrast. Dose modulation, iterative reconstruction, and/or weight-based adjustment of the mA/kV was utilized to reduce the radiation dose to as low as reasonably achievable. IV CONTRAST: See scanned sheet in Epic ORAL CONTRAST: None RADIATION DOSE: Total DLP: 1938 mGy*cm COMPLICATIONS: NoneFindings: Vascular findings: Thoracoabdominal aorta is of normal caliber without dissection, aneurysm or acute intramural hematoma. No atherosclerotic changes are noted. No penetrating atherosclerotic ulceration.Normal three-vessel branching pattern of the arch. Visualized carotid and vertebral arteries are unremarkable. Visualized portions of the subclavian and brachial and axillary arteries are unremarkable. Celiac, superior mesenteric, dominant right and accessory inferiorright and single left left and inferior mesenteric arteries are unremarkable.Common, internal and ext ernal iliac arteries are unremarkable. Common femoral and proximal superficial femoral and profunda arteries are unremarkable. Proximal pulmonary artery is negative for intra-arterial embolism. Main pulmonary artery is of normal caliber. Nonvascular findings:: LINES/ TUBES: None. LUNGS AND AIRWAYS: Mild to moderate emphysematous changes are noted with a apical predominance. Basilar atelectasis is noted. No pulmonary edema. No suspicious pulmonary nodule or mass. PLEURA: Trace bilateral pleural effusions are noted. Negative for pneumothorax. HEART AND MEDIASTINUM: The thyroid gland is normal. No m ediastinal, hilar or axillary lymphadenopathy. The heart is normal in size.. There is no pericardial effusion. No right ventricular enlargement or bowing of the interventricular septum. HEPATOBILIARY: No focal hepatic lesions. Gallbladder is surgically absent. No biliary ductal dilatation.SPLEEN: No splenomegaly.PANCREAS: No focal masses or ductal dilatation. ADRENALS: No adrenal nodules.KIDNEYS/URETERS: Negative for renal calculus. Symmetric cortical enhancement without hydronephrosis, suspiciousmass or surrounding inflammatory changes. Negative for perinephric fluid collection. Ureters are not dilated.PELVIC ORGANS/BLADDER: Carballo catheter noted within the bladder. Prostate is unremarkable.. PERITONEUM/RETROPERITONEUM: No free air or fluid.LYMPH NODES: No lymphadenopathy. GI TRACT: Limited due to lack of oral contrast. Negative for bowel obstruction. Diffuse wall thickening of the distal descending, sigmoid colon or rectum are noted. Mild surrounding inflammatory changes are noted. No drainable collection noted. Normal appendix is noted.. BONES AND SOFT TISSUES: No acute osseous abnormality. Severe degenerative changes of the mid to lower thoracic spine and lumbar spine are noted. No suspicious destructive or sclerotic process is identified.. IMPRESSION:Vascular:1. No thrombus is identifi ed within the arteries of the chest, abdomen and pelvis. Negative for dissection, aneurysm or atherosclerotic disease. Nonvascular:1. Small left and trace right effusions with overlying atelectasis.2. Background of emphysematous changes.3. Diffuse wall thickening with mild surrounding inflammatory changes of the distal descending, sigmoid colon and rectum concerning for colitis. No adjacent fluid collection is noted. Signed: Duane Nguyen MDReport Verified Date/Time: 08/12/2021 09:57:02 Reading Location: [address] Transitional Reading Room [id number] 06:16:07 Test Item Value Reference Range Interpretation Comments PHOSPHORUS (BEAKER) (test code = 1.6 mg/dL 2.3-4.7 L 604) Foam Rubber Molder ID - DBBASIC METABOLIC [id number] 03:15:07 Test Item Value Reference Range Interpretation Comments SODIUM (BEAKER) 140 meq/L 136-145 (test code = 381) POTASSIUM (BEAKER) 4.0 meq/L 3.5-5.1 (test code = 379) CHLORIDE (BEAKER) 113 meq/L 98-107 H (test code = 382) CO2 (BEAKER) (test 21 meq/L 22-29 L code = 355) BLOOD UREA NITROGEN 5 mg/dL 7-21 L (BEAKER) (test code = 354) CREATININE (BEAKER) 0.65 mg/dL 0.57-1.25 (test code = 358) GLUCOSE RANDOM 97 mg/dL 70-105 (BEAKER) (test code = 652) CALCIUM (BEAKER) 7.9 mg/dL 8.4-10.2 L (test code = 697) EGFR (BEAKER) (test 125 mL/min/1.73 ESTIM ATED GFR IS code = 1092) sq m NOT ACCURATE CREATININE CLEARANCE IN PREDICTING GLOMERULAR FILTRATION RATE . ESTIMATED GFR I S NOT APPLICABLE FOR DIALYSIS PATIEN TS. Foam Rubber Molder ID - MANUEL WCREATINE KINASE (CK)2021-08-12 03:15:02 Test Item Value Reference Range Interpretation Comments CREATINE KINASE TOTAL (BEAKER) 76730 U/L 29-200 H (test code = 380) Foam Rubber Molder ID - MANUEL WOperator ID - MANUEL [id number] 03:04:17 Test Item Value Reference Range Interpretation Comments MAGNESIUM (BEAKER) (test code = 1.6 mg/dL 1.6-2.6 627) Foam Rubber Molder ID - MANUEL WHEPATIC FUNCTION [id number] 03:04:17 Test Item Value Reference Range Interpretation Comments TOTAL PROTEIN (BEAKER) (test code = 5.5 gm/dL 6.0-8.3 L 770) ALBUMIN (BEAKER) (test code = 1145) 2.9 g/dL 3.5-5.0 L BILIRUBIN TOTAL (BEAKER) (test code 0.2 mg/dL 0.2-1.2 = 377) BILIRUBIN DIRECT (BEAKER) (test 0.1 mg/dL 0.1-0.5 code = 706) ALKALINE PHOSPHATASE (BEAKER) (test 60 U/L 40-150 code = 346) AST (SGOT) (BEAKER) (test code = 216 U/L 5-34 H 353) ALT (SGPT) (BEAKER) (test code = 89 U/L 6-55 H 347) Foam Rubber Molder ID Moraima JACKSON [id number] 02:44:53 Test Item Value Reference Range Interpretation Comments PARTIAL THROMBOPLASTIN TIME 97.2 seconds 22.5-36.0 H (BEAKER) (test code = 760) CBC W/PLT COUNT & AUTO [id number] 02:34:14 Test Item Value Reference Range Interpretation Comments WHITE BLOOD CELL COUNT (BEAKER) 7.9 K/ L 3.5-10.5 (test code = 775) RED BLOOD CELL COUNT (BEAKER) 2.99 M/ L 4.63-6.08 L (test code = 761) HEMOGLOBIN (BEAKER) (test code = 9.0 GM/DL 13.7-17.5 L 410) HEMATOCRIT (BEAKER) (test code = 25.9 % 40.1-51.0 L 411) MEAN CORPUSCULAR VOLUME (BEAKER) 86.6 fL 79.0-92.2 (test code = 753) MEAN CORPUSCULAR HEMOGLOBIN 30.1 pg 25.7-32.2 (BEAKER) (test code = 751) MEAN CORPUSCULAR HEMOGLOBIN CONC 34.7 GM/DL 32.3-36.5 (BEAKER) (test code = 752) RED CELL DISTRIBUTION WIDTH 13.0 % 11.6-14.4 (BEAKER) (test code = 412) PLATELET COUNT (BEAKER) (test 253 K/CU MM 150-450 code = 756) MEAN PLATELET VOLUME (BEAKER) 9.1 fL 9.4-12.4 L (test code = 754) NUCLEATED RED BLOOD CELLS 0 /100 WBC 0-0 (BEAKER) (test code = 413) NEUTROPHILS RELATIVE PERCENT 78 % (BEAKER) (test code = 429) LYMPHOCYTES RELATIVE PERCENT 13 % (BEAKER) (test code = 430) MONOCYTES RELATIVE PERCENT 7 % (BEAKER) (test code = 431) EOSINOPHILS RELATIVE PERCENT 1 % (BEAKER) (test code = 432) BASOPHILS RELATIVE PERCENT 0 % (BEAKER) (test code = 437) NEUTROPHILS ABSOLUTE COUNT 6.10 K/ L 1.78-5.38 H (BEAKER) (test code = 670) LYMPHOCYTES ABSOLUTE COUNT 1.05 K/ L 1.32-3.57 L (BEAKER) (test code = 414) MONOCYTES ABSOLUTE COUNT (BEAKER) 0.57 K/ L 0.30-0.82 (test code = 415) EOSINOPHILS ABSOLUTE COUNT 0.10 K/ L 0.04-0.54 (BEAKER) (test code = 416) BASOPHILS ABSOLUTE COUNT (BEAKER) 0.01 K/ L 0.01-0.08 (test code = 417) IMMATURE GRANULOCYTES-RELATIVE 1 % 0-1 PERCENT (BEAKER) (test code = 2801) [id number] 19:32:19 Test Item Value Reference Range Interpretation Comments PARTIAL THROMBOPLASTIN TIME 59.1 seconds 22.5-36.0 H (BEAKER) (test code = 760) CREATINE KINASE (CK)2021-08-11 16:18:19 Test Item Value Reference Range Interpretation Comments CREATINE KINASE TOTAL (BEAKER) 63522 U/L 29-200 H (test code = 380) Foam Rubber Molder ID - EILEEN MOperator ID - EILEEN MBASIC METABOLIC [id number] 12:35:52 Test Item Value Reference Range Interpretation Comments SODIUM (BEAKER) 138 meq/L 136-145 (test code = 381) POTASSIUM (BEAKER) 3.1 meq/L 3.5-5.1 L (test code = 379) CHLORIDE (BEAKER) 110 meq/L 98-107 H (test code = 382) CO2 (BEAKER) (test 20 meq/L 22-29 L code = 355) BLOOD UREA NITROGEN 5 mg/dL 7-21 L (BEAKER) (test code = 354) CREATININE (BEAKER) 0.67 mg/dL 0.57-1.25 (test code = 358) GLUCOSE RANDOM 103 mg/dL 70-105 (BEAKER) (test code = 652) CALCIUM (BEAKER) 7.9 mg/dL 8.4-10.2 L (test code = 697) EGFR (BEAKER) (test 121 mL/min/1.73 ESTIM ATED GFR IS code = 1092) sq m NOT ACCURATE CREATININE CLEARANCE IN PREDICTING GLOMERULAR FILTRATION RATE . ESTIMATED GFR I S NOT APPLICABLE FOR DIALYSIS PATIEN TS. Foam Rubber Molder ID - DBHEPATIC FUNCTION [id number] 12:19:52 Test Item Value Reference Range Interpretation Comments TOTAL PROTEIN (BEAKER) (test code = 5.8 gm/dL 6.0-8.3 L 770) ALBUMIN (BEAKER) (test code = 1145) 3.0 g/dL 3.5-5.0 L BILIRUBIN TOTAL (BEAKER) (test code 0.2 mg/dL 0.2-1.2 = 377) BILIRUBIN DIRECT (BEAKER) (test 0.2 mg/dL 0.1-0.5 code = 706) ALKALINE PHOSPHATASE (BEAKER) (test 67 U/L 40-150 code = 346) AST (SGOT) (BEAKER) (test code = 217 U/L 5-34 H 353) ALT (SGPT) (BEAKER) (test code = 81 U/L 6-55 H 347) Fo[employer] Rubber Molder ID - [id number] 12:19:51 Test Item Value Reference Range Interpretation Comments MAGNESIUM (BEAKER) (test code = 1.6 mg/dL 1.6-2.6 627) Foam Rubber Molder ID - [id number] 12:14:26 Test Item Value Reference Range Interpretation Comments PARTIAL THROMBOPLASTIN TIME 36.4 seconds 22.5-36.0 H (BEAKER) (test code = 760) CBC W/PLT COUNT & AUTO [id number] 11:51:48 Test Item Value Reference Range Interpretation Comments WHITE BLOOD CELL COUNT (BEAKER) 9.0 K/ L 3.5-10.5 (test code = 775) RED BLOOD CELL COUNT (BEAKER) 3.22 M/ L 4.63-6.08 L (test code = 761) HEMOGLOBIN (BEAKER) (test code = 9.7 GM/DL 13.7-17.5 L 410) HEMATOCRIT (BEAKER) (test code = 28.8 % 40.1-51.0 L 411) MEAN CORPUSCULAR VOLUME (BEAKER) 89.4 fL 79.0-92.2 (test code = 753) MEAN CORPUSCULAR HEMOGLOBIN 30.1 pg 25.7-32.2 (BEAKER) (test code = 751) MEAN CORPUSCULAR HEMOGLOBIN CONC 33.7 GM/DL 32.3-36.5 (BEAKER) (test code = 752) RED CELL DISTRIBUTION WIDTH 13.1 % 11.6-14.4 (BEAKER) (test code = 412) PLATELET COUNT (BEAKER) (test 247 K/CU MM 150-450 code = 756) MEAN PLATELET VOLUME (BEAKER) 9.3 fL 9.4-12.4 L (test code = 754) NUCLEATED RED BLOOD CELLS 0 /100 WBC 0-0 (BEAKER) (test code = 413) NEUTROPHILS RELATIVE PERCENT 77 % (BEAKER) (test code = 429) LYMPHOCYTES RELATIVE PERCENT 14 % (BEAKER) (test code = 430) MONOCYTES RELATIVE PERCENT 6 % (BEAKER) (test code = 431) EOSINOPHILS RELATIVE PERCENT 1 % (BEAKER) (test code = 432) BASOPHILS RELATIVE PERCENT 0 % (BEAKER) (test code = 437) NEUTROPHILS ABSOLUTE COUNT 6.93 K/ L 1.78-5.38 H (BEAKER) (test code = 670) LYMPHOCYTES ABSOLUTE COUNT 1.29 K/ L 1.32-3.57 L (BEAKER) (test code = 414) MONOCYTES ABSOLUTE COUNT (BEAKER) 0.57 K/ L 0.30-0.82 (test code = 415) EOSINOPHILS ABSOLUTE COUNT 0.13 K/ L 0.04-0.54 (BEAKER) (test code = 416) BASOPHILS ABSOLUTE COUNT (BEAKER) 0.01 K/ L 0.01-0.08 (test code = 417) IMMATURE GRANULOCYTES-RELATIVE 1 % 0-1 PERCENT (BEAKER) (test code = 2801) [id number] 05:14:26 Test Item Value Reference Range Interpretation Comments PARTIAL THROMBOPLASTIN TIME 23.8 seconds 22.5-36.0 (BEAKER) (test code = 760) CREATINE KINASE (CK)2021-08-10 07:02:18 Test Item Value Reference Range Interpretation Comments CREATINE KINASE TOTAL (BEAKER) 83711 U/L 29-200 H (test code = 380) Foam Rubber Molder ID - FLAVIO GOperator ID - FLAVIO GBASIC METABOLIC [id number] 06:11:46 Test Item Value Reference Range Interpretation Comments SODIUM (BEAKER) 137 meq/L 136-145 (test code = 381) POTASSIUM (BEAKER) 3.3 meq/L 3.5-5.1 L Specimen slightly (test code = 379) hemolyzed CHLORIDE (BEAKER) 113 meq/L 98-107 H (test code = 382) CO2 (BEAKER) (test 17 meq/L 22-29 L code = 355) BLOOD UREA NITROGEN 9 mg/dL 7-21 (BEAKER) (test code = 354) CREATININE (BEAKER) 0.69 mg/dL 0.57-1.25 Specimen slightly (test code = 358) hemolyzed GLUCOSE RANDOM 84 mg/dL 70-105 (BEAKER) (test code = 652) CALCIUM (BEAKER) 7.1 mg/dL 8.4-10.2 L (test code = 697) EGFR (BEAKER) (test 117 mL/min/1.73 ESTIM ATED GFR IS code = 1092) sq m NOT ACCURATE CREATININE CLEARANCE IN PREDICTING GLOMERULAR FILTRATION RATE . ESTIMATED GFR I S NOT APPLICABLE FOR DIALYSIS PATIEN TS. Foam Rubber Molder ID - [id number] 06:10:57 Test Item Value Reference Range Interpretation Comments PHOSPHORUS (BEAKER) 1.4 mg/dL 2.3-4.7 LL Specimen slightly (test code = 604) hemolyzed Foam Rubber Molder ID - DBHEPATIC FUNCTION [id number] 06:10:42 Test Item Value Reference Range Interpretation Comments TOTAL PROTEIN (BEAKER) 5.1 gm/dL 6.0-8.3 L Speci men slightly (test code = 770) hemolyzed ALBUMIN (BEAKER) (test 2.6 g/dL 3.5-5.0 L Speci men slightly code = 1145) hemolyzed BILIRUBIN TOTAL 0.5 mg/dL 0.2-1.2 Specimen sli ghtly (BEAKER) (test code = hemoly zed 377) BILIRUBIN DIRECT 0.1 mg/dL 0.1-0.5 Specimen sl ightly (BEAKER) (test code = hemoly zed 706) ALKALINE PHOSPHATASE 58 U/L 40-150 (BEAKER) (test code = 346) AST (SGOT) (BEAKER) 187 U/L 5-34 H Specimen slightly (test code = 353) hemolyzed ALT (SGPT) (BEAKER) 72 U/L 6-55 H Specimen slightly (test code = 347) hemolyzed Foam Rubber Molder ID - [id number] 06:10:41 Test Item Value Reference Range Interpretation Comments MAGNESIUM (BEAKER) 1.6 mg/dL 1.6-2.6 Specimen slightly (test code = 627) hemolyzed Foam Rubber Molder ID - [id number] 05:53:15 Test Item Value Reference Range Interpretation Comments PARTIAL THROMBOPLASTIN TIME 90.3 seconds 22.5-36.0 H (BEAKER) (test code = 760) CBC W/PLT COUNT & AUTO [id number] 05:48:29 Test Item Value Reference Range Interpretation Comments WHITE BLOOD CELL COUNT (BEAKER) 7.0 K/ L 3.5-10.5 (test code = 775) RED BLOOD CELL COUNT (BEAKER) 2.99 M/ L 4.63-6.08 L (test code = 761) HEMOGLOBIN (BEAKER) (test code = 9.1 GM/DL 13.7-17.5 L 410) HEMATOCRIT (BEAKER) (test code = 27.3 % 40.1-51.0 L 411) MEAN CORPUSCULAR VOLUME (BEAKER) 91.3 fL 79.0-92.2 (test code = 753) MEAN CORPUSCULAR HEMOGLOBIN 30.4 pg 25.7-32.2 (BEAKER) (test code = 751) MEAN CORPUSCULAR HEMOGLOBIN CONC 33.3 GM/DL 32.3-36.5 (BEAKER) (test code = 752) RED CELL DISTRIBUTION WIDTH 13.2 % 11.6-14.4 (BEAKER) (test code = 412) PLATELET COUNT (BEAKER) (test 187 K/CU MM 150-450 code = 756) MEAN PLATELET VOLUME (BEAKER) 9.6 fL 9.4-12.4 (test code = 754) NUCLEATED RED BLOOD CELLS 0 /100 WBC 0-0 (BEAKER) (test code = 413) NEUTROPHILS RELATIVE PERCENT 78 % (BEAKER) (test code = 429) LYMPHOCYTES RELATIVE PERCENT 13 % (BEAKER) (test code = 430) MONOCYTES RELATIVE PERCENT 8 % (BEAKER) (test code = 431) EOSINOPHILS RELATIVE PERCENT 1 % (BEAKER) (test code = 432) BASOPHILS RELATIVE PERCENT 0 % (BEAKER) (test code = 437) NEUTROPHILS ABSOLUTE COUNT 5.46 K/ L 1.78-5.38 H (BEAKER) (test code = 670) LYMPHOCYTES ABSOLUTE COUNT 0.92 K/ L 1.32-3.57 L (BEAKER) (test code = 414) MONOCYTES ABSOLUTE COUNT (BEAKER) 0.59 K/ L 0.30-0.82 (test code = 415) EOSINOPHILS ABSOLUTE COUNT 0.04 K/ L 0.04-0.54 (BEAKER) (test code = 416) BASOPHILS ABSOLUTE COUNT (BEAKER) 0.01 K/ L 0.01-0.08 (test code = 417) IMMATURE GRANULOCYTES-RELATIVE 0 % 0-1 PERCENT (BEAKER) (test code = 2801) CREATINE KINASE (CK)2021-08-10 01:55:49 Test Item Value Reference Range Interpretation Comments CREATINE KINASE TOTAL (BEAKER) 64645 U/L 29-200 H (test code = 380) Foam Rubber Molder ID - DBOperator ID - [id number] 23:23:47 Test Item Value Reference Range Interpretation Comments PARTIAL THROMBOPLASTIN TIME 104.0 seconds 22.5-36.0 H (BEAKER) (test code = 760) CREATINE KINASE (CK)2021-08-09 17:59:47 Test Item Value Reference Range Interpretation Comments CREATINE KINASE TOTAL (BEAKER) (test > U/L 29-200 H code = 380) Foam Rubber Molder ID - DBCREATINE KINASE (CK)2021-08-09 13:22:22 Test Item Value Reference Range Interpretation Comments CREATINE KINASE TOTAL (BEAKER) 51725 U/L 29-200 H (test code = 380) Foam Rubber Molder ID - EILEEN [id number] 11:51:07 Test Item Value Reference Range Interpretation Comments PARTIAL THROMBOPLASTIN TIME 42.8 seconds 22.5-36.0 H (BEAKER) (test code = 760) CREATINE KINASE (CK)2021-08-09 08:43:04 Test Item Value Reference Range Interpretation Comments CREATINE KINASE TOTAL (BEAKER) 65157 U/L 29-200 H (test code = 380) Foam Rubber Molder ID Moraima ARELLANO MHEPATIC FUNCTION [id number] 08:14:21 Test Item Value Reference Range Interpretation Comments TOTAL PROTEIN (BEAKER) (test code = 6.6 gm/dL 6.0-8.3 770) ALBUMIN (BEAKER) (test code = 1145) 3.6 g/dL 3.5-5.0 BILIRUBIN TOTAL (BEAKER) (test code 1.0 mg/dL 0.2-1.2 = 377) BILIRUBIN DIRECT (BEAKER) (test 0.6 mg/dL 0.1-0.5 H code = 706) ALKALINE PHOSPHATASE (BEAKER) (test 91 U/L 40-150 code = 346) AST (SGOT) (BEAKER) (test code = 287 U/L 5-34 H 353) ALT (SGPT) (BEAKER) (test code = 110 U/L 6-55 H 347) Foam Rubber Molder ID - EILEEN [id number] 08:14:20 Test Item Value Reference Range Interpretation Comments MAGNESIUM (BEAKER) (test code = 1.7 mg/dL 1.6-2.6 627) Foam Rubber Molder ID - EILEEN [id number] 08:14:20 Test Item Value Reference Range Interpretation Comments PHOSPHORUS (BEAKER) (test code = 3.8 mg/dL 2.3-4.7 604) Foam Rubber Molder ID - EILEEN MBASIC METABOLIC [id number] 08:14:19 Test Item Value Reference Range Interpretation Comments SODIUM (BEAKER) 137 meq/L 136-145 (test code = 381) POTASSIUM (BEAKER) 4.4 meq/L 3.5-5.1 (test code = 379) CHLORIDE (BEAKER) 107 meq/L 98-107 (test code = 382) CO2 (BEAKER) (test 20 meq/L 22-29 L code = 355) BLOOD UREA NITROGEN 20 mg/dL 7-21 (BEAKER) (test code = 354) CREATININE (BEAKER) 1.11 mg/dL 0.57-1.25 (test code = 358) GLUCOSE RANDOM 117 mg/dL 70-105 H (BEAKER) (test code = 652) CALCIUM (BEAKER) 8.6 mg/dL 8.4-10.2 (test code = 697) EGFR (BEAKER) (test 67 mL/min/1.73 ESTIMA HA GFR IS code = 1092) sq m NOT ACCURATE CREATININE CLEARANCE IN PREDICTING GLOMERULAR FILTRATION RATE . ESTIMATED GFR I S NOT APPLICABLE FOR DIALYSIS PATIEN TS. Foam Rubber Molder ID - EILEEN MCBC W/PLT COUNT & AUTO [id number] 03:41:13 Test Item Value Reference Range Interpretation Comments WHITE BLOOD CELL COUNT 12.9 K/ L 3.5-10.5 H (BEAKER) (test code = 775) RED BLOOD CELL COUNT 4.02 M/ L 4.63-6.08 L (BEAKER) (test code = 761) HEMOGLOBIN (BEAKER) 12.2 GM/DL 13.7-17.5 L Discorda nt with (test code = 410) previous.c linical correlation is required. HEMATOCRIT (BEAKER) 35.5 % 40.1-51.0 L (test code = 411) MEAN CORPUSCULAR 88.3 fL 79.0-92.2 VOLUME (BEAKER) (test code = 753) MEAN CORPUSCULAR 30.3 pg 25.7-32.2 HEMOGLOBIN (BEAKER) (test code = 751) MEAN CORPUSCULAR 34.4 GM/DL 32.3-36.5 HEMOGLOBIN CONC (BEAKER) (test code = 752) RED CELL DISTRIBUTION 12.7 % 11.6-14.4 WIDTH (BEAKER) (test code = 412) PLATELET COUNT 254 K/CU MM 150-450 (BEAKER) (test code = 756) MEAN PLATELET VOLUME 9.4 fL 9.4-12.4 (BEAKER) (test code = 754) NUCLEATED RED BLOOD 0 /100 WBC 0-0 CELLS (BEAKER) (test code = 413) NEUTROPHILS RELATIVE 88 % PERCENT (BEAKER) (test code = 429) LYMPHOCYTES RELATIVE 5 % PERCENT (BEAKER) (test code = 430) MONOCYTES RELATIVE 7 % PERCENT (BEAKER) (test code = 431) EOSINOPHILS RELATIVE 0 % PERCENT (BEAKER) (test code = 432) BASOPHILS RELATIVE 0 % PERCENT (BEAKER) (test code = 437) NEUTROPHILS ABSOLUTE 11.33 K/ L 1.78-5.38 H COUNT (BEAKER) (test code = 670) LYMPHOCYTES ABSOLUTE 0.65 K/ L 1.32-3.57 L COUNT (BEAKER) (test code = 414) MONOCYTES ABSOLUTE 0.88 K/ L 0.30-0.82 H COUNT (BEAKER) (test code = 415) EOSINOPHILS ABSOLUTE 0.00 K/ L 0.04-0.54 L COUNT (BEAKER) (test code = 416) BASOPHILS ABSOLUTE 0.02 K/ L 0.01-0.08 COUNT (BEAKER) (test code = 417) IMMATURE 0 % 0-1 GRANULOCYTES-RELATIVE PERCENT (BEAKER) (test code = 2801) [id number] 03:13:06 Test Item Value Reference Range Interpretation Comments PARTIAL THROMBOPLASTIN TIME 31.7 seconds 22.5-36.0 (BEAKER) (test code = 760) [id number] 23:43:24 Test Item Value Reference Range Interpretation Comments ACTIVATED CLOTTING TIME 273 sec : 74 -137 seconds, (BEAKER) (test code = Baseli ne: TESTED AT 441) [facility] [address] [facility] [place], [address]: Foam Rubber Molder/Techni juan josé ID = [id number] for CARLTON CORRALES CALCIUM, [id number] 21:27:29 Test Item Value Reference Range Interpretation Comments CALCIUM IONIZED (BEAKER) (test 0.97 mmol/L 1.12-1.27 L code = 698) PH, BLOOD (BEAKER) (test code = 7.37 1810) BLOOD GAS, [id number] 21:27:28 Test Item Value Reference Range Interpretation Comments PH VENOUS (BEAKER) (test code = 7.38 7.32-7.42 701) PCO2 VENOUS (BEAKER) (test code = 30 mm Hg 41-51 L 755) PO2 VENOUS (BEAKER) (test code = 100 mm Hg 25-40 H 702) O2 SATURATION VENOUS (BEAKER) 97.7 % 40.0-70.0 H (test code = 703) HCO3 VENOUS (BEAKER) (test code = 18 mmol/L 21-29 L 705) BASE EXCESS VENOUS (BEAKER) (test -6.4 mmol/L -2.0-3.0 L code = 704) PATIENT TEMPERATURE (BEAKER) 36.3 (test code = 1818) FIO2 (BEAKER) (test code = 1819) 60.0 PH, [id number] 21:27:08 Test Item Value Reference Range Interpretation Comments PH VENOUS (BEAKER) (test code = 701) 7.38 7.32-7.42 HGB/HCT (H&H) - STAT [id number] 21:23:47 Test Item Value Reference Range Interpretation Comments HEMOGLOBIN (BEAKER) (test code = 16.3 GM/DL 13.0-16.8 410) HEMATOCRIT (BEAKER) (test code = 48.0 % 40.0-50.0 411) GLUCOSE-STAT [id number] 21:23:46 Test Item Value Reference Range Interpretation Comments GLUCOSE RANDOM (BEAKER) (test code = 94 mg/dL 70-110 652) SARS-COV2/RT-PCR ([facility])2021-08-08 19:16:14 Test Item Value Reference Range Interpretation Comments SARS-COV2/RT-PCR Negative Negative The SARS-Co V-2 target (test code = nucleic acids a re not [id number]) detected in thi s specimen. Negative result s do not preclude SARS-C oV-2 infection and s hould not be used as the stephon e basis for patient managem ent decisions. Nega tive results must be combine d with clinical observ ations, patient history , and epidemiological information. A false negativ e result may occur if a spec imen is improperly xavier ected, transported or handled. This SARS CoV-2 test is a rapid, real-guerline e RT-PCR test intended for th e qualitative detection of nu cleic acid from SARS-CoV-2 in a nasopharyngeal swab specimen collected from individuals suspected of CO VID-19 by their healthcar e provider. This test has been authorized by FDA under an EUA for use by authorized laboratories. This test is only authorized for the duration of the declaration that circumstances exist justifying the authorization of emergency use of in vitro diagnostic tests for detection and/or diagnosis of COVID-19 under Section 564(b)(1) of the Federal Food, Drug and Cosmetic Act, 21 U.S.C. 360bbb- 3(b)(1), unless the authorization is terminated or revoked sooner. Fact Sheet for Healthcare Providers: https://www.hCentive/Documents/Xpert%20Xpress%20SARS%20CoV-2/Fact%20Sheets/302-3802%20SARS-COV -2%20HEALTHCARE%20PROVIDERS%20FACT%20SHEET.pdf Fact Sheet for Healthcare Patients: https://www.listedplaces/Documents/Xpert %20Xpress%20SARS%20CoV-2/Fact%20Sheets/302-3801%23VGKC-LNV-1%20PATIENT%20FACT%20 SHEET.[id number] 18:02:31 Test Item Value Reference Range Interpretation Comments PARTIAL THROMBOPLASTIN TIME 106.3 seconds 22.5-36.0 H (BEAKER) (test code = 760) COMPREHENSIVE METABOLIC [id number] 18:01:06 Test Item Value Reference Range Interpretation Comments TOTAL PROTEIN 8.7 gm/dL 6.0-8.3 H Specimen marke dly (BEAKER) (test code = hemoly zed 770) ALBUMIN (BEAKER) 4.0 g/dL 3.5-5.0 Specimen ma rkedly (test code = 1145) hemolyzed ALKALINE PHOSPHATASE 78 U/L 40-150 (BEAKER) (test code = 346) BILIRUBIN TOTAL 0.7 mg/dL 0.2-1.2 Specimen mar kedly (BEAKER) (test code = hemoly zed 377) SODIUM (BEAKER) (test 132 meq/L 136-145 L code = 381) POTASSIUM (BEAKER) 5.4 meq/L 3.5-5.1 H Specimen markedly (test code = 379) hemolyzed CHLORIDE (BEAKER) 99 meq/L 98-107 (test code = 382) CO2 (BEAKER) (test 17 meq/L 22-29 L code = 355) BLOOD UREA NITROGEN 21 mg/dL 7-21 (BEAKER) (test code = 354) CREATININE (BEAKER) 1.13 mg/dL 0.57-1.25 Specimen markedly (test code = 358) hemolyzed GLUCOSE RANDOM 144 mg/dL 70-105 H (BEAKER) (test code = 652) CALCIUM (BEAKER) 9.8 mg/dL 8.4-10.2 (test code = 697) AST (SGOT) (BEAKER) 107 U/L 5-34 H Specimen markedly (test code = 353) hemolyzed ALT (SGPT) (BEAKER) 51 U/L 6-55 Specimen markedly (test code = 347) hemolyzed EGFR (BEAKER) (test 66 mL/min/1.73 ESTIMA HA GFR IS code = 1092) sq m NOT ACCURATE CREATININE CLEARANCE IN PREDICTING GLOMERULAR FILTRATION RATE . ESTIMATED GFR I S NOT APPLICABLE FOR DIALYSIS PATIEN TS. Foam Rubber Molder ID - BSPROTHROMBIN TIME/[id number] 17:55:05 Test Item Value Reference Range Interpretation Comments PROTIME (BEAKER) 14.4 seconds 11.9-14.2 H (test code = 759) INR (BEAKER) (test 1.14 See_Comment [Automat ed message] code = 370) The system [employer] generated this result transmitted ref erence range: <=5.90. The reference range was not used to int erpret this result as normal/abnormal . RECOMMENDED COUMADIN/WARFARIN INR THERAPY RANGESSTANDARD DOSE: 2.0 - 3.0 Includes: PROPHYLAXIS forvenous thrombosis, systemic embolization; TREATMENT for venous thrombosis and/or pulmonary embolus.HIGH RISK: Target INR is 2.5-3.5 for patients with mechanical heart valves.CBC W/PLT COUNT & AUTO DIFFERENTIAL 2021-08-08 17:50:41 Test Item Value Reference Range Interpretation Comments WHITE BLOOD CELL COUNT (BEAKER) 15.0 K/ L 3.5-10.5 H (test code = 775) RED BLOOD CELL COUNT (BEAKER) 5.58 M/ L 4.63-6.08 (test code = 761) HEMOGLOBIN (BEAKER) (test code = 16.8 GM/DL 13.7-17.5 410) HEMATOCRIT (BEAKER) (test code = 48.6 % 40.1-51.0 411) MEAN CORPUSCULAR VOLUME (BEAKER) 87.1 fL 79.0-92.2 (test code = 753) MEAN CORPUSCULAR HEMOGLOBIN 30.1 pg 25.7-32.2 (BEAKER) (test code = 751) MEAN CORPUSCULAR HEMOGLOBIN CONC 34.6 GM/DL 32.3-36.5 (BEAKER) (test code = 752) RED CELL DISTRIBUTION WIDTH 12.9 % 11.6-14.4 (BEAKER) (test code = 412) PLATELET COUNT (BEAKER) (test 348 K/CU MM 150-450 code = 756) MEAN PLATELET VOLUME (BEAKER) 9.3 fL 9.4-12.4 L (test code = 754) NUCLEATED RED BLOOD CELLS 0 /100 WBC 0-0 (BEAKER) (test code = 413) NEUTROPHILS RELATIVE PERCENT 83 % (BEAKER) (test code = 429) LYMPHOCYTES RELATIVE PERCENT 9 % (BEAKER) (test code = 430) MONOCYTES RELATIVE PERCENT 7 % (BEAKER) (test code = 431) EOSINOPHILS RELATIVE PERCENT 0 % (BEAKER) (test code = 432) BASOPHILS RELATIVE PERCENT 0 % (BEAKER) (test code = 437) NEUTROPHILS ABSOLUTE COUNT 12.50 K/ L 1.78-5.38 H (BEAKER) (test code = 670) LYMPHOCYTES ABSOLUTE COUNT 1.28 K/ L 1.32-3.57 L (BEAKER) (test code = 414) MONOCYTES ABSOLUTE COUNT (BEAKER) 1.11 K/ L 0.30-0.82 H (test code = 415) EOSINOPHILS ABSOLUTE COUNT 0.01 K/ L 0.04-0.54 L (BEAKER) (test code = 416) BASOPHILS ABSOLUTE COUNT (BEAKER) 0.03 K/ L 0.01-0.08 (test code = 417) IMMATURE GRANULOCYTES-RELATIVE 0 % 0-1 PERCENT (BEAKER) (test code = 2801) POCT-GLUCOSE [id number] 16:21:00 Test Item Value Reference Range Interpretation Comments POC-GLUCOSE METER 163 mg/dL 70-110 H : TESTED A T [facility] [address] (BEAKER) (test code = [place], 1538) [address]: Foam Rubber Molder/Techni juan josé ID = [id number] for Mitesh streeter (contract) Lakhwinder sebastiann POCT-GLUCOSE [id number] 11:31:00 Test Item Value Reference Range Interpretation Comments POC-GLUCOSE METER 114 mg/dL 70-110 H : TESTED A T [facility] [address] (BEAKER) (test code = [facility] Ralph [facility], 1538) [address]: Foam Rubber Molder/Techni juan josé ID = [id number] for Mitesh syl (contract), Lakhwinder pennington POCT-GLUCOSE [id number] 07:28:00 Test Item Value Reference Range Interpretation Comments POC-GLUCOSE METER 111 mg/dL 70-110 H : TESTED A T [facility] [address] (BEAKER) (test code = [facility], 1538) [address]: Foam Rubber Molder/Techni juan josé ID = [id number] for Mitesh syl (contract), Lakhwinder pennington COMPREHENSIVE METABOLIC [id number] 06:46:00 Test Item Value Reference Range Interpretation [...] S NOT APPLICABLE FOR DIALYSIS PATIEN TS. Foam Rubber Molder ID - EILEEN [id number] 06:46:00 Test Item Value Reference Range Interpretation Comments MAGNESIUM (BEAKER) (test code = 1.9 mg/dL 1.6-2.6 627) Foam Rubber Molder ID - EILEEN [id number] 06:46:00 Test Item Value Reference Range Interpretation Comments PHOSPHORUS (BEAKER) (test code = 3.8 mg/dL 2.3-4.7 604) Foam Rubber Molder ID - EILEEN MCBC W/PLT COUNT & AUTO [id number] 05:58:00 Test Item Value Reference Range Interpretation [...] PERCENT (BEAKER) (test code = 2801) POCT-GLUCOSE [id number] 22:12:00 Test Item Value Reference Range Interpretation Comments POC-GLUCOSE METER 137 mg/dL 70-110 H : TESTED A T [facility] 6720 (BEAKER) (test code = [facility], [facility]) [address]: Foam Rubber Molder/Techni juan josé ID = [id number] for Naun Alvarez POCT-GLUCOSE [id number] 17:03:00 Test Item Value Reference Range Interpretation Comments POC-GLUCOSE METER 153 mg/dL 70-110 H : TESTED A T [facility] 67[address] (BEAKER) (test code = [facility], 153) [address]: Foam Rubber Molder/Techni juan josé ID = [id number] for DE LEON TALAMANTES POCT-GLUCOSE [id number] 21:15:00 Test Item Value Reference Range Interpretation Comments POC-GLUCOSE METER 158 mg/dL 70-110 H : TESTED A T [facility] 6720 (BEAKER) (test code = [facility], 1538) [address]: Foam Rubber Molder/Techni juan josé ID = [id number] for MS IBI, MNCEDISI POCT-GLUCOSE [id number] 16:52:00 Test Item Value Reference Range Interpretation Comments POC-GLUCOSE METER 152 mg/dL 70-110 H : TESTED A T [facility] [address]20 (BEAKER) (test code = [facility], 1538) [address]: Foam Rubber Molder/Techni juan josé ID = [id number] for Mitesh streeter (contract)Lakhwinder POCT-GLUCOSE [id number] 11:22:00 Test Item Value Reference Range Interpretation Comments POC-GLUCOSE METER 116 mg/dL 70-110 H : TESTED A T [facility] [address] (BEAKER) (test code = [place]AST[place], 1538) [address]: Foam Rubber Molder/Techni juan josé ID = [id number] for Mitesh streeter (contract), Lakhwinder pennington COMPREHENSIVE METABOLIC [id number] 10:55:00 Test Item Value Reference Range Interpretation [...] S NOT APPLICABLE FOR DIALYSIS PATIEN TS. Foam Rubber Molder ID - AUBREY [id number] 10:55:00 Test Item Value Reference Range Interpretation Comments MAGNESIUM (BEAKER) (test code = 1.7 mg/dL 1.6-2.6 627) Foam Rubber Molder ID - AUBREY [id number] 10:55:00 Test Item Value Reference Range Interpretation Comments PHOSPHORUS (BEAKER) (test code = 2.4 mg/dL 2.3-4.7 604) Foam Rubber Molder ID - AUBREY CC-REACTIVE [id number] 10:55:00 Test Item Value Reference Range Interpretation Comments C-REACTIVE PROTEIN (BEAKER) (test 4.56 mg/dL 0.00-0.50 H code = 676) Foam Rubber Molder ID - AUBREY CCBC W/PLT COUNT & AUTO [id number] 10:23:00 Test Item Value Reference Range Interpretation [...] PERCENT (BEAKER) (test code = 2801) POCT-GLUCOSE [id number] 08:01:00 Test Item Value Reference Range Interpretation Comments POC-GLUCOSE METER 105 mg/dL 70-110 : TESTED A T [facility] 6720 (BEAKER) (test code = [facility], [facility]) [id number]: Foam Rubber Molder/Techni juan josé ID = [id number] for Mitesh streeter (contract) Lakhwinder sebastiann POCT-GLUCOSE [id number] 20:30:00 Test Item Value Reference Range Interpretation Comments POC-GLUCOSE METER 152 mg/dL 70-110 H : TESTED A T [facility] 6720 (BEAKER) (test code = [facility], 1538) [address]: Foam Rubber Molder/Techni juan josé ID = [id number] for Vi ce (contract), Petra le POCT-GLUCOSE [id number] 16:06:00 Test Item Value Reference Range Interpretation Comments POC-GLUCOSE METER 160 mg/dL 70-110 H : TESTED A T [facility] 6720 (BEAKER) (test code = [facility], 1538) [address]: Foam Rubber Molder/Techni juan josé ID = [id number] for Vi ce (contract), Petra le POCT-GLUCOSE [id number] 11:39:00 Test Item Value Reference Range Interpretation Comments POC-GLUCOSE METER 95 mg/dL 70-110 : TESTED A T [facility] 6720 (BEAKER) (test code = [facility], 1538) [address]: Foam Rubber Molder/Techni juan josé ID = [id number] for Vice (contract), Petra le POCT-GLUCOSE [id number] 08:00:00 Test Item Value Reference Range Interpretation Comments POC-GLUCOSE METER 102 mg/dL 70-110 : TESTED A T [facility] 6720 (BEAKER) (test code = [facility], 1538) [address]: Foam Rubber Molder/Techni juan josé ID = [id number] for WALKER GATICA DD [id number] 06:02:00 Test Item Value Reference Range Interpretation Comments MAGNESIUM (BEAKER) 1.8 mg/dL 1.6-2.6 Specimen slightly (test code = 627) hemolyzed Foam Rubber Molder ID - MANUEL [id number] 06:02:00 Test Item Value Reference Range Interpretation Comments PHOSPHORUS (BEAKER) 2.4 mg/dL 2.3-4.7 Specimen slightly (test code = 604) hemolyzed Foam Rubber Molder ID - MANUEL WCOMPREHENSIVE METABOLIC [id number] 06:02:00 Test Item Value Reference Range Interpretation [...] S NOT APPLICABLE FOR DIALYSIS PATIEN TS. Foam Rubber Molder ID - MANUEL WCBC W/PLT COUNT & AUTO [id number] 05:22:00 Test Item Value Reference Range Interpretation [...] PERCENT (BEAKER) (test code = 2801) POCT-GLUCOSE [id number] 22:50:00 Test Item Value Reference Range Interpretation Comments POC-GLUCOSE METER 154 mg/dL 70-110 H : TESTED A T [facility] 6720 (BEAKER) (test code = [facility], 153) [address]: Foam Rubber Molder/Techni juan josé ID = [id number] for Anuj gifford (contract), Nydia xis POCT-GLUCOSE [id number] 16:24:00 Test Item Value Reference Range Interpretation Comments POC-GLUCOSE METER 151 mg/dL 70-110 H : TESTED A T [facility] 6720 (BEAKER) (test code = [facility], 153) [address]: Foam Rubber Molder/Techni juan josé ID = [id number] for Won santos (contract), Enr ique CBC W/PLT COUNT & AUTO [id number] 12:04:00 Test Item Value Reference Range Interpretation [...] (BEAKER) (test code Normal = 486) POCT-GLUCOSE [id number] 11:28:00 Test Item Value Reference Range Interpretation Comments POC-GLUCOSE METER 110 mg/dL 70-110 : TESTED A T [facility] 6720 (BEAKER) (test code = SOO Rosas [place], 1538) 13821: Foam Rubber Molder/Techni juan josé ID = [id number] for Min (contract)Wen POCT-GLUCOSE [id number] 07:48:00 Test Item Value Reference Range Interpretation Comments POC-GLUCOSE METER 99 mg/dL 70-110 : TESTED A T [facility] 6720 (BEAKER) (test code = SOO [place], 153) 10625: Foam Rubber Molder/Techni juan josé ID = [id number] for CELENA CAMACHO COMPREHENSIVE METABOLIC [id number] 03:32:00 Test Item Value Reference Range Interpretation [...] S NOT APPLICABLE FOR DIALYSIS PATIEN TS. Foam Rubber Molder ID - EILEEN [id number] 03:32:00 Test Item Value Reference Range Interpretation Comments MAGNESIUM (BEAKER) (test code = 1.9 mg/dL 1.6-2.6 627) Foam Rubber Molder ID - EILEEN [id number] 03:32:00 Test Item Value Reference Range Interpretation Comments PHOSPHORUS (BEAKER) (test code = 2.4 mg/dL 2.3-4.7 604) Foam Rubber Molder ID - EILEEN MPOCT-GLUCOSE [id number] 23:26:00 Test Item Value Reference Range Interpretation Comments POC-GLUCOSE METER 153 mg/dL 70-110 H : TESTED A T [facility] 6720 (BEAKER) (test code = [facility], 153) 74290: Foam Rubber Molder/Techni juan josé ID = [id number] for Anuj gifford (contract), Nydia xis POCT-GLUCOSE [id number] 16:19:00 Test Item Value Reference Range Interpretation Comments POC-GLUCOSE METER 139 mg/dL 70-110 H : TESTED A T [facility] 6720 (BEAKER) (test code = [facility], 153) 91457: Foam Rubber Molder/Techni juan josé ID = [id number] for Won santos (contract), Enr ique POCT-GLUCOSE [id number] 11:50:00 Test Item Value Reference Range Interpretation Comments POC-GLUCOSE METER 122 mg/dL 70-110 H : TESTED A T [facility] 6720 (BEAKER) (test code = [facility], 153) 19308: Foam Rubber Molder/Techni juan josé ID = [id number] for Won santos (contract), Enr ique CBC W/PLT COUNT & AUTO [id number] 10:27:00 Test Item Value Reference Range Interpretation [...] (BEAKER) (test code Normal = 762) POCT-GLUCOSE [id number] 07:52:00 Test Item Value Reference Range Interpretation Comments POC-GLUCOSE METER 102 mg/dL 70-110 : TESTED A T [facility] 6720 (BEAKER) (test code = [facility], 1538) 79045: Foam Rubber Molder/Techni juan josé ID = [id number] for Won santos (contract)Kaushik POCT-GLUCOSE [id number] 06:18:00 Test Item Value Reference Range Interpretation Comments POC-GLUCOSE METER 124 mg/dL 70-110 H : TESTED A T [facility] 6720 (BEAKER) (test code = [facility], 1538) 76936: Foam Rubber Molder/Techni juan josé ID = [id number] for TRISTA RAUSCH COMPREHENSIVE METABOLIC [id number] 05:36:00 Test Item Value Reference Range Interpretation [...] S NOT APPLICABLE FOR DIALYSIS PATIEN TS. Foam Rubber Molder ID - EILEEN [id number] 05:36:00 Test Item Value Reference Range Interpretation Comments MAGNESIUM (BEAKER) (test code = 2.1 mg/dL 1.6-2.6 627) Foam Rubber Molder ID - EILEEN [id number] 05:36:00 Test Item Value Reference Range Interpretation Comments PHOSPHORUS (BEAKER) (test code = 3.1 mg/dL 2.3-4.7 604) Foam Rubber Molder ID - EILEEN MPOCT-GLUCOSE [id number] 00:28:00 Test Item Value Reference Range Interpretation Comments POC-GLUCOSE METER 132 mg/dL 70-110 H : TESTED A T [facility] 6720 (GreenlotsAKER) (test code = [facility], 153) 78391: Foam Rubber Molder/Techni juan josé ID = [id number] for NO BAN HOLLISA POCT-GLUCOSE [id number] 23:55:00 Test Item Value Reference Range Interpretation Comments POC-GLUCOSE METER 128 mg/dL 70-110 H : TESTED A T [facility] 6720 (BEAKER) (test code = [facility], 153) 60847: Foam Rubber Molder/Techni juan josé ID = [id number] for Anuj gifford (contract)Nydia POCT-GLUCOSE [id number] 16:55:00 Test Item Value Reference Range Interpretation Comments POC-GLUCOSE METER 153 mg/dL 70-110 H : TESTED A T [facility] 6720 (BEAKER) (test code [facility], = 1538) 65095: Foam Rubber Molder/Techni juan josé ID = [id number] for IRA HANDY POCT-GLUCOSE [id number] 11:48:00 Test Item Value Reference Range Interpretation Comments POC-GLUCOSE METER 171 mg/dL 70-110 H : TESTED A T [facility] 6720 (BEAKER) (test code [facility], = 1538) 36951: Foam Rubber Molder/Techni juan josé ID = [id number] for IRA HANDY BLOOD [id number] 09:01:00 Test Item Value Reference Range Interpretation Comments CULTURE (BEAKER) (test No growth in 5 days code = 1095) BLOOD [id number] 09:01:00 Test Item Value Reference Range Interpretation Comments CULTURE (BEAKER) (test No growth in 5 days code = 1095) CREATINE KINASE (CK)2021-03-18 08:20:00 Test Item Value Reference Range Interpretation Comments CREATINE KINASE TOTAL (BEAKER) (test 927 U/L 29-200 H code = 380) Foam Rubber Molder ID - ÁNGEL LB-TYPE NATRIURETIC FACTOR (BNP)2021-03-18 07:51:00 Test Item Value Reference Range Interpretation Comments B-TYPE NATRIURETIC PEPTIDE (BEAKER) 33 pg/mL 0-100 (test code = 700) Foam Rubber Molder ID - EILEEN MPOCT-GLUCOSE [id number] 06:52:00 Test Item Value Reference Range Interpretation Comments POC-GLUCOSE METER 113 mg/dL 70-110 H : TESTED A T [facility] 6720 (BEAKER) (test code = SOO Rosas [facility], 1538) 91837: Foam Rubber Molder/Techni juan josé ID = [id number] for Anuj gifford (contract), Nydia xis [id number] 05:13:00 Test Item Value Reference Range Interpretation Comments FERRITIN (BEAKER) (test code = 1142.94 ng/mL 5.00-275.00 H 361) Foam Rubber Molder ID - ÁNGEL LLACTATE DEHYDROGENASE (LDH)2021-03-18 05:05:00 Test Item Value Reference Range Interpretation Comments LACTATE DEHYDROGENASE 617 U/L 125-220 H Specim en slightly (BEAKER) (test code = hemoly zed 635) Foam Rubber Molder ID - ÁNGEL [id number] 04:59:00 Test Item Value Reference Range Interpretation Comments MAGNESIUM (BEAKER) 1.9 mg/dL 1.6-2.6 Specimen slightly (test code = 627) hemolyzed Foam Rubber Molder ID - ÁNGEL [id number] 04:59:00 Test Item Value Reference Range Interpretation Comments PHOSPHORUS (BEAKER) 2.7 mg/dL 2.3-4.7 Specimen slightly (test code = 604) hemolyzed Foam Rubber Molder ID - ÁNGEL LCOMPREHENSIVE METABOLIC [id number] 04:59:00 Test Item Value Reference Range Interpretation [...] S NOT APPLICABLE FOR DIALYSIS PATIEN TS. Foam Rubber Molder ID Moraima NEAL LC-REACTIVE [id number] 04:59:00 Test Item Value Reference Range Interpretation Comments C-REACTIVE PROTEIN (BEAKER) (test 10.26 mg/dL 0.00-0.50 H code = 676) Foam Rubber Molder ID Moraima NEAL LCBC W/PLT COUNT & AUTO [id number] 03:11:00 Test Item Value Reference Range Interpretation [...] PERCENT (BEAKER) (test code = 2801) POCT-GLUCOSE [id number] 00:35:00 Test Item Value Reference Range Interpretation Comments POC-GLUCOSE METER 117 mg/dL 70-110 H : TESTED A T [facility] 6720 ([facility]) (test code = [facility], 1538) 90513: Foam Rubber Molder/Techni juan josé ID = [id number] for Ga balta (contract), Nydia xis POCT-GLUCOSE [id number] 17:47:00 Test Item Value Reference Range Interpretation Comments POC-GLUCOSE METER 145 mg/dL 70-110 H : TESTED A T [facility] 6720 ([facility]) (test code = [facility], 1538) 07346: Foam Rubber Molder/Techni juan josé ID = [id number] for Pa ppas, Maggie B-TYPE NATRIURETIC FACTOR (BNP)2021-03-17 16:07:00 Test Item Value Reference Range Interpretation Comments B-TYPE NATRIURETIC PEPTIDE (BEAKER) 87 pg/mL 0-100 (test code = 700) Foam Rubber Molder ID - DBLACTATE DEHYDROGENASE (LDH)2021-03-17 15:45:00 Test Item Value Reference Range Interpretation Comments LACTATE DEHYDROGENASE 593 U/L 125-220 H Specim en slightly (BEAKER) (test code = hemoly zed 635) Foam Rubber Molder ID - DBC-REACTIVE [id number] 15:42:00 Test Item Value Reference Range Interpretation Comments C-REACTIVE PROTEIN (BEAKER) (test 14.47 mg/dL 0.00-0.50 H code = 676) Foam Rubber Molder ID - DBRAD, CHEST, 1 VIEW, NON [id number] 12:32:00Reason for exam:- >worsening O2 requirementShould this be performed at the bedside?->Yes [facility] 1960 Sex: MFINAL REPORT [...] of atelectasis, consolidation, or pleural effusion. Signed: Sonia Watson Verified Date/Time: 03/17/2021 12:32:53 POCT-GLUCOSE [id number] 06:32:00 Test Item Value Reference Range Interpretation Comments POC-GLUCOSE METER 119 mg/dL 70-110 H : TESTED A T [facility] 6720 (BEAKER) (test code = [place], 1538) 82153: Foam Rubber Molder/Techni juan josé ID = [id number] for TRISTA RAUSCH [id number] 06:31:00 Test Item Value Reference Range Interpretation Comments MAGNESIUM (BEAKER) (test code = 2.1 mg/dL 1.6-2.6 627) Foam Rubber Molder ID - EILEEN MCOMPREHENSIVE METABOLIC [id number] 05:54:00 Test Item Value Reference Range Interpretation [...] S NOT APPLICABLE FOR DIALYSIS PATIEN TS. Foam Rubber Molder ID - EILEEN [id number] 05:54:00 Test Item Value Reference Range Interpretation Comments PHOSPHORUS (BEAKER) (test code = 2.7 mg/dL 2.3-4.7 604) Foam Rubber Molder ID - EILEEN [id number] 05:31:00 Test Item Value Reference Range Interpretation [...] within 95-100% range.CBC W/PLT COUNT & AUTO [id number] 05:19:00 Test Item Value Reference Range Interpretation [...] PERCENT (BEAKER) (test code = 2801) POCT-GLUCOSE [id number] 00:36:00 Test Item Value Reference Range Interpretation Comments POC-GLUCOSE METER 122 mg/dL 70-110 H : TESTED A T [facility] 6720 (BEAKER) (test code = [facility], 1538) 43032: Foam Rubber Molder/Techni juan josé ID = [id number] for TRISTA RAUSCH [id number] 17:53:00 Test Item Value Reference Range Interpretation Comments MAGNESIUM (BEAKER) (test code = 2.0 mg/dL 1.6-2.6 627) Foam Rubber Molder ID - [id number] 17:53:00 Test Item Value Reference Range Interpretation Comments POTASSIUM (BEAKER) (test code = 4.0 meq/L 3.5-5.1 379) Foam Rubber Molder ID - DBPOCT-GLUCOSE [id number] 16:56:00 Test Item Value Reference Range Interpretation Comments POC-GLUCOSE METER 150 mg/dL 70-110 H : TESTED A T [facility] 6720 (BEAKER) (test code = [facility], 153) 85421: Foam Rubber Molder/Techni juan josé ID = [id number] for Mitesh streeter (contract)Lakhwinder [id number] 14:23:00 Test Item Value Reference Range Interpretation Comments POTASSIUM (BEAKER) (test code = 3.0 meq/L 3.5-5.1 L 379) Foam Rubber Molder ID - ÁNGEL [id number] 14:23:00 Test Item Value Reference Range Interpretation Comments MAGNESIUM (BEAKER) (test code = 2.1 mg/dL 1.6-2.6 627) Foam Rubber Molder ID - ÁNGEL LRAD, CHEST, 1 VIEW, NON [id number] 11:47:00Reason for exam:->Increasing o2, COVIDShould this be performed at the bedside?->Yes [facility] 1960 Sex: MFINAL REPORT [...] MDReport Verified Date/Time: 03/16/2021 11:47:36 Reading Location: [facility] Radiology Reading Room POCT-GLUCOSE [id number] 11:16:00 Test Item Value Reference Range Interpretation Comments POC-GLUCOSE METER 122 mg/dL 70-110 H : TESTED A T [facility] 6720 (LEOPOLDO) (test code = [place], 1538) 52174: Foam Rubber Molder/Techni juan josé ID = [id number] for Mitesh streeter (contract) Lakhwinder pennington VANCOMYCIN LEVEL, [id number] 10:27:00 Test Item Value Reference Range Interpretation Comments VANCOMYCIN TROUGH (LEOPOLDO) (test 4.2 ug/mL 10.0-20.0 L code = 522) Foam Rubber Molder ID - PIAYA LCOMPREHENSIVE METABOLIC [id number] 07:41:00 Test Item Value Reference Range Interpretation [...] S NOT APPLICABLE FOR DIALYSIS PATIEN TS. Foam Rubber Molder ID - [id number] 07:41:00 Test Item Value Reference Range Interpretation Comments MAGNESIUM (BEAKER) (test code = 1.5 mg/dL 1.6-2.6 L 627) Foam Rubber Molder ID - [id number] 07:41:00 Test Item Value Reference Range Interpretation Comments PHOSPHORUS (BEAKER) (test code = 1.6 mg/dL 2.3-4.7 L 604) Foam Rubber Molder ID - EDASICREATINE KINASE (CK)2021-03-16 07:41:00 Test Item Value Reference Range Interpretation Comments CREATINE KINASE TOTAL (BEAKER) (test 1652 U/L 29-200 H code = 380) Foam Rubber Molder ID - EDASICBC W/PLT COUNT & AUTO [id number] 07:39:00 Test Item Value Reference Range Interpretation [...] PERCENT (BEAKER) (test code = 2801) POCT-GLUCOSE [id number] 07:17:00 Test Item Value Reference Range Interpretation Comments POC-GLUCOSE METER 72 mg/dL 70-110 : TESTED A T [facility] 6720 (BEAKER) (test code = [facility], 1538) 44891: Foam Rubber Molder/Techni juan josé ID = [id number] for [facility] (contract), Lakhwinder pennington POCT-GLUCOSE [id number] 21:54:00 Test Item Value Reference Range Interpretation Comments POC-GLUCOSE METER 87 mg/dL 70-110 : TESTED A T [facility] 6720 (BEAKER) (test code = [facility], 1538) 96790: Foam Rubber Molder/Techni juan josé ID = [id number] for RICHY C (V), LAUREN POCT-GLUCOSE [id number] 16:34:00 Test Item Value Reference Range Interpretation Comments POC-GLUCOSE METER 98 mg/dL 70-110 : TESTED A T [facility] 6720 (BEAKER) (test code = [facility], 1538) 12543: Foam Rubber Molder/Techni juan josé ID = [id number] for [facility] (contract), Lakhwinder pennington SPUTUM CULTURE + GRAM [id number] 13:02:00 Test Item Value Reference Range Interpretation Comments CULTURE (BEAKER) 3+ Normal respiratory (test code = 1095) edmund present GRAM STAIN RESULT 2+ WBCs (BEAKER) (test code = 1123) GRAM STAIN RESULT 0-5 epithelial cells (BEAKER) (test code = 59008) GRAM STAIN RESULT <1+ gram negative rods (BEAKER) (test code = 53465) GRAM STAIN RESULT <1+ gram positive rods (BEAKER) (test code = 401148) GRAM STAIN RESULT 1+ gram positive cocci (BEAKER) (test code = in pairs 771048) GRAM STAIN RESULT 1+ gram positive cocci (BEAKER) (test code = in clusters 519797) POCT-GLUCOSE [id number] 11:36:00 Test Item Value Reference Range Interpretation Comments POC-GLUCOSE METER 94 mg/dL 70-110 : TESTED A T [facility] 6720 (BEAKER) (test code = SOO Rosas [place], 1538) 48805: Foam Rubber Molder/Techni juan josé ID = [id number] for Che er (contract)Lakhwinder POCT-GLUCOSE [id number] 05:40:00 Test Item Value Reference Range Interpretation Comments POC-GLUCOSE METER 105 mg/dL 70-110 : TESTED A T [facility] 6720 (BEAKER) (test code = SOO [place], 1538) 84882: Foam Rubber Molder/Techni juan josé ID = [id number] for DE GRETTA (V), LAUREN COMPREHENSIVE METABOLIC [id number] 04:17:00 Test Item Value Reference Range Interpretation [...] S NOT APPLICABLE FOR DIALYSIS PATIEN TS. Foam Rubber Molder ID - ÁNGEL [id number] 04:14:00 Test Item Value Reference Range Interpretation Comments MAGNESIUM (BEAKER) (test code = 2.1 mg/dL 1.6-2.6 627) Foam Rubber Molder ID - ÁNGEL [id number] 04:14:00 Test Item Value Reference Range Interpretation Comments PHOSPHORUS (BEAKER) (test code = 1.9 mg/dL 2.3-4.7 L 604) Foam Rubber Molder ID - ÁNGEL LCREATINE KINASE (CK)2021-03-15 04:14:00 Test Item Value Reference Range Interpretation Comments CREATINE KINASE TOTAL (BEAKER) (test 2168 U/L 29-200 H code = 380) Foam Rubber Molder ID - ÁNGEL LCBC W/PLT COUNT & AUTO [id number] 03:14:00 Test Item Value Reference Range Interpretation [...] PERCENT (BEAKER) (test code = 2801) POCT-GLUCOSE [id number] 21:30:00 Test Item Value Reference Range Interpretation Comments POC-GLUCOSE METER 105 mg/dL 70-110 : TESTED A T [facility] 6720 ([facility]) (test code = [facility], 1538) 24207: Foam Rubber Molder/Techni juan josé ID = [id number] for RODRIGUEZ GRETTA (V)LAUREN POCT-GLUCOSE [id number] 18:43:00 Test Item Value Reference Range Interpretation Comments POC-GLUCOSE METER 109 mg/dL 70-110 : TESTED A T [facility] 6720 ([facility]) (test code = [facility], 1538) 45382: Foam Rubber Molder/Techni juan josé ID = [id number] for ROGELIO LOREDO VANCOMYCIN LEVEL, [id number] 16:55:00 Test Item Value Reference Range Interpretation Comments VANCOMYCIN TROUGH (AKER) (test 4.1 ug/mL 10.0-20.0 L code = 522) Foam Rubber Molder ID - BSPOCT-GLUCOSE [id number] 13:20:00 Test Item Value Reference Range Interpretation Comments POC-GLUCOSE METER 141 mg/dL 70-110 H : TESTED A T [facility] 6720 (LEOPOLDO) (test code = [place], 1538) 27225: Foam Rubber Molder/Techni juan josé ID = [id number] for Alix Hart CT, [id number] 10:54:00Unlisted Reason for Exam - Click Yes and Enter Reason Below->YesUnlisted Reason for Exam->Severe sepsis, Biloma vs hematomat at site of cholecystectomy in 2019Will this procedure require oral contrast?->No[facility] : 1960 Sex: MFINAL REPORT [...] No aggressive osseous lesion. Impression:Uncomplicated pancolitis. Signed: Kim, [place] MDReport Verified Date/Time: 03/14/2021 10:54:36 Reading Location: [facility] Diagnostic Imaging Reading Room - [place] [address] 1129 POCT-GLUCOSE [id number] 09:25:00 Test Item Value Reference Range Interpretation Comments POC-GLUCOSE METER 129 mg/dL 70-110 H : TESTED A T [facility] 6720 (BEAKER) (test code = SOO Rosas [facility], 1538) 37947: Foam Rubber Molder/Techni juan josé ID = [id number] for Alix Hart [id number] 08:54:00 Test Item Value Reference Range Interpretation Comments AMYLASE (BEAKER) (test code = 349) 182 U/L 25-125 H Foam Rubber Molder ID - EMERSONLACTIC ACID, [id number] 07:43:00 Test Item Value Reference Range Interpretation Comments LACTATE BLOOD VENOUS (2) (BEAKER) 1.44 mmol/L 0.50-2.20 (test code = 2872) Foam Rubber Molder ID - EMERSONPOCT-GLUCOSE [id number] 05:59:00 Test Item Value Reference Range Interpretation Comments POC-GLUCOSE METER 114 mg/dL 70-110 H : TESTED A T [facility] 6720 (BEAKER) (test code = SOO Rosas [facility], 1538) 35418: Foam Rubber Molder/Techni juan josé ID = [id number] for RODRIGUEZ GRETTA (V), LAUREN CBC W/PLT COUNT & AUTO [id number] 05:30:00 Test Item Value Reference Range Interpretation [...] (BEAKER) (test code = 2801) COMPREHENSIVE METABOLIC [id number] 05:22:00 Test Item Value Reference Range Interpretation [...] S NOT APPLICABLE FOR DIALYSIS PATIEN TS. Foam Rubber Molder ID - EILEEN [id number] 05:08:00 Test Item Value Reference Range Interpretation Comments MAGNESIUM (BEAKER) (test code = 2.3 mg/dL 1.6-2.6 627) Foam Rubber Molder ID - EILEEN [id number] 05:08:00 Test Item Value Reference Range Interpretation Comments PHOSPHORUS (BEAKER) (test code = 1.8 mg/dL 2.3-4.7 L 604) Foam Rubber Molder ID - EILEEN MCREATINE KINASE (CK)2021-03-14 05:08:00 Test Item Value Reference Range Interpretation Comments CREATINE KINASE TOTAL (BEAKER) (test 3354 U/L 29-200 H code = 380) Foam Rubber Molder ID - EILEEN MPOCT-GLUCOSE [id number] 23:44:00 Test Item Value Reference Range Interpretation Comments POC-GLUCOSE METER 128 mg/dL 70-110 H : TESTED A T [facility] 6720 (BEAKER) (test code = [place], 1538) 02954: Foam Rubber Molder/Techni juan josé ID = [id number] for DE GRETTA (V), LAUREN [id number] 16:55:00 Test Item Value Reference Range Interpretation Comments MAGNESIUM (BEAKER) 2.8 mg/dL 1.6-2.6 H Specimen slightly (test code = 627) hemolyzed Foam Rubber Molder ID - BSBASIC METABOLIC [id number] 16:55:00 Test Item Value Reference Range Interpretation [...] S NOT APPLICABLE FOR DIALYSIS PATIEN TS. Foam Rubber Molder ID - BS(CELLAVISION MANUAL DIFF)2021-03-13 16:55:00 Test [...] CONCENTRATION Decreased (CELLAVISION)(BEAKER) (test code = 3438) Foam Rubber Molder ID - Scarlet Mccollum comments: Slide comments:POCT-GLUCOSE METER 2021-03-13 16:20:00 Test Item Value Reference Range Interpretation Comments POC-GLUCOSE METER 117 mg/dL 70-110 H : TESTED A T [facility] 6720 (BEAKER) (test code = [place], 1538) 86639: Foam Rubber Molder/Techni juan josé ID = [id number] for Vianca Fritz CBC W/PLT COUNT & AUTO [id number] 14:59:00 Test Item Value Reference Range Interpretation [...] 0-0 (test code = 413) U/S, ABDOMINAL, [id number] 13:54:00Reason for exam:->lesa , elevated lipase, abd painShould this be performed at the bedside?->Yes [facility] : 1960 Sex: MFINAL REPORT [...] to overlying gas.4. Splenomegaly. Signed: Tyrone Meyer MDReport Verified Date/Time: 03/13/2021 13:54:11 HEMOGLOBIN [id number] 11:41:00 Test Item Value Reference Range Interpretation Comments HEMOGLOBIN A1C (LEOPOLDO) (test code = 5.4 % 4.3-6.1 368) LACTIC ACID, [id number] 11:04:00 Test Item Value Reference Range Interpretation Comments LACTATE BLOOD VENOUS 1.77 mmol/L 0.50-2.20 Specime n slightly (2) (LEOPOLDO) (test hemolyzed code = 2872) Foam Rubber Molder ID - AMANDA FHIGH SENSITIVITY TROPONIN [id number] 11:01:00 Test Item Value Reference Range Interpretation Comments HIGH SENSITIVITY 61 pg/ml See_Comment H [Automated message] TROPONIN I (test code = The system which 2142298) generated this result transmitted ref erence range: <=35. Th e reference range was not used to int erpret this result as normal/abnormal . Foam Rubber Molder ID Moraima PATEL FThe RACING SECRETARY AND HANDICAPPER STAT High Sensitivity Troponin-I results should be used in conjunction with other diagnostic information such as ECG, clinical observations and information, and patient symptoms to aid in the diagnosis of [place].[id number] 11:00:00 Test Item Value Reference Range Interpretation Comments TRIGLYCERIDES (NINIAKER) (test code = 211 mg/dL 540) TRIGLYCERIDE REFERENCE RANGELow Risk <150Borderline Risk 150-199High Risk 200-499Very High Risk>=500Operator ID Moraima PATEL [id number] 11:00:00 Test Item Value Reference Range Interpretation Comments AMYLASE (NINIAKER) (test code = 349) 209 U/L 25-125 H Foam Rubber Molder ID - AMANDA FOperator ID - AMANDA [id number] 11:00:00 Test Item Value Reference Range Interpretation Comments LIPASE (BEAKER) (test code = 749) 64 U/L 8-78 Foam Rubber Molder ID - AMANDA FBASIC METABOLIC [id number] 10:51:00 Test Item Value Reference Range Interpretation [...] S NOT APPLICABLE FOR DIALYSIS PATIEN TS. Foam Rubber Molder ID - AMANDA [id number] 10:51:00 Test Item Value Reference Range Interpretation Comments MAGNESIUM (BEAKER) (test code = 1.8 mg/dL 1.6-2.6 627) Fo[employer] Molder ID - AMANAD [id number] 10:51:00 Test Item Value Reference Range Interpretation Comments PHOSPHORUS (BEAKER) (test code = 2.9 mg/dL 2.3-4.7 604) Fo[employer] Rub[employer] Molder ID - AMANDA FPOCT-GLUCOSE [id number] 10:02:00 Test Item Value Reference Range Interpretation Comments POC-GLUCOSE METER 152 mg/dL 70-110 H : TESTED A T BSC 6720 (BEAKER) (test code = SOO GASTELUM ND, 1538) 68871: Foam Rubber Molder/Techni juan josé ID = [id number] for Spencer rches, Vianca TSH/FREE T4 IF [id number] 09:26:00 Test Item Value Reference Range Interpretation Comments THYROID STIMULATING HORMONE 0.766 uIU/mL 0.350-4.940 (BEAKER) (test code = 772) Fo[employer] Rub[employer] Molder ID Moraima PATEL [id number] 09:25:00 Test Item Value Reference Range Interpretation Comments FERRITIN (BEAKER) (test code = 500.09 ng/mL 5.00-275.00 H 361) [employer] Molder ID Moraima PATEL FLACTIC ACID, [id number] 09:07:00 Test Item Value Reference Range Interpretation Comments LACTATE BLOOD VENOUS (2) (BEAKER) 1.90 mmol/L 0.50-2.20 (test code = 2872) Fo[employer] Rubber Molder ID Moraima PATEL FCREATINE KINASE (CK)2021-03-13 09:05:00 Test Item Value Reference Range Interpretation Comments CREATINE KINASE TOTAL (BEAKER) (test 2876 U/L 29-200 H code = 380) [employer] Molder ID Moraima PATEL FKETONE, [id number] 09:00:00 Test Item Value Reference Range Interpretation Comments KETONES, BLOOD (BEAKER) (test code 0.3 mmol/L <0.4 = 1103) COMPREHENSIVE METABOLIC [id number] 07:57:00 Test Item Value Reference Range Interpretation [...] S NOT APPLICABLE FOR DIALYSIS PATIEN TS. Fo[employer] Rubber Molder ID Moraima PATEL FC-REACTIVE [id number] 07:56:00 Test Item Value Reference Range Interpretation Comments C-REACTIVE PROTEIN (BEAKER) (test 24.89 mg/dL 0.00-0.50 H code = 676) Foam Rubber Molder ID Moraima PATEL FHIGH SENSITIVITY TROPONIN [id number] 07:52:00 Test Item Value Reference Range Interpretation Comments HIGH SENSITIVITY 88 pg/ml See_Comment H [Automated message] TROPONIN I (test code = The system which [id number]) generated this result transmitted ref erence range: <=35. Th e reference range was not used to int erpret this result as normal/abnormal . Foam Rubber Molder ID Moraima PATEL FThe RACING SECRETARY AND HANDICAPPER STAT High Sensitivity Troponin-I results should be used in conjunction with other diagnostic information such as ECG, clinical observations and information, and patient symptoms to aid in the diagnosis of [place].POCT-GLUCOSE [id number] 07:09:00 Test Item Value Reference Range Interpretation Comments POC-GLUCOSE METER 150 mg/dL 70-110 H : TESTED A T [facility] 6720 (BEAKER) (test code = CLIVEJANET GASTELUM ND, 1538) [id number]: Foam Rubber Molder/Techni juan josé ID = [id number] for Anuj gifford (contract)Nydia URINALYSIS W/ REFLEX URINE [id number] 07:08:00 Test Item Value Reference Range Interpretation [...] = 1521) SOURCE(BEAKER) (test code = 2795) Foam Rubber Molder ID - [auto]Foam Rubber Molder ID - techVANCOMYCIN LEVEL, [id number] 06:36:00 Test Item Value Reference Range Interpretation Comments VANCOMYCIN RANDOM (BEAKER) (test 10.9 ug/mL code = 523) Reference Range: No NormalsOperator ID - CAMP FTHROMBOELASTOGRAPH (TEG) 2021-03-13 06:23:00 Test Item Value [...] 1.8 % 0.0-5.0 code = 1414) PROTHROMBIN [id number] 05:41:00 Test Item Value Reference Range Interpretation Comments PROTIME (BEAKER) 14.7 seconds 11.9-14.2 H (test code = 759) INR (BEAKER) (test 1.17 See_Comment [Automat ed message] code = 370) The system [employer] generated this result transmitted ref erence range: <=5.90. The reference range was not used to int erpret this result as normal/abnormal . RECOMMENDED COUMADIN/WARFARIN INR THERAPY RANGESSTANDARD DOSE: 2.0 - 3.0 Includes: PROPHYLAXIS forvenous thrombosis, systemic embolization; TREATMENT for venous thrombosis and/or pulmonary embolus.HIGH RISK: Target INR is 2.5-3.5 for patients with mechanical heart valves.RAD, CHEST, 1 VIEW, NON [id number] 05:16:00Post-intubationReason for exam:->Confirm ETT placementShould this be performed at the bedside?->Yes [facility] : 1960 Sex: MFINAL REPORT Chest one [...] clear. There is no pneumothorax. Signed: [place] Verified Date/Time: 03/13/2021 05:16:39 BLOOD GAS, ARTERIAL [...] (BEAKER) (test code = 1819) 40.0 POCT-GLUCOSE [id number] 03:20:00 Test Item Value Reference Range Interpretation Comments POC-GLUCOSE METER 184 mg/dL 70-110 H : TESTED A T [facility] 6720 (BEAKER) (test code = SOO GASTELUM ND, 1538) [id number]: Foam Rubber Molder/Techni juan josé ID = [id number] for Anuj gifford (contract)Nydia SARS-COV2/RT-PCR ([facility])2019-12-26 19:33:00 Test Item Value Reference Range Interpretation Comments SARS-COV2/RT-PCR (test Not Detected Not Detected, Negative code = 0137564) SARS-COV-2 [facility] [place] [facility] (test code = 0390983) Negative results do not preclude SARS-CoV-2 infection [...] of the Act.Fact Sheet for Healthcare Pro viders:https://www.listedplaces/Documents/Xpert%20Xpress%20SARS%20CoV-2/Fact%20Sh eets/3023802%88PLLL-TUQ-0%20HEALTHCARE%20PROVIDERS%20FACT%20SHEET.pdfFact Sheet for Healthcare Patients:https://www.hCentive/Documents/Xpert%20Xpress%20SARS%20CoV-2/Fact%20Sheets/3023801%20SARS-COV -2%20PATIENT%20FACT%20SHEET.pdfPerforming Laboratory:[facility] [place] [address]
[2021-08-23] MEDS ORDERED: NA CHLORIDE 0.9% 3,000 ML ONE (12:16)
--- NOTE | 2021-08-23 12:31 | RAD REPORT ---
EXAM DESCRIPTION: RAD - Chest Single View - 08/23/2021 12:23 pm CLINICAL HISTORY: DYSPNEA COMPARISON: Chest Single View dated 03/12/2021; Chest Single View dated 03/12/2021; Chest Single View dated 07/06/2020; Chest Pa And Lat (2 Views) dated 02/21/2020 FINDINGS: Lines: None. Lungs: No evidence of edema or pneumonia. Pleural: No significant pleural effusions or pneumothorax. Cardiac: The heart size is within normal limits. Bones: No acute fractures. Other: IMPRESSION: No acute cardiopulmonary disease.
[2021-08-23 13:11] LABS: Absolute Lymphocytes (CBC) 0.7 K/uL (0.7-4.9); Hematocrit 37.3 % (39.6-49.0); Lymphocytes % 3.2 % (15.3-44.8); MPV 6.8 fL (7.6-11.3)
[2021-08-23 13:14] LABS: Protime INR 1.39
[2021-08-23 13:32] LABS: ALT/SGPT 73 U/L (12-78); Albumin 3.2 g/dL (3.4-5.0); Alkaline Phosphatase 177 U/L (45-117); BUN Blood Urea Nitrogen 24 mg/dL (7-18); Bicarbonate 21 mmol/L (21-32); Bilirubin Direct 0.3 mg/dL (0-0.2); Bilirubin Total 0.9 mg/dL (0.2-1.0); Creatine Phosphokinase 112 U/L (39-308); Glucose Level 125 mg/dL (74-106); Lipase 125 U/L (73-393); Protein, Total 7.9 g/dL (6.4-8.2); Sodium Level 139 mmol/L (136-145); Troponin (Emerg Dept Use Only) < 0.02 ng/mL (0.0-0.045)
[2021-08-23 13:36] LABS: AST/SGOT 49 U/L (15-37); Potassium 3.9 mmol/L (3.5-5.1)
[2021-08-23] MEDS ORDERED: NA CHLORIDE 0.9% 100 ML ONE ×2 (13:41→14:40)
[2021-08-23] MEDS ORDERED: CEFEPIME 1 GM/VIAL ONE (13:41)
[2021-08-23 13:54] LABS: Blood Morphology Comment NOT SEEN (NOT SEEN); Platelet Estimate INCR
[2021-08-23] MEDS ORDERED: ONDANSETRON 4 MG/2 ML VIAL ONE (14:21)
--- NOTE | 2021-08-23 14:36 | RAD REPORT ---
EXAM DESCRIPTION: CT - Abdomen Pelvis Wo Contrast - 08/23/2021 2:00 pm CLINICAL HISTORY: Abdominal pain COMPARISON: 03/2021 TECHNIQUE: Computed axial tomography of the abdomen and pelvis was obtained. IV and oral contrast we re not requested. All CT scans are performed using dose optimization technique as appropriate and may include automated exposure control or mA/KV adjustment according to patient size. FINDINGS: The evaluation of solid organs, vessels and bowel is limited secondary to the lack of con trast administration. A cholecystectomy. The liver, spleen, pancreas, adrenals and kidneys appear grossly normal. An abnormal appendix is not seen. There is no evidence of diverticulitis. IMPRESSION: No acute abnormality is displayed.
[2021-08-23] MEDS ORDERED: NA CHLORIDE 0.9% 250 ML ONE (14:40)
--- NOTE | 2021-08-23 14:50 | ER ---
Nurse's Notes [facility] Name: Patrick Sweeney Age: 61 yrs Sex: Male : 1960 Arrival Date: 08/23/2021 Time: 11:04 Bed 2 Private MD: Marshall Birmingham V Diagnosis: Bacteremia;Sepsis, unspecified organism;Acute kidney failure, unspecified;Dehydration Presentation: 08/23 11:39 Chief complaint: Sister: he had blood clots removed from his left arm 2 weeks ago, jl7 started vomiting 5 days ago, he's fatigue/lethargic. Coronavirus screen: Vaccine status: Patient reports receiving the 2nd dose of the covid vaccine. [place]. Ebola Screen: No symptoms or risks identified at this time. Initial Sepsis Screen: Does the patient meet any 2 criteria? Yes Does the patient have a suspected source of infection? Yes: Skin breakdown/wound Other: Recent surgery If YES to both, name of provider notified: Doc Ramos MD. Risk Assessment: Do you want to hurt yourself or someone else? Patient reports no desire to harm self or others. Onset of symptoms was August 19, 2021. 11:39 Method Of Arrival: Wheelchair jl7 11:39 Acuity: RONNIE 2 jl7 Triage Assessment: 11:44 General: Appears in no apparent distress. uncomfortable, ill, Behavior is calm, jl7 cooperative, appropriate for age. Pain: Denies pain. GI: Reports nausea, vomiting. Historical: - Allergies: 11:44 NKDA; jl7 - PMHx: 11:44 [place]'s disease; basil cell carcinoma; DVT; jl7 - Immunization history:: Adult Immunizations up to date, Client reports receiving the 2nd dose of the Covid vaccine. - Social history:: Smoking status: Patient denies any tobacco usage or history of. Screenin:32 Abuse screen: Denies threats or abuse. Denies injuries from another. Nutritional jh5 screening: No deficits noted. Tuberculosis screening: No symptoms or risk factors identified. Fall Risk None identified. Assessment: 12:00 Reassessment: Patient arrived into ED tachycardic and tachypneic with Hx of recent jg9 surgery of left arm to remove clots. Patient alert and awake but lethargic and meets sepsis criteria, code sepsis, called \\T\\[address] Ramos, and RN's at bedside, IV established in r AC via 20 g-unable to get blood return but line flushed easily. NS at 30 ml/kg initiated (2600 mL) total to be given per sepsis protocol. Patient was extremely difficult stick and labs were delayed. Patient required central line placement \\T\\1430 pm due to no venous access other than 20 g and inability to get blood with straight sticks. Triple lumen, 7 F CVC placed in r groin using sterile procedure by Clay Hardy. all lumens-blood return noted and flushes easily, central line dressing placed. Patient tolerated procedure well. 12:32 GI: jh5 13:09 General: Appears in no apparent distress. comfortable, Behavior is calm, cooperative, ld1 appropriate for age. Pain: Denies pain. Neuro: Level of Consciousness is awake, alert, obeys commands, Oriented to person, place, time, situation, Appropriate for age. Cardiovascular: Capillary refill < 3 seconds Patient's skin is warm and dry. Rhythm is sinus tachycardia. Respiratory: Airway is patent Respiratory effort is even, labored, Respiratory pattern is regular, symmetrical. GI: Abdomen is round non-distended. GI: Reports nausea, vomiting. : No signs and/or symptoms were reported regarding the genitourinary system. EENT: No signs and/or symptoms were reported regarding the EENT system. Derm: No signs and/or symptoms reported regarding the dermatologic system. Musculoskeletal: No signs and/or symptoms reported regarding the musculoskeletal system. 14:00 Reassessment: Patient and/or family updated on plan of care and expected duration. Pain jg9 level reassessed. 15:00 Reassessment: Patient and/or family updated on plan of care and expected duration. Pain jg9 level reassessed. Patient resting in bed, urinal at bedside patient will attempt to provide sample Patient states feeling better. 16:00 Reassessment: Patient appears in no apparent distress at this time. Patient and/or jg9 family updated on plan of care and expected duration. Pain level reassessed. 17:00 Reassessment: Patient appears in no apparent distress at this time. Patient and/or jg9 family updated on plan of care and expected duration. Pain level reassessed. Patient states feeling better. 19:27 Reassessment: Patient appears in no apparent distress at this time. Patient and/or as6 family updated on plan of care and expected duration. Pain level reassessed. Vital Signs: 11:39 BP 85 / 64; Pulse 155; Resp 21; Temp 98.1(O); Pulse Ox 100% on R/A; Weight 86.64 kg; jl7 Height 5 ft. 11 in. (180.34 cm); 13:09 BP 160 / 76; Pulse 120; Resp 32; Pulse Ox 100% on R/A; ld1 13:30 BP 116 / 95; Pulse 124; Resp 20 S; Pulse Ox 99% on R/A; jg9 14:00 BP 137 / 82; Pulse 117; Resp 17; Pulse Ox 100% on R/A; jg9 14:34 BP 141 / 76; Pulse 117; Resp 29; Pulse Ox 98% on R/A; ld1 15:00 BP 122 / 62; Pulse 108; Resp 26 S; Pulse Ox 100% on R/A; jg9 15:30 BP 165 / 89; Pulse 114; Resp 25 S; Pulse Ox 93% on R/A; jg9 16:00 BP 141 / 76; Pulse 107; Resp 26; Pulse Ox 99% ; jg9 16:40 BP 145 / 72; Pulse 106; Resp 18; Pulse Ox 98% on R/A; ld1 17:00 BP 134 / 72; Pulse 108; Resp 23 S; Pulse Ox 99% on R/A; jg9 17:30 BP 119 / 65; Pulse 109; Resp 28 S; Pulse Ox 99% on R/A; jg9 18:00 BP 135 / 71; Pulse 109; Resp 23 S; Pulse Ox 97% on R/A; jg9 18:30 BP 115 / 73; Pulse 116; Resp 23 S; Pulse Ox 99% on R/A; jg9 20:03 BP 124 / 63; Pulse 112; Resp 26 S; Pulse Ox 98% on R/A; as6 11:39 Body Mass Index 26.64 (86.64 kg, 180.34 cm) jl7 ED Course: 11:04 Patient arrived in ED. mr 11:05 Marshall Birmingham MD is Private Physician. mr 11:44 Triage completed. jl7 11:44 Arm band placed on right wrist. jl7 11:51 Clay Hardy PA is PHCP. jr8 11:51 Doc Ramos MD is Attending Physician. jr8 12:12 Patient has correct armband on for positive identification. Placed in gown. Bed in low mh5 position. Call light in reach. Side rails up X2. Adult w/ patient. Warm blanket given. senior materials scientist on. Pulse ox on. NIBP on. 12:12 EKG done, by ED staff, reviewed by Clay DESOUZA. 5 12:23 Chest Single View XRAY In Process Unspecified. EDMS 12:31 Mandy Mayo, RN is Primary Nurse. jh5 12:32 No provider procedures requiring assistance completed. Inserted saline lock: 20 gauge jh5 in right antecubital area, using aseptic technique. 14:00 CT Abd/Pelvis - Without Contrast In Process Unspecified. EDMS 14:30 Accessed Blood collected. CVC in r femoral artery 7F, 20 cm Arrow-Lopez Clean \\T\\ dry. jg9 Dressing intact. Good blood return. Flushes easily. 14:46 Marshall Birmingham MD is Hospitalizing Provider. jr8 15:09 Azael Coleman MD is Hospitalizing Provider. jr8 16:15 SARS-COV-2 RT PCR (Document "Date of Onset" if Symptomatic) Sent. ld1 16:20 Urine Microscopic Only Sent. ld1 16:35 CT Abdomen - Angio In Process Unspecified. EDMS 17:00 No apparent distress. Resting quietly. jg9 18:46 No apparent distress. Resting quietly. Awaiting bed assignment. jg9 18:49 Lactate Sent. jg9 18:49 Basic Metabolic Panel Sent. jg9 18:49 Blood Culture Adult (2) Sent. jg9 18:49 CBC with Diff Sent. jg9 18:49 CPK Sent. jg9 18:49 LFT's Sent. jg9 20:30 Primary Nurse role handed off by Mandy Mayo, RN cs9 20:46 Patient admitted, IV remains in place. as6 Administered Medications: 12:14 Drug: NS 0.9% (30 ml/kg) 30 ml/kg Route: IV; Rate: bolus; Site: right antecubital; 5 16:21 Follow up: IV Status: Completed infusion; IV Intake: 2600ml jg9 14:09 Drug: Cefepime 1 grams Route: IVPB; Rate: 200 ml/hr; Infused Over: 30 mins; Site: right ld1 antecubital; 14:30 Follow up: IV Status: Completed infusion; IV Intake: 100ml jg9 14:33 Drug: vancoMYCIN 1 grams Route: IVPB; Infused Over: 2 hrs; Site: right femoral; ld1 16:55 Follow up: IV Status: Completed infusion; IV Intake: 250ml jg9 Intake: 14:30 IV: 100ml; Total: 100ml. jg9 16:21 IV: 2600ml; Total: 2700ml. jg9 16:55 IV: 250ml; Total: 2950ml. jg9 Outcome: 14:49 Decision to Hospitalize by Provider. jr8 19:50 Admitted to Med/surg Report called to attempted to call report Spoke to Iza " Its tw5 shift change and it is crazy, try calling back in 10 min" 20:00 Admitted to Med/surg Report called to Spoke to Iza again she stated " It probably tw5 going to be a min try and call back later." 20:46 Admitted to Med/surg accompanied by nurse, with chart, Report called to bedside report as6 given 20:46 Condition: stable 20:46 Patient left the ED. as6 Signatures: Dispatcher [employer] SAL MahamedLe mr HardyClay PA PA jr8 Genoveva Miranda Miranda Amato, RN RN jl7 Jovita Rich RN RN isis1 Yamila Maynard [facility] Rachelle Hobbs Mandy Caruso, RN RN jh5 Efe Singh, EVAN RN as6 Victorina Pereira jg9
--- NOTE | 2021-08-23 14:50 | EDPHYS ---
Physician Documentation [facility] Name: Patrick Sweeney Age: 61 yrs Sex: Male : 1960 Arrival Date: 08/23/2021 Time: 11:04 Bed 2 Private MD: Marshall Birmingham V ED Physician Doc Ramos HPI: 08/23 12:58 This 61 yrs old Male presents to ER via Wheelchair with complaints of Vomiting, jr8 Dehydration. 12:58 The patient presents to the emergency department with nausea, vomiting. Onset: The jr8 symptoms/episode began/occurred 3 day(s) ago. Possible causes: unknown. This is a 61-year-old male patient that presented to the emergency room for vomiting and dehydration. Patient stated that 2 weeks ago he was taken to the [facility] for acute arterial occlusion of the left arm. Was released and had been doing well up until this past Friday where he started to have vomiting and now feels weak, lightheaded and dehydrated.. Historical: - Allergies: 11:44 NKDA; jl7 - PMHx: 11:44 [place]'s disease; basil cell carcinoma; DVT; jl7 - Immunization history:: Adult Immunizations up to date, Client reports receiving the 2nd dose of the Covid vaccine. - Social history:: Smoking status: Patient denies any tobacco usage or history of. ROS: 12:58 Eyes: Negative for injury, pain, redness, and discharge, ENT: Negative for injury, jr8 pain, and discharge, Neck: Negative for injury, pain, and swelling, Cardiovascular: Negative for chest pain, palpitations, and edema, Respiratory: Negative for shortness of breath, cough, wheezing, and pleuritic chest pain, Back: Negative for injury and pain, MS/Extremity: Negative for injury and deformity, Skin: Negative for injury, rash, and discoloration. 12:58 Abdomen/GI: Positive for abdominal pain, nausea and vomiting. 12:58 Neuro: Positive for weakness. Exam: 12:58 Eyes: Pupils equal round and reactive to light, extra-ocular motions intact. Lids and jr8 lashes normal. Conjunctiva and sclera are non-icteric and not injected. Cornea within normal limits. Periorbital areas with no swelling, redness, or edema. ENT: Nares patent. No nasal discharge, no septal abnormalities noted. Tympanic membranes are normal and external auditory canals are clear. Oropharynx with no redness, swelling, or masses, exudates, or evidence of obstruction, uvula midline. Mucous membranes moist. Neck: Trachea midline, no thyromegaly or masses palpated, and no cervical lymphadenopathy. Supple, full range of motion without nuchal rigidity, or vertebral point tenderness. No Meningismus. 12:58 Respiratory: Lungs have equal breath sounds bilaterally, clear to auscultation and percussion. No rales, rhonchi or wheezes noted. No increased work of breathing, no retractions or nasal flaring. 12:58 MS/ Extremity: Pulses equal, no cyanosis. Neurovascular intact. Full, normal range of motion. Neuro: Awake and alert, GCS 15, oriented to person, place, time, and situation. Cranial nerves II-XII grossly intact. Motor strength 5/5 in all extremities. Sensory grossly intact. 12:58 Constitutional: The patient appears alert, awake, obviously ill. 12:58 Cardiovascular: Rate: tachycardic, Rhythm: regular, Pulses: Pulses are 2+ in right radial artery and left radial artery. Heart sounds: normal, normal S1and S2, no S3 or S4, no murmur, no rub, no gallop, Edema: is not appreciated. 12:58 Abdomen/GI: Inspection: abdomen appears normal, Bowel sounds: active, all quadrants, Palpation: soft, in all quadrants, mild abdominal tenderness, in the abdomen diffusely, mass, is not appreciated, rebound tenderness, is not appreciated, voluntary guarding, is not appreciated, involuntary guarding, is not appreciated, no appreciated organomegaly. 12:58 Skin: Appearance: Color: dusky, pale, Temperature: cool, Moisture: dry. Vital Signs: 11:39 BP 85 / 64; Pulse 155; Resp 21; Temp 98.1(O); Pulse Ox 100% on R/A; Weight 86.64 kg; jl7 Height 5 ft. 11 in. (180.34 cm); 13:09 BP 160 / 76; Pulse 120; Resp 32; Pulse Ox 100% on R/A; ld1 13:30 BP 116 / 95; Pulse 124; Resp 20 S; Pulse Ox 99% on R/A; jg9 14:00 BP 137 / 82; Pulse 117; Resp 17; Pulse Ox 100% on R/A; jg9 14:34 BP 141 / 76; Pulse 117; Resp 29; Pulse Ox 98% on R/A; ld1 15:00 BP 122 / 62; Pulse 108; Resp 26 S; Pulse Ox 100% on R/A; jg9 15:30 BP 165 / 89; Pulse 114; Resp 25 S; Pulse Ox 93% on R/A; jg9 16:00 BP 141 / 76; Pulse 107; Resp 26; Pulse Ox 99% ; jg9 16:40 BP 145 / 72; Pulse 106; Resp 18; Pulse Ox 98% on R/A; ld1 17:00 BP 134 / 72; Pulse 108; Resp 23 S; Pulse Ox 99% on R/A; jg9 17:30 BP 119 / 65; Pulse 109; Resp 28 S; Pulse Ox 99% on R/A; jg9 18:00 BP 135 / 71; Pulse 109; Resp 23 S; Pulse Ox 97% on R/A; jg9 18:30 BP 115 / 73; Pulse 116; Resp 23 S; Pulse Ox 99% on R/A; jg9 20:03 BP 124 / 63; Pulse 112; Resp 26 S; Pulse Ox 98% on R/A; as6 11:39 Body Mass Index 26.64 (86.64 kg, 180.34 cm) jl7 Procedures: 14:23 Central Line: the site was prepped with Betadine, in sterile fashion, a triple lumen jr8 catheter was inserted, in the right femoral vein, in 1 attempts. placement was verified, by blood return, the site was dressed with 4X4s, Tegaderm, foam tape, using sterile technique, the patient tolerated the procedure, well. MDM: 11:51 Patient medically screened. jr8 14:23 ED course: Delay in administration of IV Abx secondary to lack of vascular access. jr8 Central line has now been placed successfully . 14:49 Data reviewed: vital signs, nurses notes, lab test result(s), EKG, radiologic studies, jr8 CT scan, plain films. Data interpreted: Pulse oximetry: on room air is 98 %. Interpretation: normal. Counseling: I had a detailed discussion with the patient and/or guardian regarding: the historical points, exam findings, and any diagnostic results supporting the discharge/admit diagnosis, lab results, radiology results, the need for further work-up and treatment in the hospital. 08/23 11:52 Order name: Basic Metabolic Panel [facility] 08/23 11:52 Order name: Blood Culture Adult (2) [facility] 08/23 11:52 Order name: CBC with Diff [facility] 08/23 11:52 Order name: CPK [facility] 08/23 11:52 Order name: LFT's [facility] 08/23 11:52 Order name: Lactate [facility] 08/23 11:52 Order name: Lipase; Complete Time: 13:37 [facility] 08/23 11:52 Order name: Procalcitonin; Complete Time: 13:38 [facility] 08/23 11:52 Order name: Protime (+inr); Complete Time: 13:35 [facility] 08/23 11:52 Order name: Ptt, Activated; Complete Time: 13:35 [facility] 08/23 11:52 Order name: Troponin (emerg Dept Use Only); Complete Time: 13:37 [facility] 08/23 11:52 Order name: Urine Microscopic Only; Complete Time: 17:12 [facility] 08/23 11:53 Order name: Basic Metabolic Panel; Complete Time: 13:37 [facility] 08/23 11:53 Order name: Blood Culture [facility] 08/23 11:52 Order name: Chest Single View XRAY; Complete Time: 12:39 [facility] 08/23 11:52 Order name: Accucheck; Complete Time: 13:16 [facility] 08/23 11:53 Order name: CBC with Automated Diff; Complete Time: 14:22 [facility] 08/23 11:53 Order name: Creatine Phosphokinase; Complete Time: 13:37 [facility] 08/23 11:53 Order name: Liver (Hepatic) Function; Complete Time: 13:37 [facility] 08/23 11:53 Order name: Lactate; Complete Time: 14:46 [facility] 08/23 13:23 Order name: Glucose, Ancillary Testing; Complete Time: 13:35 [facility] 08/23 13:38 Order name: CT Abd/Pelvis - Without Contrast; Complete Time: 14:46 [facility] 08/23 13:54 Order name: Manual Differential; Complete Time: 14:22 [facility] 08/23 15:42 Order name: CT Abdomen - Angio; Complete Time: 17:12 jr08/23 15:57 Order name: SARS-COV-2 RT PCR (Document "Date of Onset" if Symptomatic); Complete Time: eb 17:12 08/23 16:12 Order name: Urine Dipstick-Ancillary; Complete Time: 16:42 EDMS 08/23 11:52 Order name: Cardiac monitoring; Complete Time: 12:11 08/23 11:52 Order name: EKG - Nurse/Tech; Complete Time: 12:11 08/23 11:52 Order name: IV Saline Lock - Large Bore; Complete Time: 12:11 08/23 11:52 Order name: Labs collected and sent; Complete Time: 12:11 08/23 11:52 Order name: O2 Per Protocol; Complete Time: 12:11 08/23 11:52 Order name: O2 Sat Monitoring; Complete Time: 12:12 08/23 11:52 Order name: Urine Dipstick-Ancillary (obtain specimen); Complete Time: 16:20 jr8 Administered Medications: 12:14 Drug: NS 0.9% (30 ml/kg) 30 ml/kg Route: IV; Rate: bolus; Site: right antecubital; [facility] 16:21 Follow up: IV Status: Completed infusion; IV Intake: 2600ml jg9 14:09 Drug: Cefepime 1 grams Route: IVPB; Rate: 200 ml/hr; Infused Over: 30 mins; Site: right ld1 antecubital; 14:30 Follow up: IV Status: Completed infusion; IV Intake: 100ml jg9 14:33 Drug: vancoMYCIN 1 grams Route: IVPB; Infused Over: 2 hrs; Site: right femoral; ld1 16:55 Follow up: IV Status: Completed infusion; IV Intake: 250ml jg9 Disposition Summary: 08/23/21 14:49 Hospitalization Ordered Hospitalization Status: Inpatient Admission jr8 Location: Telemetry/MedSurg (Inpatient) jr8 Condition: Stable jr8 Problem: new jr8 Symptoms: have improved jr8 Bed/Room Type: Standard jr8 Provider: Azael Coleman(08/23/21 15:09) jr8 Room Assignment: 229(08/23/21 19:18) Diagnosis - Bacteremia jr8 - Sepsis, unspecified organism jr8 - Acute kidney failure, unspecified jr8 - Dehydration jr8 Forms: - Medication Reconciliation Form jr8 - SBAR form jr8 Addendum: 08/28/2021 13:12 Co-signature as Attending Physician, Doc Ramos MD I agree with the assessment and k dr plan of care. Signatures: Dispatcher [employer] EDHI Doc Ramos MD MD [facility] Clay Hardy PA PA jr8 Gloria Page RN RN cg Miranda Adrian RN RN jl7 Jovita Rich RN RN ld1 Mandy Mayo RN RN jh5 Victorina Pereira jg9 Corrections: (The following items were deleted from the chart) 08/23 15:09 14:49 Marshall Birmingham jr8 jr8 19:18 14:49 jr8
[2021-08-23] MEDS ORDERED: VANCOMYCIN 1 GM in NA CHLORIDE 0.9% 250 ML IVPB ONE (15:00)
[2021-08-23 16:12] LABS: Urine Blood Trace-intact (Negative); Urine Glucose 1+ (Negative); Urine Protein 1+ (Negative); Urine Specific Gravity 1.025 (1.005-1.030); Urine pH 5.5 (5.0-7.0)
[2021-08-23 16:50] LABS: Urine Amorphous Sediment 1+ /HPF (NONE SEEN); Urine Bacteria <20 /HPF (NONE SEEN); Urine RBC <5 /HPF (NONE SEEN)
--- NOTE | 2021-08-23 17:11 | RAD REPORT ---
EXAM DESCRIPTION: CT - Abdomen Angio - 08/23/2021 4:35 pm CLINICAL HISTORY: . Abdominal pain COMPARISON: July 2021 TECHNIQUE: Computed tomography angiography of the abdomen obtained. 100 cc Isovue 370 was administ ered intravenously. Coronal and sagittal reconstruction were performed. MIP 3D reconstruction was performed All CT scans are performed using dose optimization technique as appropriate and may include automated exposure control or mA/KV adjustment according to patient size. FINDINGS: An aortic dissection is not seen. An aortic aneurysm is not displayed. The celiac, SMA and AMBERLY are patent . No gross abnormality of the liver, spleen, pancreas, adrenals or kidneys seen. No ascites Wall of the distal esophagus appears thickened IMPRESSION: Unremarkable CT angiogram Apparent thickening of the wall of the distal esophagus could be secondary to incomplete distention o r pathology such as inflammation. Followup recommended
--- NOTE | 2021-08-23 17:44 | P.HP ---
Certification for Inpatient Patient admitted to: Inpatient With expected LOS: >2 Midnights Practitioner: I am a practitioner with admitting privileges, knowledge of patient current condition, hospital course, and medical plan of care. Services: Services provided to patient in accordance with Admission requirements found in Title 42 Section 412.3 of the Code of Federal Regulations Patient History Date of Service: 08/23/21 Reason for admission: Sepsis of unknown origin, NIKI History of Present Illness: 61-year-old male, PMH: Braham's disease, basal cell carcinoma, DVT, acute arterial occlusion of left arm recently Patient presents to ED with 3 days of progressively worsening nausea/vomiting, associated with abdominal pain. He reports abdominal pain feels like a crampy sensation in the middle of his abdomen. Worsened with taking p.o. Has not been able to keep his medications down over the last 2 days including his Eliquis. Denies diarrhea, states he had a normal bowel movement this morning. Denies any fevers at home, no recent rashes/chills. Reports continued improvement of his left upper extremity, no worsening of his pain, no drainage. Patient found to have significant leukocytosis, hypotension, tachycardia. Vital signs significantly improved with IV hydration. Given broad-spectrum antibiotics, cultures obtained. CT abdomen/pelvis without contrast negative. Allergies No Known Allergies Allergy (Verified 07/06/20 20:39) Home Medications: Unobtainable 07/06/20 - Past Medical/Surgical History Diabetic: No -: Basal cell carcinoma -: Braham's disease -: DVT, left arm arterial occlusion -: cholecystectomy 12/09 -: EGD on 12/20 - Family History Family History: Reviewed- Non-Contributory - Social History Smoking Status: Never smoker Alcohol use: No CD- Drugs: No Caffeine use: Yes Place of Residence: Home Review of Systems 10-point ROS is otherwise unremarkable Physical Examination - Physical Exam General: Alert, Oriented x3, Other (Appears ill) HEENT: Other (Dry mucous membranes), Sclerae nonicteric Neck: Supple, No LAD Respiratory: Clear to auscultation bilaterally Cardiovascular: No edema, No murmurs, Other (Sinus tachycardia) Gastrointestinal: Non-distended, Tenderness (Periumbilical /epigastric) Musculoskeletal: No contractures Integumentary: Other (Left upper extremity: Healing surgical incisions, no surrounding erythema, no drainage, no evidence of infection. Some old dried blood noted on skin) Neurological: Normal speech, Normal strength at 5/5 x4 extr (Left upper extremity limited due to recent surgery/discomfort), Normal affect - Studies Laboratory Data (last 24 hrs) 08/23/21 12:55: PT 16.0 H, INR 1.39, APTT 27.2 08/23/21 12:55: WBC 22.00 H*, Hgb 12.6 L, Hct 37.3 L, Plt Count 730 H 08/23/21 12:55: Sodium 139, Potassium 3.9, BUN 24 H, Creatinine 1.59 H, Glucose 125 H, Total Bilirubin 0.9, AST 49 H, ALT 73, Alkaline Phosphatase 177 H, Lipase 125 Assessment and Plan - Advance Directives Does patient have a Living Will: No Does patient have a Durable POA for Healthcare: No Physician Review Additional Text: Problem list Sepsis secondary to unknown etiology, possible esophagitis without septic shock Intractable nausea/vomiting Abdominal pain Sinus tachycardia Leukocytosis Braham's disease Recent acute arterial occlusion of left arm s/p fasciotomy/ ?embolectomy Patient previously had Covid in March of this year. He has had DVT since then 2 weeks ago with acute arterial occlusion of left arm, transfer to [facility], had a fasciotomy, patient unsure of what else was done, possible embolectomy Reports continued improvement of the left arm, no drainage, no worsening pain, no erythema/rashes 3 days of abdominal discomfort, crampy pain, with nausea/vomiting. Unable to keep much down. Unable to keep his medications down. 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
[2021-08-23 21:16] VITALS: O2SAT 98
[2021-08-23 21:49] VITALS: BMI 25.7
[2021-08-23] MEDS ORDERED: PANTOPRAZOLE 40 MG INJ IVP SCH (22:05)
[2021-08-23] MEDS ORDERED: ACETAMINOPHEN 500 MG TAB PO PRN (22:05)
[2021-08-23] MEDS ORDERED: PROMETHAZINE INJ 25 MG/ML AMP IV PRN (22:05)
[2021-08-23] MEDS ORDERED: ONDANSETRON 4 MG/2 ML VIAL IV PRN (22:05)
[2021-08-23] MEDS ORDERED: SODIUM CHLORIDE 0.9% 10ML INJ IV PRN (22:05)
[2021-08-23] MEDS ORDERED: MORPHINE 2 MG/ML SYR IV PRN (22:05)
[2021-08-24] MEDS: SUCRALFATE 1 GM TABLET PO SCH ×5 (00:33→21:11)
[2021-08-24] MEDS: APIXABAN 5 MG TABLET PO SCH ×3 (00:33→21:12)
[2021-08-24] MEDS: NA CHLORIDE 0.9% 1,000 ML IV SCH ×4 (00:34→22:05)
[2021-08-24] MEDS: PIPER TAZO 3.375 GM in NA CHLORIDE 0.9% 100 ML IV SCH ×3 (01:16→16:33)
--- NOTE | 2021-08-24 06:15 | P.PN ---
Date of Service: 08/24/21 Subjective: Patient with episode of emesis this morning, reports overall feeling better today Noted to be more tachycardic in the 1 [id number] at times Patient denies any pain, no diarrhea No new symptoms, no chest pain, no shortness of breath ROS: 10 point ROS as noted above, otherwise negative Physical Exam General: Alert, Oriented x3, NAD HEENT: Sclera anicteric, normal conjunctiva Neck: Supple, No LAD Respiratory: Clear to auscultation bilaterally Cardiovascular: No edema, No murmurs, (Sinus tachycardia) Gastrointestinal: Non-distended, nontender, soft Musculoskeletal: No contractures Integumentary: Other (Left upper extremity: Healing surgical incisions, no surrounding erythema, no drainage, no evidence of infection. Some old dried blood noted on skin) Neurological: Normal speech, Normal strength at 5/5 x4 extr (Left upper extremity limited due to recent surgery/discomfort), Normal affect Problem list Sepsis secondary to unknown etiology, possible esophagitis without septic shock Intractable nausea/vomiting Abdominal pain Sinus tachycardia Leukocytosis History of skin cancer, on chemotherapy [place]'s disease (acquired secondary to chemotherapy) Recent acute arterial occlusion of left arm s/p fasciotomy/ ?embolectomy Patient previously had Covid in March of this year. He has had DVT since then 2 weeks ago with acute arterial occlusion of left arm, transfer to [facility], had a fasciotomy, patient unsure of what else was done Reports continued improvement of the left arm, no drainage, no worsening pain, no erythema/rashes 3 days of abdominal discomfort, crampy pain, with nausea/vomiting. Unable to keep much down. Unable to keep his medications down. 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
[2021-08-24 06:55] LABS: Absolute Lymphocytes (CBC) 1.5 K/uL (0.7-4.9); Hematocrit 36.7 % (39.6-49.0); MPV 6.4 fL (7.6-11.3)
[2021-08-24 07:23] LABS: Albumin 3.1 g/dL (3.4-5.0); Bilirubin Total 1.1 mg/dL (0.2-1.0); Potassium 3.5 mmol/L (3.5-5.1); Protein, Total 7.5 g/dL (6.4-8.2); Thyroid Stimulating Hormone 1.07 uIU/mL (0.360-3.740)
[2021-08-24] MEDS ORDERED: NA CHLORIDE 0.9% 1,000 ML IV ONE (07:36)
[2021-08-24 07:39] LABS: Blood Morphology Comment NOT SEEN (NOT SEEN); Platelet Estimate INCR; Platelets, Giant PRESENT; Toxic Granulation 1+
[2021-08-24] MEDS: PANTOPRAZOLE 40 MG INJ IVP SCH ×2 (08:05→21:12)
[2021-08-24] MEDS ORDERED: POTASSIUM CL SA 10 MEQ TAB PO ONE (08:33)
[2021-08-24] MEDS ORDERED: HYDROCORTISONE SUC 100 MG INJ IV ONE (11:26)
[2021-08-24] MEDS ORDERED: PNEUMOCOCCAL VACCINE 0.5 ML IMVAC ONE (12:00)
--- NOTE | 2021-08-24 12:06 | P.CNS ---
Date of Consult: 08/24/21 Chief Complaint: Sepsis of unknown origin, NIKI History of Present Illness: Patient is a 61-year-old male with a past medical history of [place]'s disease, basal cell carcinoma currently receiving chemotherapy, and acute arterial occlusion of the left arm who presented to the emergency department secondary to progressively worsening nausea and vomiting. Patient states that the symptoms have been ongoing for the past 3 days. Patient states that due to the nausea and vomiting has been unable to take his blood thinners for the past 2 days. Of note he was recently hospitalized at [facility] in [place] due to an occlusion of the left arm, patient has multiple incisions of the left arm. All incisions are clean dry with no clinical signs of infection closed with sutures. Patient was septic on admission with tachycardia, tachypnea, and leukocytosis. Blood cultures pending, urine analysis grossly negative. CT abdomen pelvis grossly benign, did show some distal esophageal inflammation. Negative for any mesenteric ischemia. Patient currently reports nausea/vomiting/1 episode of diarrhea. He denies shortness of breath/chest pain. Infectious disease has been consulted to manage the patient's antibiotic regimen, empirically placed on IV Zosyn. Allergies No Known Allergies Allergy (Verified 07/06/20 20:39) Home Medications: Apixaban [Eliquis] 5 mg PO [id number] 08/24/21 Sucralfate [Carafate] 1 gm PO TID 08/24/21 predniSONE [Deltasone] 10 mg PO DAILY 08/24/21 - Past Medical/Surgical History Diabetic: No -: Basal cell carcinoma -: [place]'s disease -: DVT, left arm arterial occlusion -: cholecystectomy 12/09 -: EGD on 12/20 - Social History Smoking Status: Unknown if ever smoked Alcohol use: No CD- Drugs: No Caffeine use: No Place of Residence: Home Review of Systems 10-point ROS is otherwise unremarkable Physical Examination Temp Pulse Resp BP Pulse Ox 98.1 F 144 H 18 117/57 L 99 08/24/21 08:00 08/24/21 08:00 08/24/21 08:00 08/24/21 08:00 08/24/21 08:00 General: Alert, In no apparent distress HEENT: Atraumatic, Normocephalic Neck: Supple, Other (Right shoulder basal carcinoma: Central lesion with surrounding dry flaky skin.) Respiratory: Clear to auscultation bilaterally, Normal air movement Cardiovascular: Normal pulses, Regular rate/rhythm Integumentary: Other (Left forearm surgical incisions closed with sutures. Healing, no drainage/bleeding. No clinical signs of infection.) Laboratory Data (last 24 hrs) 08/23/21 12:55: PT 16.0 H, INR 1.39, APTT 27.2 08/23/21 12:55: WBC 22.00 H*, Hgb 12.6 L, Hct 37.3 L, Plt Count 730 H 08/23/21 12:55: Sodium 139, Potassium 3.9, BUN 24 H, Creatinine 1.59 H, Glucose 125 H, Total Bilirubin 0.9, AST 49 H, ALT 73, Alkaline Phosphatase 177 H, Lipase 125 Conclusions/Impression: Lines: Right groin central line Antibiotics: Zosyn Start: 08/24 Assessment/plan Sepsis of unknown origin Patient septic on admission with tachycardia and leukocytosis. Blood cultures pending. Patient's only complaint is nausea/vomiting. Patient empirically started on IV Zosyn. CT abdomen/pelvis/abdomen CTA grossly benign, did show some distal esophagus inflammation. Recommend outpatient endoscopy. Of note patient is currently receiving chemotherapy, nausea and vomiting could be side effects. Patient also on chronic steroid therapy for prednisone which could influence WBC count. [place]'s disease Patient on chronic steroid therapy, placed on stress dose therapy. Basal cell carcinoma Currently receiving chemotherapy. Leukocytosis with left shift Continue to trend, continue monotherapy with IV Zosyn. If WBC does not improve recommend starting MRSA coverage. Left forearm incision status post fasciotomy Recommend cleaning area with Betadine and covering. Anemia Continue to monitor H&H Protein caloric malnutrition: Moderate Recommend supplemental Ensure protein drinks -medical management per primary team -continue monitor CBC BMP -Continue monitor signs infection Plan of care discussed with Dr. Clemons Thank you for consultation.
[2021-08-24 13:18] LABS: Urine Appearance CLEAR (Clear); Urine Bilirubin NEGATIVE (Negative); Urine Blood NEGATIVE (Negative); Urine Color DK YELLOW (Yellow); Urine Glucose NEGATIVE (Negative); Urine Protein NEGATIVE (Negative); Urine Specific Gravity >=1.030 (1.005-1.030); Urine Urobilinogen 0.2 mg/dL (0.2-1.0)
[2021-08-24 13:24] LABS: Urine Microscopic Reflex NO UMIC
[2021-08-24] MEDS: HYDROCORTISONE SUC 100 MG INJ IV SCH (21:16)
[2021-08-25] MEDS: PIPER TAZO 3.375 GM in NA CHLORIDE 0.9% 100 ML IV SCH ×2 (01:08→09:00)
[2021-08-25] MEDS: NA CHLORIDE 0.9% 1,000 ML IV SCH (05:05)
[2021-08-25 05:58] LABS: Absolute Lymphocytes (CBC) 0.7 K/uL (0.7-4.9); Hematocrit 26.8 % (39.6-49.0); Lymphocytes % 4.7 % (15.3-44.8); MPV 6.9 fL (7.6-11.3); RBC Red Blood Cell Count 3.02 M/uL (4.33-5.43)
[2021-08-25 06:11] LABS: Albumin 2.3 g/dL (3.4-5.0); Bilirubin Total 0.7 mg/dL (0.2-1.0); Potassium 4.1 mmol/L (3.5-5.1)
[2021-08-25] MEDS: HYDROCORTISONE SUC 100 MG INJ IV SCH (09:00)
[2021-08-25] MEDS: PANTOPRAZOLE 40 MG INJ IVP SCH (09:00)
[2021-08-25 09:06] LABS: Blood Morphology Comment NOT SEEN (NOT SEEN); Platelet Estimate INCR; White Blood Cell Scan OK (OK)
--- NOTE | 2021-08-25 09:12 | P.PN ---
Subjective Date of Service: 08/25/21 Chief Complaint: Sepsis of unknown origin, NIKI Subjective: Improving (Patient is doing well no new complaints denies any fever white count is declining mildly elevated) Review of Systems 10-point ROS is otherwise unremarkable Physical Examination - Vital Signs Temperature: 97.8 F Blood Pressure: 106/57 Pulse: 100 Respirations: 16 Pulse Ox (%): 16 - Physical Exam General: Alert, In no apparent distress, Oriented x3 Respiratory: Clear to auscultation bilaterally Cardiovascular: No edema, Normal S1 S2 Musculoskeletal: Other (Multiple sutures on the left arm from recent lumpectomy for DVT evidence of infection) Assessment & Plan - Problems (Diagnosis) (1) Sepsis Current Visit: Yes Status: Acute Plan: Patient is 61 years of age admitted with possible sepsis he is doing very well white count is declining evidence of cellulitis CRP elevated blood cultures so far negative analysis is also normal no fever since admission blood pressure is stable chest x-ray clear unremarkable CT abdomen so far DC his antibiotics ambulate advance diet possible discharge patient does take prednisone at home history of [place]'s change to p.o. prednisone 10 mg twice a day stress dose ambulate Qualifiers: Sepsis type: sepsis due to unspecified organism Severe sepsis shock status: without septic shock
[2021-08-25] MEDS: SUCRALFATE 1 GM TABLET PO SCH ×4 (10:01→20:26)
[2021-08-25] MEDS: APIXABAN 5 MG TABLET PO SCH ×2 (10:01→20:26)
[2021-08-25] MEDS: predniSONE 10 MG TAB PO SCH (20:26)
[2021-08-26 05:39] LABS: Absolute Lymphocytes (CBC) 0.6 K/uL (0.7-4.9); Hematocrit 27.7 % (39.6-49.0); Lymphocytes % 8.3 % (15.3-44.8); MPV 6.5 fL (7.6-11.3); RBC Red Blood Cell Count 3.15 M/uL (4.33-5.43)
[2021-08-26] MEDS: APIXABAN 5 MG TABLET PO SCH ×2 (08:41→21:01)
[2021-08-26] MEDS: predniSONE 10 MG TAB PO SCH ×2 (08:41→21:01)
[2021-08-26] MEDS: SUCRALFATE 1 GM TABLET PO SCH ×4 (08:42→21:01)
--- NOTE | 2021-08-26 10:36 | P.DS ---
Admission Date: 08/23/21 Discharge Date: 08/26/21 Disposition: ROUTINE DISCHARGE Discharge Condition: GOOD Reason for Admission: Sepsis of unknown origin, NIKI Brief History of Present Illness: Patient is 61 years of age admitted with the diagnosis of presumed sepsis inflammatory parameters were elevated he was admitted with abdominal cramps denies any diarrhea Hospital Course: He did well during the course of his stay there is no evidence of sepsis patient recently had coronavirus infection developed thrombosis in his left arm and underwent a thrombectomy in [place] recently he still has stitches in his left forearm all his cultures were all negative the time of discharge he was alert oriented responsive cooperative denies any shortness of breath or abdominal complaints inflammatory parameters were elevated however his CT scan of the abdomen did not show any evidence of sepsis he is to resume all his home medications continue with his prednisone to follow-up with his primary care physician Vital Signs/Physical Exam: Temp Pulse Resp BP Pulse Ox 98.4 F 85 16 128/65 98 08/26/21 07:55 08/26/21 07:55 08/26/21 07:55 08/26/21 07:55 08/26/21 07:55 Laboratory Data at Discharge: WBC 7.40 K/uL (4.3-10.9) D 08/26/21 05:27 Hgb 9.6 g/dL (13.6-17.9) L 08/26/21 05:27 Hct 27.7 % (39.6-49.0) L 08/26/21 05:27 Plt Count 392 K/uL (152-406) 08/26/21 05:27 PT 16.0 SECONDS (9.5-12.5) H 08/23/21 12:55 INR 1.39 08/23/21 12:55 APTT 27.2 SECONDS (24.3-36.9) 08/23/21 12:55 Sodium 141 mmol/L (136-145) 08/25/21 05:20 Potassium 4.1 mmol/L (3.5-5.1) 08/25/21 05:20 BUN 12 mg/dL (7-18) 08/25/21 05:20 Creatinine 0.92 mg/dL (0.55-1.3) 08/25/21 05:20 Glucose 122 mg/dL (74-106) H 08/25/21 05:20 Magnesium 2.0 mg/dL (1.8-2.4) 08/25/21 05:20 Total Bilirubin 0.7 mg/dL (0.2-1.0) 08/25/21 05:20 AST 16 U/L (15-37) 08/25/21 05:20 ALT 31 U/L (12-78) 08/25/21 05:20 Alkaline Phosphatase 110 U/L (45-117) 08/25/21 05:20 Triglycerides 158 mg/dL (<150) H 08/24/21 06:44 Cholesterol 187 mg/dL (<200) 08/24/21 06:44 HDL Cholesterol 30 mg/dL (40-60) L 08/24/21 06:44 Cholesterol/HDL Ratio 6.23 08/24/21 06:44 Lipase 125 U/L (73-393) 08/23/21 12:55 Home Medications: Apixaban [Eliquis] 5 mg PO [id number] 08/24/21 Sucralfate [Carafate] 1 gm PO TID 08/24/21 predniSONE [Deltasone*] 10 mg PO DAILY 08/24/21 Physician Discharge Instructions: No new prescriptions patient is to follow-up with his primary care doctor in 1 or 2 weeks Diet: Regular Activity: Ad ahmet Followup: Marshall Birmingham MD [Primary Care Provider] -
[2021-08-27 05:45] LABS: Absolute Lymphocytes (CBC) 0.6 K/uL (0.7-4.9); Hematocrit 27.8 % (39.6-49.0); Lymphocytes % 9.9 % (15.3-44.8); RBC Red Blood Cell Count 3.19 M/uL (4.33-5.43)
[2021-08-27 06:00] LABS: ALT/SGPT 27 U/L (12-78); AST/SGOT 16 U/L (15-37); Albumin 2.6 g/dL (3.4-5.0); Alkaline Phosphatase 84 U/L (45-117); BUN Blood Urea Nitrogen 8 mg/dL (7-18); Bicarbonate 23 mmol/L (21-32); Bilirubin Total 0.5 mg/dL (0.2-1.0); Glucose Level 119 mg/dL (74-106); Magnesium 1.9 mg/dL (1.8-2.4); Potassium 3.7 mmol/L (3.5-5.1); Protein, Total 6.3 g/dL (6.4-8.2); Sodium Level 140 mmol/L (136-145)
[2021-08-27] MEDS ORDERED: APIXABAN 5 MG TABLET PO SCH (06:00)
[2021-08-27] MEDS: SUCRALFATE 1 GM TABLET PO SCH ×6 (08:00→22:13)
[2021-08-27] MEDS: predniSONE 10 MG TAB PO SCH ×2 (08:20→22:13)
[2021-08-27] MEDS: APIXABAN 5 MG TABLET PO SCH ×2 (08:20→22:13)
[2021-08-27] MEDS ORDERED: POTASSIUM 25 MEQ EFFERV TAB PO ONE (09:00)
[2021-08-27] MEDS ORDERED: predniSONE 10 MG TAB PO SCH (09:00)
--- NOTE | 2021-08-27 11:50 | P.DS ---
Admission Date: 08/23/21 Discharge Date: 08/27/21 Disposition: ROUTINE DISCHARGE Discharge Condition: GOOD Reason for Admission: Sepsis of unknown origin, NIKI Hospital Course: DR GARY TOOK CARE OF DISCHARGE. HE WAS SENT HOME YESTERDAY BUT HE SAID HAD NO MONEY AT HAND SO HE COULD NOT GO. HE WILL GO TODAY. HE LOOKS GOOD. HE HAS LARGE WOUND ON L UPPER LIMB FROM THROMBECTOMIES OF FOUR VESSELS. Vital Signs/Physical Exam: Temp Pulse Resp BP Pulse Ox 97.9 F 80 18 132/85 99 08/27/21 08:00 08/27/21 08:00 08/27/21 08:00 08/27/21 08:00 08/27/21 08:00 Laboratory Data at Discharge: WBC 6.30 K/uL (4.3-10.9) D 08/27/21 05:28 Hgb 9.6 g/dL (13.6-17.9) L 08/27/21 05:28 Hct 27.8 % (39.6-49.0) L 08/27/21 05:28 Plt Count 396 K/uL (152-406) 08/27/21 05:28 PT 16.0 SECONDS (9.5-12.5) H 08/23/21 12:55 INR 1.39 08/23/21 12:55 APTT 27.2 SECONDS (24.3-36.9) 08/23/21 12:55 Sodium 140 mmol/L (136-145) 08/27/21 05:28 Potassium 3.7 mmol/L (3.5-5.1) 08/27/21 05:28 BUN 8 mg/dL (7-18) 08/27/21 05:28 Creatinine 0.70 mg/dL (0.55-1.3) 08/27/21 05:28 Glucose 119 mg/dL (74-106) H 08/27/21 05:28 Magnesium 1.9 mg/dL (1.8-2.4) 08/27/21 05:28 Total Bilirubin 0.5 mg/dL (0.2-1.0) 08/27/21 05:28 AST 16 U/L (15-37) 08/27/21 05:28 ALT 27 U/L (12-78) 08/27/21 05:28 Alkaline Phosphatase 84 U/L (45-117) 08/27/21 05:28 Triglycerides 158 mg/dL (<150) H 08/24/21 06:44 Cholesterol 187 mg/dL (<200) 08/24/21 06:44 HDL Cholesterol 30 mg/dL (40-60) L 08/24/21 06:44 Cholesterol/HDL Ratio 6.23 08/24/21 06:44 Lipase 125 U/L (73-393) 08/23/21 12:55 Home Medications: Apixaban [Eliquis] 5 mg PO [id number] 08/24/21 Sucralfate [Carafate] 1 gm PO TID 08/24/21 predniSONE [Deltasone*] 10 mg PO DAILY 08/24/21 Physician Discharge Instructions: No new prescriptions patient is to follow-up with his primary care doctor in 1 or 2 weeks Diet: Regular Activity: Ad ahmet Followup: Marshall Birmingham MD [Primary Care Provider] -
--- NOTE | 2021-08-27 12:03 | P.PN ---
Subjective Date of Service: 08/27/21 Chief Complaint: Sepsis of unknown origin, NIKI Patient seen examined at bedside, clinically improving. WBC within normal range, afebrile. Patient denies any pain/nausea/vomiting/diarrhea. Left arm with bruising/swelling. Recommend sending patient on oral cephalexin for 5 days. Patient has follow-up with surgeon for suture/staple removal for this Friday. Review of Systems 10-point ROS is otherwise unremarkable Physical Examination - Vital Signs Temperature: 97.9 F Blood Pressure: 132/85 Pulse: 80 Respirations: 18 Pulse Ox (%): 99 - Studies Laboratory Last Values WBC 22.00 K/uL (4.3-10.9) H* 08/23/21 12:55 RBC 4.20 M/uL (4.33-5.43) L 08/23/21 12:55 Hgb 12.6 g/dL (13.6-17.9) L 08/23/21 12:55 Hct 37.3 % (39.6-49.0) L 08/23/21 12:55 MCV 88.8 fL (80-100) 08/23/21 12:55 MCH 30.1 pg (27.0-35.0) 08/23/21 12:55 MCHC 33.9 g/dL (32.0-36.0) 08/23/21 12:55 RDW 13.6 % (12.1-15.2) 08/23/21 12:55 Plt Count 730 K/uL (152-406) H 08/23/21 12:55 MPV 6.8 fL (7.6-11.3) L 08/23/21 12:55 Neutrophils % 91.5 % (41.7-73.7) H 08/23/21 12:55 Lymphocytes % 3.2 % (15.3-44.8) L 08/23/21 12:55 Monocytes % 4.5 % (3.3-12.3) 08/23/21 12:55 Eosinophils % 0.6 % (0-4.4) 08/23/21 12:55 Basophils % 0.2 % (0-1.3) 08/23/21 12:55 Absolute Neutrophils 20.2 K/uL (1.8-8.0) H 08/23/21 12:55 Segmented Neutrophils 87 % (40-80) H 08/23/21 12:55 Absolute Lymphocytes 0.7 K/uL (0.7-4.9) 08/23/21 12:55 Lymphocytes 8 % (15-42) L 08/23/21 12:55 Monocytes 5 % (0-10) 08/23/21 12:55 Absolute Monocytes 1.0 K/uL (0.1-1.3) 08/23/21 12:55 Absolute Eosinophils 0.1 K/uL (0-0.5) 08/23/21 12:55 Absolute Basophils 0.1 K/uL (0-0.5) 08/23/21 12:55 Platelet Estimate Incr 08/23/21 12:55 Morphology Comment Not seen (NOT SEEN) 08/23/21 12:55 PT 16.0 SECONDS (9.5-12.5) H 08/23/21 12:55 INR 1.39 08/23/21 12:55 APTT 27.2 SECONDS (24.3-36.9) 08/23/21 12:55 Sodium 139 mmol/L (136-145) 08/23/21 12:55 Potassium 3.9 mmol/L (3.5-5.1) 08/23/21 12:55 Chloride 105 mmol/L (98-107) 08/23/21 12:55 Carbon Dioxide 21 mmol/L (21-32) 08/23/21 12:55 BUN 24 mg/dL (7-18) H 08/23/21 12:55 Creatinine 1.59 mg/dL (0.55-1.3) H 08/23/21 12:55 Estimated GFR 44 mL/min (=/>90) L 08/23/21 12:55 Glucose 125 mg/dL (74-106) H 08/23/21 12:55 POC Glucose 105 mg/dL (65-120) 08/23/21 13:11 Lactic Acid 1.7 mmol/L (0.4-2.0) 08/23/21 14:15 Calcium 8.9 mg/dL (8.5-10.1) 08/23/21 12:55 Total Bilirubin 0.9 mg/dL (0.2-1.0) 08/23/21 12:55 Direct Bilirubin 0.3 mg/dL (0-0.2) H 08/23/21 12:55 AST 49 U/L (15-37) H 08/23/21 12:55 ALT 73 U/L (12-78) 08/23/21 12:55 Alkaline Phosphatase 177 U/L (45-117) H 08/23/21 12:55 Creatine Kinase 112 U/L (39-308) 08/23/21 12:55 Rapid Troponin I < 0.02 ng/mL (0.0-0.045) 08/23/21 12:55 Serum Total Protein 7.9 g/dL (6.4-8.2) 08/23/21 12:55 Albumin 3.2 g/dL (3.4-5.0) L 08/23/21 12:55 Globulin 4.7 g/dL (2.3-3.5) H 08/23/21 12:55 Albumin/Globulin Ratio 0.7 (1.1-1.8) L 08/23/21 12:55 Lipase 125 U/L (73-393) 08/23/21 12:55 Procalcitonin 0.15 ng/mL (<0.050) H 08/23/21 12:55 Urine pH 5.5 (5.0-7.0) 08/23/21 16:09 Ur Specific [place] 1.025 (1.005-1.030) 08/23/21 16:09 Glucose (UA)(Auto) 1+ (Negative) H 08/23/21 16:09 Urine Ketones 4+ (Negative) H 08/23/21 16:09 Urine Blood Trace-intact (Negative) H 08/23/21 16:09 Urine Nitrite Negative (Negative) 08/23/21 16:09 Ur Leukocyte Esterase Negative (Negative) 08/23/21 16:09 Urine RBC <5 /HPF (NONE SEEN) 08/23/21 16:00 Urine WBC <5 /HPF (<5) 08/23/21 16:00 Ur Squamous Epith Cells <5 /HPF (NONE SEEN) 08/23/21 16:00 Amorphous Sediment 1+ /HPF (NONE SEEN) 08/23/21 16:00 Urine Bacteria <20 /HPF (NONE SEEN) 08/23/21 16:00 Hyaline Casts 0-5 /LPF (NONE SEEN) 08/23/21 16:00 Urine Culture Reflexed Not needed 08/23/21 16:00 Urine Total Protein 1+ (Negative) H 08/23/21 16:09 SARS-CoV-2 Rap RNA(RT-PCR) Negative (NEGATIVE) 08/23/21 15:48 Assessment And Plan - Plan Physical exam: General: Alert, In no apparent distress HEENT: Atraumatic, Normocephalic Neck: Supple, Other (Right shoulder basal carcinoma: Central lesion with surrounding dry flaky skin.) Respiratory: Clear to auscultation bilaterally, Normal air movement Cardiovascular: Normal pulses, Regular rate/rhythm Integumentary: Other (Left forearm surgical incisions closed with sutures. The swelling/bruising noted to the lateral aspect of the arm. No active drainage or bleeding. No lymphatic streaking. Conclusions/Impression: Lines: Right groin central line Antibiotics: Zosyn Start: 08/24 Stop: 08/26 Assessment/plan Sepsis of unknown origin Patient septic on admission with tachycardia and leukocytosis. Blood cultures show no growth. Patient's only complaint is nausea/vomiting. Patient empirically started on IV Zosyn. CT abdomen/pelvis/abdomen CTA grossly benign, did show some distal esophagus inflammation. Recommend outpatient endoscopy. Of note patient is currently receiving chemotherapy, nausea and vomiting could be side effects. Patient also on chronic steroid therapy for prednisone which could influence WBC count. 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 Basal cell carcinoma Currently receiving chemotherapy. Leukocytosis with left shift Resolved. Left forearm incision status post fasciotomy Recommend cleaning area with Betadine and covering. Recommend sending patient home on oral cephalexin for 5 days. Has follow up with surgeon to remove mirta/sutures this Friday. The patient may need repeat imaging due to increased swelling. Anemia Continue to monitor H&H Protein caloric malnutrition: Moderate Recommend supplemental Ensure protein drinks -medical management per primary team -continue monitor CBC BMP -Continue monitor signs infection Plan of care discussed with Dr. Clemons Thank you for consultation. Physician Review Additional Text: Problem list Sepsis secondary to unknown etiology, possible esophagitis without septic shock Intractable nausea/vomiting Abdominal pain Sinus tachycardia Leukocytosis Kershaw's disease Recent acute arterial occlusion of left arm s/p fasciotomy/ ?embolectomy Patient previously had Covid in March of this year. He has had DVT since then 2 weeks ago with acute arterial occlusion of left arm, transfer to [facility], had a fasciotomy, patient unsure of what else was done, possible embolectomy Reports continued improvement of the left arm, no drainage, no worsening pain, no erythema/rashes 3 days of abdominal discomfort, crampy pain, with nausea/vomiting. Unable to keep much down. Unable to keep his medications down. 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
[2021-08-27] MEDS: AMOX/K CLAV 875 MG TAB PO SCH (22:13)
[2021-08-28 05:36] LABS: Absolute Lymphocytes (CBC) 0.7 K/uL (0.7-4.9); Hematocrit 31.3 % (39.6-49.0); Lymphocytes % 9.1 % (15.3-44.8); MPV 6.9 fL (7.6-11.3); RBC Red Blood Cell Count 3.57 M/uL (4.33-5.43)
[2021-08-28 05:49] LABS: BUN Blood Urea Nitrogen 14 mg/dL (7-18); Bicarbonate 26 mmol/L (21-32); Glucose Level 124 mg/dL (74-106); Potassium 3.9 mmol/L (3.5-5.1); Sodium Level 140 mmol/L (136-145)
[2021-08-28] MEDS ORDERED: POTASSIUM CL SA 10 MEQ TAB PO ONE (09:00)
[2021-08-28] MEDS: AMOX/K CLAV 875 MG TAB PO SCH (10:04)
[2021-08-28] MEDS: APIXABAN 5 MG TABLET PO SCH (10:04)
[2021-08-28] MEDS: SUCRALFATE 1 GM TABLET PO SCH (10:04)
[2021-08-28] MEDS: predniSONE 10 MG TAB PO SCH (10:04)
[2021-08-28 10:10] VITALS: BP 150/85; TEMP 98.1
--- NOTE | 2021-08-28 11:11 | P.PN ---
Subjective Date of Service: 08/28/21 Chief Complaint: Sepsis of unknown origin, NIKI Patient seen examined at bedside, internal medicine team transition patient to oral Augmentin. Agree with this recommendation, recommend continuing for 5 days. Review of Systems 10-point ROS is otherwise unremarkable Physical Examination - Vital Signs Temperature: 98.1 F Blood Pressure: 150/85 Pulse: 73 Respirations: 16 Pulse Ox (%): 100 - Studies Laboratory Last Values WBC 22.00 K/uL (4.3-10.9) H* 08/23/21 12:55 RBC 4.20 M/uL (4.33-5.43) L 08/23/21 12:55 Hgb 12.6 g/dL (13.6-17.9) L 08/23/21 12:55 Hct 37.3 % (39.6-49.0) L 08/23/21 12:55 MCV 88.8 fL (80-100) 08/23/21 12:55 MCH 30.1 pg (27.0-35.0) 08/23/21 12:55 MCHC 33.9 g/dL (32.0-36.0) 08/23/21 12:55 RDW 13.6 % (12.1-15.2) 08/23/21 12:55 Plt Count 730 K/uL (152-406) H 08/23/21 12:55 MPV 6.8 fL (7.6-11.3) L 08/23/21 12:55 Neutrophils % 91.5 % (41.7-73.7) H 08/23/21 12:55 Lymphocytes % 3.2 % (15.3-44.8) L 08/23/21 12:55 Monocytes % 4.5 % (3.3-12.3) 08/23/21 12:55 Eosinophils % 0.6 % (0-4.4) 08/23/21 12:55 Basophils % 0.2 % (0-1.3) 08/23/21 12:55 Absolute Neutrophils 20.2 K/uL (1.8-8.0) H 08/23/21 12:55 Segmented Neutrophils 87 % (40-80) H 08/23/21 12:55 Absolute Lymphocytes 0.7 K/uL (0.7-4.9) 08/23/21 12:55 Lymphocytes 8 % (15-42) L 08/23/21 12:55 Monocytes 5 % (0-10) 08/23/21 12:55 Absolute Monocytes 1.0 K/uL (0.1-1.3) 08/23/21 12:55 Absolute Eosinophils 0.1 K/uL (0-0.5) 08/23/21 12:55 Absolute Basophils 0.1 K/uL (0-0.5) 08/23/21 12:55 Platelet Estimate Incr 08/23/21 12:55 Morphology Comment Not seen (NOT SEEN) 08/23/21 12:55 PT 16.0 SECONDS (9.5-12.5) H 08/23/21 12:55 INR 1.39 08/23/21 12:55 APTT 27.2 SECONDS (24.3-36.9) 08/23/21 12:55 Sodium 139 mmol/L (136-145) 08/23/21 12:55 Potassium 3.9 mmol/L (3.5-5.1) 08/23/21 12:55 Chloride 105 mmol/L (98-107) 08/23/21 12:55 Carbon Dioxide 21 mmol/L (21-32) 08/23/21 12:55 BUN 24 mg/dL (7-18) H 08/23/21 12:55 Creatinine 1.59 mg/dL (0.55-1.3) H 08/23/21 12:55 Estimated GFR 44 mL/min (=/>90) L 08/23/21 12:55 Glucose 125 mg/dL (74-106) H 08/23/21 12:55 POC Glucose 105 mg/dL (65-120) 08/23/21 13:11 Lactic Acid 1.7 mmol/L (0.4-2.0) 08/23/21 14:15 Calcium 8.9 mg/dL (8.5-10.1) 08/23/21 12:55 Total Bilirubin 0.9 mg/dL (0.2-1.0) 08/23/21 12:55 Direct Bilirubin 0.3 mg/dL (0-0.2) H 08/23/21 12:55 AST 49 U/L (15-37) H 08/23/21 12:55 ALT 73 U/L (12-78) 08/23/21 12:55 Alkaline Phosphatase 177 U/L (45-117) H 08/23/21 12:55 Creatine Kinase 112 U/L (39-308) 08/23/21 12:55 Rapid Troponin I < 0.02 ng/mL (0.0-0.045) 08/23/21 12:55 Serum Total Protein 7.9 g/dL (6.4-8.2) 08/23/21 12:55 Albumin 3.2 g/dL (3.4-5.0) L 08/23/21 12:55 Globulin 4.7 g/dL (2.3-3.5) H 08/23/21 12:55 Albumin/Globulin Ratio 0.7 (1.1-1.8) L 08/23/21 12:55 Lipase 125 U/L (73-393) 08/23/21 12:55 Procalcitonin 0.15 ng/mL (<0.050) H 08/23/21 12:55 Urine pH 5.5 (5.0-7.0) 08/23/21 16:09 Ur Specific [place] 1.025 (1.005-1.030) 08/23/21 16:09 Glucose (UA)(Auto) 1+ (Negative) H 08/23/21 16:09 Urine Ketones 4+ (Negative) H 08/23/21 16:09 Urine Blood Trace-intact (Negative) H 08/23/21 16:09 Urine Nitrite Negative (Negative) 08/23/21 16:09 Ur Leukocyte Esterase Negative (Negative) 08/23/21 16:09 Urine RBC <5 /HPF (NONE SEEN) 08/23/21 16:00 Urine WBC <5 /HPF (<5) 08/23/21 16:00 Ur Squamous Epith Cells <5 /HPF (NONE SEEN) 08/23/21 16:00 Amorphous Sediment 1+ /HPF (NONE SEEN) 08/23/21 16:00 Urine Bacteria <20 /HPF (NONE SEEN) 08/23/21 16:00 Hyaline Casts 0-5 /LPF (NONE SEEN) 08/23/21 16:00 Urine Culture Reflexed Not needed 08/23/21 16:00 Urine Total Protein 1+ (Negative) H 08/23/21 16:09 SARS-CoV-2 Rap RNA(RT-PCR) Negative (NEGATIVE) 08/23/21 15:48 Assessment And Plan - Plan Physical exam: General: Alert, In no apparent distress HEENT: Atraumatic, Normocephalic Neck: Supple, Other (Right shoulder basal carcinoma: Central lesion with surrounding dry flaky skin.) Respiratory: Clear to auscultation bilaterally, Normal air movement Cardiovascular: Normal pulses, Regular rate/rhythm Integumentary: Other (Left forearm surgical incisions closed with sutures. Swelling/bruising noted to the lateral aspect of the arm. No active drainage or bleeding. No lymphatic streaking. Lines: Right groin central line Antibiotics: Zosyn Start: 08/24 Stop: 08/26 Augmetin start: 08/27 Assessment/plan Sepsis of unknown origin Patient septic on admission with tachycardia and leukocytosis. Blood cultures show no growth. Patient's only complaint is nausea/vomiting. Patient empirically started on IV Zosyn. CT abdomen/pelvis/abdomen CTA grossly benign, did show some distal esophagus inflammation. Recommend outpatient endoscopy. Of note patient is currently receiving chemotherapy, nausea and vomiting could be side effects. Patient also on chronic steroid therapy for prednisone which could influence WBC count. 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 Basal cell carcinoma Currently receiving chemotherapy. Leukocytosis with left shift Resolved. Left forearm incision status post fasciotomy Recommend cleaning area with Betadine and covering. Recommend sending patient home on oral Augmentin for 5 days. Has follow up with surgeon to remove mirta/sutures this Friday. The patient may need repeat imaging due to increased swelling. Cannot rule out infection. Anemia Continue to monitor H&H Protein caloric malnutrition: Moderate Recommend supplemental Ensure protein drinks -medical management per primary team -continue monitor CBC BMP -Continue monitor signs infection Plan of care discussed with Dr. Clemons Thank you for consultation.
--- NOTE | 2021-08-28 12:58 | P.DS ---
Admission Date: 08/23/21 Discharge Date: 08/28/21 Disposition: ROUTINE DISCHARGE Discharge Condition: GOOD Reason for Admission: Sepsis of unknown origin, NIKI Hospital Course: DR GARY TOOK CARE OF DISCHARGE. HE WAS SENT HOME YESTERDAY BUT HE SAID HAD NO MONEY AT HAND SO HE COULD NOT GO. HE WILL GO TODAY. HE LOOKS GOOD. HE HAS LARGE WOUND ON L UPPER LIMB FROM THROMBECTOMIES OF FOUR VESSELS. HE CAN GO HOME. HE IS STABLE. HE WILL TAKE ABX FOR 10 DAYS. I SUSPECT WITH WBC OF 29K AND LARGE HEALING SKIN WOUNDS HE WILL NEED ANTIBIOTICS FOR A FEW DAYS. Vital Signs/Physical Exam: Temp Pulse Resp BP Pulse Ox 98.1 F 73 16 150/85 H 100 08/28/21 11:10 08/28/21 11:10 08/28/21 11:10 08/28/21 11:10 08/28/21 11:10 Laboratory Data at Discharge: WBC 7.20 K/uL (4.3-10.9) D 08/28/21 05:15 Hgb 10.6 g/dL (13.6-17.9) L 08/28/21 05:15 Hct 31.3 % (39.6-49.0) L 08/28/21 05:15 Plt Count 438 K/uL (152-406) H 08/28/21 05:15 PT 16.0 SECONDS (9.5-12.5) H 08/23/21 12:55 INR 1.39 08/23/21 12:55 APTT 27.2 SECONDS (24.3-36.9) 08/23/21 12:55 Sodium 140 mmol/L (136-145) 08/28/21 05:15 Potassium 3.9 mmol/L (3.5-5.1) 08/28/21 05:15 BUN 14 mg/dL (7-18) 08/28/21 05:15 Creatinine 0.86 mg/dL (0.55-1.3) 08/28/21 05:15 Glucose 124 mg/dL (74-106) H 08/28/21 05:15 Magnesium 1.9 mg/dL (1.8-2.4) 08/27/21 05:28 Total Bilirubin 0.5 mg/dL (0.2-1.0) 08/27/21 05:28 AST 16 U/L (15-37) 08/27/21 05:28 ALT 27 U/L (12-78) 08/27/21 05:28 Alkaline Phosphatase 84 U/L (45-117) 08/27/21 05:28 Triglycerides 158 mg/dL (<150) H 08/24/21 06:44 Cholesterol 187 mg/dL (<200) 08/24/21 06:44 HDL Cholesterol 30 mg/dL (40-60) L 08/24/21 06:44 Cholesterol/HDL Ratio 6.23 08/24/21 06:44 Lipase 125 U/L (73-393) 08/23/21 12:55 Home Medications: Apixaban [Eliquis] 5 mg PO [id number] 08/24/21 Sucralfate [Carafate] 1 gm PO TID 08/24/21 predniSONE [Deltasone*] 10 mg PO DAILY 08/24/21 Amox/Clavulanate [Augmentin 875-125 Tab] 875 mg PO BID #20 tab 08/28/21 New Medications: Amox/Clavulanate [Augmentin 875-125 Tab] 875 mg PO BID #20 tab Physician Discharge Instructions: No new prescriptions patient is to follow-up with his primary care doctor in 1 or 2 weeks Diet: Regular Activity: Ad ahmet Followup: Marshall Birmingham MD [Primary Care Provider] - 1-2 Weeks (call to schedule an appointment )
== END 2021-08-28 14:59 | disposition home or self-care (01) | DRG 872 ==
LOC: ER 11:01 → ERHOLD 17:48 → 2ND 19:24
PROVIDERS: ADMIT Hospitalist; ATTEND Internal Medicine
DX: A41.9 Sepsis, unspecified organism (principal); N17.9 Acute kidney failure, unspecified; E27.1 Primary adrenocortical insufficiency; E44.0 Moderate protein-calorie malnutrition; L03.90 Cellulitis, unspecified; R65.20 Severe sepsis without septic shock; K20.90 Esophagitis, unspecified without bleeding; C44.91 Basal cell carcinoma of skin, unspecified; D64.9 Anemia, unspecified; C44.90 Unspecified malignant neoplasm of skin, unspecified; E86.0 Dehydration; Z86.718 Personal history of other venous thrombosis and embolism; Z79.01 Long term (current) use of anticoagulants; Z86.16 Personal history of COVID-19; Z79.899 Other long term (current) drug therapy; Z79.52 Long term (current) use of systemic steroids; Z68.25 Body mass index [BMI] 25.0-25.9, adult; Z20.822 Contact with and (suspected) exposure to COVID-19
CPT/HCPCS: 36415; 71045; 74175; 74176; 80048; 80053; 80061; 80076; 81003; 81015; 82550; 82947; 83605; 83690; 83735; 84132; 84145; 84439; 84443; 84484; 85025; 85610; 85652; 85730; 86140; 87040; 93005; 97116; 97161; 99285; C9113; J0692; J1720; J2405; J2543; J3370; J7030; J7050; J7512; Q9967; U0003

== ENCOUNTER 2024-01-05 08:30 | Observation (INO) | payer OTHER ==
[2024-01-05] MEDS ORDERED: NA CHLORIDE 0.9% 2,000 ML ONE (09:23)
[2024-01-05 09:53] LABS: Absolute Eosinophils 0.1 K/uL (0-0.5); Absolute Lymphocytes (CBC) 1.1 K/uL (0.7-4.9); Absolute Monocytes 1.1 K/uL (0.1-1.3); Absolute Neutrophil 12.3 K/uL (1.8-8.0); Basophils % 0.1 % (0-1.3); Eosinophils % 0.7 % (0-4.4); Hematocrit 50.8 % (39.6-49.0); Hemoglobin 17.1 g/dL (13.6-17.9); Lymphocytes % 7.6 % (15.3-44.8); MCH 30.9 pg (27.0-35.0); MCHC 33.6 g/dL (32.0-36.0); MCV 91.9 fL (80-100); MPV 7.2 fL (7.6-11.3); Monocytes % 7.6 % (3.3-12.3); Nucleated RBC Absolute Count 0.1 (0-0); Nucleated Red Blood Cells % 0.7 % (0-0); Platelets 325 thou/uL (152-406); RBC Red Blood Cell Count 5.53 M/uL (4.33-5.43); Red Cell Distribution Width 12.8 % (12.1-15.2)
[2024-01-05 10:15] LABS: Albumin 3.8 g/dL (3.4-5.0); Albumin/Globulin Ratio 0.8 (1.1-1.8); Anion Gap 12.8 mEq/L (5.0-15.0); Bilirubin Total 1.7 mg/dL (0.2-1.0); Globulin 4.8 g/dL (2.3-3.5); Potassium 3.8 mEq/L (3.5-5.1); Protein, Total 8.6 g/dL (6.4-8.2); Troponin High Sensitivity 5.9 pg/mL (<58.9)
[2024-01-05] MEDS ORDERED: METRONIDAZOLE 500mg IVPB 500 MG/100 ML BAG IV ONE (10:17)
[2024-01-05] MEDS ORDERED: CEFTRIAXONE 1000 MG/VIAL ONE (10:17)
[2024-01-05] MEDS ORDERED: NA CHLORIDE 0.9% 50 ML ONE (10:17)
--- NOTE | 2024-01-05 11:02 | RAD REPORT ---
EXAM DESCRIPTION: CT - Abdomen Pelvis W Contrast - 01/05/2024 10:43 am CLINICAL HISTORY: Abdominal pain COMPARISON: 2020 TECHNIQUE: Computed axial tomography of the abdomen pelvis was obtained. 100 cc Isovue-300 was admin istered intravenously. Oral contrast was not requested which limits evaluation of bowel and appendix All CT scans are performed using dose optimization technique as appropriate and may include automated exposure control or mA/KV adjustment according to patient size. FINDINGS: A cholecystectomy. The liver, spleen, pancreas, adrenal and kidneys appear unremarkable. There is no evidence of diverticulitis. No ascites. Mild thickening of the wall of the distal esophagus IMPRESSION: Mild thickening of the wall of the distal esophagus could be secondary to incomplete dis tention or inflammation
--- NOTE | 2024-01-05 11:33 | RAD REPORT ---
EXAM DESCRIPTION: US - Abdomen Exam Limited - 01/05/2024 11:20 am CLINICAL HISTORY: Abdominal pain. COMPARISON: CT abdomen January 05, 2024 FINDINGS: Cholecystectomy. The biliary tree is normal caliber. IMPRESSION: Cholecystectomy Unremarkable exam
[2024-01-05 11:50] LABS: PTT, Activated Partial Thromb 34.1 SECONDS (24.3-36.9); Protime INR 1.28
--- NOTE | 2024-01-05 12:04 | ER ---
Nurse's Notes [facility] Name: Patrick Sweeney Age: 63 yrs Sex: Male : 1960 Arrival Date: 01/05/2024 Time: 08:30 Bed 20 Private MD: Diagnosis: Noninfective gastroenteritis and colitis, unspecified Presentation: 01/04 08:40 Acuity: RONNIE 2 aa5 08:40 Coronavirus screen: vomiting. Ebola Screen: Patient denies travel to an Ebola-affected [facility] area in the 21 days before illness onset. Initial Sepsis Screen: Does the patient meet any 2 criteria? HR > 90 bpm. Does the patient have a suspected source of infection? No. Patient's initial sepsis screen is negative. Risk Assessment: Do you want to hurt yourself or someone else? Patient reports no desire to harm self or others. Onset of symptoms was December 2023. 08:40 Method Of Arrival: Wheelchair aa 08:40 Chief complaint: Patient states: vomiting x 3 days ago. Pt's family reports pt is aa5 uncompliant with Clarendon's treatment. 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 - Infectious Disease History:: Denies. - Social history:: Smoking status: unknown. Screenin:47 [facility] ED Fall Risk Assessment (Adult) History of falling in the last 3 months, nj1 including since admission No falls in past 3 months (0 pts) Confusion or Disorientation No (0 pts) Intoxicated or Sedated No (0 pts) Impaired Gait No (0 pts) Mobility Assist Device Used No (0 pt) Altered Elimination No (0 pt) Score/Fall Risk Level 0 - 2 = Low Risk Oriented to surroundings, Maintained a safe environment, Hourly rounding (assess needs \T\ fall precautionary measures) done. Abuse screen: Denies threats or abuse. Denies injuries from another. Nutritional screening: No deficits noted. Tuberculosis screening: No symptoms or risk factors identified. Assessment: 09:35 General: Appears in no apparent distress. comfortable, Behavior is calm, cooperative, nj1 appropriate for age. 09:35 Pain: Denies pain. Neuro: Level of Consciousness is awake, alert, obeys commands, nj1 Oriented to person, place, time, situation. Cardiovascular: Patient's skin is warm and dry. Respiratory: Airway is patent Respiratory effort is even, unlabored. GI: Reports nausea, vomiting. 10:45 Reassessment: Patient appears in no apparent distress at this time. Patient and/or nj1 family updated on plan of care and expected duration. Pain level reassessed. Patient is alert, oriented x 3, equal unlabored respirations, skin warm/dry/pink. 11:26 Reassessment: Not in room, in imaging. nj1 11:37 Reassessment: Patient appears in no apparent distress at this time. Patient and/or nj1 family updated on plan of care and expected duration. Pain level reassessed. Patient is alert, oriented x 3, equal unlabored respirations, skin warm/dry/pink. 12:55 Reassessment: Patient appears in no apparent distress at this time. Patient and/or nj1 family updated on plan of care and expected duration. Pain level reassessed. Patient is alert, oriented x 3, equal unlabored respirations, skin warm/dry/pink. 13:30 Reassessment: Patient appears in no apparent distress at this time. Patient and/or nj1 family updated on plan of care and expected duration. Pain level reassessed. Patient is alert, oriented x 3, equal unlabored respirations, skin warm/dry/pink. Patient denies pain at this time. Vital Signs: 08:40 BP 156 / 94; Pulse 116; Resp 18 S; Temp 98.4(O); Pulse Ox 98% on R/A; Weight 94.8 kg aa5 (R); Height 5 ft. 11 in. (R); 09:58 Pulse 123; Resp 23; Pulse Ox 97% on R/A; nj1 10:45 BP 151 / 73; Pulse 111; Resp 24; Pulse Ox 99% on R/A; nj1 11:00 BP 151 / 73; Pulse 115; ec2 11:36 BP 151 / 73; Pulse 113; Resp 24; Pulse Ox 97% ; nj1 12:15 BP 147 / 82; Pulse 102; Resp 21; Pulse Ox 97% on R/A; nj1 13:30 BP 132 / 75; Pulse 107; Resp 25; Pulse Ox 98% on R/A; nj1 08:40 Body Mass Index 29.15 (94.80 kg, 180.34 cm) aa5 ED Course: 08:32 Patient arrived in ED. im 08:32 Porfirio Frazier MD is Attending Physician. ec2 08:40 Arm band placed on. aa5 08:41 Susie Stratton, RN is Primary Nurse. nj1 08:59 Triage completed. aa5 09:37 Inserted saline lock: 20 gauge in right forearm, using aseptic technique. Blood nj1 collected. Ultrasound guided. Catheter tip well visualized within vasculature during placement. 09:40 Patient has correct armband on for positive identification. Bed in low position. Call nj1 light in reach. Provided Education on: call light, fall precautions. 09:50 Client placed on continuous cardiac and pulse oximetry monitoring. NIBP monitoring nj1 applied. manager monitoring on. 10:44 CT Abd/Pelvis - IV Contrast Only In Process Unspecified. EDMS 11:22 US Abdomen Limited In Process Unspecified. EDMS 12:04 Marshall Birmingham MD is Hospitalizing Provider. ec2 Administered Medications: 09:40 Drug: NS 0.9% IV 1000 ml IV at 1 bolus Per protocol; 1000 mL bolus Route: IV; Rate: 1 nj1 bolus; Site: right forearm; 11:40 Follow up: Response: No adverse reaction; IV Status: Completed infusion; IV Intake: nj1 1000ml 09:40 Drug: Droperidol IVP 1.25 mg IVP once Route: IVP; Site: right forearm; nj1 12:10 Follow up: Response: No adverse reaction; Nausea is decreased nj1 09:40 Drug: NS 0.9% IV 1000 ml IV at 1 bolus Per protocol; 1000 mL bolus Route: IV; Rate: 1 nj1 bolus; Site: right forearm; 12:30 Follow up: Response: No adverse reaction; IV Status: Completed infusion; IV Intake: nj1 1000ml 11:40 Drug: Rocephin IV 1 grams IV at calculated rate once; Given slow IV push per pharmacy nj1 instructions Route: IV; Rate: calculated rate; Site: right forearm; 11:55 Follow up: Response: No adverse reaction; IV Status: Completed infusion; IV Intake: [id number] 11:40 Drug: metroNIDAZOLE IVPB 500 mg 100 ml IVPB at 200 ml/hr once over 30 mins Volume: 100 nj1 ml; Route: IVPB; Rate: 200 ml/hr; Infused Over: 30 mins; Site: right forearm; 12:10 Follow up: Response: No adverse reaction; IV Status: Completed infusion; IV Intake: nj1 100ml 12:30 Drug: NS 0.9% IV 2000 ml IV at 1 bolus Per protocol; 1000 mL bolus Route: IV; Rate: 1 nj1 bolus; Site: right forearm; 12:59 Drug: Solu-CORTEF IVP 50 mg IVP once Route: IVP; Site: right forearm; nj1 Intake: 11:40 IV: 1000ml; Total: 1000ml. nj1 11:55 IV: 50ml; Total: 1050ml. nj1 12:10 IV: 100ml; Total: 1150ml. nj1 12:30 IV: 1000ml; Total: 2150ml. nj1 Outcome: 12:04 Decision to Hospitalize by Provider. ec2 14:45 Patient left the ED. rs5 Signatures: Dispatcher [employer] EDTiara Santiago RN RN aa5 Jarrell Ulrich RN RN rs5 Susie Stratton RN RN nj1 Savannah Krueger Edwin, MD MD ec2 Corrections: (The following items were deleted from the chart) 09:00 08:40 Allergies: NKDA; aa5 aa5 09:03 08:40 Initial Sepsis Screen: Does the patient meet any 2 criteria? No. Patient's aa5 initial sepsis screen is negative. Does the patient have a suspected source of infection? No. Patient's initial sepsis screen is negative. aa5 09:03 08:40 Chief complaint: Patient states: vomiting x 3 days ago aa5 aa5 09:52 09:37 Inserted saline lock: 20 gauge in right forearm, using aseptic technique. Blood nj1 collected. nj1
--- NOTE | 2024-01-05 12:05 | EDPHYS ---
Physician Documentation [facility] Name: Patrick Sweeney Age: 63 yrs Sex: Male : 1960 Arrival Date: 01/05/2024 Time: 08:30 Bed 20 Private MD: ED Physician Porfirio Frazier HPI: 01/04 08:58 This 63 yrs old Male presents to ER via Unassigned with complaints of ec2 Vomiting. 08:58 Patient arrives today for evaluation of nausea and vomiting. Patient reports he is ec2 experiencing several days of nausea and vomiting, states he is having difficulty keeping food and fluids down. Patient reports no abdominal pain. Denies any urinary discomfort. Patient reports previous abdominal surgeries of cholecystectomy. Patient reports no cough or cold symptoms, no fevers or chills. Patient reports no urinary complaints. Denies chest pain or difficulty breathing. 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 Historical: - Allergies: 08:40 No Known Allergies; aa5 - PMHx: 08:40 [place]'s disease; basil cell carcinoma; DVT; aa5 - PSHx: 08:40 Left arm thrombus removed; Cholecystectomy; aa5 - Immunization history:: Adult Immunizations unknown. - Infectious Disease History:: Denies. - Social history:: Smoking status: unknown. ROS: 08:58 Constitutional: as per hpi ec2 Exam: 08:58 Constitutional: GEN: NAD Head: atraumatic Eyes: EOMI Ears: External ears are ec2 normal. CV: Tachycardia LUNGS: no respiratory distress ABD: non-distended, soft, nontender, no guarding, not rigid SKIN: no evidence of rashes MSK: no evidence of trauma NEURO: moves all extremities equally Vital Signs: 08:40 BP 156 / 94; Pulse 116; Resp 18 S; Temp 98.4(O); Pulse Ox 98% on R/A; Weight 94.8 kg aa5 (R); Height 5 ft. 11 in. (R); 09:58 Pulse 123; Resp 23; Pulse Ox 97% on R/A; nj1 10:45 BP 151 / 73; Pulse 111; Resp 24; Pulse Ox 99% on R/A; nj1 11:00 BP 151 / 73; Pulse 115; ec2 11:36 BP 151 / 73; Pulse 113; Resp 24; Pulse Ox 97% ; nj1 12:15 BP 147 / 82; Pulse 102; Resp 21; Pulse Ox 97% on R/A; nj1 13:30 BP 132 / 75; Pulse 107; Resp 25; Pulse Ox 98% on R/A; nj1 08:40 Body Mass Index 29.15 (94.80 kg, 180.34 cm) aa5 MDM: 08:47 Patient medically screened. ec2 08:58 Data reviewed: vital signs. ED course: Patient arrives today for evaluation of nausea ec2 and vomiting. Examination remarkable for tachycardia otherwise reassuring abdominal examination. Will obtain lab work, urine studies, CT imaging. Evaluating for acute intra-abdominal pathology, electrolyte disturbances, dehydration.. 09:20 ED course: EKG independently reviewed and interpreted by me, shows sinus tachycardia, ec2 rate 123, no acute ST segment elevations, intervals are nonconcerning.. 10:17 ED course: Metabolic profile shows appropriate electrolytes, slightly diminished GFR at ec2 74, slightly elevated T. bili at 1.7. Lipase within normal ranges. Troponin is within normal ranges. Patient does meet SIRS criteria with tachycardia and leukocytosis however no identifiable infectious process at this time. Patient with history of cholecystectomy. . 11:05 ED course: CT imaging shows esophagitis. . ec2 12:01 ED course: Ultrasound shows unremarkable examination. Lactate elevated at 2.7. Will ec2 give 30 cc/kg fluid bolus. Will admit for abdominal pain, nausea and vomiting. . 12:13 ED course: I discussed case with Dr. Birmingham who will admit this patient.. ec2 01/04 08:58 Order name: CBC with Diff; Complete Time: 10:08 ec2 01/04 08:58 Order name: CMP; Complete Time: 10:17 ec2 01/04 08:58 Order name: Lipase; Complete Time: 10:17 ec2 01/04 08:58 Order name: Troponin High Sensitivity; Complete Time: 10:17 ec2 01/04 10:08 Order name: Blood Culture Adult (2) ec2 01/04 10:08 Order name: Lactate w/ 2H reflex if indic.; Complete Time: 12:00 ec2 01/04 10:08 Order name: Protime (+inr); Complete Time: 12:00 ec2 01/04 10:08 Order name: Ptt, Activated; Complete Time: 12:00 ec2 01/04 08:58 Order name: CT Abd/Pelvis - IV Contrast Only; Complete Time: 11:04 ec2 01/04 11:07 Order name: US Abdomen Limited; Complete Time: 12:00 ec2 01/04 10:08 Order name: EKG; Complete Time: 10:09 ec2 01/04 08:58 Order name: IV Saline Lock; Complete Time: 09:58 ec2 01/04 08:58 Order name: Labs collected and sent; Complete Time: 09:58 ec2 01/04 08:58 Order name: EKG - Nurse/Tech; Complete Time: 09:19 ec2 01/04 10:08 Order name: Accucheck; Complete Time: 10:10 ec2 01/04 10:08 Order name: Cardiac monitoring; Complete Time: 10:10 ec2 01/04 10:08 Order name: IV Saline Lock - Large Bore; Complete Time: 10:10 ec2 01/04 10:08 Order name: O2 Per Protocol; Complete Time: 10:10 ec2 01/04 10:08 Order name: O2 Sat Monitoring; Complete Time: 10:10 ec2 01/04 10:08 Order name: Vital Signs; Complete Time: 10:45 ec2 Administered Medications: 09:40 Drug: NS 0.9% IV 1000 ml IV at 1 bolus Per protocol; 1000 mL bolus Route: IV; Rate: 1 nj1 bolus; Site: right forearm; 11:40 Follow up: Response: No adverse reaction; IV Status: Completed infusion; IV Intake: nj1 1000ml 09:40 Drug: Droperidol IVP 1.25 mg IVP once Route: IVP; Site: right forearm; nj1 12:10 Follow up: Response: No adverse reaction; Nausea is decreased nj1 09:40 Drug: NS 0.9% IV 1000 ml IV at 1 bolus Per protocol; 1000 mL bolus Route: IV; Rate: 1 nj1 bolus; Site: right forearm; 12:30 Follow up: Response: No adverse reaction; IV Status: Completed infusion; IV Intake: nj1 1000ml 11:40 Drug: Rocephin IV 1 grams IV at calculated rate once; Given slow IV push per pharmacy nj1 instructions Route: IV; Rate: calculated rate; Site: right forearm; 11:55 Follow up: Response: No adverse reaction; IV Status: Completed infusion; IV Intake: [id number] 11:40 Drug: metroNIDAZOLE IVPB 500 mg 100 ml IVPB at 200 ml/hr once over 30 mins Volume: 100 nj1 ml; Route: IVPB; Rate: 200 ml/hr; Infused Over: 30 mins; Site: right forearm; 12:10 Follow up: Response: No adverse reaction; IV Status: Completed infusion; IV Intake: nj1 100ml 12:30 Drug: NS 0.9% IV 2000 ml IV at 1 bolus Per protocol; 1000 mL bolus Route: IV; Rate: 1 nj1 bolus; Site: right forearm; 12:59 Drug: Solu-CORTEF IVP 50 mg IVP once Route: IVP; Site: right forearm; nj1 Disposition Summary: 01/05/24 12:04 Hospitalization Ordered Notes: Hospitalization Status: Inpatient Admission ec2 Provider: Marshall Birmingham ec2 Location: Telemetry/MedSurg (Inpatient) ec2 Condition: Stable ec2 Problem: new ec2 Symptoms: have improved ec2 Bed/Room Type: Standard ec2 Room Assignment: 216(01/05/24 13:28) bd Diagnosis - Noninfective gastroenteritis and colitis, unspecified ec2 Forms: - Medication Reconciliation Form ec2 - SBAR form ec2 - Leadership Thank You Letter ec2 Signatures: Dispatcher [employer] EDMS Michelle Hernandez Audri, RN RN aa5 Susie Stratton RN RN nj1 Porfirio Frazier MD MD ec2 Corrections: (The following items were deleted from the chart) 09:00 08:40 Allergies: NKDA; aa5 aa5 10:18 10:17 ED course: Metabolic profile shows appropriate electrolytes, slightly diminished ec2 GFR at 74, slightly elevated T. bili at 1.7. Lipase within normal ranges. Troponin is within normal ranges. Patient does meet SIRS criteria with tachycardia and leukocytosis however no identifiable infectious process at this time. Will add also add on ultrasound of the right upper quadrant to evaluate for gallbladder pathology. . ec2 11:06 10:17 ED course: Metabolic profile shows appropriate electrolytes, slightly diminished ec2 GFR at 74, slightly elevated T. bili at 1.7. Lipase within normal ranges. Troponin is within normal ranges. Patient does meet SIRS criteria with tachycardia and leukocytosis however no identifiable infectious process at this time. Patient with history of cholecystectomy. . ec2 11:08 11:07 Abdomen Limited+[id number] ordered. EDMS EDMS 13:28 12:04 ec2 bd
[2024-01-05] MEDS ORDERED: NA CHLORIDE 0.9% 1,000 ML ONE (12:06)
[2024-01-05] MEDS ORDERED: ONDANSETRON 4 MG/2 ML VIAL IV PRN (12:08)
[2024-01-05] MEDS ORDERED: HYDROCORTISONE SUC 100 MG INJ ONE (12:52)
--- NOTE | 2024-01-05 12:54 | P.SSS ---
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 HE COMES WITH GI SS ABOVE FOR 3 DAYS AND HAS HYPOTENSION WITH TACHYCARDIA. IV FULIDS HELPED. I ASKED ER MD TO GIVE HIM STRESS DOSE OF STEROIDS. HE HAS NO ABDOMEN PAIN. Allergies No Known Allergies Allergy (Verified 07/06/20 20:39) Home medications list reviewed: Yes Home Medications: Apixaban [Eliquis] 5 mg PO [id number] 08/24/21 Sucralfate [Carafate] 1 gm PO TID 08/24/21 predniSONE [Deltasone*] 10 mg PO DAILY 08/24/21 Amox/Clavulanate [Augmentin 875-125 Tab] 875 mg PO BID #20 tab 08/28/21 - Past Medical/Surgical History Diabetic: No -: Basal cell carcinoma -: [place]'s disease -: DVT, left arm arterial occlusion -: cholecystectomy 12/09 -: EGD on 12/20 - Social History Alcohol use: No CD- Drugs: No Caffeine use: No Review of Systems 10-point ROS is otherwise unremarkable General: Weakness Physical Examination - Physical Exam General: Mild distress HEENT: Atraumatic, PERRLA, Mucous membr. moist/pink, EOMI, Sclerae nonicteric Neck: Supple, 2+ carotid pulse no bruit, No LAD, Without JVD or thyroid abnormality Respiratory: Clear to auscultation bilaterally, Normal air movement Cardiovascular: Regular rate/rhythm, Normal S1 S2 Gastrointestinal: Normal bowel sounds, No tenderness Musculoskeletal: No tenderness Integumentary: No rashes Neurological: Normal gait, Normal speech, Normal strength at 5/5 x4 extr, Normal tone, Normal affect Lymphatics: No axilla or inguinal lymphadenopathy - Studies Laboratory Data (last 24 hrs) 01/05/24 01/05/24 01/05/24 11:00 09:37 09:37 WBC 14.60 H Hgb 17.1 Hct 50.8 H Plt Count 325 PT 14.0 H INR 1.28 APTT 34.1 Sodium 136 Potassium 3.8 BUN 22 H Creatinine 1.12 Glucose 108 H Total Bilirubin 1.7 H AST 25 ALT 32 Alkaline Phosphatase 76 Lipase 40 - Diagnosis (Problem(s)) (1) Viral gastroenteritis Current Visit: Yes Status: Acute Plan: THIS IS NOT MAJOR WBC ELEVATION IS FROM STEROIDS. MOST LIKELY WILL NOT NEED ANTIBIOTIC. ESOPHAGEAL INFLAMMATION SEEMS BENIGN. (2) Addisonian crisis Current Visit: Yes Status: Acute Plan: STRESS DOSE OF STEROIDS IV ORAL LATER LIFE TIME ON STEROIDS. - Disposition Disposition: ROUTINE DISCHARGE
[2024-01-05] MEDS: HYDROCORTISONE SUC 100 MG INJ IV SCH ×2 (13:00→18:12)
--- NOTE | 2024-01-05 14:36 | EKG ---
Test Date: 2024-01-05 Test Time: 09:18:35 [employer]iculture Teacher: MATEO MEASUREMENT RESULTS: Intervals: Rate: 123 VA: 158 QRSD: 78 QT: 306 QTc: 438 [place]: P: 62 VA: 158 QRS: 59 T: 40 INTERPRETIVE STATEMENTS: Sinus tachycardia Cannot rule out Anterior infarct, age undetermined Abnormal ECG Compared to ECG 08/23/2021 12:06:17 Myocardial infarct finding now present Electronically Signed On 01-05-24 14:36:00 CDT by Doc Wasserman
[2024-01-05 14:50] VITALS: O2SAT 98
[2024-01-05] MEDS: NACHLORIDE 0.45% 1,000 ML IV SCH (15:15)
[2024-01-05 15:24] VITALS: BMI 29.1
[2024-01-06 08:54] VITALS: BP 124/66; TEMP 97.9
== END 2024-01-06 10:39 | disposition home or self-care (01) ==
LOC: ER 08:30 → INTOOBSV 12:08 → ERHOLD 12:08 → 2ND 13:56
PROVIDERS: ADMIT Internal Medicine; ATTEND Internal Medicine
DX: K52.9 Noninfective gastroenteritis and colitis, unspecified (principal); E27.2 Addisonian crisis; I95.9 Hypotension, unspecified; R00.0 Tachycardia, unspecified
CPT/HCPCS: 96365; 96361; 93005; 87040 ×2; 85025; 36415; 85610; 83605 ×2; 85730; 84484; 83690; 80053; 74177; 76705; 96375; 99285; Q9967; J1720 ×4; J7030 ×2; J0696; G0378 ×4